=== PATIENT | female | born 1945 | race Caucasian/White ===

== ENCOUNTER 2023-07-17 15:35 | Outpatient (RCR) | payer MEDICARE, BC, SELFPAY | END 2023-07-17 23:59 | disposition home or self-care (01) | LOC: ROT 15:35 | PROVIDERS: ATTENDING PHYSICIAN Psychiatry & Neurology Neurology; FAMILY PHYSICIAN Internal Medicine | DX: G20.A1 Parkinson's disease without dyskinesia, without mention of fluctuations (principal); Z73.6 Limitation of activities due to disability | CPT/HCPCS: 97110; 97112; 97116; 97162; 97167; 97530 ==

== ENCOUNTER 2023-08-01 14:29 | Outpatient (RCR) | payer MEDICARE, BC, SELFPAY | END 2023-08-01 23:59 | disposition home or self-care (01) | LOC: ROT 14:29 | PROVIDERS: ATTENDING PHYSICIAN Psychiatry & Neurology Neurology; FAMILY PHYSICIAN Internal Medicine | DX: G20.C Parkinsonism, unspecified (principal); Z73.6 Limitation of activities due to disability | CPT/HCPCS: 97110; 97112; 97530; 97535 ==

== ENCOUNTER → 2023-08-08 09:07 | Day surgery (SDC) | payer MEDICARE, BC, SELFPAY | LOC: CATH 09:07 | PROVIDERS: ATTENDING PHYSICIAN Internal Medicine Cardiovascular Disease; FAMILY PHYSICIAN Internal Medicine | DX: I48.0 Paroxysmal atrial fibrillation (principal); Z53.09 Procedure and treatment not carried out because of other contraindication; E03.9 Hypothyroidism, unspecified; K21.9 Gastro-esophageal reflux disease without esophagitis; Z79.01 Long term (current) use of anticoagulants | CPT/HCPCS: 93005 ==

== ENCOUNTER 2023-08-19 18:08 | Inpatient (IN) | payer MEDICARE, BC, SELFPAY ==
[2023-08-19] VITALS (16 sets, daily range): BP systolic 83–170; BP diastolic 61–115; BMI 21.0; BMI 19.9
--- NOTE | 2023-08-19 11:40 | ED.GENMED ---
History of Present Illness
<Kip Crowe PA-C - Last Filed: 08/19/23 18:03>
General
Chief Complaint: Chest Pain
Time Seen by Provider: 08/19/23 11:18
Travel History
Have you had any contact with someone who has COVID-19?: No
Do you have any symptoms of coronavirus? Fever > 100 degrees, chills, cough, shortness of breath, sore throat, loss of taste or smell, muscle aches, or headache?: No
History of Present Illness
History of Present Illness:
78-year-old female with history of A-fib/a flutter on Eliquis presents to the emergency department for evaluation of shortness of breath and heart palpitations ongoing intermittently for the past 2 weeks. She saw her director environmental on August 06 and
was noted to be in an atrial tachycardia versus atrial flutter and scheduled for cardioversion however when she arrived to the cardioversion on the she was normal sinus rhythm. She states that her symptoms recurred 3 days ago. She is short of
breath with exertion. Denies any chest pain, fevers but does have occasional sweats particular with exertion. She has been compliant with her meds, currently maintained on dofetilide as well as atenolol and Eliquis.
Past History
<Kip Crowe PA-C - Last Filed: 08/19/23 18:03>
Past History
ED Past Medical History: Arrthythmia (PAT), GERD, HTN, Hypothyroidism and Psychiatric (History of anxiety and depression)
ED Past Surgical History: Other (History of splenectomy, , tonsillectomy)
Patient has exhibited threatening behavior?: No
PSI?: No
Social History
Tobacco: Non-smoker
Alcohol: None
Drug: None
Personal:
Living: alone
Employment: Retired
Review of Systems
<Kip Crowe PA-C - Last Filed: 08/19/23 18:03>
Review of Systems
Allergies reviewed?: Yes
All Other Systems: ROS reviewed and negative except as documented in HPI and ROS
Phy Exam
<Kip Crowe PA-C - Last Filed: 08/19/23 18:03>
Physical Exam
Physical Exam:
GEN: Well appearing, NAD, WDWN
Eyes: PERRLA, EOMs intact, no scleral icterus
HENT: NCAT, oral mucosa moist
Lungs: CTAB, no wheezes, rales, rhonchi, normal chest wall excursion
Cardiac: Tachycardic, regular, no murmur
Neuro: AO x 3
MSK: No gross deformity or ecchymosis
Skin: No rashes, petechiae. Normal color, no pallor or jaundice.
Psych: Calm, cooperative, proper hygiene
Scores
<Kip Crowe PA-C - Last Filed: 08/19/23 18:03>
Heart Score for Chest Pain Patients
STEMI patient?: Not applicable
Course
<Kip Crowe PA-C - Last Filed: 08/19/23 18:03>
Orders/Labs/Results
Orders:
Orders
08/19/23 Breakfast
Cholesterol Lowering
At Your Request: Full Participation
08/19/23 10:42
Electrocardiogram (*1) Urgent
Reason for Study: Atrial Fibrillation
08/19/23 10:43
EKG- Treatment ONCE
08/19/23 11:49
Basic Metabolic Panel Urgent
Complete Blood Count/With Diff Urgent
Free T4 Urgent
TSH Reflex To Free T4 Urgent
08/19/23 12:19
Lorazepam [Ativan] 0.5 mg IV NOW STA
08/19/23 12:24
CARDIOLOGY CONSULT Urgent
Consulting Provider: Cale Melton
Was physician already notified: Yes
Reason for consult: atrial tach/flutter
08/19/23 15:17
Comprehensive Metabolic Panel Urgent
08/19/23 16:40
Admit/Transfer Patient As Directed
Co-Sign Provider:
Level of Care: Inpatient admission
Assign to:: IVU
Physician / Group: Jordin
Diagnosis: Atrial Tachycardia
Reason for Hospitalization: recurrent symptomatic atrial tachycardia
Expected length of stay greater than two midnights?: Yes
ELOS- Estimated Length of Stay in days: 3
I certify the patient meets the requirements for IP care: Yes
08/19/23 16:42
Code Status As Directed
Resuscitation Status: Full Code
08/19/23 17:45
Diltiazem 125 mg/125 ml Nss [Cardizem] 125 mg in 125 ml IV PER PROTOCOL
Initial dose in mg/hr, then titrate:: 5
Titrate to keep:: Heart rate 80-100 bpm
Titrate by mg/hr:: 5 mg/hr
Frequency of titrations (minutes):: 15
Maximum dose in mg/hr:: 15
Abnormal Lab Results
08/19/23 08/19/23
11:49 15:17
RBC 4.18 L 10^6/uL
(4.20-5.40)
MCH 32.1 H pg
(27.0-31.0)
RDW 14.9 H %
(11.5-14.5)
MPV 11.7 H fL
(7.4-10.4)
Absolute Monos (auto) 0.9 H 10^3/uL
(0.1-0.6)
Lymphocytes % 14.2 L %
(20.5-51.1)
Monocytes % 10.7 H %
(1.7-9.3)
Sodium 131 L mmol/L 134 L mmol/L
(135-145) (135-145)
BUN 20 H mg/dl 20 H mg/dl
(7-17) (7-17)
Glucose 108 H mg/dl
(70-99)
TSH (Reflex) 4.73 H uIU/ml
(0.47-4.68)
08/19/23 11:49
08/19/23 15:17
Vital Signs
Initial and Last Documented VS:
Initial Vital Signs
Temp Pulse BP Pulse Ox
97.6 F 117 148/105 100
08/19/23 10:34 08/19/23 10:34 08/19/23 10:34 08/19/23 10:34
Last Documented Vital Signs
Temp Pulse Resp BP Pulse Ox
97.6 F 127 15 152/94 100
08/19/23 10:34 08/19/23 17:45 08/19/23 17:45 08/19/23 14:00 08/19/23 17:45
<Jacky Seivlla, DO - Last Filed: 08/19/23 12:28>
Orders/Labs/Results
Orders:
Orders
08/19/23 Breakfast
Cholesterol Lowering
At Your Request: Full Participation
08/19/23 10:42
Electrocardiogram (*1) Urgent
Reason for Study: Atrial Fibrillation
08/19/23 10:43
EKG- Treatment ONCE
08/19/23 11:49
Basic Metabolic Panel Urgent
Complete Blood Count/With Diff Urgent
Free T4 Urgent
TSH Reflex To Free T4 Urgent
08/19/23 12:19
Lorazepam [Ativan] 0.5 mg IV NOW STA
08/19/23 12:24
CARDIOLOGY CONSULT Urgent
Consulting Provider: Cale Melton
Was physician already notified: Yes
Reason for consult: atrial tach/flutter
08/19/23 15:17
Comprehensive Metabolic Panel Urgent
08/19/23 16:40
Admit/Transfer Patient As Directed
Co-Sign Provider:
Level of Care: Inpatient admission
Assign to:: IVU
Physician / Group: Jordin
Diagnosis: Atrial Tachycardia
Reason for Hospitalization: recurrent symptomatic atrial tachycardia
Expected length of stay greater than two midnights?: Yes
ELOS- Estimated Length of Stay in days: 3
I certify the patient meets the requirements for IP care: Yes
08/19/23 16:42
Code Status As Directed
Resuscitation Status: Full Code
08/19/23 17:45
Diltiazem 125 mg/125 ml Nss [Cardizem] 125 mg in 125 ml IV PER PROTOCOL
Initial dose in mg/hr, then titrate:: 5
Titrate to keep:: Heart rate 80-100 bpm
Titrate by mg/hr:: 5 mg/hr
Frequency of titrations (minutes):: 15
Maximum dose in mg/hr:: 15
Abnormal Lab Results
08/19/23 08/19/23
11:49 15:17
RBC 4.18 L 10^6/uL
(4.20-5.40)
MCH 32.1 H pg
(27.0-31.0)
RDW 14.9 H %
(11.5-14.5)
MPV 11.7 H fL
(7.4-10.4)
Absolute Monos (auto) 0.9 H 10^3/uL
(0.1-0.6)
Lymphocytes % 14.2 L %
(20.5-51.1)
Monocytes % 10.7 H %
(1.7-9.3)
Sodium 131 L mmol/L 134 L mmol/L
(135-145) (135-145)
BUN 20 H mg/dl 20 H mg/dl
(7-17) (7-17)
Glucose 108 H mg/dl
(70-99)
TSH (Reflex) 4.73 H uIU/ml
(0.47-4.68)
08/19/23 11:49
08/19/23 15:17
Vital Signs
Initial and Last Documented VS:
Initial Vital Signs
Temp Pulse BP Pulse Ox
97.6 F 117 148/105 100
08/19/23 10:34 08/19/23 10:34 08/19/23 10:34 08/19/23 10:34
Last Documented Vital Signs
Temp Pulse Resp BP Pulse Ox
97.6 F 127 15 152/94 100
08/19/23 10:34 08/19/23 17:45 08/19/23 17:45 08/19/23 14:00 08/19/23 17:45
<Kip Crowe PA-C - Last Filed: 08/19/23 18:03>
MDM/Problems Addressed
MDM/Problems Addressed:
78-year-old female presents in a rapid atrial arrhythmia likely atrial tachycardia given how regular rate appears to be. She was previously in this rhythm and scheduled for outpatient cardioversion however she was in sinus rhythm at the time of the
cardioversion thus this was aborted. She has had recurrent symptoms for the past 3 days. Patient was apprehensive to elective cardioversion in the emergency department given that this is typically provided only short-term relief in the past, this
is not unreasonable given that she is otherwise clinically stable. Patient was seen in conjunction with cardiology who recommends we admit the patient for transition from dofetilide to amiodarone, admitted to the hospitalist service per request of
cardiology
<Kip Crowe PA-C - Last Filed: 08/19/23 18:03>
Comment
Comment:
EKG independently interpreted by me shows atrial tachycardia versus atrial flutter at a rate of 124, patient motion artifact limits interpretation
*Critical Care Note
Total Time (30-74mins, 75-104mins- exclusive of procedures): Not Applicable
ED Attending Note
<Kip Crowe PA-C - Last Filed: 08/19/23 18:03>
-
Portions of this chart may have been created with voice recognition software.� Occasional wrong word or��sound alike� substitutions may have occurred due to the inherent limitations of voice recognition software.
<Jacky Sevilla DO - Last Filed: 08/19/23 12:28>
ED Attending Note
Patient seen and examined by attending physician: Yes
I performed the substantive portion of visit, reviewed & personally made and approve the management plan that is documented in note by myself or KAYLEIGH.: Yes
ED Attending Note:
I have seen and evaluated the patient with a [id number] encounter. I have spoken to the advance practicer provider and involved in the medical history, the physical exam, medical decision making.
Evaluation and management service: agree unless noted differently below.
Results interpretation: agree unless noted differently below.
Focused HPI: 78-year-old female presenting with recurrent A-fib. She has a history of paroxysmal A-fib and has required ablation and cardioversion in the past.
Physical exam: Tachycardic but comfortable appearing
Medical Decision Making: Patient is not excited about another cardioversion since it did not last long the last time. She is willing to be cardioverted but wants to see cardiology. Will have cardiology consulted to discuss plan
Discharge Plan
Departure
Patient Disposition: Admit
Date of Disposition: 08/19/23
Time of Disposition: 15:39
Admit to: IVU
Presentation/result/management discussed w/ accepting MD/DO: Hospitalist
Discharge Problem:
Atrial tachycardia
Prescriptions:
No Action
Eliquis 5 MG tablet
5 mg PO BID
rasagiline 0.5 MG tablet
0.5 mg PO QPM
docusate sodium 100 MG capsule
100 mg PO DAILYPRN PRN (Reason: constipation)
alprazolam 0.25 MG tablet
0.25 mg PO DAILYPRN PRN (Reason: anxiety)
Patient Comments:
08/19/2023: last filled 05/14/23, 30 tabs for 30 days from [facility]
levothyroxine [Levoxyl] 75 MCG tablet
75 mcg PO MOTUWETHFR
travoprost [Travatan Z] 0.004 % Drops
1 drp BOTH EYES HS
ascorbic acid (vitamin C) [Vitamin C] 500 mg Tablet
500 mg PO DAILY
cholecalciferol (vitamin D3) [Vitamin D3] 25 mcg (1,000 unit) Capsule
25 mcg PO DAILY
atenolol 25 mg tablet
25 mg PO BID
dofetilide 500 mcg capsule
500 mcg PO BID
levothyroxine 50 mcg Tablet
50 mcg PO SA
carbidopa-levodopa 25-100 mg tablet
1 tab PO 5/D@07,11,,,
Patient Comments:
08/19/2023: PT STATES MUST BE TAKEN AT THESE TIMES DUE TO SYMPTOMS BEGIN IF MISSED BY A FEW MINS
furosemide 20 mg tablet
20 mg PO Q48H
Referrals:
Ava Aguilera CRNP [Family Provider] -
Interventions
Interventions:
*Risk Screen - Suicide Last Done: 08/19/23 11:29
*General Assessment Last Done: 08/19/23 11:27
*Neglect/Abuse Screening Last Done: 08/19/23 11:29
ED- Fall Risk Assessment Last Done: 08/19/23 11:20
*ED COVID-19 Vaccine History Last Done: 08/19/23 10:41
ED- Cardiac Assessment Last Done: 08/19/23 11:19
[2023-08-19 12:15] LABS: % Basophils 0.3 % (0-2); % Eosinophils 0.2 % (0-6); % Immature Granulocytes 0.3 % (0-0.5); % Lymphocytes 14.2 % (20.5-51.1); % Monocytes 10.7 % (1.7-9.3); % Neutrophils 74.3 % (42.2-75.2); Absolute Lymphocytes 1.3 10^3/uL (1.2-3.4); Absolute Monocytes 0.9 10^3/uL (0.1-0.6); Absolute Neutrophils 6.5 10^3/uL (1.4-6.5); Hematocrit 38.8 % (37.0-47.0); Hemoglobin 13.4 g/dL (12.0-16.0); Mean Corp Hgb Conc. 34.5 g/dL (33.0-37.0); Mean Corpuscular Hgb 32.1 pg (27.0-31.0); Mean Corpuscular Volume 92.8 fL (81.0-99.0); Mean Platelet Volume 11.7 fL (7.4-10.4); Nucleated Red Blood Cells % 0 %; Platelet Count 305 10^3/uL (130-400); Red Blood Cell Count 4.18 10^6/uL (4.20-5.40); Red Cell Dist. Width 14.9 % (11.5-14.5); White Blood Cell Count 8.8 10^3/uL (4.8-10.8)
[2023-08-19 12:29] LABS: Blood Urea Nitrogen 20 mg/dl (7-17); Calcium 9.4 mg/dl (8.4-10.2); Carbon Dioxide 23 mmol/L (22-30); Chloride 100 mmol/L (98-107); Estimated Creatinine Clearance 50 ml/min; Glucose 108 mg/dl (70-99); Sodium 131 mmol/L (135-145); eGFR > 60.00
[2023-08-19] MEDS: ATIVAN 0.5 MG IV (12:32)
[2023-08-19 12:55] LABS: TSH Reflex To Free T4 4.73 uIU/ml (0.47-4.68)
--- NOTE | 2023-08-19 13:48 | CON.CAR ---
Addendum entered and electronically signed by Cale Melton MD 08/19/23 17:43:
78-year-old woman with history of PVI in 2016 and then December 2022, with recurrences of atrial tachycardia despite addition of dofetilide thereafter. She was recently scheduled for cardioversion in July but was in sinus rhythm upon presentation
on August 08, and has had recurrence of atrial fibrillation since August 11. She has been lightheaded and syncopal, and presents to the emergency department.
PMH/PSH/FH/SH: As below
Allergies and meds: As below
Review of systems: Negative except as described above
No acute distress but heart rate of 115, blood pressure 152/94, head neck exam unremarkable, lungs are clear, cardiac exam tachycardic, regular, abdomen benign, neuro nonfocal, extremities without edema
Hemoglobin 13.4, BUN and creatinine 20 and 0.7, free T4 1.28, EKG atrial tachycardia
Impression:
Symptomatic recurrent atrial arrhythmia
Paroxysmal Afib/tach
s/p PVI 10/2016
s/p PVI 12/19/22Chronic Eliquis OAC
Chronic Tikosyn therapy since 10/2022
HTN
Moderate MR
Pulmonary HTN
Parkinson's disease
Hypothyroidism
GERD/IBS
ITP remote splenectomy
Anxiety/Depression
Plan:
She presents with atrial tachycardia following PVI in 2016 and again in 2022, despite dofetilide. Her atrial tachycardia has been paroxysmal but now persistent for about a week. She is significantly symptomatic at this time.
.
Will admit for rate control with IV diltiazem and continue her beta-glenna. Will stop dofetilide and consider alternatives such as amiodarone or another PVI. Dr. Alvarado to review in AM.
Repeat echocardiogram in AM.
Original Note:
Consultation
Consultation Request
Date/Time Consultation Requested: 08/19/23
Date/Time Consultation Performed: 08/19/23
Requesting Provider: Dr. Sevilla in the ER
Performing Provider: Dr. POLINA Melton
Reason for Consultation: Recurrent atrial arrhythmia, palpitations, lightheaded
Medical History
-
History of Present Illness:
Patient came to [facility] today with palpitations and lightheadedness and cardiology has been consulted fur atrial arrhythmia. Patient previously followed with Dr. Stroud for general cardiology care and then Dr. Alvarado for EP, but is now planning to
follow with Dr. Alvarado upon Dr. Stroud's fdc and has her next appt scheduled for 08/30/23. Patient was started on Tikosyn 10/2022 and then had a repeat PVI 12/19/22. Patient was doing well until recurrence of Afib in early 07/2023. Patient was
seen by Dr. Granger in the office 08/06/23 and recommended an outpatient CV and then to follow up with Dr. Alvarado. Patient was in SR when she presented for CV on 08/08/23. Patient says that she recurred with Afib about 3 days later and has felt
incapacitated since about 08/15/23 which she describes as feeling lightheaded and near syncopal. She says that she washes dishes on her knees because she is afraid she is going to pass out. Patient denies syncope. In the ER patient is in what looks
like atrial tachycardia at 119 bpm. She took her usual doses of atenolol 25 mg BID and Tikosyn 500 mcg q 12 hours this AM. BP is 152/95 and she reports that her BP was previously low, but lately has been very high.
PMH:
Paroxysmal Afib/tach
s/p PVI 10/2016
s/p PVI 12/19/22
Chronic Eliquis OAC
Chronic Tikosyn therapy since 10/2022
HTN
Moderate MR
Pulmonary HTN
Parkinson's disease
Hypothyroidism
GERD/IBS
ITP remote splenectomy
Anxiety/Depression
Past Medical History
Past Medical History: Other (in hPI)
Past Surgical History: Cardiac (PVI 2016, 2022), , Gynecological (hysterectomy) and Other (splenectomy)
Social History
Tobacco: Non-Smoker
Alcohol: None
Drug: None
Family History
Family History: Diabetes and Other (father with Parkinson's disease)
Allergies / Home Medications
Allergy/AdvReac Type Severity Reaction Status Date / Time
codeine Allergy Nausea,HEAD Verified 08/19/23 10:42
ACHE,RASH,D
EDUARDO
Iodinated Contrast Media Allergy Hives Verified 08/19/23 10:42
[Iodinated Contrast Media -
Oral and]
Penicillins Allergy Hives,HEADA Verified 08/19/23 10:42
EUGENIO,RASH,NA
USEA
Sulfa (Sulfonamide Allergy HEADACHE,RA Verified 08/19/23 10:42
Antibiotics) SH,NAUSEA
MOSQUITO Allergy Swelling/RE Uncoded 08/19/23 10:42
DNESS
Medication Instructions Recorded Confirmed Type
apixaban 5 mg tablet (Eliquis) 5 mg PO BID Blood clot 10/08/16 12/19/22 History
prevention/tx
carbidopa 25 mg-levodopa 100 mg 1 tab PO QID Neurological Condition 02/25/20 12/19/22 History
tablet
docusate sodium 100 mg capsule 100 mg PO DAILYPRN PRN constipation 02/25/20 12/19/22 History
rasagiline 0.5 mg tablet 0.5 mg PO QPM Neurological 02/25/20 12/19/22 History
Condition
alprazolam 0.25 mg tablet 0.25 mg PO DAILYPRN PRN anxiety 03/09/20 12/19/22 History
levothyroxine 75 mcg tablet 75 mcg PO MOTUWETHFRSA Thyroid 03/09/20 12/19/22 History
(Levoxyl)
ascorbic acid (vitamin C) 500 mg 500 mg PO DAILY Supplement 11/08/22 12/19/22 History
tablet (Vitamin C)
cholecalciferol (vitamin D3) 25 25 mcg PO DAILY Supplement 11/08/22 12/19/22 History
mcg (1,000 unit) capsule (Vitamin
D3)
travoprost 0.004 % eye drops 1 drp BOTH EYES HS Eye Condition 11/08/22 12/19/22 History
(Travatan Z)
atenolol 25 mg tablet 25 mg PO BID 12/07/22 12/19/22 History
dofetilide 500 mcg capsule 500 mcg PO BID 12/19/22 12/19/22 History
furosemide 20 mg tablet 20 mg PO DAILY #90 tabs 12/20/22 Rx
hydralazine 25 mg tablet 25 mg PO TID 2 weeks #42 tabs 05/06/23 Rx
Review of Systems
-
History Source: Patient and Family (son by phone)
All other systems: Negative unless noted
Physical Exam
Vital Signs
Temp Pulse Resp BP Pulse Ox
97.6 F 120 17 167/94 97
08/19/23 10:34 08/19/23 13:00 08/19/23 13:00 08/19/23 12:00 08/19/23 13:00
GEN: NAD, AAOx3
HEENT: EOMI, MMM
LUNGS: CTA B/L, no wheezes/rales
CV: Irreg, no murmur
ABD: soft, BS+, NT, ND
EXT: No clubbing, cyanosis, lesions or edema B/L
NEURO: Tremulous. Gross non-focal
SKIN: No rash
Lab Results
08/19/23 11:49
Impression / Plan
-
PCP: Liliya Pickett MD
Cardiology: Previously Dr. Stroud and Dr. Alvarado for EP, but now transitioning to Dr. Alvarado for all cardiology care
Impression:
Symptomatic recurrent atrial arrhythmia
Paroxysmal Afib/tach
s/p PVI 10/2016
s/p PVI 12/19/22
Chronic Eliquis OAC
Chronic Tikosyn therapy since 10/2022
HTN
Moderate MR
Pulmonary HTN
Parkinson's disease
Hypothyroidism
GERD/IBS
ITP remote splenectomy
Anxiety/Depression
Echo 11/09/22: EF 65-70%, mild to mod MR, mod TR with mild PHTN
Plan:
-Patient came to [facility] today with palpitations and lightheadedness and cardiology has been consulted fur atrial arrhythmia. Patient previously followed with Dr. Stroud for general cardiology care and then Dr. Alvarado for EP, but is now planning to
follow with Dr. Alvarado upon Dr. Stroud's fdc and has her next appt scheduled for 08/30/23. Patient was started on Tikosyn 10/2022 and then had a repeat PVI 12/19/22. Patient was doing well until recurrence of Afib in early 07/2023. Patient was
seen by Dr. Granger in the office 08/06/23 and recommended an outpatient CV and then to follow up with Dr. Alvarado. Patient was in SR when she presented for CV on 08/08/23. Patient says that she recurred with Afib about 3 days later and has felt
incapacitated since about 08/15/23 which she describes as feeling lightheaded and near syncopal. She says that she washes dishes on her knees because she is afraid she is going to pass out. Patient denies syncope. In the ER patient is in what looks
like atrial tachycardia at 119 bpm. She took her usual doses of atenolol 25 mg BID and Tikosyn 500 mcg q 12 hours this AM. BP is 152/95 and she reports that her BP was previously low, but lately has been very high.
-ECG reviewed by me with atrial tachycardia, no ischemic changes
-Talked with patient and her son, by phone, about options including attempts at rate control by increasing atenolol vs CV in the ER with the understanding that she might recur with Afib/tach prior to her Dr. Alvarado appt on 08/30/23 or admission with
Tikosyn washout and initiation of amiodarone. Patient is talking it over with her son.
-Cont usual dose of Eliquis 5 mg BID (age 78, Cre 0.7 and wt 59 kg)
-Patient still plans on seeing Dr. Alvarado in the office 08/30/23.
[2023-08-19 14:29] LABS: Free T4 1.28 ng/dl (0.78-2.19)
[2023-08-19 15:48] LABS: ALT (SGPT) < 10 U/L (0-35); AST (SGOT) 24 U/L (14-36); Albumin 4.2 g/dl (3.5-5.0); Alkaline Phosphatase 64 U/L (38-126); Blood Urea Nitrogen 20 mg/dl (7-17); Calcium 9.6 mg/dl (8.4-10.2); Carbon Dioxide 28 mmol/L (22-30); Chloride 98 mmol/L (98-107); Estimated Creatinine Clearance 64 ml/min; Glucose 91 mg/dl (70-99); Potassium 4.6 mmol/L (3.5-5.1); Sodium 134 mmol/L (135-145); Total Bilirubin 0.9 mg/dl (0.2-1.3); Total Protein 7.2 g/dl (6.3-8.2); eGFR > 60.00
--- NOTE | 2023-08-19 16:49 | HPS.HSE ---
Addendum entered and electronically signed by Chu Brenner MD 08/19/23 17:14:
I saw and examined the patient.
The NURSE RECEPTIONIST or PA's note was reviewed and I agree with the note.
Comment: As noted in history and discussed patient continues to have symptomatic paroxysmal atrial fibrillation with RVR and immediately feels when she goes in and out of it has had prior cardioversion that was unsuccessful and most recent attempt
on the that was scheduled presented in sinus rhythm and attempt aborted. She returns now with continued paroxysms of A-fib RVR and symptomatology consistent. With dizziness lightheadedness and palpitations she is refusing further attempts at
cardioversion she has been maintained rate more recently on dofetilide and plan now after discussion with cardiology is for washout of dofetilide with rate control to be managed with combination of beta-blockade and diltiazem will be ordered by
cardiology tonight. Continue to manage paroxysms of RVR and hypertension with consideration toward placing on amiodarone loading going forward. Her other medical issues include parkinsonism continue levodopa carbidopa/ rasagiline continue on
baseline atenolol to be adjusted by cardiology as needed. Slight TSH elevation with normal T4 unrelated. Continue anticoagulation with Eliquis would hold any dosing of furosemide that she takes as needed for now.
Original Note:
Family Physician
-
Family Physician: JADA aMher
Chief Complaint
-
Palpitations
History of Present Illness
Patient is a 78 y/o female with PMH of paroxysmal atrial fibrillation, hypertension, Parkinson's disease, and hypothyroidism who presents complaining of intermittent dizziness, lightheadedness, palpitations, and mild SOB since Saturday08/16/23.
Patient says she usually just feels a little 'not right' when she is in atrial fibrillation, but her symptoms have been more severe with this episode. Patient states that she has been nearly bed bound for the past few days due to these symptoms.
She was scheduled for a cardioversion on Aug 08, but upon arrival was found to be in normal sinus rhythm.
Medical History
Past Medical History
Past Medical History: Reports Other
Additional Past Medical History:
Paroxysmal Atrial Fibrillation
Essential Hypertension
Parkinson's Disease
Hypothyroidism
Generalized Anxiety Disorder
Past Surgical History: Reports Other
Additional Past Surgical History:
Splenectomy
Hysterectomy
Social History
Tobacco: Non-smoker
Alcohol: None
Family History
Family History: Not pertinent
Allergies / Home Medications
Allergies reflects when Allergies were last updated in [facility].
Home Medications with original date entered in [facility]
Allergy/Medication List:
Allergies
Allergy/AdvReac Type Severity Reaction Status Date / Time
codeine Allergy Nausea,HEAD Verified 08/19/23 10:42
ACHE,RASH,D
EDUARDO
Iodinated Contrast Media Allergy Hives Verified 08/19/23 10:42
[Iodinated Contrast Media -
Oral and]
Penicillins Allergy Hives,HEADA Verified 08/19/23 10:42
EUGENIO,RASH,NA
USEA
Sulfa (Sulfonamide Allergy HEADACHE,RA Verified 08/19/23 10:42
Antibiotics) SH,NAUSEA
MOSQUITO Allergy Swelling/RE Uncoded 08/19/23 10:42
DNESS
Home Medications
apixaban 5 mg tablet (Eliquis) 5 mg PO BID Blood clot prevention/tx 10/08/16
docusate sodium 100 mg capsule 100 mg PO DAILYPRN PRN constipation 02/25/20
rasagiline 0.5 mg tablet 0.5 mg PO QPM Neurological Condition 02/25/20
alprazolam 0.25 mg tablet 0.25 mg PO DAILYPRN PRN anxiety 03/09/20
levothyroxine 75 mcg tablet (Levoxyl) 75 mcg PO MOTUWETHFR Thyroid 03/09/20
ascorbic acid (vitamin C) 500 mg tablet (Vitamin C) 500 mg PO DAILY Supplement 11/08/22
cholecalciferol (vitamin D3) 25 mcg (1,000 unit) capsule (Vitamin D3) 25 mcg PO DAILY Supplement 11/08/22
travoprost 0.004 % eye drops (Travatan Z) 1 drp BOTH EYES HS Eye Condition 11/08/22
atenolol 25 mg tablet 25 mg PO BID 12/07/22
dofetilide 500 mcg capsule 500 mcg PO BID 12/19/22
carbidopa 25 mg-levodopa 100 mg tablet 1 tab PO 5/D@07,11,15,19,23 08/19/23
furosemide 20 mg tablet 20 mg PO Q48H 08/19/23
levothyroxine 50 mcg tablet 50 mcg PO SA 08/19/23
Review of Systems
-
A 12 point ROS was completed and negative except as noted: Yes
Constitutional: Denies Fever or Chills
Respiratory: Denies Cough or Trouble Breathing
Cardiac: Reports Palpitations; Denies Chest Pain
Neurological: Reports Dizzy
Physical Exam
Vital Signs
Vital Signs
Temp Pulse Resp BP Pulse Ox
97.6 F 118 22 152/95 100
08/19/23 10:34 08/19/23 13:52 08/19/23 13:52 08/19/23 13:52 08/19/23 13:52
Physical Exam
General: Comfortable and Conversant
HEENT: Anicteric and Moist mucous membranes
Respiratory: Clear and Non Labored Respirations
Cardiac: S1/S2 and Regular Rhythm
GI: Soft and Non Tender
Rectal: Deferred by Provider
Musculoskeletal: No Clubbing, No Cyanosis and No Edema
Skin: Warm and Dry
Neuro: Awake, Alert, Oriented and Nonfocal/grossly intact
Laboratory Results
-
08/19/23 11:49
08/19/23 15:17
Laboratory Results
Total Bilirubin 0.9 mg/dl (0.2-1.3) 03/04/24 15:17
AST 24 U/L (14-36) 08/19/23 15:17
ALT < 10 U/L (0-35) 08/19/23 15:17
Alkaline Phosphatase 64 U/L (38-126) 08/19/23 15:17
Data Reviewed
-
Lab Data: Labs Reviewed by me
Old Records: Reviewed
Impression/Plan
-
Symptomatic Recurrent Atrial Arrhythmia
-Consult Cardiology
-Plan for Tikosyn washout followed by initiation of Amiodarone as per Cardiology
-Continue Eliquis
Essential Hypertension
-Continue atenolol and hydralazine
Parkinson's Disease
-Continue carbidopa/levodopa
-Continue rasagiline
Hypothyroidism
-Continue levothyroxine
Generalized Anxiety Disorder
-Continue alprazolam prn as prior to admission
DVT proph: Eliquis
Code Status: Full Code
[2023-08-19] MEDS: CARDIZEM 125 IV (18:06)
[2023-08-19] MEDS: ELIQUIS 5 MG PO (20:41)
[2023-08-19] MEDS: RASAGILINE MESYLATE 0.5 MG PO (20:41)
[2023-08-19] MEDS: SINEMET 25-100 1 TABLET PO ×2 (20:41→23:08)
[2023-08-19] MEDS: TENORMIN PO (20:42)
[2023-08-19] MEDS: XANAX 0.25 MG PO (23:08)
--- NOTE | 2023-08-19 23:41 | PTCARENOTE ---
Received pt from ED. Oriented to room. Belongings w/ pt. AOx3. Tele- afib. Pt ambulatory from stretcher to bed via via standby assist. Pt states feeling dizzy/lightheaded on ambulation. Cardizem gtt infusing at 5mg/hr. BP 89/61. Cardizem gtt put on
standby. Atenolol held per administration parameters. Messi Gabriel MD made aware. After approx two hours, BP stabilized. 125/78. Cardizem gtt restarted at 5mg/hr. No longer complains of dizziness. Currently in bed; call kuldeep w/in reach.
[2023-08-20] VITALS (39 sets, daily range): BP systolic 66–152; BP diastolic 52–103; PULSE 68–140; BMI 19.7
--- NOTE | 2023-08-20 01:47 | PTCARENOTE ---
BP 78/64. No complaints of dizziness/lightheadedness. Cardizem put on standby. After reassessment, BP 89/70.
--- NOTE | 2023-08-20 04:11 | PTCARENOTE ---
Pt converted to SR around 0338. BP 109/74. Cardizem off.
[2023-08-20 04:24] LABS: Hematocrit 37.5 % (37.0-47.0); Hemoglobin 13.2 g/dL (12.0-16.0); Mean Corp Hgb Conc. 35.2 g/dL (33.0-37.0); Mean Corpuscular Hgb 31.9 pg (27.0-31.0); Mean Corpuscular Volume 90.6 fL (81.0-99.0); Mean Platelet Volume 10.9 fL (7.4-10.4); Platelet Count 281 10^3/uL (130-400); Red Blood Cell Count 4.14 10^6/uL (4.20-5.40); Red Cell Dist. Width 14.5 % (11.5-14.5); White Blood Cell Count 8.4 10^3/uL (4.8-10.8)
[2023-08-20 04:48] LABS: Blood Urea Nitrogen 20 mg/dl (7-17); Calcium 9.2 mg/dl (8.4-10.2); Carbon Dioxide 22 mmol/L (22-30); Chloride 104 mmol/L (98-107); Estimated Creatinine Clearance 52 ml/min; Glucose 87 mg/dl (70-99); Potassium 4.9 mmol/L (3.5-5.1); Sodium 132 mmol/L (135-145); eGFR > 60.00
[2023-08-20] MEDS: SYNTHROID 75 MCG PO (05:35)
--- NOTE | 2023-08-20 05:57 | PTCARENOTE ---
Pt back in afib. Appears to be flipping in and out of SR.
[2023-08-20] MEDS: SINEMET 25-100 1 TABLET PO ×5 (06:21→22:29)
--- NOTE | 2023-08-20 07:39 | W.PN.HOSP.TC ---
Today's Communication/Plan
-
Undergoing dofetilide washout
Continue on apixaban
A-fib and RVR management deferred to cardiology
Continue as needed beta-blockade IV/diltiazem monitor for hypotension
Assessment / Plan
Assessment / Plan
Patient is a 78 y/o female with PMH of paroxysmal atrial fibrillation, hypertension, Parkinson's disease, and hypothyroidism who presents complaining of intermittent dizziness, lightheadedness, palpitations, and mild SOB since Saturday08/16/23.
Patient says she usually just feels a little 'not right' when she is in atrial fibrillation, but her symptoms have been more severe with this episode. Patient states that she has been nearly bed bound for the past few days due to these symptoms.�
She was scheduled for a cardioversion on Aug 08, but upon arrival was found to be in normal sinus rhythm.
Symptomatic Recurrent Atrial Arrhythmia/prior PVI/refused cardioversion in the ED
-Consult Cardiology
-Placed on diltiazem drip overnight going in and out of A-fib and sinus rhythm also periods of hypotension as low as the 60s
-Plan for Tikosyn washout followed by initiation of Amiodarone as per Cardiology
-Continue Eliquis
Essential Hypertension
-Continue atenolol and hydralazine
Parkinson's Disease
-Continue carbidopa/levodopa
-Continue rasagiline
-Stable status
Hypothyroidism
-Continue levothyroxine
-TSH mildly elevated however free T4 within normal limits no change in status or treatment
Generalized Anxiety Disorder
-Continue alprazolam prn as prior to admission
DVT proph: Eliquis
Code Status: Full Code
Anticipated Discharge: 24 - 48 hours
Subjective/Interval History
-
Date of Service: August 20, 2023
Continued with off-and-on again atrial fibrillation with RVR and symptomatic with lightheadedness BP dropped to the 60s briefly.
Objective Data
-
Labs:
Laboratory Results
08/20/23
03:53
WBC 8.4
Hgb 13.2
Hct 37.5
Plt Count 281
Sodium 132 L
Potassium 4.9
Chloride 104
Carbon Dioxide 22
BUN 20 H
Creatinine 0.8
Glucose 87
Calcium 9.2
Vital Signs:
Vital Signs
Temp Pulse Resp BP Pulse Ox
98.2 F 137 16 134/97 94
08/20/23 03:31 08/20/23 06:45 08/20/23 03:31 08/20/23 05:34 08/20/23 03:31
Review of Systems
-
History Source: Patient
Constitutional: Reports Fatigue, Sleep Disturbance and Weakness
Physical Exam
-
General: Well Developed
HEENT: Normocephalic
Respiratory: Clear to Auscultation
Cardiac: Irregular Rhythm and Tachycardic (130)
GI: Soft
Neuro: Awake, Alert, Oriented and AO x 3
Psych: Anxious
Data Reviewed
-
Total Time Spent with Patient (in minutes): 45
Labs: Labs Reviewed by me (Sodium 132)
[2023-08-20] MEDS: ELIQUIS 5 MG PO ×2 (08:10→20:11)
[2023-08-20] MEDS: TENORMIN PO (09:18)
[2023-08-20] MEDS: PACERONE 200 MG PO ×2 (10:37→20:10)
[2023-08-20] MEDS: TENORMIN 25 MG PO ×2 (10:38→20:48)
--- NOTE | 2023-08-20 11:24 | W.PN.CARDCBS ---
Today's Communication / Plan
-
Cont Amiodarone 200 mg BID
Cardioversion inpt vs outpt
Outpt EP follow up already scheduled.
Impression / Plan
-
PCP: Liliya Pickett MD
Cardiology: Previously Dr. Stroud and Dr. Alvarado for EP, but now transitioning to Dr. Alvarado for all cardiology care
Impression:
Symptomatic recurrent atrial arrhythmia
Paroxysmal Afib/tach
s/p PVI 10/2016
s/p PVI 12/19/22
Chronic Eliquis OAC
Chronic Tikosyn therapy since 10/2022
HTN
Moderate MR
Pulmonary HTN
Parkinson's disease
Hypothyroidism
GERD/IBS
ITP remote splenectomy
Anxiety/Depression
Echo 11/09/22: EF 65-70%, mild to mod MR, mod TR with mild PHTN
Plan:
HPI:[facility] today with palpitations and lightheadedness and cardiology has been consulted fur atrial arrhythmia. Patient previously followed with Dr. Stroud for general cardiology care and then Dr. Alvarado for EP, but is now planning
to follow with Dr. Alvarado upon Dr. Stroud's fci and has her next appt scheduled for 08/30/23. Patient was started on Tikosyn 10/2022 and then had a repeat PVI 12/19/22. Patient was doing well until recurrence of Afib in early 07/2023. Patient
was seen by Dr. Granger in the office 08/06/23 and recommended an outpatient CV and then to follow up with Dr. Alvarado. Patient was in SR when she presented for CV on 08/08/23. Patient says that she recurred with Afib about 3 days later and has felt
incapacitated since about 08/15/23 which she describes as feeling lightheaded and near syncopal. She says that she washes dishes on her knees because she is afraid she is going to pass out. Patient denies syncope. In the ER patient is in what looks
like atrial tachycardia at 119 bpm. She took her usual doses of atenolol 25 mg BID and Tikosyn 500 mcg q 12 hours this AM. BP is 152/95 and she reports that her BP was previously low, but lately has been very high.
Reviewed with EP, Amiodarone load 200 mg BID and eventual cardioversion prior to d/c vs outpt.
Cont Atenolol.
Remains off Tikosyn.
Cont usual dose of Eliquis 5 mg BID (age 78, Cre 0.7 and wt 59 kg)
Patient still plans on seeing Dr. Alvarado in the office 08/30/23.
Progress Note - Veterinary Manager
Subjective
Date of Service: August 20, 2023
Pt seen and examined. No complaints. No chest pain or shortness of breath.
Objective
Labs:
08/20/23 03:53
08/20/23 03:53
Labs
Hgb 13.2 g/dL (12.0-16.0) 08/20/23 03:53
Hct 37.5 % (37.0-47.0) 08/20/23 03:53
Plt Count 281 10^3/uL (130-400) 08/20/23 03:53
Sodium 132 mmol/L (135-145) L 08/20/23 03:53
Potassium 4.9 mmol/L (3.5-5.1) 08/20/23 03:53
BUN 20 mg/dl (7-17) H 08/20/23 03:53
Creatinine 0.8 mg/dL (0.6-1.0) 08/20/23 03:53
Glucose 87 mg/dl (70-99) 08/20/23 03:53
Vital Signs and I&O:
Vital Signs
Temp Pulse Resp BP Pulse Ox
98.4 F 119 16 108/52 99
08/20/23 11:15 08/20/23 11:15 08/20/23 11:15 08/20/23 10:38 08/20/23 11:15
Vital Signs
Temp Pulse Resp BP Pulse Ox
98.4 F 119 16 108/52 99
08/20/23 11:15 08/20/23 11:15 08/20/23 11:15 08/20/23 10:38 08/20/23 11:15
Intake & Output
08/18/23 08/19/23 08/20/23 08/21/23
06:59 06:59 06:59 06:59
Intake Total 240 / 240
Balance 240 / 240
Physical Exam
Physical Exam
General: No acute distress, AAOX3
Neck: Negative JVD
Heart: Irregularly irregular, Negative S3 positive S1/S2, Negative S4, No murmur
Lungs: CTA b/l, negative wheezes/rales/rhonchi
Abd: Positive BS, NT/ND, neg rebound/rigidity/guarding
Ext: Negative cyanosis/clubbing/edema
Neuro: nonfocal
--- NOTE | 2023-08-20 11:48 | CM ---
Chart reviewed. Patient is independent of ADLS, lives alone in a [address], 2 [address], 0 DME. Plan is for the patient to return home. CM to follow
--- NOTE | 2023-08-20 12:06 | PTCARENOTE ---
Reviewed new medication education with patient and confirmed with her that MD also talked to her about plan of care as well. Patient is pleasant, but anxious about feeling lightheaded again. Thus far into shift, she has not experienced syncope or
lightheadedness. Blood pressures have also been stable. Cardizem gtt discontinued, now on PO amiodarone.
--- NOTE | 2023-08-20 17:18 | PTCARENOTE ---
Made cardiology MD construction or leak gang laborer aware of patients increased frequency in pauses. They remain only as high as 1.2seconds, MD stated that unless pauses are longer than 5 seconds cardiology does not need to be notified.
[2023-08-20] MEDS: RASAGILINE MESYLATE 0.5 MG PO (17:31)
[2023-08-20] MEDS: XANAX 0.25 MG PO (22:23)
[2023-08-20] MEDS: TRAVATAN Z 1 DROP BOTH EYES (22:24)
--- NOTE | 2023-08-20 23:34 | PTCARENOTE ---
Received pt at handoff. Tele- Afib. Assessment noted as documented. Offers no complaints. POC reviewed w/ pt. Currently in bed; call kuldeep w/in reach.
[2023-08-21] VITALS (18 sets, daily range): BP systolic 104–162; BP diastolic 59–138; PULSE 84–118; BMI 19.9
[2023-08-21] MEDS: SYNTHROID 75 MCG PO (05:51)
[2023-08-21] MEDS: SINEMET 25-100 1 TABLET PO ×5 (05:52→23:13)
--- NOTE | 2023-08-21 07:58 | W.PN.HOSP.TC ---
Addendum entered and electronically signed by Chu Brenner MD 08/23/23 15:55:
Abnormal lab value hyponatremia clinically insignificant
Original Note:
Today's Communication/Plan
-
Await further loading of amiodarone
Management of rate and BP as per cardiology
She remains orthostatic on standing
Continue to monitor BMP
Assessment / Plan
Assessment / Plan
Patient is a 78 y/o female with PMH of paroxysmal atrial fibrillation, hypertension, Parkinson's disease, and hypothyroidism who presents complaining of intermittent dizziness, lightheadedness, palpitations, and mild SOB since Saturday08/16/23.
Patient says she usually just feels a little 'not right' when she is in atrial fibrillation, but her symptoms have been more severe with this episode. Patient states that she has been nearly bed bound for the past few days due to these symptoms.�
She was scheduled for a cardioversion on Aug 08, but upon arrival was found to be in normal sinus rhythm.
Symptomatic Recurrent Atrial Arrhythmia/prior PVI/refused cardioversion in the ED
-Consult Cardiology
-Plan for Tikosyn washout followed by initiation of Amiodarone as per Cardiology
-Continue Eliquis
Essential Hypertension
-Continue atenolol and hydralazine
Parkinson's Disease
-Continue carbidopa/levodopa
-Continue rasagiline
-Stable status
Hypothyroidism
-Continue levothyroxine
-TSH mildly elevated however free T4 within normal limits no change in status or treatment
Generalized Anxiety Disorder
-Continue alprazolam prn as prior to admission
DVT proph: Eliquis
Code Status: Full Code
Anticipated Discharge: 24 - 48 hours
Subjective/Interval History
-
Date of Service: August 21, 2023
Continues to have sensation of lightheadedness especially when noted to have pauses on monitor that she notices. She remains orthostatic with standing
Objective Data
-
Vital Signs:
Vital Signs
Temp Pulse Resp BP Pulse Ox
97.6 F 110 18 160/107 100
08/21/23 07:23 08/21/23 07:23 08/21/23 07:23 08/21/23 07:23 08/21/23 07:23
I&O
08/20/23 08/21/23 08/22/23
06:59 06:59 06:59
Intake Total 1200 / 1200
Output Total 240 / 240
Balance 960 / 960
Review of Systems
-
History Source: Patient
Constitutional: Reports Weakness
EENT: Reports No Symptoms Reported
Respiratory: Reports No Symptoms
Cardiac: Reports No Symptoms
Physical Exam
-
General: Well Developed
HEENT: Normocephalic
Respiratory: Clear to Auscultation
Cardiac: Irregular Rhythm and Tachycardic
Neuro: Awake and Tremors
Data Reviewed
-
Total Time Spent with Patient (in minutes): 56
Labs: Labs Reviewed by me
[2023-08-21] MEDS: TENORMIN 25 MG PO ×2 (08:02→19:59)
[2023-08-21] MEDS: ELIQUIS 5 MG PO ×2 (08:02→19:59)
[2023-08-21] MEDS: PACERONE 200 MG PO ×2 (08:02→19:59)
--- NOTE | 2023-08-21 09:05 | W.PN.CARDCBS ---
Addendum entered and electronically signed by Karla Cano MD 08/21/23 09:22:
I saw and examined the patient.
The Slackline Operator's note was reviewed and I agree with the note.
Comment:
Patient is doing better overall with paroxysmal atrial arrhythmias. Feeling better overall.
She continues on amiodarone load. Tikosyn has been washed out. QT interval stable. She continues on oral anticoagulation.
She understands that it will take some time to load amiodarone and during this time she will have some atrial arrhythmias.
She will increase hydration. We will have physical therapy see her and also check orthostatic vital signs. She gets dizzy first thing in the morning when she is standing brushing her teeth and hydration prior was encouraged.
If stable today will be discharged with follow-up as noted with electrophysiology on 08/29.
Telemetry reviewed. All questions answered
Original Note:
Today's Communication / Plan
-
Check PT eval and orthostatics
Home later today pending above
Cont amiodarone 200 mg BID
Impression / Plan
-
PCP: Liliya Pickett MD
Cardiology: Previously Dr. Stroud and Dr. Alvarado for EP, but now transitioning to Dr. Alvarado for all cardiology care
Impression:
Symptomatic recurrent atrial arrhythmia
Paroxysmal Afib/tach
s/p PVI 10/2016
s/p PVI 12/19/22
Chronic Eliquis OAC
Chronic Tikosyn therapy since 10/2022
last dose 08/19/23 AM
HTN
Moderate MR
Pulmonary HTN
Parkinson's disease
Hypothyroidism
GERD/IBS
ITP remote splenectomy
Anxiety/Depression
Echo 11/09/22: EF 65-70%, mild to mod MR, mod TR with mild PHTN
Plan:
-Patient with decreasing atrial tachycardia and increasing sinus rhythm. Will continue with amiodarone 200 mg BID. Reviewed with patient that amiodarone loading will continue as an outpatient and that there is no role for a CV at this point.
-Tikosyn stopped on admission, last dose 08/19/23
-Cont usual dose of Eliquis 5 mg BID (age 78, Cre 0.7 and wt 59 kg)
-Patient reports morning time lightheadedness, especially noticeable with getting up to brush her teeth. Check orthostatic VS and will ask PT to evaluate
-Patient with a known h/o Parkinson's disease
-Patient is already scheduled to see EP in the office 08/30/23.
-If patient does well with PT and is not profoundly orthostatic will plan to d/c to home 08/21/23
HPI:Patient came [facility] today with palpitations and lightheadedness and cardiology has been consulted fur atrial arrhythmia. Patient previously followed with Dr. Stroud for general cardiology care and then Dr. Alvarado for EP, but is now planning
to follow with Dr. Alvarado upon Dr. Stroud's jail and has her next appt scheduled for 08/30/23. Patient was started on Tikosyn 10/2022 and then had a repeat PVI 12/19/22. Patient was doing well until recurrence of Afib in early 07/2023. Patient
was seen by Dr. Granger in the office 08/06/23 and recommended an outpatient CV and then to follow up with Dr. Alvarado. Patient was in SR when she presented for CV on 08/08/23. Patient says that she recurred with Afib about 3 days later and has felt
incapacitated since about 08/15/23 which she describes as feeling lightheaded and near syncopal. She says that she washes dishes on her knees because she is afraid she is going to pass out. Patient denies syncope. In the ER patient is in what looks
like atrial tachycardia at 119 bpm. She took her usual doses of atenolol 25 mg BID and Tikosyn 500 mcg q 12 hours this AM. BP is 152/95 and she reports that her BP was previously low, but lately has been very high.
Progress Note - Senior Clinical Project Manager
Subjective
Date of Service: August 21, 2023
She gets lightheaded when she stands up sometimes
Objective
Labs:
08/20/23 03:53
08/20/23 03:53
Labs
Hgb 13.2 g/dL (12.0-16.0) 08/20/23 03:53
Hct 37.5 % (37.0-47.0) 08/20/23 03:53
Plt Count 281 10^3/uL (130-400) 08/20/23 03:53
Sodium 132 mmol/L (135-145) L 08/20/23 03:53
Potassium 4.9 mmol/L (3.5-5.1) 08/20/23 03:53
BUN 20 mg/dl (7-17) H 08/20/23 03:53
Creatinine 0.8 mg/dL (0.6-1.0) 08/20/23 03:53
Glucose 87 mg/dl (70-99) 08/20/23 03:53
Vital Signs and I&O:
Vital Signs
Temp Pulse Resp BP Pulse Ox
97.6 F 118 18 126/73 100
08/21/23 07:23 08/21/23 08:02 08/21/23 07:23 08/21/23 08:02 08/21/23 07:23
Vital Signs
Temp Pulse Resp BP Pulse Ox
97.6 F 118 18 126/73 100
08/21/23 07:23 08/21/23 08:02 08/21/23 07:23 08/21/23 08:02 08/21/23 07:23
Intake & Output
08/19/23 08/20/23 08/21/23 08/22/23
06:59 06:59 06:59 06:59
Intake Total 1200 / 1200
Output Total 240 / 240
Balance 960 / 960
Physical Exam
Physical Exam
GEN: NAD, AAOx3
HEENT: EOMI, MMM
LUNGS: CTA B/L, no wheezes/rales
CV: Irreg, no murmur
ABD: soft, BS+, NT, ND
EXT: No clubbing, cyanosis, lesions or edema B/L
NEURO: Tremulous. Gross non-focal
SKIN: No rash
--- NOTE | 2023-08-21 10:55 | PTCARENOTE ---
Pt noted to be in NSR and have multiple 1.35 second pauses. These pauses were more frequent while standing. Will monitor.
--- NOTE | 2023-08-21 14:21 | CM ---
Chart reviewed. Patient is independent of ADLS, lives alone in a 1 [address], 2 [address], 0 DME. Patient currently with no needs. Plan is for the patient to return home.
[2023-08-21] MEDS: RASAGILINE MESYLATE 0.5 MG PO (17:58)
[2023-08-21] MEDS: NSS 500 IV (17:58)
[2023-08-21] MEDS: COLACE 100 MG PO (21:26)
[2023-08-21] MEDS: TRAVATAN Z 1 DROP BOTH EYES (21:26)
--- NOTE | 2023-08-22 02:14 | PTCARENOTE ---
Assumed care of patient at change of shift. Patient ambulating self in hallways w/ slow gait. Denied any dizziness or discomfort. Patient intermittently in Atrial tach or Sinus bradycardia. HR fluctuates back and forth. VSS. Patient aware of POC,
call light in reach.
[2023-08-22 04:40] VITALS: BP 148/84
[2023-08-22 04:57] VITALS: BMI 19.9
[2023-08-22 05:56] LABS: Blood Urea Nitrogen 23 mg/dl (7-17); Calcium 9.3 mg/dl (8.4-10.2); Carbon Dioxide 29 mmol/L (22-30); Chloride 100 mmol/L (98-107); Estimated Creatinine Clearance 47 ml/min; Glucose 89 mg/dl (70-99); Potassium 4.5 mmol/L (3.5-5.1); Sodium 136 mmol/L (135-145); eGFR > 60.00
[2023-08-22] MEDS: SYNTHROID 75 MCG PO (06:03)
[2023-08-22] MEDS: SINEMET 25-100 1 TABLET PO (06:41)
[2023-08-22 07:04] VITALS: BP 163/106
[2023-08-22 07:05] VITALS: BP 172/107
[2023-08-22 07:13] VITALS: BP 156/118
--- NOTE | 2023-08-22 07:34 | W.DS.TRANS ---
DC Summary - Government Documents Librarian
-
Discharge Instructions:
Sleep Apnea Risk Low
Discharge Diagnosis/Procedures Symptomatic recurrent atrial arrhythmia
Paroxysmal atrial fibrillation
Parkinson's
Hypothyroid
Anxiety
Diet Regular
Activity As tolerated
Driving Restrictions No driving
Instructions:
Stand-Alone Forms:
Changes to Home Medications: Yes
Discharge Medications:
DC Medications w/original date entered in [facility]
apixaban 5 mg tablet (Eliquis) 5 mg PO BID Blood clot prevention/tx 10/08/16
docusate sodium 100 mg capsule 100 mg PO DAILYPRN PRN constipation 02/25/20
rasagiline 0.5 mg tablet 0.5 mg PO QPM Neurological Condition 02/25/20
alprazolam 0.25 mg tablet 0.25 mg PO DAILYPRN PRN anxiety 03/09/20
levothyroxine 75 mcg tablet (Levoxyl) 75 mcg PO MOTUWETHFR Thyroid 03/09/20
ascorbic acid (vitamin C) 500 mg tablet (Vitamin C) 500 mg PO DAILY Supplement 11/08/22
cholecalciferol (vitamin D3) 25 mcg (1,000 unit) capsule (Vitamin D3) 25 mcg PO DAILY Supplement 11/08/22
travoprost 0.004 % eye drops (Travatan Z) 1 drp BOTH EYES HS Eye Condition 11/08/22
atenolol 25 mg tablet 25 mg PO BID Blood Pressure 12/07/22
carbidopa 25 mg-levodopa 100 mg tablet 1 tab PO 5/D@07,11,15,19,23 08/19/23
furosemide 20 mg tablet 20 mg PO Q48H Fluid Retention/Swelling 08/19/23
levothyroxine 50 mcg tablet 50 mcg PO SA Thyroid 08/19/23
amiodarone 200 mg tablet (Pacerone) 200 mg PO BID #60 tabs 08/22/23
Home Medication Changes
amiodarone 200 mg tablet (Pacerone) 200 mg PO BID #60 tabs 08/22/23
Pending Results: No
Total time spent discharging patient (in min): 38
--- NOTE | 2023-08-22 07:41 | W.DS.TRANS ---
DC Summary - Hospitality Aide
-
Discharge Instructions:
Sleep Apnea Risk Low
Discharge Diagnosis/Procedures Symptomatic recurrent atrial arrhythmia
Paroxysmal atrial fibrillation
Parkinson's
Hypothyroid
Anxiety
Diet Regular
Activity As tolerated
Driving Restrictions No driving
Instructions:
Stand-Alone Forms:
New to amiodarone
Decreased dose of atenolol
Stopped Tikosyn
Changes to Home Medications: Yes
Discharge Medications:
DC Medications w/original date entered in [employer]
apixaban 5 mg tablet (Eliquis) 5 mg PO BID Blood clot prevention/tx 10/08/16
docusate sodium 100 mg capsule 100 mg PO DAILYPRN PRN constipation 02/25/20
rasagiline 0.5 mg tablet 0.5 mg PO QPM Neurological Condition 02/25/20
alprazolam 0.25 mg tablet 0.25 mg PO DAILYPRN PRN anxiety 03/09/20
levothyroxine 75 mcg tablet (Levoxyl) 75 mcg PO MOTUWETHFR Thyroid 03/09/20
ascorbic acid (vitamin C) 500 mg tablet (Vitamin C) 500 mg PO DAILY Supplement 11/08/22
cholecalciferol (vitamin D3) 25 mcg (1,000 unit) capsule (Vitamin D3) 25 mcg PO DAILY Supplement 11/08/22
travoprost 0.004 % eye drops (Travatan Z) 1 drp BOTH EYES HS Eye Condition 11/08/22
carbidopa 25 mg-levodopa 100 mg tablet 1 tab PO 5/D@07,11,15,19,23 08/19/23
furosemide 20 mg tablet 20 mg PO Q48H Fluid Retention/Swelling 08/19/23
levothyroxine 50 mcg tablet 50 mcg PO SA Thyroid 08/19/23
amiodarone 200 mg tablet (Pacerone) 200 mg PO BID #60 tabs 08/22/23
atenolol 25 mg tablet 25 mg PO DAILY Arrhythmia #30 tabs 08/22/23
Home Medication Changes
Pending Results: No
[2023-08-22] MEDS: XANAX 0.25 MG PO (07:47)
[2023-08-22] MEDS: PACERONE 200 MG PO (07:47)
[2023-08-22] MEDS: ELIQUIS 5 MG PO (07:47)
[2023-08-22] MEDS: TENORMIN 25 MG PO (07:47)
[2023-08-22 08:37] VITALS: BP 95/41
[2023-08-22 08:38] VITALS: BP 92/73
--- NOTE | 2023-08-22 10:15 | PN.CDI ---
CDI
- -
CDI:
Physician Documentation Request
Admit Date: 08/19/23 18:08
Dear Doctor Jordin,
Please review the following and provide your response in the progress notes.
Clinical Indicators:
Pt admitted with PAfib/Atrial Tachycardia/Atrial flutter
Sodium levels are as below /Did get IVFs
08/19/23 08/19/23 08/20/23
11:49 15:17 03:53
Sodium 131 L 134 L 132 L
Based on the above, could you clarify in the progress notes, the appropriate diagnosis, if significant, that supports the above abnormalities and additional evaluation, monitoring and/or treatment rendered:
Hyponatremia
Abnormal lab value only
Other
Use of terms such as suspected, likely, concern for, or probable (associated with a specific diagnosis that is being evaluated, monitored, or treated as if it exists) are acceptable and can be coded in the inpatient setting, when documented at the
time of discharge.
Thank you,
Farrah Brown RN
CDI Specialist
[facility]
Please use your independent medical judgment in providing your response.
--- NOTE | 2023-08-22 11:08 | W.DCSUMMARY ---
Discharge Summary
Discharge Data
Date of Admission: 08/19/23
Date of Discharge: 08/22/23
-
Pending Results: No
Hospital Course
Patient came chrystal to [facility] today with palpitations and lightheadedness and cardiology has been consulted fur atrial arrhythmia. Patient previously followed with Dr. Stroud for general cardiology care and then Dr. Alvarado for EP, but is now planning
to follow with Dr. Alvarado upon Dr. Stroud's long-term and has her next appt scheduled for 08/30/23.
Patient was started on Tikosyn 10/2022 and then had a repeat PVI 12/19/22. Patient was doing well until recurrence of Afib in early 07/2023. Patient was seen by Dr. Granger in the office 08/06/23 and recommended an outpatient CV and then to follow up
with Dr. Alvarado. Patient was in SR when she presented for CV on 08/08/23. Patient says that she recurred with Afib about 3 days later and has felt incapacitated since about 08/15/23 which she describes as feeling lightheaded and near syncopal. She
says that she washes dishes on her knees because she is afraid she is going to pass out. Patient denies syncope. In the ER patient is in what looks like atrial tachycardia at 119 bpm. She took her usual doses of atenolol 25 mg BID and Tikosyn 500
mcg q 12 hours this AM. BP is 152/95 and she reports that her BP was previously low, but lately has been very high
She was admitted to the medical service to the IVU and Tikosyn washout was initiated initially requiring a diltiazem drip for rate control that was transition to amiodarone 200 mg twice daily noting decreasing levels of atrial tachycardia and
frequency of sinus rhythm that continues to be intermittent she was continued on her usual dose of Eliquis 5 mg p.o. twice daily. Medical service felt the status of her Parkinson's and chemistries.
She was initiated on physical therapy modalities and did well although she continues to have frequent anxieties over her great and is quite vigilant on the status of her telemetry.
It was explained to her by both the medical service and cardiology that the amiodarone loading will take several days although the Tikosyn has been washed out. There is also explained to her she will continue to have some atrial arrhythmias until
further stabilization of her amiodarone loading and dose changes.
We will call in a course of amiodarone 200 mg twice a day her atenolol per cardiology has been reduced from 25 twice daily to 25 mg daily
She will have further follow-up on [address] Alvarado for further management
Discharge Plan
-
Patient Disposition: Home (Routine Discharge)
Discharge Diagnosis/Procedures: Symptomatic recurrent atrial arrhythmia
Paroxysmal atrial fibrillation
Parkinson's
Hypothyroid
Anxiety
Diet: Regular
Activity: As tolerated
Driving Restrictions: No driving
Referrals:
Ava Aguilera CRNP [Family Provider] - in two weeks
Additional Discharge Medication Instructions: -Decrease atenolol dose to 25 mg ONCE a day.
-New to amiodarone 200 mg twice a day, further dosing instructions pending your visit in the cardiology office next week.
-STOP taking dofetilide (Tikosyn), it has been replaced with amiodarone.
Prescriptions:
New
amiodarone [Pacerone] 200 mg Tablet
200 mg PO BID Qty: 60 0RF
atenolol 25 mg tablet
25 mg PO DAILY Qty: 30 0RF
Continued
Eliquis 5 MG tablet
5 mg PO BID
rasagiline 0.5 MG tablet
0.5 mg PO QPM
docusate sodium 100 MG capsule
100 mg PO DAILYPRN PRN (Reason: constipation)
alprazolam 0.25 MG tablet
0.25 mg PO DAILYPRN PRN (Reason: anxiety)
Patient Comments:
08/19/2023: last filled 05/14/23, 30 tabs for 30 days from [facility]
levothyroxine [Levoxyl] 75 MCG tablet
75 mcg PO MOTUWETHFR
travoprost [Travatan Z] 0.004 % Drops
1 drp BOTH EYES HS
ascorbic acid (vitamin C) [Vitamin C] 500 mg Tablet
500 mg PO DAILY
cholecalciferol (vitamin D3) [Vitamin D3] 25 mcg (1,000 unit) Capsule
25 mcg PO DAILY
levothyroxine 50 mcg Tablet
50 mcg PO SA
carbidopa-levodopa 25-100 mg tablet
1 tab PO 5/D@07,11,15,19,23
Patient Comments:
08/19/2023: PT STATES MUST BE TAKEN AT THESE TIMES DUE TO SYMPTOMS BEGIN IF MISSED BY A FEW MINS
furosemide 20 mg tablet
20 mg PO Q48H
Discontinued
atenolol 25 mg tablet
25 mg PO BID
dofetilide 500 mcg capsule
500 mcg PO BID
Discharge Orders:
Discharge Patient (As Directed); Ordered 08/22/23
Ordered By: Chu Brenner
Care Plan Goals
Care Plan Goals:
Problem: Readiness for enhanced knowledge related to diagnosis and treatment plan
Goal: Understand your diagnosis and treatment plan needs, including medications if applicable.
Instructions: Know your diagnosis, underlying causes and treatment plan options, including medications if applicable. Consult with your health care team to learn about your diagnosis and treatment plan, including medications if applicable.
Discharge Date and Time
Discharge Date/Time: 08/22/23 10:01
== END 2023-08-22 10:01 | disposition home or self-care (01) | DRG 309 ==
LOC: IVU 18:08
PROVIDERS: Physician Assistant; Physician Assistant Medical; ADMITTING PHYSICIAN Internal Medicine; CONSULT PHYSICIAN Internal Medicine Cardiovascular Disease; EMERGENCY PHYSICIAN Student in an Organized Health Care Education/Training Program; FAMILY PHYSICIAN Nurse Practitioner
DX: I47.19 Other supraventricular tachycardia (principal); D69.3 Immune thrombocytopenic purpura; E87.1 Hypo-osmolality and hyponatremia; I48.0 Paroxysmal atrial fibrillation; I48.92 Unspecified atrial flutter; I10 Essential (primary) hypertension; I27.20 Pulmonary hypertension, unspecified; G20.A1 Parkinson's disease without dyskinesia, without mention of fluctuations; E03.9 Hypothyroidism, unspecified; K21.9 Gastro-esophageal reflux disease without esophagitis; K58.9 Irritable bowel syndrome, unspecified; F32.A Depression, unspecified; Z79.01 Long term (current) use of anticoagulants
CPT/HCPCS: 80048; 80053; 84439; 84443; 85025; 85027; 93005; 96374; 97162; 99285

== ENCOUNTER → 2023-10-10 07:51 | Outpatient (REF) | payer MEDICARE, BC, SELFPAY ==
[2023-10-10 09:41] LABS: % Basophils 0.6 % (0-2); % Eosinophils 0.4 % (0-6); % Immature Granulocytes 0.3 % (0-0.5); % Lymphocytes 10.9 % (20.5-51.1); % Monocytes 11.5 % (1.7-9.3); % Neutrophils 76.3 % (42.2-75.2); Absolute Lymphocytes 0.8 10^3/uL (1.2-3.4); Absolute Monocytes 0.8 10^3/uL (0.1-0.6); Absolute Neutrophils 5.4 10^3/uL (1.4-6.5); Hematocrit 36.5 % (37.0-47.0); Hemoglobin 12.6 g/dL (12.0-16.0); Mean Corp Hgb Conc. 34.5 g/dL (33.0-37.0); Mean Corpuscular Hgb 32.1 pg (27.0-31.0); Mean Corpuscular Volume 92.9 fL (81.0-99.0); Mean Platelet Volume 10.3 fL (7.4-10.4); Nucleated Red Blood Cells % 0 %; Platelet Count 258 10^3/uL (130-400); Red Blood Cell Count 3.93 10^6/uL (4.20-5.40); Red Cell Dist. Width 14.2 % (11.5-14.5); White Blood Cell Count 7.1 10^3/uL (4.8-10.8)
[2023-10-10 09:55] LABS: ALT (SGPT) < 10 U/L (0-35); AST (SGOT) 26 U/L (14-36); Albumin 4.2 g/dl (3.5-5.0); Alkaline Phosphatase 69 U/L (38-126); Blood Urea Nitrogen 20 mg/dl (7-17); Calcium 9.3 mg/dl (8.4-10.2); Carbon Dioxide 29 mmol/L (22-30); Chloride 100 mmol/L (98-107); Glucose 90 mg/dl (70-99); Potassium 4.1 mmol/L (3.5-5.1); Sodium 135 mmol/L (135-145); Total Bilirubin 0.6 mg/dl (0.2-1.3); Total Protein 7.5 g/dl (6.3-8.2); eGFR > 60.00
[2023-10-10 10:25] LABS: TSH Reflex To Free T4 5.82 uIU/ml (0.47-4.68)
[2023-10-10 10:54] LABS: Free T4 2.07 ng/dl (0.78-2.19)
== END ==
LOC: HWLAB 07:51
PROVIDERS: ATTENDING PHYSICIAN Internal Medicine Cardiovascular Disease; FAMILY PHYSICIAN Nurse Practitioner
DX: I10 Essential (primary) hypertension (principal); E78.5 Hyperlipidemia, unspecified; I48.0 Paroxysmal atrial fibrillation; E03.9 Hypothyroidism, unspecified
CPT/HCPCS: 36415; 80053; 84439; 84443; 85025

== ENCOUNTER → 2023-10-21 11:24 | Outpatient (REF) | payer MEDICARE, BC, SELFPAY | LOC: DHCBC/DCA 11:24 | PROVIDERS: ATTENDING PHYSICIAN Internal Medicine Cardiovascular Disease; FAMILY PHYSICIAN Internal Medicine | DX: I48.0 Paroxysmal atrial fibrillation (principal); I47.19 Other supraventricular tachycardia; R00.1 Bradycardia, unspecified; R07.89 Other chest pain; R06.02 Shortness of breath | CPT/HCPCS: 78452; 93017; A9500; J2785 ==

== ENCOUNTER → 2024-01-03 09:08 | Outpatient (REF) | payer MEDICARE, BC, SELFPAY ==
[2024-01-03 13:22] LABS: TSH 4.23 uIU/ml (0.47-4.68)
== END ==
LOC: HWLAB 09:08
PROVIDERS: ATTENDING PHYSICIAN Nurse Practitioner
DX: Z00.00 Encounter for general adult medical examination without abnormal findings (principal); E03.9 Hypothyroidism, unspecified
CPT/HCPCS: 36415; 84443

== ENCOUNTER → 2024-02-20 12:10 | Outpatient (REF) | payer MEDICARE, BC, SELFPAY ==
[2024-02-20 16:11] LABS: Blood Urea Nitrogen 23 mg/dl (7-17); Calcium 9.8 mg/dl (8.4-10.2); Carbon Dioxide 25 mmol/L (22-30); Chloride 101 mmol/L (98-107); Glucose 76 mg/dl (70-99); Sodium 141 mmol/L (135-145); eGFR 58.02
== END ==
LOC: HWLAB 12:10
PROVIDERS: ATTENDING PHYSICIAN Physician Assistant; FAMILY PHYSICIAN Internal Medicine
DX: I10 Essential (primary) hypertension (principal); R06.02 Shortness of breath
CPT/HCPCS: 36415; 80048

== ENCOUNTER 2024-04-13 11:05 | Inpatient (IN) | payer MEDICARE, BC, SELFPAY ==
[2024-04-11] VITALS (11 sets, daily range): BP systolic 126–160; BP diastolic 56–124; BMI 19.8; BMI 18.6
[2024-04-11 11:09] LABS: Hematocrit 30.3 % (37.0-47.0); Hemoglobin 10.6 g/dL (12.0-16.0); Mean Corpuscular Hgb 31.8 pg (27.0-31.0); Mean Platelet Volume 11.8 fL (7.4-10.4); Platelet Count 251 10^3/uL (130-400); Red Blood Cell Count 3.33 10^6/uL (4.20-5.40); Red Cell Dist. Width 15.7 % (11.5-14.5); White Blood Cell Count 4.4 10^3/uL (4.8-10.8)
--- NOTE | 2024-04-11 11:20 | ED.GENMED ---
History of Present Illness
General
Chief Complaint: Fainting/Passed Out
Source: patient and ambulance crew
Exam Limitations: none
Time Seen by Provider: 04/11/24 10:57
Nursing documentation reviewed up to this point in time: agreed with
History of Present Illness
History of Present Illness:
79-year-old female presents emergency department from home. Her home care nurse was transferring her, and she had a syncope episode. She did not fall. She fell 03/17/2024, had rhabdo was treated at [facility]. She takes Eliquis. She is also
currently being treated for a UTI. She is not drinking because she feels nauseous when she drinks.
Past History
Past History
ED Past Medical History: Arrthythmia (PAT), GERD, HTN, Hypothyroidism and Psychiatric (History of anxiety and depression)
ED Past Surgical History: Other (History of splenectomy, , tonsillectomy)
Patient has exhibited threatening behavior?: No
PSI?: No
Social History
Tobacco: Non-smoker
Alcohol: None
Drug: None
Personal:
Living: alone
Employment: Retired
Review of Systems
Review of Systems
Allergies reviewed?: Yes
All Other Systems: Not applicable
Constitutional: Reports no symptoms
EENT: Reports no symptoms
Respiratory: Reports no symptoms
Cardiac: Reports syncope
ABD/GI: Reports no symptoms
: Reports no symptoms
Musculoskeletal: Reports no symptoms
Skin: Reports no symptoms
Neurological: Reports no symptoms
Endocrine: Reports no symptoms
Hematologic/Lymphatic: Reports no symptoms
Psychiatric: Reports no symptoms
Phy Exam
Physical Exam
Physical Exam:
Physical Exam
General: Afebrile
Neck: supple. no meningeal signs. normal posterior pharynx
Heart: s1/s2 regular rate and rhythm, no murmur. equal radial
pulses.
HEENT: Pupils equal round reactive to light, EOMI
Lungs: Rhonchi at bases bilaterally, cough
Abdomen: normal bowel sounds. not tender. no CVAT
Neuro: alert and oriented. no focal neurological deficits
Skin: no rash, bruising bilateral face
Psychiatric: well kept. interactive and cooperative
Extremities: no edema. no calf tenderness. negative homans. good distal pulses
Course
Orders/Labs/Results
Orders:
Orders
04/11/24 10:45
Electrocardiogram (*1) Urgent
Reason for Study: Syncope
04/11/24 10:46
EKG- Treatment ONCE
04/11/24 10:55
Complete Blood Count/With Diff Urgent
04/11/24 11:15
CR Chest - 2 Views Urgent
Comment:
Reason For Exam: cough, syncope
04/11/24 11:19
COVID-19 Antigen Urgent
Source: Nasal Swab
04/11/24 11:57
Comprehensive Metabolic Panel Urgent
Lipase Urgent
Troponin I Urgent
Urinalysis Reflex To Culture Urgent
Date Specimen was Collected: 04/11/24
Time Specimen was Collected: 11:28
04/11/24 12:59
Carbidopa/Levodopa [Sinemet 25-100] 1 tablet PO NOW STA
04/11/24 13:55
Aztreonam [Azactam] 2,000 mg IV NOW STA
Vancomycin [Vancocin] 1,500 mg 0.9% Sodium Chloride [Nss] 20 ml 0.9% Sodium Chloride 250 ml [Nss] 250 ml IV NOW
04/11/24 14:00
Blood Culture Q30M
NOAH Source: Blood/Venous
Specimen Description:
04/11/24 14:30
Blood Culture Q30M
NOAH Source: Blood/Venous
Specimen Description:
Abnormal Lab Results
04/11/24 04/11/24
10:55 11:57
WBC 4.4 L 10^3/uL
(4.8-10.8)
RBC 3.33 L 10^6/uL
(4.20-5.40)
Hgb 10.6 L g/dL
(12.0-16.0)
Hct 30.3 L %
(37.0-47.0)
MCH 31.8 H pg
(27.0-31.0)
RDW 15.7 H %
(11.5-14.5)
MPV 11.8 H fL
(7.4-10.4)
Abs Immat Gran (auto) 0.2 H 10^3/uL
(0-0.05)
Absolute Lymphs (auto) 0.3 L 10^3/uL
(1.2-3.4)
Immature Gran % 3.4 H %
(0-0.5)
Neutrophils % 77.0 H %
(42.2-75.2)
Lymphocytes % 6.6 L %
(20.5-51.1)
Monocytes % 12.8 H %
(1.7-9.3)
Sodium 131 L mmol/L
(135-145)
Chloride 97 L mmol/L
(98-107)
AST 73 H U/L
(14-36)
Albumin 3.2 L g/dl
(3.5-5.0)
Lipase 370 H U/L
(23-300)
04/11/24 10:55
04/11/24 11:57
Vital Signs
Initial and Last Documented VS:
Initial Vital Signs
Temp Pulse Resp BP Pulse Ox
97.6 F 77 20 154/71 98
04/11/24 10:41 04/11/24 10:41 04/11/24 10:41 04/11/24 10:41 04/11/24 10:41
Last Documented Vital Signs
Temp Pulse Resp BP Pulse Ox
97.6 F 92 19 140/124 98
04/11/24 10:46 04/11/24 13:15 04/11/24 13:15 04/11/24 13:00 04/11/24 10:54
MDM/Problems Addressed
Differential Diagnosis Includes:
Pneumonia, CHF
MDM/Problems Addressed:
79-year-old female with bilateral pneumonia. Syncope episode. No dysrhythmia. Patient denies chest pain.
Chronic conditions affecting care: HTN and Arrhythmia
*Radiology
Radiology exam reviewed: radiology read reviewed (Chest x-ray shows bilateral pneumonia)
*Pulse Oximetry
Patient hypoxic: no
*EKG
Interpreted by ED Provider?: Yes
EKG Intrepretation Date: 04/11/24
EKG Intrepretation Time: 10:48
Interpretation: abnormal
Comparison EKG: no changes
Heart Rate: 72
Rate: normal
Rhythm: sinus
Ponca: normal axis
Interval: normal interval
QRS Pattern: normal QRS
Ischemia: non-specific ST changes
*Rad Technologist Interpretation
Rate: normal
Interpretation: normal
Heart Rate: 75
Rhythm: sinus
*Critical Care Note
Total Time (30-74mins, 75-104mins- exclusive of procedures): Not Applicable
Data Reviewed
Review of Other/Old Records Reveals: Labs (Prior white blood cell count 7.1 on 10/10/2023)
Source: records
Patient Management
Social determinants of health affecting care: Living situation
Discussion with other providers: Hospitalist
Escalation/DeEscalation of care consider admission/obs:
Admission indicated
ED Attending Note
-
Portions of this chart may have been created with voice recognition software.� Occasional wrong word or��sound alike� substitutions may have occurred due to the inherent limitations of voice recognition software.
Discharge Plan
Departure
Patient Disposition: Admit
Date of Disposition: 04/11/24
Time of Disposition: 13:57
Admit to: Telemetry
Presentation/result/management discussed w/ accepting MD/DO: Hospitalist
Patient with high blood pressure during this ER visit?: Yes
Condition: Good
Discharge Problem:
Bilateral pneumonia, Syncope
Prescriptions:
No Action
Eliquis 5 MG tablet
5 mg PO BID
rasagiline 0.5 MG tablet
0.5 mg PO QPM
docusate sodium 100 MG capsule
100 mg PO DAILYPRN PRN (Reason: constipation)
alprazolam 0.25 MG tablet
0.25 mg PO DAILYPRN PRN (Reason: anxiety)
Patient Comments:
08/19/2023: last filled 05/14/23, 30 tabs for 30 days from [facility]
levothyroxine [Levoxyl] 75 MCG tablet
75 mcg PO MOTUWETHFR
travoprost [Travatan Z] 0.004 % Drops
1 drp BOTH EYES HS
ascorbic acid (vitamin C) [Vitamin C] 500 mg Tablet
500 mg PO DAILY
cholecalciferol (vitamin D3) [Vitamin D3] 25 mcg (1,000 unit) Capsule
25 mcg PO DAILY
levothyroxine 50 mcg Tablet
50 mcg PO SA
carbidopa-levodopa 25-100 mg tablet
1 tab PO 5/D@07,11,15,19,23
Patient Comments:
08/19/2023: PT STATES MUST BE TAKEN AT THESE TIMES DUE TO SYMPTOMS BEGIN IF MISSED BY A FEW MINS
furosemide 20 mg tablet
20 mg PO Q48H
amiodarone [Pacerone] 200 mg Tablet
200 mg PO BID Qty: 60 0RF
atenolol 25 mg tablet
25 mg PO DAILY Qty: 30 0RF
Referrals:
Liliay Pickett MD [Family Provider] -
Interventions
Interventions:
*Risk Screen - Suicide Last Done: 04/11/24 10:46
*General Assessment Last Done: 04/11/24 10:46
*Neglect/Abuse Screening Last Done: 04/11/24 10:46
*ED COVID-19 Vaccine History Last Done: 04/11/24 10:46
ED- Cardiac Assessment Last Done: 04/11/24 10:59
ED- Neurological Assessment Last Done: 04/11/24 10:59
Discharge Date and Time
Print Language: INDONESIAN
[2024-04-11 11:41] LABS: COVID-19 Antigen Negative (Negative)
[2024-04-11 11:57] LABS: % Basophils 0.2 % (0-2); % Immature Granulocytes 3.4 % (0-0.5); % Lymphocytes 6.6 % (20.5-51.1); % Monocytes 12.8 % (1.7-9.3); Absolute Immature Granulocytes 0.2 10^3/uL (0-0.05); Absolute Lymphocytes 0.3 10^3/uL (1.2-3.4); Absolute Monocytes 0.6 10^3/uL (0.1-0.6); Absolute Neutrophils 3.4 10^3/uL (1.4-6.5)
[2024-04-11 12:18] LABS: Urine Albumin Negative (Neg - Trace); Urine Bilirubin Negative (Negative); Urine Character Clear (Clear); Urine Color Yellow; Urine Glucose Negative (Negative); Urine Ketone Negative (Negative); Urine Leukocyte Negative (Negative); Urine Nitrite Negative (Negative); Urine Occult Blood Negative (Negative); Urine Urobilinogen Negative (Neg - 1+)
[2024-04-11 12:28] LABS: ALT (SGPT) 11 U/L (0-35); AST (SGOT) 73 U/L (14-36); Albumin 3.2 g/dl (3.5-5.0); Alkaline Phosphatase 75 U/L (38-126); Blood Urea Nitrogen 15 mg/dl (7-17); Calcium 8.4 mg/dl (8.4-10.2); Carbon Dioxide 25 mmol/L (22-30); Chloride 97 mmol/L (98-107); Estimated Creatinine Clearance 52 ml/min; Glucose 99 mg/dl (70-99); Lipase 370 U/L (23-300); Potassium 3.6 mmol/L (3.5-5.1); Sodium 131 mmol/L (135-145); Total Bilirubin 1.1 mg/dl (0.2-1.3); Total Protein 6.4 g/dl (6.3-8.2); eGFR > 60.00
[2024-04-11 12:33] LABS: Troponin I < 0.012 ng/ml
[2024-04-11] MEDS: SINEMET 25-100 1 TABLET PO ×3 (13:02→23:02)
[2024-04-11] MEDS: AZACTAM 2000 MG IV (14:13)
[2024-04-11] MEDS: VANCOCIN 300 ML IV (14:40)
[2024-04-11] MEDS: VANCOCIN 300 MG IV (14:40)
--- NOTE | 2024-04-11 14:41 | HPS.HSE ---
Family Physician
-
Family Physician: Liliya Pickett
Chief Complaint
-
vasovagal syncope , decreased oral intake
History of Present Illness
79-year-old female who states she has history of Parkinson's she was advised she should get up daily and move on 03/17 she got up from a chair attempt attempted to do a squat lost her balance and fell face first on the marble floor. She states she
proceeded to lie there for 19 hours even though her cell phone was on the sofa next to her. She did not attempt to crawl towards the cell phone. She was found by her neighbor who came to check on her. She report she was sent to [facility]
in [place] as a trauma due to being on Eliquis. She was then sent to [facility] for 3 weeks in [place] where she was DC'd yesterday 04/10/2024 home with her son Francesca present. She reports to me at the rehab she was only able to stand and
pivot with assist of 3 for the past 4 days when she developed a uti Which has cleared on todays U/A. . She states her son set up a home care agency from 8 AM to 4 PM to help she believes she was not offered SNF rehab due to not being able to stand
on her own. Her son Francesca states 3 people took her to the car and then 3 people from the agency took her in the home. they were not offered more time or SNF placement . She also complained of dysuria on 04/07/2024 and was placed on Macrobid, of
which she has 2 days left. She denies current dysuria, urgency, flank pain, fever or chills.
She reports she has been lying in bed since 8 PM last night and voids in a diaper. There was no attempt to get her out of bed until 8 AM this morning. She states the home care nurse swung her feet over the side of the bed she reports she lifted
her up and put her on the chair and that is the last thing she remembered. She states the home care nurse told her that she passed out. She does complain of a constant postnasal drip causing a tickle in her throat which elicits a cough. The past
month. She denies current headache, dizziness, blurred vision, chest pain, palpitations, shortness of breath, abdominal pain, nausea, vomiting, diarrhea.
Past medical history recurrent A-fib/history of cardioversion 10/2016, 12/2022, MOD MR/TR, Mild Pulm HTN ,GERD/IBs, essential HTN, Parkinson's disease, hypothyroidism, generalized anxiety disorder, ITP remote splenectomy Hx
Medical History
Past Medical History
Past Medical History: Reports Other
Additional Past Medical History:
recurrent A-fib/history of cardioversion 10/2016, 12/2022,
MOD MR/TR
Mild Pulm HTN
GERD/IBs
essential HTN,
Parkinson's disease
hypothyroidism
generalized anxiety disorder
ITP remote splenectomy Hx
Past Surgical History: Reports Other (pt unsure )
Social History
Tobacco: Non-smoker
Alcohol: None
Drug: None
Personal: Single
Living: Alone
Employment: Retired
Family History
Family History: Not pertinent
Allergies / Home Medications
Allergies reflects when Allergies were last updated in [employer].
Home Medications with original date entered in [employer]
Allergy/Medication List:
Allergies
Allergy/AdvReac Type Severity Reaction Status Date / Time
codeine Allergy Nausea,HEAD Verified 04/11/24 10:54
ACHE,RASH,D
EDUARDO
Iodinated Contrast Media Allergy Hives Verified 04/11/24 10:54
[Iodinated Contrast Media -
Oral and]
Penicillins Allergy Hives,HEADA Verified 04/11/24 10:54
EUGENIO,RASH,NA
USEA
Sulfa (Sulfonamide Allergy HEADACHE,RA Verified 04/11/24 10:54
Antibiotics) SH,NAUSEA
gnats Allergy Rash Uncoded 04/11/24 10:55
MOSQUITO Allergy Swelling/RE Uncoded 04/11/24 10:54
DNESS
Home Medications
apixaban 5 mg tablet (Eliquis) 5 mg PO BID Blood clot prevention/tx 10/08/16
docusate sodium 100 mg capsule 100 mg PO DAILYPRN PRN constipation 02/25/20
alprazolam 0.25 mg tablet 0.25 mg PO DAILYPRN PRN anxiety 03/09/20
levothyroxine 75 mcg tablet (Levoxyl) 75 mcg PO DAILY Thyroid 03/09/20
ascorbic acid (vitamin C) 500 mg tablet (Vitamin C) 500 mg PO DAILY Supplement 11/08/22
cholecalciferol (vitamin D3) 25 mcg (1,000 unit) capsule (Vitamin D3) 25 mcg PO DAILY Supplement 11/08/22
carbidopa 25 mg-levodopa 100 mg tablet 1 tab PO 5/D@07,11,15,19,23 08/19/23
atenolol 25 mg tablet 25 mg PO DAILY Arrhythmia #30 tabs 08/22/23
amiodarone 200 mg tablet (Pacerone) 200 mg PO DAILY 04/11/24
ferrous sulfate 325 mg (65 mg iron) tablet 325 mg PO HS 04/11/24
gabapentin 100 mg capsule 100 mg PO BID 04/11/24
gabapentin 100 mg capsule 100 mg PO DAILYPRN PRN mild pain 04/11/24
latanoprost 0.005 % eye drops 1 drp BOTH EYES HS 04/11/24
losartan 25 mg tablet 25 mg PO HS 04/11/24
nitrofurantoin monohydrate/macrocrystals 100 mg capsule 100 mg PO BID 04/11/24
pantoprazole 40 mg tablet,delayed release 40 mg PO DAILY 04/11/24
Review of Systems
-
History Source: Patient and Family (son francesca )
A 12 point ROS was completed and negative except as noted: Yes
Constitutional: Reports Fatigue; Denies Fever or Chills
EENT: Reports Sore Throat, Runny Nose and Other (chronic post nasal gtt , scabswith ecchymosis bilat maxilla and chin from fall)
Respiratory: Reports Cough (2/2 topost nasal gtt ); Denies Trouble Breathing
Cardiac: Reports Syncope (vasovagal); Denies Chest Pain, Diaphoresis or Palpitations
Abdomen/GI: Denies Abdominal Pain, Nausea, Vomiting, Diarrhea, Constipated, Bloody Stools or Black Stools
: Denies Dysuria, Frequency, Flank Pain, Incontinence, Difficulty Voiding, Urgency or Bleeding
Musculoskeletal: Denies Joint Pain or Edema
Skin: Reports Other (scabbed abrasions bilat knees ); Denies Itching or Rash
Neurological: Reports Weakness (generalized ); Denies Dizzy or Headache
Endocrine: Reports No Symptoms
Hematologic/Lymphatic: Reports No Symptoms
Psych: Reports Calm
Physical Exam
Vital Signs
Vital Signs
Temp Pulse Resp BP Pulse Ox
97.6 F 98 16 130/77 98
04/11/24 10:46 04/11/24 14:00 04/11/24 14:05 04/11/24 14:00 04/11/24 10:54
Physical Exam
General: Poor Appetite; No Pain, Fever, Chills or Slurred Speech
HEENT: NormoCephalic, Anicteric, Moist mucous membranes, PERRLA, [place] Conjunctivae, No Ptosis and Other (chronic post nasal gtt , scabswith ecchymosis bilat maxilla and chin from fall)
Respiratory: Clear; No Wheezes, Rales or Rhonchi
Cardiac: S1/S2 and Regular Rhythm; No Murmur, Rub, Gallop or Peripheral Edema
Breast: Deferred by me
GI: Soft, Non Tender, Non Distended, Normal Bowel Sounds and No Hepatosplenomegaly
Rectal: Deferred by Provider
Genito-urinary: Deferred by me
Musculoskeletal: No Clubbing, No Cyanosis and No Edema
Skin: Warm, Dry, Rash and Other (abrasions bilat knees from fall 03/17)
Neuro: AO x 3, Cranial Nerves Intact, No Sensory Deficits and Other (limited rom in bed due to profound weakness ); No Slurred Speech, Facial Droop, Tremors or Sedated
Psych: Calm
Laboratory Results
-
04/11/24 10:55
04/11/24 11:57
Laboratory Results
Total Bilirubin 1.1 mg/dl (0.2-1.3) 04/11/24 11:57
AST 73 U/L (14-36) H 04/11/24 11:57
ALT 11 U/L (0-35) 04/11/24 11:57
Alkaline Phosphatase 75 U/L (38-126) 04/11/24 11:57
Troponin I < 0.012 ng/ml 04/11/24 11:57
Lipase 370 U/L (23-300) H 04/11/24 11:57
Impression/Plan
-
Impression/Plan:
OBS TELE
#Deconditioning with current UTI decreased eating , drinking
-completed 4 days of macrobid on 04/10/24 has 2 days left will hold due to nml u/s
-repeat U/A neg, afebrile normotensive , covid NEGe
-Given Iv vanco and Iv azactam in ER will hold further abx pending procal as pt is afebrile, normotensive and not hypxic
- check procal
-consutl pt/ot / case mgmt
#Witnessed Syncope at home by visiting nurse likely Vasovagal from prolonged lying in bed
99% RA
-Iv NSS 80 cc/hr
- Check Orthostatics
CXR: Small bilateral pleural effusions with associated atelectasis and or pneumonia
#Mild leukopenia
WBC 4.4 prior baseline 7�8.4
#Acute on chronic post nasal gtt causing nausea and decreased oral intake
- consult dietary- she saw at rehab
- add ensure chocolate
#HTN
Continue losartan 25 mg at bedtime, atenolol 25 mg daily with hold parameters
#Parkinson's
-was independent driving until fall
-Continue carbidopa levodopa
#Recent Fall wtih Rhabdomyolysis 03/17/24 - treated at [facility]
Went to [facility] x 3 weeks then d/c yesterday 04/10/24 to home with doreen bojorquez and home aids 8am to 4 pm
she was a 3 person assist to car and to bed in home
#Anemia macrocytic recent new
Hgb 10.6 baseline 12.6�13.2
MCV 91
-Check B12, folate, iron studies
- cont oral iron was started on at hospital per pt, cont colace
#Neuropathy
Continue gabapentin 100 mg twice daily and 100 mg daily as needed
#A-fib
# PVI 10/2016, 12/2022
# hx reoccurrence July 2023 hospital admission where Tikosyn was changed to amiodarone
-Continue amiodarone 200 mg daily
-Continue Eliquis 5 mg twice daily
-Follows with Dr. Alvarado after Dr. Stroud's ch[facility]
EKG: NSR 72 bpm, QTc [address] depression anterior leads from August 2023
#Moderate MR/TR
#Pulmonary HTN-mild
Echo 11/09/22: EF 65-70%, mild to mod MR, mod TR with mild PHTN pulm pressure 48 mmHg
#Hypothyrodism
tsh with free t4
-Continue levothyroxine 75 mcg p.o. daily
#GERD/IBS
-Continue Protonix 40 mg daily
#ITP remote splenectomy
PLT 251
#Anxiety
Continue alprazolam 0.25 mg daily as needed anxiety
#Vit d def
-Continue vitamin D3 25 mcg p.o. daily
#Mac degeneration
Continue latanoprost 1 drop both eyes at bedtime
Dvt proph
sq Eliquis
DNR per pt and son Francesca [phone]
--- NOTE | 2024-04-11 15:41 | W.PN.UPDATE ---
Update Note
Progress Note Update
This note serves as an addendum to the H&P by laborer fryer farm KAYLEIGH Ava AQUINOURGIS
HPI
79F HX PKD . independent walking and driving, HX AF on Eliquis, Hypothyroid, HTN ,ITP, splenectomy, Nl platelet , moderate MR/TR , mild PHT DC'd to home with Son ( ) from [facility] last night, noted 3 prson assistance upon arrival to home. VN
arrival ,while sitting on commode , syncopated. Recent UTI on Macrobid.
PHX as above
Vital Signs
Temp Pulse Resp BP Pulse Ox
97.6 F 98 16 130/77 98
04/11/24 10:46 04/11/24 14:00 04/11/24 14:05 04/11/24 14:00 04/11/24 10:54
PE
Gen: Conversant. Not toxic
HEENT: Healing bruises over face due to fall 4weeks ago
Neck: supple
Lungs:symmetric AE, CTA
Cor: RRR S1 S2
Abdomen: soft benign
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
MS: No edema
Psych:normal mood and affect
Data
WCC 4.4
Hgb 10.6
Na 131 Cl 97
Nl eGFR
NEG UA
NEG Covid
Pending PCT
CXR: Small bilateral pleural effusions with associated atelectasis and/or pneumonia.
EKG: report
NORMAL SINUS RHYTHM
NONSPECIFIC ST AND T WAVE ABNORMALITY
ABNORMAL ECG
WHEN COMPARED WITH ECG OF 20-AUG-2023 08:38,
VENT. RATE HAS DECREASED BY 51 BPM
NON-SPECIFIC CHANGE IN ST SEGMENT IN INFERIOR LEADS
ST NOW DEPRESSED IN ANTERIOR LEADS
Confirmed by MIL KAISER MD, YOLANDA ([id number]) on 04/11/2024 1:15:34 PM
Last hospitalist admission:
Date of Admission: 08/19/23
Date of Discharge: 08/22/23
DC DXs: Symptomatic recurrent atrial arrhythmia ,
ASSESSMENT & PLAN
Vasovagal syncope:In NSR
Suspect mild dehydration
Severely deconditioning elderly s/p [facility] as of yesterday
Over all FTT at home
- Ortho VSS x1
- IVF
- PT/OT/ CRM consult for DC planning
Possible atelectasis and/or PNA
- First dose vanco and Azactam at ER
- Hold off further ABx for now till
NEG UA upon this admission
Recent UTI at [facility] s/p Macrobid for 4 days
In NSR for HX Paroxysmal AF
Symptomatic Recurrent Atrial Arrhythmia
- on Amiodarone and Eliquis
- on Atenolol
Essential Hypertension
-Continue atenolol and Losartan
Parkinson's Disease
- c/w JAVA WEB USER INTERFACE DEVELOPER carbidopa/levodopa
-Continue rasagiline
Hypothyroidism
- check TSH
- c/w levothyroxine
Generalized Anxiety Disorder
- c/w alprazolam PRN as prior to admission
DVT Px : Eliquis
Full Code
Obs TLM
[2024-04-11] MEDS: NSS 1000 IV (16:22)
[2024-04-11 16:57] LABS: Procalcitonin 0.07 ng/ml (0.0-0.25)
[2024-04-11 17:13] LABS: TSH Reflex To Free T4 6.72 uIU/ml (0.47-4.68)
--- NOTE | 2024-04-11 17:25 | CM ---
Addendum entered by Eliane Hoyos 04/11/24 17:43:
Patient signed the [employer] form for Medicare and commercial insurance.
Original Note:
CM reviewed chart. Introduced self and role. Patient with hx of Parkinson's and had a serious fall. She shared that her son recently moved into her home. She has a SL home with a loft. The loft is not used. Prior to the fall, patient was independent
and driving. She appeared sad and kept saying, 'I hope I can walk again. People are telling me I may not walk again'. Patient was encouraged to express her feelings and CM provided some encouragement. Patient has 4 steps to enter into her home. 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 She denies any +SDOHs and has an active PCP and pharmacy.
ANTICIPATED DISCHARGE PLAN: Home with HHC vs. STR, depending on PT/OT's recommendations.
[2024-04-11 17:42] LABS: Free T4 1.43 ng/dl (0.78-2.19)
[2024-04-11] MEDS: XANAX 0.25 MG PO (20:27)
[2024-04-11] MEDS: NEURONTIN 100 MG PO (22:23)
[2024-04-11] MEDS: ELIQUIS 5 MG PO (22:23)
[2024-04-11] MEDS: COZAAR 25 MG PO (22:23)
[2024-04-11] MEDS: XALATAN OPHTHALMIC SOLUTION 1 DROP BOTH EYES (23:02)
[2024-04-12] VITALS (10 sets, daily range): BP systolic 89–139; BP diastolic 55–78; PULSE 66–76; O2SAT 98
[2024-04-12] MEDS: SINEMET 25-100 1 TABLET PO ×5 (06:34→22:52)
[2024-04-12] MEDS: SYNTHROID 75 MCG PO (06:34)
[2024-04-12] MEDS: NSS 1000 IV (08:03)
[2024-04-12 08:06] LABS: ALT (SGPT) 12 U/L (0-35); AST (SGOT) 63 U/L (14-36); Albumin 2.8 g/dl (3.5-5.0); Alkaline Phosphatase 59 U/L (38-126); Blood Urea Nitrogen 13 mg/dl (7-17); Calcium 7.9 mg/dl (8.4-10.2); Carbon Dioxide 22 mmol/L (22-30); Chloride 102 mmol/L (98-107); Estimated Creatinine Clearance 55 ml/min; Glucose 106 mg/dl (70-99); Potassium 3.5 mmol/L (3.5-5.1); Sodium 134 mmol/L (135-145); Total Bilirubin 0.9 mg/dl (0.2-1.3); Total Protein 5.9 g/dl (6.3-8.2); eGFR > 60.00
[2024-04-12] MEDS: NEURONTIN 100 MG PO ×2 (08:12→19:17)
[2024-04-12] MEDS: PROTONIX 40 MG PO (08:13)
[2024-04-12] MEDS: PACERONE 200 MG PO (08:13)
[2024-04-12] MEDS: ELIQUIS 5 MG PO ×2 (08:14→19:19)
[2024-04-12] MEDS: VITAMIN C 500 MG PO (08:14)
[2024-04-12] MEDS: TENORMIN 25 MG PO (08:16)
[2024-04-12] MEDS: VITAMIN D3 (cholecalciferol) 25 MCG PO (08:17)
[2024-04-12] MEDS: TYLENOL 650 MG PO ×2 (08:22→22:07)
[2024-04-12 09:23] LABS: % Basophils 0.9 % (0-2); % Immature Granulocytes 2.5 % (0-0.5); % Lymphocytes 8.8 % (20.5-51.1); % Monocytes 12.5 % (1.7-9.3); % Neutrophils 75.3 % (42.2-75.2); Absolute Immature Granulocytes 0.1 10^3/uL (0-0.05); Absolute Lymphocytes 0.3 10^3/uL (1.2-3.4); Absolute Monocytes 0.4 10^3/uL (0.1-0.6); Absolute Neutrophils 2.4 10^3/uL (1.4-6.5); Hematocrit 27.4 % (37.0-47.0); Hemoglobin 10.1 g/dL (12.0-16.0); Mean Corp Hgb Conc. 36.9 g/dL (33.0-37.0); Mean Corpuscular Volume 89.5 fL (81.0-99.0); Mean Platelet Volume 12.2 fL (7.4-10.4); Nucleated Red Blood Cells % 10.9 %; Platelet Count 204 10^3/uL (130-400); Red Blood Cell Count 3.06 10^6/uL (4.20-5.40); Red Cell Dist. Width 14.8 % (11.5-14.5); White Blood Cell Count 3.2 10^3/uL (4.8-10.8)
--- NOTE | 2024-04-12 10:24 | W.PN.HOSP.TC ---
Today's Communication/Plan
-
see PN
Assessment / Plan
Assessment / Plan
79yo F with PMHX of Afib on ELiquis orthostatic hypotension, Parkinsons, hypothyroidism, GERD, postnasal drip came with c/o weakness and inability to care for herself since her d/c from [facility] on the day prior. Also was having a lot of cough for
past couple of months. Recently discharged from [facility] where she was managed after the fall and aslo found UTI. ALso absent appetite for past week
A/P:
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
#Orthostatic hypotension
PT/OT
Stop Losartan
#Possble CAP vs atelectasis on XR chest
Doxy/Rocephin
CT chest
COVID-19 neg
check influenza
#Postnasal drip
Flonase as outpatient (Not available in )
#Hypothyroidism
TSH elevated - increase Synthroid, repeat TSH in 2-3 weeks
#Anemia
#Leukopenia
suspect reactive
follow CBC
Might need hematology eval as outpatient if persistent
#Poor appetite
#Protein calorie malnutrition
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
Ensure
#Neuropathy
#SUHAIL
#Afib, unspecified
Cont home meds
DVT ppx on ELiquis
DNR/DNI
I have spent at least 58min reviewing chart, test results and direct patient care
Anticipated Discharge: 24 - 48 hours
Subjective/Interval History
-
Date of Service: April 12, 2024
Objective Data
-
Labs:
Laboratory Results
04/12/24
07:20
WBC 3.2 L
Hgb 10.1 L
Hct 27.4 L
Plt Count 204
Sodium 134 L
Potassium 3.5
Chloride 102
Carbon Dioxide 22
BUN 13
Creatinine 0.7
Glucose 106 H
Calcium 7.9 L
Total Bilirubin 0.9
AST 63 H
ALT 12
Alkaline Phosphatase 59
Vital Signs:
Vital Signs
Temp Pulse Resp BP Pulse Ox
99.0 F 88 18 130/77 98
04/12/24 07:56 04/12/24 07:56 04/12/24 07:56 04/12/24 07:56 04/12/24 07:56
I&O
04/11/24 04/12/24 04/13/24
06:59 06:59 06:59
Intake Total 0 / 0 200 / 200
Balance 0 / 0 200 / 200
Review of Systems
-
History Source: Patient
All other systems: Reviewed and negative
Physical Exam
-
General: No Apparent Distress, Cachectic and Other (flat affect)
HEENT: Normocephalic
Respiratory: Clear to Auscultation
GI: Soft, Nontender and Nondistended
Musculoskeletal: No Clubbing, No Cyanosis and No Edema
Neuro: Awake, Alert, Oriented and AO x 3
Psych: Calm
[2024-04-12] MEDS: VIBRAMYCIN 100 MG PO ×2 (11:29→19:19)
[2024-04-12] MEDS: ROCEPHIN 1000 MG IV (11:31)
[2024-04-12] MEDS: STERILE WATER FOR INJECTION 10 ML IV (11:32)
--- NOTE | 2024-04-12 12:36 | CON.PUL ---
Consultation
Consultation Request
Date/Time Consultation Requested: 04/12/2024 - 1151
Date/Time Consultation Performed: 04/12/2024 - 1233
Requesting Provider: Dr. Davis
Performing Provider: Dr. Araujo
Reason for Consultation: Abnormall Chest CT with RUL nodule(s)
Medical History
-
Chief Complaint: Fall at home
History of Present Illness:
79-year-old female with a past medical history of Parkinson's disease, paroxysmal A-fib on Eliquis s/p ablation, hypothyroidism, mitral valve prolapse, MR, history of ITP s/p splenectomy, GERD, anxiety and glaucoma who presents with syncopal episode
without head trauma. She had previously fallen earlier this month with current bruising to the face and had been treated [facility] for rhabdomyolysis. She does take Eliquis. Also being treated for UTI, reportedly. She says that she has not been
eating or drinking as normally because she has been feeling nauseous and when she 'drinks she throws up.' She was just discharged from [facility] on 04/10/2024 following a hospitalization at [facility] for rhabdomyolysis due to a fall. She recently
developed a UTI on 04/07 as well and is currently on Macrobid. She requires multiple people to transport her to do exquisite generalized weakness. She currently denies painful urination, urinary urgency, fevers or chills. On the morning prior to
arrival her home care nurse tried to get her out of bed and put her onto the chair and that is the 'last thing she remembers.' She was told by the home care nurse that she passed out. She currently denies blurred vision, chest pain, SOB at rest.
She does endorse postnasal drip. In the ER she was afebrile to 97.6 �F, pulse rate 77, breathing at 20 breaths/minute, BP 154/71 and saturating 98% on room air. Labs showed leukopenia to 4.4, Hb 10.6, sodium 131, creatinine 0.8, AST 73, troponin
<0.012, albumin level 3.2, lipase 370, procalcitonin 0.07, TSH 6.72, free T41.43, urinalysis negative for signs of UTI and COVID-19 antigen negative. CXR showed small bilateral pleural effusions, and subsequent CT chest showed small bilateral
pleural effusions with a small irregular opacity in the right apex with accompanying small subpleural nodular opacities in the lateral apices bilaterally with mild pericardial thickening versus tiny pericardial effusion. In the ER she was given
aztreonam + vancomycin, and admitted to telemetry for further care. Pulmonary service is now consulted for additional management/recommendations.
When I saw the patient, she was resting in bed in no acute distress on room air saturating 97%. She says that she has had a cough for about 3 months. She had started taking Mucinex but stopped about 2-3 days ago as she had great difficulty getting
her phlegm out. She does not normally cough. She does not have any shortness of breath currently but when she exerts herself she feels winded. She is extremely weak. She denies any recent sick contacts, fevers, chills. Also denies chest pain,
HEWITT, abdominal pain, or diarrhea.
PMHx: Paroxysmal A-fib on Eliquis/amiodarone with history of ablation (12/2022), hypothyroidism, Parkinson's disease on Sinemet, MVP, nonrheumatic mitral regurgitation, history of ITP s/p splenectomy, GERD, anxiety, osteopenia, glaucoma,
diverticulosis, HSV-2 (2012)
PSHx: Cardiac ablation (10/2016 + 12/2022), section, total hysterectomy, splenectomy
Past Medical History
Past Medical History: Other (Above as per HPI)
Past Surgical History: Other (Above as per HPI)
Social History
Tobacco: Non-smoker
Alcohol: None
Drug: None
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
Family History
Family History: Diabetes (Father, mother and sibling) and Other (Father: Parkinson disease; mother: Dementia + A-fib)
Allergies / Home Medications
Allergies
Allergy/AdvReac Type Severity Reaction Status Date / Time
codeine Allergy Nausea,HEAD Verified 04/11/24 10:54
ACHE,RASH,D
EDUARDO
Iodinated Contrast Media Allergy Hives Verified 04/11/24 10:54
[Iodinated Contrast Media -
Oral and]
Penicillins Allergy Hives,HEADA Verified 04/11/24 10:54
EUGENIO,RASH,NA
USEA
Sulfa (Sulfonamide Allergy HEADACHE,RA Verified 04/11/24 10:54
Antibiotics) SH,NAUSEA
gnats Allergy Rash Uncoded 04/11/24 10:55
MOSQUITO Allergy Swelling/RE Uncoded 04/11/24 10:54
DNESS
Home Medications
�Medication �Instructions �Recorded �Confirmed �Last Taken �Type
apixaban 5 mg tablet (Eliquis) 5 mg PO BID Blood clot 10/08/16 04/11/24 08/19/23 History
prevention/tx
docusate sodium 100 mg capsule 100 mg PO DAILYPRN PRN constipation 02/25/20 04/11/24 11/07/22 History
alprazolam 0.25 mg tablet 0.25 mg PO DAILYPRN PRN anxiety 03/09/20 04/11/24 12/19/22 09:00 History
levothyroxine 75 mcg tablet 75 mcg PO DAILY Thyroid 03/09/20 04/11/24 08/19/23 History
(Levoxyl)
ascorbic acid (vitamin C) 500 mg 500 mg PO DAILY Supplement 11/08/22 04/11/24 08/19/23 History
tablet (Vitamin C)
cholecalciferol (vitamin D3) 25 25 mcg PO DAILY Supplement 11/08/22 04/11/24 08/19/23 History
mcg (1,000 unit) capsule (Vitamin
D3)
carbidopa 25 mg-levodopa 100 mg 1 tab PO 5/D@07,11,15,19,23 08/19/23 04/11/24 08/19/23 15:00 History
tablet PARKINSON'S
atenolol 25 mg tablet 25 mg PO DAILY Arrhythmia #30 tabs 08/22/23 04/11/24 Unknown Rx
amiodarone 200 mg tablet (Pacerone) 200 mg PO DAILY A-FIB 04/11/24 04/11/24 Unknown History
ferrous sulfate 325 mg (65 mg 325 mg PO HS Supplement 04/11/24 04/11/24 Unknown History
iron) tablet
gabapentin 100 mg capsule 100 mg PO BID NEUROPATHY 04/11/24 04/11/24 Unknown History
gabapentin 100 mg capsule 100 mg PO DAILYPRN PRN mild pain 04/11/24 04/11/24 Unknown History
latanoprost 0.005 % eye drops 1 drp BOTH EYES HS Eye Condition 04/11/24 04/11/24 Unknown History
losartan 25 mg tablet 25 mg PO HS Blood Pressure 04/11/24 04/11/24 Unknown History
nitrofurantoin 100 mg PO BID Infection 04/11/24 04/11/24 Unknown History
monohydrate/macrocrystals 100 mg
capsule
pantoprazole 40 mg tablet,delayed 40 mg PO DAILY Gastrointestinal 04/11/24 04/11/24 Unknown History
release Issue
Review of Systems
-
History Source: Patient
All other systems: Negative unless noted
Vitals / Labs / Diagnostic Testing
Vital Signs
Temp Pulse Resp BP Pulse Ox
97.6 F 57 16 108/56 98
04/12/24 12:06 04/12/24 12:06 04/12/24 12:06 04/12/24 12:06 04/12/24 07:56
Lab Data
04/12/24 07:20
04/12/24 07:20
Diagnostic Testing:
Physical Exam
-
HEENT: Normocephalic and Anicteric
Cardiovascular: S1/S2 and Peripheral Edema (negative)
Respiratory: Wheeze (negative), Rales (Posterior right upper lobe + bibasilar), Rhonchi (negative) and Non-Labored Respirations
GI: Soft, Non Distended, Non Tender and Normal Bowel Sounds
Neurology: AO x 3 and No Motor Deficits (negative)
Skin: Warm and Dry
General: Respiratory Distress (negative), Comfortable, Fever (negative) and Chills (negative)
Assessment
-
Assessment: 79-year-old female with a past medical history of Parkinson's disease, paroxysmal A-fib on Eliquis s/p ablation, hypothyroidism, mitral valve prolapse, MR, history of ITP s/p splenectomy, GERD, anxiety and glaucoma who presents with
syncopal episode without head trauma. She had previously fallen earlier this month with current bruising to the face and had been treated [facility] for rhabdomyolysis. She does take Eliquis. Also being treated for UTI, reportedly. She says that
she has not been eating or drinking as normally because she has been feeling nauseous and when she 'drinks she throws up.' She was just discharged from [facility] on 04/10/2024 following a hospitalization at [facility] for rhabdomyolysis due to a
fall. She recently developed a UTI on 04/07 as well and is currently on Macrobid. She requires multiple people to transport her to do exquisite generalized weakness. She currently denies painful urination, urinary urgency, fevers or chills. On
the morning prior to arrival her home care nurse tried to get her out of bed and put her onto the chair and that is the 'last thing she remembers.' She was told by the home care nurse that she passed out. She currently denies blurred vision, chest
pain, SOB at rest. She does endorse postnasal drip. In the ER she was afebrile to 97.6 �F, pulse rate 77, breathing at 20 breaths/minute, BP 154/71 and saturating 98% on room air. Labs showed leukopenia to 4.4, Hb 10.6, sodium 131, creatinine
0.8, AST 73, troponin <0.012, albumin level 3.2, lipase 370, procalcitonin 0.07, TSH 6.72, free T41.43, urinalysis negative for signs of UTI and COVID-19 antigen negative. CXR showed small bilateral pleural effusions, and subsequent CT chest showed
small bilateral pleural effusions with a small irregular opacity in the right apex with accompanying small subpleural nodular opacities in the lateral apices bilaterally with mild pericardial thickening versus tiny pericardial effusion. In the ER
she was given aztreonam + vancomycin, and admitted to telemetry for further care. Pulmonary service is now consulted for additional management/recommendations.
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
glaucoma, diverticulosis, HSV-2 (2012)
Impression:
#Multiple nodular opacities in right upper lobe, suspected to be aspiration, with 1 cm irregular opacity at the right lung apex
#RUL CAP/aspiration pneumonia
#Syncopal episode without head trauma
#Leukopenia
#Acute anemia (baseline Hb 12.5�14g/dL)
#Hyponatremia (mild)
#Transaminitis with slightly elevated AST
#Subclinical hypothyroidism
#Chronic cough - could be multiple etiologies however she does endorse postnasal drip
#Physical deconditioning
#Parkinson disease on Sinemet
#Postnasal drip
#Bilateral pleural effusions due to suspected acute decompensated heart failure
#A-fib on Eliquis and amiodarone with Hx of ablation
Plan:
- I feel that patient may have aspirated during her syncopal event, and that she currently has RUL aspiration pneumonia/CAP due to her symptoms of generalized weakness, chronic cough with the recent difficulty handling her secretions for the past
2-3 days
- Treat with Abx - currently on rocephin + doxy; would treat for total of 7 days assuming that she is continuing to clinically improve and remains afebrile for 48 hours prior to stopping ABx
- Follow-up blood cultures (collected 04/11/2024)
- Check sputum culture if patient able to provide a decent sample
- Check INTAKE NURSE eval to assess for aspiration risk
- Maintain SpO2 >90-94% with supplemental O2 as needed
- Incentive spirometer encouraged
- prn nebulized bronchodilators - not currently bronchospastic
- Pulmonary toilet with acapella; would normally get Mucinex but she says that she was unable to tolerate this and stopped it prior to arrival; hold off on guaifenesin for now
- Nasal saline spray as she endorses post-nasal drip and this could be contributing to her cough
- Repeat CT chest in 4-6 weeks to assess for persistence vs improvement of her RUL nodule(s)
- If right upper lobe 1 cm nodular opacity persists or continues to grow then we will need to discuss biopsy for tissue acquisition
- The presence of her small bilateral pleural effusions suspicious for acute decompensated heart failure; check echo (last LVEF 80% on Lexiscan stress test from October 2023)
- Maintain net negative fluid balance - would start IV lasix 40mg daily
- prn zofran as she has an allergy to sulfa ABx with nausea/rash/HEWITT --> monitor closely s/p lasix and if has any reaction, Tx with benadryl and then she may need ethacrynic acid going forward in that case
- Trend sNa with goal 135-145
- Currently in NSR; monitor HR with goal 60-100, unless goes into A-fib in which case keep HR<110
- Replete electrolytes with K>4, Mg>2
- trend LFTs
- Fall precautions
- PT/OT
- Maintain euglycemia with goal BG >100 and <180
- DVT ppx: Eliquis
Pulmonary service will continue to follow along.
Data:
CT chest without contrast 04/12/2024:
Small bilateral pleural effusions with accompanying bilateral lower lobe subsegmental atelectasis, right greater than left. Cannot exclude bilateral lower lobe pneumonia.
Small irregular opacity in the right apex as well as small subpleural nodular opacities in the lateral apices bilaterally which may be on an inflammatory/infectious basis. Malignancy cannot be excluded. Short-term follow-up Chest CT recommended.
Mild pericardial thickening versus tiny pericardial effusion.
CXR 04/11/2024: Small bilateral pleural effusions with associated atelectasis and/or pneumonia.
Total time spent today was 78 minutes for this encounter. Time includes reviewing laboratory test/imaging results, reviewing pertinent medical records, obtaining and reviewing medical history, performing an appropriate exam, ordering medications,
tests and procedures. Time also includes documentation of this encounter, coordinating patient care and communicating with other healthcare professionals. Total time does not include separately billed tests performed on this date of service.
--- NOTE | 2024-04-12 12:49 | CM ---
CM received consult for SNF placement. CM placed call to patients son, Garry, discussed as patient is OBS status, will need to verify if patient qualifies for [facility] waiver program. Son aware that otherwise patient would be private pay to SNF, son
reports not likely they would be able to private pay for SNF. Son reports patient recently discharged from [facility]. CM will continue to follow for all discharge planning needs.
Plan; will need to check if patient qualifies for [facility] waiver program for SNF
--- NOTE | 2024-04-12 16:15 | PTOTSP ---
Speech Pathology Evaluation
79F with admission for syncope and decreased oral intake p/w s/sx of a functional oropharyngeal swallow. No overt s/s of aspiration or penetration demonstrated with PO trials this date. Aspiration risk is increased 2/2 Parkinson�s disease, UTI,
GERD, and chronic vocal hoarseness. Unable to r/o silent aspiration at bedside this date.
Recommend:
1. Regular textures and thin liquids
2. Meds as tolerated
3. SHIP ENGINES OPERATING ENGINEER service to follow up x1 to ensure tolerance
[2024-04-12] MEDS: LASIX 40 MG IV (20:09)
[2024-04-12] MEDS: XANAX 0.25 MG PO (20:31)
[2024-04-12] MEDS: XALATAN OPHTHALMIC SOLUTION 1 DROP BOTH EYES (22:07)
[2024-04-13] VITALS (7 sets, daily range): BP systolic 109–152; BP diastolic 50–83; BMI 18.4
[2024-04-13] MEDS: SYNTHROID 88 MCG PO (05:30)
[2024-04-13] MEDS: SINEMET 25-100 1 TABLET PO ×5 (07:11→22:04)
[2024-04-13 07:32] LABS: Hematocrit 27.4 % (37.0-47.0); Hemoglobin 9.5 g/dL (12.0-16.0); Mean Corp Hgb Conc. 34.7 g/dL (33.0-37.0); Mean Corpuscular Hgb 31.6 pg (27.0-31.0); Mean Platelet Volume 12.2 fL (7.4-10.4); Platelet Count 253 10^3/uL (130-400); Red Blood Cell Count 3.01 10^6/uL (4.20-5.40); Red Cell Dist. Width 16.1 % (11.5-14.5); White Blood Cell Count 3.6 10^3/uL (4.8-10.8)
[2024-04-13 07:48] LABS: NT-proBNP 1310 pg/ml
[2024-04-13 07:57] LABS: % Basophils 0.6 % (0-2); % Eosinophils 0.3 % (0-6); % Immature Granulocytes 3.4 % (0-0.5); % Lymphocytes 16.2 % (20.5-51.1); % Monocytes 13.4 % (1.7-9.3); % Neutrophils 66.1 % (42.2-75.2); Absolute Immature Granulocytes 0.1 10^3/uL (0-0.05); Absolute Lymphocytes 0.6 10^3/uL (1.2-3.4); Absolute Monocytes 0.5 10^3/uL (0.1-0.6); Absolute Neutrophils 2.4 10^3/uL (1.4-6.5); Nucleated Red Blood Cells % 9.8 %
[2024-04-13 08:43] LABS: ALT (SGPT) 11 U/L (0-35); AST (SGOT) 54 U/L (14-36); Albumin 2.8 g/dl (3.5-5.0); Alkaline Phosphatase 73 U/L (38-126); Blood Urea Nitrogen 17 mg/dl (7-17); Calcium 8.1 mg/dl (8.4-10.2); Carbon Dioxide 26 mmol/L (22-30); Chloride 101 mmol/L (98-107); Estimated Creatinine Clearance 43 ml/min; Glucose 96 mg/dl (70-99); Magnesium 1.8 mg/dl (1.6-2.3); Phosphorus 3.8 mg/dl (2.5-4.5); Potassium 3.3 mmol/L (3.5-5.1); Sodium 136 mmol/L (135-145); Total Bilirubin 0.5 mg/dl (0.2-1.3); Total Protein 5.6 g/dl (6.3-8.2); eGFR > 60.00
--- NOTE | 2024-04-13 09:33 | W.PN.PUL3 ---
Today's Communication / Plan
-
On abx for presumed PNA, total of 7 days
Speech therapy eval reviewed, silent aspiration cannot be ruled out, obtain VSE
Otherwise, PT/OT-OOB, she wants to get back to rehab
Can otherwise arrange for discharge planning post VSE
Assessment
-
79-year-old female with a past medical history of Parkinson's disease, paroxysmal A-fib on Eliquis s/p ablation, hypothyroidism, mitral valve prolapse, MR, history of ITP s/p splenectomy, GERD, anxiety and glaucoma who presents with syncopal episode
without head trauma. She had previously fallen earlier this month with current bruising to the face and had been treated [facility] for rhabdomyolysis. She does take Eliquis. Also being treated for UTI, reportedly. She says that she has not been
eating or drinking as normally because she has been feeling nauseous and when she 'drinks she throws up.' She was just discharged from [facility] on 04/10/2024 following a hospitalization at [facility] for rhabdomyolysis due to a fall. She recently
developed a UTI on 04/07 as well and is currently on Macrobid. She requires multiple people to transport her to do exquisite generalized weakness. She currently denies painful urination, urinary urgency, fevers or chills. On the morning prior to
arrival her home care nurse tried to get her out of bed and put her onto the chair and that is the 'last thing she remembers.' She was told by the home care nurse that she passed out. She currently denies blurred vision, chest pain, SOB at rest.
She does endorse postnasal drip. In the ER she was afebrile to 97.6 �F, pulse rate 77, breathing at 20 breaths/minute, BP 154/71 and saturating 98% on room air. Labs showed leukopenia to 4.4, Hb 10.6, sodium 131, creatinine 0.8, AST 73, troponin
<0.012, albumin level 3.2, lipase 370, procalcitonin 0.07, TSH 6.72, free T41.43, urinalysis negative for signs of UTI and COVID-19 antigen negative. CXR showed small bilateral pleural effusions, and subsequent CT chest showed small bilateral
pleural effusions with a small irregular opacity in the right apex with accompanying small subpleural nodular opacities in the lateral apices bilaterally with mild pericardial thickening versus tiny pericardial effusion. In the ER she was given
aztreonam + vancomycin, and admitted to telemetry for further care. Pulmonary service is now consulted for additional management/recommendations.
Impression:
#Multiple nodular opacities in right upper lobe, suspected to be aspiration, with 1 cm irregular opacity at the right lung apex
#RUL CAP/aspiration pneumonia
#Syncopal episode without head trauma
#Leukopenia
#Acute anemia (baseline Hb 12.5�14g/dL)
#Hyponatremia (mild)
#Transaminitis with slightly elevated AST
#Subclinical hypothyroidism
#Chronic cough - could be multiple etiologies however she does endorse postnasal drip
#Physical deconditioning
#Parkinson disease on Sinemet
#Postnasal drip
#Bilateral pleural effusions due to suspected acute decompensated heart failure
#A-fib on Eliquis and amiodarone with Hx of ablation
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
glaucoma, diverticulosis, HSV-2 (2012)
Plan:
Currently on RA, not on O2
Maintain SpO2 >90-94% with supplemental O2 as needed
Incentive spirometer encouraged
prn nebulized bronchodilators - not currently bronchospastic
Pulmonary toilet with acapella; would normally get Mucinex but she says that she was unable to tolerate this and stopped it prior to arrival; hold off on guaifenesin for now
Nasal saline spray as she endorses post-nasal drip and this could be contributing to her cough
I feel that patient may have aspirated during her syncopal event, and that she currently has RUL aspiration pneumonia/CAP due to her symptoms of generalized weakness, chronic cough with the recent difficulty handling her secretions for the past 2-3
days
Treat with Abx - currently on rocephin + doxy; would treat for total of 7 days assuming that she is continuing to clinically improve and remains afebrile for 48 hours prior to stopping ABx
Follow-up blood cultures (collected 04/11/2024)
Check sputum culture if patient able to provide a decent sample
Check MULTIGRAPHER eval to assess for aspiration risk
Speech consult obtained- 79F with admission for syncope and decreased oral intake p/w s/sx of a functional oropharyngeal swallow. No overt s/s of aspiration or penetration demonstrated with PO trials this date. Aspiration risk is increased 2/2
Parkinson�s disease, UTI, GERD, and chronic vocal hoarseness. Unable to r/o silent aspiration at bedside this date.
Would obtain VSE
Abnormal CT chest
Repeat CT chest in 6-8 weeks to assess for persistence vs improvement of her RUL nodule(s)
If right upper lobe 1 cm nodular opacity persists or continues to grow then we will need to discuss biopsy for tissue acquisition
The presence of her small bilateral pleural effusions suspicious for acute decompensated heart failure; check echo (last LVEF 80% on Lexiscan stress test from October 2023)
Maintain net negative fluid balance - would start IV lasix 40mg daily
prn zofran as she has an allergy to sulfa ABx with nausea/rash/HEWITT --> monitor closely
- Trend sNa with goal 135-145
- Currently in NSR; monitor HR with goal 60-100, unless goes into A-fib in which case keep HR<110
- Replete electrolytes with K>4, Mg>2
- trend LFTs
- Fall precautions
- PT/OT
- Maintain euglycemia with goal BG >100 and <180
- DVT ppx: Eliquis
Pulmonary service will continue to follow along.
Data:
CT chest without contrast 04/12/2024: Small bilateral pleural effusions with accompanying bilateral lower lobe subsegmental atelectasis, right greater than left. Cannot exclude bilateral lower lobe pneumonia. Small irregular opacity in the right
apex as well as small subpleural nodular opacities in the lateral apices bilaterally which may be on an inflammatory/infectious basis. Malignancy cannot be excluded. Short-term follow-up Chest CT recommended. Mild pericardial thickening versus tiny
pericardial effusion.
CXR 04/11/2024: Small bilateral pleural effusions with associated atelectasis and/or pneumonia.
-----
Total time spent today was 51 minutes for this encounter. Time includes reviewing laboratory test/imaging results, reviewing pertinent medical records, obtaining and reviewing medical history, performing an appropriate exam, ordering medications,
tests and procedures. Time also includes documentation of this encounter, coordinating patient care and communicating with other healthcare professionals. Total time does not include separately billed tests performed on this date of service.
Subjective Data
-
Date of Service:
Date of Service: April 13, 2024
Chief Complaint: Pulmonary Follow Up
Subjective:
No acute events ON, remains stable on RA
No new complaints, occasional drip in her throat
Objective Data
Data Reviewed
Vital Signs / I&O / Oxygen:
Vital Signs
Temp Pulse Resp BP Pulse Ox
97.5 F 52 18 109/50 98
04/13/24 03:20 04/13/24 03:20 04/13/24 03:20 04/13/24 03:20 04/13/24 03:20
Intake and Output
04/12/24 04/13/24 04/14/24
06:59 06:59 06:59
Intake Total 0 / 0 415 / 415
Balance 0 / 0 415 / 415
SaO2 98
Physical Exam
General: Comfortable and Other (NAD)
HEENT: Normocephalic, Anicteric and Moist Mucous Membranes
Cardiovascular: S1-S2 and Regular Rhythm
Respiratory: Clear and Non-Labored Respirations
GI: Soft, Non Distended and Non Tender
Neurology: Awake, Alert, Oriented and Other (weakness noted)
Skin: Warm, Dry and Good Color
Labs/Micro/Reports
Lab Data
04/13/24 06:24
04/13/24 06:23
Microbiology
04/12/24 14:31 Nasal Swab Influenza Types A & B (SATISH) - Final
Negative for Influenza A & B, NAAT
Negative results must be combined with clinical observations
and patient history.
Nucleic Acid Amplification test (NAAT)performed on the
[facility] platform.
04/11/24 14:12 Blood/Venous Blood Culture - Preliminary
No Growth in 24 hours- Final report to follow
04/11/24 13:59 Blood/Venous Blood Culture - Preliminary
No Growth in 24 hours- Final report to follow
[2024-04-13] MEDS: ELIQUIS 5 MG PO ×2 (09:58→20:18)
[2024-04-13] MEDS: VITAMIN D3 (cholecalciferol) 25 MCG PO (09:58)
[2024-04-13] MEDS: PACERONE 200 MG PO (09:59)
[2024-04-13] MEDS: VITAMIN C 500 MG PO (09:59)
[2024-04-13] MEDS: NEURONTIN 100 MG PO ×2 (09:59→20:19)
[2024-04-13] MEDS: TENORMIN 25 MG PO (10:00)
[2024-04-13] MEDS: PROTONIX 40 MG PO (10:00)
[2024-04-13] MEDS: VIBRAMYCIN 100 MG PO ×2 (10:00→20:19)
--- NOTE | 2024-04-13 10:44 | W.PN.HOSP.TC ---
Today's Communication/Plan
-
cont Abx
Echo
if continue to improve - can be d/c in AM
Assessment / Plan
Assessment / Plan
79yo F with PMHX of Afib on ELiquis orthostatic hypotension, Parkinsons, hypothyroidism, GERD, postnasal drip came with c/o weakness and inability to care for herself since her d/c from [facility] on the day prior. Also was having a lot of cough for
past couple of months. Recently discharged from [facility] where she was managed after the fall and aslo found UTI. ALso absent appetite for past week
A/P:
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
#Orthostatic hypotension
PT/OT
Stop Losartan
#Possble CAP vs atelectasis on XR chest
Doxy/Rocephin
CT chest: Small irregular opacity in the right apex
COVID-19 neg
influenza neg
#Postnasal drip
Flonase as outpatient (Not available in )
#Hypothyroidism
TSH elevated - increase Synthroid, repeat TSH in 2-3 weeks
#Anemia
#Leukopenia
suspect reactive
follow CBC
Might need hematology eval as outpatient if persistent
#Small irregular opacity in the right apex
CT chest in 4-6 weeks as per pulm consult
#B/L pulmonary effusions with atelectasis
can be 2/2 poor ambulation
Incentive spirometry
Echo reading pending
#Hypokalemia
hold lasix and replete
#Anemia, chronic
follow with PCP
#Leukopenia
recurrent, reactive
#Poor appetite
#Protein calorie malnutrition
CARGO AGENT
Ensure
#Neuropathy
#SUHAIL
#Afib, unspecified
Cont home meds
DVT ppx on Eliquis
DNR/DNI
I have spent at least 58min reviewing chart, test results and direct patient care
Anticipated Discharge: Within 24 hours
Subjective/Interval History
-
Date of Service: April 13, 2024
Objective Data
-
Labs:
Laboratory Results
04/13/24 04/13/24
06:23 06:24
WBC 3.6 L
Hgb 9.5 L
Hct 27.4 L
Plt Count 253 D
Sodium 136
Potassium 3.3 L
Chloride 101
Carbon Dioxide 26
BUN 17
Creatinine 0.9
Glucose 96
Calcium 8.1 L
Total Bilirubin 0.5
AST 54 H
ALT 11
Alkaline Phosphatase 73
Vital Signs:
Vital Signs
Temp Pulse Resp BP Pulse Ox
97.5 F 82 16 130/58 99
04/13/24 10:04 04/13/24 10:04 04/13/24 10:04 04/13/24 10:04 04/13/24 10:04
I&O
04/12/24 04/13/24 04/14/24
06:59 06:59 06:59
Intake Total 0 / 0 415 / 415
Balance 0 / 0 415 / 415
Review of Systems
-
History Source: Patient
All other systems: Reviewed and negative
Physical Exam
-
General: No Apparent Distress
HEENT: Normocephalic
Respiratory: Clear to Auscultation
Cardiac: Regular Rhythm
GI: Soft, Nontender and Nondistended
Genito-urinary: No Costovertebral Tender
Musculoskeletal: No Clubbing, No Cyanosis and No Edema
Neuro: Awake, Alert, Oriented and AO x 3
Psych: Calm
[2024-04-13] MEDS: KCL 40 MEQ PO (11:28)
--- NOTE | 2024-04-13 11:30 | WOUNDNOTE ---
WON RN note: Patient admitted with pneumonia and syncope.
See H&P for complete history. [facility].
PMH: Recent falls, parkinsons, A Fib, HTN, MR, UTI and urgency.
Wound Location and type/assessment: Patient admitted with: multiple healing abrasions mostly on R Cheek, R wrist, R hip L mu-ism and L knee. Patient turned to side with assist, has non blanchable red area on R buttock, stage 1 PI. Heels are
blanchable and intact. No drainage from any of the abrasions, dry scabs or red intact skin visible.
Appetite: Poor, dietary following.
Pressure redistribution devices in place: On Handleax, asked nurse Julien to add air overlay to bed when able. Brought in overlay with pump and air chair cushion for when sitting. Pillow in use under calves.
Plan: A&D ointment applied to R cheek and L mu-ism, L knee. Applied foam adhesives to heels and silicone foam to R buttock. Updated nurse Julien on the above and will sign off.
Note to case management of equipment requested for discharge: None.
[2024-04-13] MEDS: ROCEPHIN 1000 MG IV (12:50)
[2024-04-13] MEDS: STERILE WATER FOR INJECTION 10 ML IV (12:50)
--- NOTE | 2024-04-13 13:03 | CM ---
Pt seen bedside w/ son, Garry.
CM discussed SNF rec. Pt and son prefer [facility] as the assisted living facility pt will be going to after rehab works well w/ [facility]
They did not identify or show interest in any other SNF choices
Pt had previous [facility] admission from 03/17-03/22 and has qualifying stay for SNF
[facility] referral completed in [facility], awaiting determination
Plan: SNF at d/c
[2024-04-13] MEDS: ZOFRAN 4 MG IV (20:24)
[2024-04-13] MEDS: TYLENOL 650 MG PO (20:24)
[2024-04-13] MEDS: XANAX 0.25 MG PO (20:35)
[2024-04-13] MEDS: XALATAN OPHTHALMIC SOLUTION 1 DROP BOTH EYES (22:03)
[2024-04-14] VITALS (8 sets, daily range): BP systolic 108–146; BP diastolic 53–93; PULSE 76; BMI 19.0
[2024-04-14] MEDS: SYNTHROID 88 MCG PO (06:30)
[2024-04-14] MEDS: SINEMET 25-100 1 TABLET PO ×5 (06:32→22:56)
[2024-04-14 08:13] LABS: Hematocrit 29.5 % (37.0-47.0); Hemoglobin 10.3 g/dL (12.0-16.0); Mean Corp Hgb Conc. 34.9 g/dL (33.0-37.0); Mean Corpuscular Volume 91.6 fL (81.0-99.0); Platelet Count 262 10^3/uL (130-400); Red Blood Cell Count 3.22 10^6/uL (4.20-5.40); Red Cell Dist. Width 15.8 % (11.5-14.5); White Blood Cell Count 4.2 10^3/uL (4.8-10.8)
[2024-04-14] MEDS: VITAMIN D3 (cholecalciferol) 25 MCG PO (08:21)
[2024-04-14] MEDS: NEURONTIN 100 MG PO ×2 (08:21→20:13)
[2024-04-14] MEDS: VIBRAMYCIN 100 MG PO ×2 (08:21→20:13)
[2024-04-14] MEDS: PACERONE 200 MG PO (08:21)
[2024-04-14] MEDS: TENORMIN 25 MG PO (08:22)
[2024-04-14] MEDS: ELIQUIS 5 MG PO ×2 (08:22→21:00)
[2024-04-14] MEDS: VITAMIN C 500 MG PO (08:22)
[2024-04-14] MEDS: PROTONIX 40 MG PO (08:23)
[2024-04-14 08:35] LABS: % Basophils 0.2 % (0-2); % Eosinophils 0.2 % (0-6); % Immature Granulocytes 1.9 % (0-0.5); % Lymphocytes 15.2 % (20.5-51.1); % Monocytes 14.2 % (1.7-9.3); % Neutrophils 68.3 % (42.2-75.2); Absolute Immature Granulocytes 0.1 10^3/uL (0-0.05); Absolute Lymphocytes 0.6 10^3/uL (1.2-3.4); Absolute Monocytes 0.6 10^3/uL (0.1-0.6); Absolute Neutrophils 2.9 10^3/uL (1.4-6.5); Nucleated Red Blood Cells % 9.5 %
[2024-04-14 09:15] LABS: ALT (SGPT) 15 U/L (0-35); AST (SGOT) 51 U/L (14-36); Albumin 2.9 g/dl (3.5-5.0); Alkaline Phosphatase 69 U/L (38-126); Blood Urea Nitrogen 17 mg/dl (7-17); Calcium 8.5 mg/dl (8.4-10.2); Carbon Dioxide 26 mmol/L (22-30); Chloride 103 mmol/L (98-107); Estimated Creatinine Clearance 57 ml/min; Glucose 86 mg/dl (70-99); Potassium 4.2 mmol/L (3.5-5.1); Sodium 139 mmol/L (135-145); Total Bilirubin 0.6 mg/dl (0.2-1.3); Total Protein 5.9 g/dl (6.3-8.2); eGFR > 60.00
[2024-04-14] MEDS: ZOFRAN 4 MG IV ×2 (09:21→22:56)
[2024-04-14] MEDS: FLUSH (NSS) 1 FLUSH IV ×2 (09:24→16:33)
--- NOTE | 2024-04-14 09:32 | W.PN.PUL3 ---
Today's Communication / Plan
-
Doing well, remains on RA, no new events
VSE normal, continued on PO intake
Continue abx for 7 days
Discharge planning per team
Outpatient FU recommended
Assessment
-
79-year-old female with a past medical history of Parkinson's disease, paroxysmal A-fib on Eliquis s/p ablation, hypothyroidism, mitral valve prolapse, MR, history of ITP s/p splenectomy, GERD, anxiety and glaucoma who presents with syncopal episode
without head trauma. She had previously fallen earlier this month with current bruising to the face and had been treated [facility] for rhabdomyolysis. She does take Eliquis. Also being treated for UTI, reportedly. She says that she has not been
eating or drinking as normally because she has been feeling nauseous and when she 'drinks she throws up.' She was just discharged from [facility] on 04/10/2024 following a hospitalization at [facility] for rhabdomyolysis due to a fall. She recently
developed a UTI on 04/07 as well and is currently on Macrobid. She requires multiple people to transport her to do exquisite generalized weakness. She currently denies painful urination, urinary urgency, fevers or chills. On the morning prior to
arrival her home care nurse tried to get her out of bed and put her onto the chair and that is the 'last thing she remembers.' She was told by the home care nurse that she passed out. She currently denies blurred vision, chest pain, SOB at rest.
She does endorse postnasal drip. In the ER she was afebrile to 97.6 �F, pulse rate 77, breathing at 20 breaths/minute, BP 154/71 and saturating 98% on room air. Labs showed leukopenia to 4.4, Hb 10.6, sodium 131, creatinine 0.8, AST 73, troponin
<0.012, albumin level 3.2, lipase 370, procalcitonin 0.07, TSH 6.72, free T41.43, urinalysis negative for signs of UTI and COVID-19 antigen negative. CXR showed small bilateral pleural effusions, and subsequent CT chest showed small bilateral
pleural effusions with a small irregular opacity in the right apex with accompanying small subpleural nodular opacities in the lateral apices bilaterally with mild pericardial thickening versus tiny pericardial effusion. In the ER she was given
aztreonam + vancomycin, and admitted to telemetry for further care. Pulmonary service is now consulted for additional management/recommendations.
Impression:
#Multiple nodular opacities in right upper lobe, suspected to be aspiration, with 1 cm irregular opacity at the right lung apex
#RUL CAP/aspiration pneumonia
#Syncopal episode without head trauma
#Leukopenia
#Acute anemia (baseline Hb 12.5�14g/dL)
#Hyponatremia (mild)
#Transaminitis with slightly elevated AST
#Subclinical hypothyroidism
#Chronic cough - could be multiple etiologies however she does endorse postnasal drip
#Physical deconditioning
#Parkinson disease on Sinemet
#Postnasal drip
#Bilateral pleural effusions due to suspected acute decompensated heart failure
#A-fib on Eliquis and amiodarone with Hx of ablation
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
glaucoma, diverticulosis, HSV-2 (2012)
Plan:
Currently on RA, not on O2
Maintain SpO2 >90-94% with supplemental O2 as needed
Incentive spirometer encouraged
prn nebulized bronchodilators - not currently bronchospastic
Pulmonary toilet with acapella; would normally get Mucinex but she says that she was unable to tolerate this and stopped it prior to arrival; hold off on guaifenesin for now
Nasal saline spray as she endorses post-nasal drip and this could be contributing to her cough
I feel that patient may have aspirated during her syncopal event, and that she currently has RUL aspiration pneumonia/CAP due to her symptoms of generalized weakness, chronic cough with the recent difficulty handling her secretions for the past 2-3
days
Treat with Abx - currently on rocephin + doxy; would treat for total of 7 days assuming that she is continuing to clinically improve and remains afebrile for 48 hours prior to stopping ABx
Follow-up blood cultures (collected 04/11/2024)
Check sputum culture if patient able to provide a decent sample
Check OPHTHALMIC DISPENSER eval to assess for aspiration risk
Speech consult obtained- 79F with admission for syncope and decreased oral intake p/w s/sx of a functional oropharyngeal swallow. No overt s/s of aspiration or penetration demonstrated with PO trials this date. Aspiration risk is increased 2/2
Parkinson�s disease, UTI, GERD, and chronic vocal hoarseness.
VSE-normal
Esophagram showing slowed motility
Continue PO intake
Abnormal CT chest
Repeat CT chest in 6-8 weeks to assess for persistence vs improvement of her RUL nodule(s)
If right upper lobe 1 cm nodular opacity persists or continues to grow then we will need to discuss biopsy for tissue acquisition
The presence of her small bilateral pleural effusions suspicious for acute decompensated heart failure; check echo (last LVEF 80% on Lexiscan stress test from October 2023)
Maintain net negative fluid balance - would start IV lasix 40mg daily
prn zofran as she has an allergy to sulfa ABx with nausea/rash/HEWITT --> monitor closely
- Trend sNa with goal 135-145
- Currently in NSR; monitor HR with goal 60-100, unless goes into A-fib in which case keep HR<110
- Replete electrolytes with K>4, Mg>2
- trend LFTs
- Fall precautions
- PT/OT
- Maintain euglycemia with goal BG >100 and <180
- DVT ppx: Eliquis
Pulmonary service will continue to follow along.
Data:
CT chest without contrast 04/12/2024: Small bilateral pleural effusions with accompanying bilateral lower lobe subsegmental atelectasis, right greater than left. Cannot exclude bilateral lower lobe pneumonia. Small irregular opacity in the right
apex as well as small subpleural nodular opacities in the lateral apices bilaterally which may be on an inflammatory/infectious basis. Malignancy cannot be excluded. Short-term follow-up Chest CT recommended. Mild pericardial thickening versus tiny
pericardial effusion.
CXR 04/11/2024: Small bilateral pleural effusions with associated atelectasis and/or pneumonia.
-----
Total time spent today was 51 minutes for this encounter. Time includes reviewing laboratory test/imaging results, reviewing pertinent medical records, obtaining and reviewing medical history, performing an appropriate exam, ordering medications,
tests and procedures. Time also includes documentation of this encounter, coordinating patient care and communicating with other healthcare professionals. Total time does not include separately billed tests performed on this date of service.
Subjective Data
-
Date of Service:
Date of Service: April 14, 2024
Chief Complaint: Pulmonary Follow Up
Subjective:
no new complaints overnight, remains stable on RA
VSE planning today
Objective Data
Data Reviewed
Vital Signs / I&O / Oxygen:
Vital Signs
Temp Pulse Resp BP Pulse Ox
97.0 F 98 16 131/72 99
04/14/24 03:38 04/14/24 03:38 04/14/24 03:38 04/14/24 03:38 04/14/24 03:38
Intake and Output
04/13/24 04/14/24 04/15/24
06:59 06:59 06:59
Intake Total 415 / 415 1650 / 1650
Balance 415 / 415 1650 / 1650
SaO2 99
Physical Exam
General: Comfortable and Other (NAD)
HEENT: Normocephalic, Anicteric and Moist Mucous Membranes
Cardiovascular: S1-S2 and Regular Rhythm
Respiratory: Clear and Non-Labored Respirations
GI: Soft, Non Distended and Non Tender
Neurology: Awake, Alert, Oriented and Other (weakness noted)
Skin: Warm, Dry and Good Color
Labs/Micro/Reports
Lab Data
04/14/24 07:36
04/14/24 07:36
Microbiology
04/11/24 14:12 Blood/Venous Blood Culture - Preliminary
No Growth in 48 hours- Final report to follow
04/11/24 13:59 Blood/Venous Blood Culture - Preliminary
No Growth in 48 hours- Final report to follow
04/12/24 14:31 Nasal Swab Influenza Types A & B (SATISH) - Final
Negative for Influenza A & B, NAAT
Negative results must be combined with clinical observations
and patient history.
Nucleic Acid Amplification test (NAAT)performed on the
[employer] platform.
--- NOTE | 2024-04-14 10:00 | PTOTSP ---
Speech Language Pathology
VIDEOFLUOROSCOPIC SWALLOWING EXAMINATION (VSE) completed. Oropharyngeal swallow WNL. No significant residue or any penetration/aspiration noted.
Recommend:
(1) Continue regular solids/thin liquids
(2) General aspiration precautions
(3) Meds as tolerated
(4) ENVIRONMENTAL SERVICE AIDE to sign off. Please reconsult as indicated
--- NOTE | 2024-04-14 10:16 | W.PN.HOSP.TC ---
Today's Communication/Plan
-
GI consult
Assessment / Plan
Assessment / Plan
79yo F with PMHX of Afib on ELiquis orthostatic hypotension, Parkinsons, hypothyroidism, GERD, postnasal drip came with c/o weakness and inability to care for herself since her d/c from [facility] on the day prior. Also was having a lot of cough for
past couple of months. Recently discharged from [facility] where she was managed after the fall and aslo found UTI. ALso absent appetite for past week with acute on chronic epigastric pain
A/P:
#Epigastric pain
Esophagram showing possible lower esophageal contractions
Check lipase
PPI and Zofran
GI consult
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
#Orthostatic hypotension
PT/OT
Stop Losartan
#Possible CAP vs atelectasis on XR chest
Doxy/Rocephin
CT chest: Small irregular opacity in the right apex
COVID-19 neg
influenza neg
#Postnasal drip
Flonase as outpatient (Not available in )
#Hypothyroidism
TSH elevated - increase Synthroid, repeat TSH in 2-3 weeks
#Anemia
#Leukopenia
suspect reactive - improving
follow CBC
Might need hematology eval as outpatient if persistent
#Small irregular opacity in the right apex
CT chest in 4-6 weeks as per pulm consult
#B/L pulmonary effusions with atelectasis
can be 2/2 poor ambulation
Incentive spirometry
Echo reading pending
#Hypokalemia
hold lasix and replete
#Anemia, chronic
follow with PCP
#Leukopenia
recurrent, reactive
#Poor appetite
#Protein calorie malnutrition
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
Ensure
#Neuropathy
#SUHAIL
#Afib, unspecified
Cont home meds
DVT ppx on Eliquis
DNR/DNI
I have spent at least 58min reviewing chart, test results and direct patient care
Anticipated Discharge: 24 - 48 hours
Subjective/Interval History
-
Date of Service: April 14, 2024
Objective Data
-
Labs:
Laboratory Results
04/14/24
07:36
WBC 4.2 L
Hgb 10.3 L
Hct 29.5 L
Plt Count 262
Sodium 139
Potassium 4.2 D
Chloride 103
Carbon Dioxide 26
BUN 17
Creatinine 0.7
Glucose 86
Calcium 8.5
Total Bilirubin 0.6
AST 51 H
ALT 15
Alkaline Phosphatase 69
Vital Signs:
Vital Signs
Temp Pulse Resp BP Pulse Ox
97.9 F 110 18 136/87 97
04/14/24 07:00 04/14/24 07:00 04/14/24 07:00 04/14/24 07:00 04/14/24 07:00
I&O
04/13/24 04/14/24 04/15/24
06:59 06:59 06:59
Intake Total 415 / 415 1650 / 1650
Balance 415 / 415 1650 / 1650
Review of Systems
-
History Source: Patient
All other systems: Reviewed and negative
Abdomen/GI: Reports Abdominal Pain (epigastric)
Physical Exam
-
General: No Apparent Distress
HEENT: Normocephalic
Respiratory: Clear to Auscultation
Cardiac: Regular Rhythm
GI: Soft and Tender (epigastrium)
Musculoskeletal: No Clubbing, No Cyanosis and No Edema
Neuro: Awake, Alert, Oriented and AO x 3
Psych: Calm
[2024-04-14 10:26] LABS: Lipase 315 U/L (23-300)
--- NOTE | 2024-04-14 10:58 | CON.GI ---
Addendum entered and electronically signed by Pauline Richter MD 04/14/24 18:50:
I saw and examined the patient.
The PROGRAM DIR's note was reviewed and I agree with the note.
c/o multiple nonspecific GI complaints - including dysphagia/epigastric pain/nausea
04/14- esophagram -
Limited study demonstrating decreased esophageal motility with mild tertiary contractions in the distal esophagus
VSE-normal oropharyngeal swallow.
last EGD 2016 -irregular Z-line/gastric diverticulum/mild gastritis. Biopsies negative for celiac disease/H. pylori
plan
trial of PPI bid
Follow-up CT abdomen
Discussed benefits and risk of EGD. Patient verbalized understanding and is agreeable for the procedure. Patient is currently on Eliquis. Will hold off on it and tentatively plan EGD on Saturday
Original Note:
Consultation
-
Date/Time Consultation Requested: 04/14/24 0930
Date/Time Consultation Performed: 04/14/24 1100
Requesting Provider: Blu Haywood MD
Performing Provider: JADA Hoyt, Pauline Richter MD
Reason for Consultation: nausea/epigastric pain
Medical History
Chief Complaint / HPI
Chief Complaint: nausea, dysphagia epigastric pain, dysphagia, post nasal drip
History of Present Illness:
Pt is a 79yo with hx afib with prior CV on Eliquis, hypertension, parkinson's, hypothyroidism, GERD, with admission with weakness and fall with concern for PNA. . In review with patient she was at [facility] for UTI and fall then [facility].. She
now has multiple complaints of dysphagia, post nasal drip, nausea, epigastric pain and asked to eval. Labs with stable LFT minimal increase AST 51 and minimal elevated lipase 315. In review with patient many symptoms have been chronic. She has
had issue with swallowing likely related to parkinsons with feeling of food sticking at time . She just completed esophagram with decreased motility and tertiary contracts. VSE with Oropharyngeal swallow WNL. No significant residue or any
penetration/aspiration noted. She has been compensating for issues with eating slowly, drinking plenty of water and stay upright after eating. She also complaints of epigastric pain. Pain has been present for 3 months but got acutely worse last
PM. She admits to recent wt loss with nausea and decreased appetite that she related to ongoing issue with post nasal drip. She did have small amounts of vomiting with dry heaves today. She also admits to some chronic constipation with stools
every other day sometime hard to pass stools. Home med list with oral iron but no laxative regiment. She denies rectal bleeding. last EGD 2016 with irreg Z line, gastric diverticulum, erythema in gastric body, scalloped mucosa in duodenum
suspicious for celiac but neg biopsy. Last colonoscopy 2014 diverticulosis.
Past Medical History
Past Medical History: Arrhythmias (afib with prior cardioversion, on Eliquis), GERD, HTN, Hypothyroidism, Valvular Disease (mod MR/TR), Psychiatric (anxiety) and Other (mild Pulm HTN, IBS, parkinson's disease, ITP with prior splenectomy)
Social History
Tobacco: Non-Smoker
Alcohol: None
Drug: None
Living: With Family
Employment: Retired
Family History
Family History: Other (father with parkinson's no family hx colon CA or polyps)
Allergies / Home Medications
Allergy/AdvReac Type Severity Reaction Status Date / Time
codeine Allergy Nausea,HEAD Verified 04/11/24 10:54
ACHE,RASH,D
EDUARDO
Iodinated Contrast Media Allergy Hives Verified 04/11/24 10:54
[Iodinated Contrast Media -
Oral and]
Penicillins Allergy Hives,HEADA Verified 04/11/24 10:54
EUGENIO,RASH,NA
USEA
Sulfa (Sulfonamide Allergy HEADACHE,RA Verified 04/11/24 10:54
Antibiotics) SH,NAUSEA
gnats Allergy Rash Uncoded 04/11/24 10:55
MOSQUITO Allergy Swelling/RE Uncoded 04/11/24 10:54
DNESS
�Medication �Instructions �Recorded
apixaban 5 mg tablet (Eliquis) 5 mg PO BID Blood clot 10/08/16
prevention/tx
docusate sodium 100 mg capsule 100 mg PO DAILYPRN PRN constipation 02/25/20
alprazolam 0.25 mg tablet 0.25 mg PO DAILYPRN PRN anxiety 03/09/20
levothyroxine 75 mcg tablet 75 mcg PO DAILY Thyroid 03/09/20
(Levoxyl)
ascorbic acid (vitamin C) 500 mg 500 mg PO DAILY Supplement 11/08/22
tablet (Vitamin C)
cholecalciferol (vitamin D3) 25 25 mcg PO DAILY Supplement 11/08/22
mcg (1,000 unit) capsule (Vitamin
D3)
carbidopa 25 mg-levodopa 100 mg 1 tab PO 5/D@07,11,15,19,23 08/19/23
tablet PARKINSON'S
atenolol 25 mg tablet 25 mg PO DAILY Arrhythmia #30 tabs 08/22/23
amiodarone 200 mg tablet (Pacerone) 200 mg PO DAILY A-FIB 04/11/24
ferrous sulfate 325 mg (65 mg 325 mg PO HS Supplement 04/11/24
iron) tablet
gabapentin 100 mg capsule 100 mg PO BID NEUROPATHY 04/11/24
gabapentin 100 mg capsule 100 mg PO DAILYPRN PRN mild pain 04/11/24
latanoprost 0.005 % eye drops 1 drp BOTH EYES HS Eye Condition 04/11/24
losartan 25 mg tablet 25 mg PO HS Blood Pressure 04/11/24
nitrofurantoin 100 mg PO BID Infection 04/11/24
monohydrate/macrocrystals 100 mg
capsule
pantoprazole 40 mg tablet,delayed 40 mg PO DAILY Gastrointestinal 04/11/24
release Issue
Review of Systems
-
History Source: Patient
Constitutional: Reports Weight Loss ( 10 lbs )
EENT: Reports Other (+ PND)
Respiratory: Reports No Symptoms
Cardiac: Reports No Symptoms
Abdomen/GI: Reports Abdominal Pain (epigastric ), Nausea, Vomiting and Constipated
: Reports No Symptoms
Musculoskeletal: Reports No Symptoms
Skin: Reports No Symptoms
Neurological: Reports Weakness
Hematologic/Lymphatic: Reports Other (some bruising on face)
Vital Signs
Temp Pulse Resp BP Pulse Ox
97.9 F 110 18 136/87 97
04/14/24 07:00 04/14/24 07:00 04/14/24 07:00 04/14/24 07:00 04/14/24 07:00
Physical Exam
Exam
General: Well Developed, Well Nourished and No Apparent Distress
HEENT: Normocephalic and Anicteric
Respiratory: Clear
Cardiac: Regular Rhythm
GI: Soft, Non Distended and Tender (epigastric with minimal palpation)
Musculoskeletal: No Clubbing and No Cyanosis
Skin: Warm and Dry
Neuro: Awake, Alert and AO x 3
Psych: Calm
Results
WBC 4.2 10^3/uL (4.8-10.8) L 04/14/24 07:36
Hgb 10.3 g/dL (12.0-16.0) L 04/14/24 07:36
Hct 29.5 % (37.0-47.0) L 04/14/24 07:36
MCV 91.6 fL (81.0-99.0) 04/14/24 07:36
Plt Count 262 10^3/uL (130-400) 04/14/24 07:36
Absolute Neuts (auto) 2.9 10^3/uL (1.4-6.5) 04/14/24 07:36
Sodium 139 mmol/L (135-145) 04/14/24 07:36
Potassium 4.2 mmol/L (3.5-5.1) D 04/14/24 07:36
Chloride 103 mmol/L (98-107) 04/14/24 07:36
Carbon Dioxide 26 mmol/L (22-30) 04/14/24 07:36
BUN 17 mg/dl (7-17) 04/14/24 07:36
Creatinine 0.7 mg/dL (0.6-1.0) 04/14/24 07:36
Calcium 8.5 mg/dl (8.4-10.2) 04/14/24 07:36
Total Bilirubin 0.6 mg/dl (0.2-1.3) 04/14/24 07:36
AST 51 U/L (14-36) H 04/14/24 07:36
ALT 15 U/L (0-35) 04/14/24 07:36
Alkaline Phosphatase 69 U/L (38-126) 04/14/24 07:36
Lipase 315 U/L (23-300) H 04/14/24 07:36
Diagnostic Image Results:
04/14- esophagram -
Limited study demonstrating decreased esophageal motility with mild tertiary contractions in the distal esophagus
07/[address] Julien- - Z-line irregular, at the gastroesophageal junction.
Biopsied.
- Gastric diverticulum.
- Erythematous mucosa in the gastric body and antrum.
Biopsied.
- Scalloped mucosa was found in the duodenum, suspicious
for celiac disease. Biopsied.
- Biopsy was performed in the middle third of the
esophagus.
- Biopsies were taken with a cold forceps for evaluation
of celiac disease.
bx neg
01/2015- Colonoscopy Dr. julien- - Diverticulosis in the sigmoid colon.
Assessment / Plan
-
Pt is a 79yo with hx afib with prior CV on Eliquis, hypertension, Parkinson's, hypothyroidism, GERD, with admission with weakness and fall with concern for PNA. In review with patient she was at [facility] for UTI and fall [facility].. She now
has multiple complaints of dysphagia, post nasal drip, nausea, epigastric pain and asked to eval. Labs with stable LFT minimal increase AST 51 and minimal elevated lipase 315. In review with patient many symptoms have been chronic. She has had
issue with swallowing likely related to parkinsons with feeling of food sticking at time . She just completed esophagram with decreased motility and tertiary contracts. VSE with Oropharyngeal swallow WNL. No significant residue or any
penetration/aspiration noted. She has been compensating for issues with eating slowly, drinking plenty of water and stay upright after eating. She also complaints of epigastric pain. Pain has been present for 3 months but got acutely worse last
PM. She admits to recent wt loss with nausea and decreased appetite that she related to ongoing issue with post nasal drip. She did have small amounts of vomiting with dry heaves today. She also admits to some chronic constipation with stools
every other day sometime hard to pass stools. Home med list with oral iron but no laxative regiment. She denies rectal bleeding. last EGD 2016 with irreg Z line, gastric diverticulum, erythema in gastric body, scalloped mucosa in duodenum
suspicious for celiac but neg biopsy. Last colonoscopy 2014 diverticulosis.
-epigastric abdominal pain acute on chronic x 3 months
-nausea/vomiting
-dysphagia with stable VSE esophagram with decreased motility
-constipation
-mild lipase elevation
-parkinson's disease
-PNA prior to admission
-anemia
-leukopenia
-wt loss
other med problems:
-afib on Eliquis
-HTN
-GERD
-hypothyroidism
-ambulatory dysfunction
PLAN:
etiology of multiple complaints unclear
from Epigastric pain standpoint and worsening pain overnight with minimal increased lipase will check US abdomen to rule out biliary issues-- she admits to recent wt loss
will check abd X ray to exclude constipation as underlying cause of nausea, pain etc as very common in parkinson population
agree with trial of increased PPI
cont NSAID avoidance
appreciate speech input -- cont diet as tolerated small sips, bits with water with some esophageal dysmotility on imaging
no current bowel regiment will add miralax and senna daily.
pt is also on Amiodarone started several months ago which can cause some nausea
cont rx for post nasal drip per primary team-- recommended flonase but not available to
-
-
Thank you for consultation and allowing me to participate in the patient's care. Please call the bond [facility] GI physician during the after hours with any questions or concerns.
[2024-04-14] MEDS: SOLU-CORTEF 200 MG IV ×3 (11:06→22:47)
--- NOTE | 2024-04-14 11:10 | W.PN.UPDATE ---
Update Note
Progress Note Update
Elevated lipase - CT abd to r/o pancreatitis and start IVF. GI conult pending. Premed with Hydrocortisone since allergic to contrast. cont CLD
follow lipase
[2024-04-14] MEDS: NSS 1000 IV (11:11)
[2024-04-14] MEDS: PROTONIX IV 40 MG IV ×2 (11:12→20:13)
[2024-04-14] MEDS: NSS (PRESERVATIVE FREE) 10 ML IV ×2 (11:13→20:14)
[2024-04-14] MEDS: ROCEPHIN 1000 MG IV (11:17)
[2024-04-14] MEDS: STERILE WATER FOR INJECTION 10 ML IV (11:17)
[2024-04-14 11:59] LABS: Hepatitis B Surface Antigen Negative (Negative)
[2024-04-14 12:17] LABS: Hepatitis B Core Ab, Total Negative (Negative); Hepatitis C Antibody Negative (Negative)
--- NOTE | 2024-04-14 12:39 | CM ---
[facility] accepted for SNF.
Per hospitalist GI pending, poss d/c tomorrow
CM updated Moira/REJI. Per Moira, at d/c call for bed availability
[facility] Clinicals and referral sent via [facility]
Per Melanie/Maranda, she will contact pt's son for [facility]
Plan: [facility]
[2024-04-14] MEDS: MIRALAX PO (13:38)
[2024-04-14] MEDS: MIRALAX 17 GRAMS PO (13:44)
[2024-04-14 14:26] LABS: Hepatitis B Surface Antibody Indeterminate
[2024-04-14] MEDS: XALATAN OPHTHALMIC SOLUTION 1 DROP BOTH EYES (21:35)
[2024-04-14] MEDS: SENOKOT 17.2 MG PO (21:35)
[2024-04-14] MEDS: XANAX 0.25 MG PO (23:35)
--- NOTE | 2024-04-14 23:44 | PTCARENOTE ---
Patient off floor for ordered CT
[2024-04-15] VITALS (7 sets, daily range): BP systolic 107–150; BP diastolic 56–108; PULSE 76; BMI 19.0
--- NOTE | 2024-04-15 00:05 | PTCARENOTE ---
Patient back on 4W from imaging
[2024-04-15] MEDS: NSS 1000 IV (02:09)
--- NOTE | 2024-04-15 05:53 | PTCARENOTE ---
Per Dr. Lowe, HOLD 0800 Eliquis 5mg for diagnostic EGD today.
[2024-04-15] MEDS: SYNTHROID 88 MCG PO (05:55)
[2024-04-15] MEDS: SINEMET 25-100 1 TABLET PO ×5 (05:55→22:00)
[2024-04-15 07:10] LABS: Hematocrit 30.9 % (37.0-47.0); Hemoglobin 10.8 g/dL (12.0-16.0); Mean Corpuscular Hgb 31.4 pg (27.0-31.0); Mean Corpuscular Volume 89.8 fL (81.0-99.0); Mean Platelet Volume 11.6 fL (7.4-10.4); Platelet Count 292 10^3/uL (130-400); Red Blood Cell Count 3.44 10^6/uL (4.20-5.40); Red Cell Dist. Width 16.3 % (11.5-14.5); White Blood Cell Count 3.4 10^3/uL (4.8-10.8)
[2024-04-15 07:23] LABS: ALT (SGPT) 12 U/L (0-35); AST (SGOT) 51 U/L (14-36); Alkaline Phosphatase 73 U/L (38-126); Blood Urea Nitrogen 14 mg/dl (7-17); Calcium 8.4 mg/dl (8.4-10.2); Carbon Dioxide 26 mmol/L (22-30); Chloride 104 mmol/L (98-107); Estimated Creatinine Clearance 57 ml/min; Glucose 127 mg/dl (70-99); Lipase 198 U/L (23-300); Sodium 139 mmol/L (135-145); Total Bilirubin 0.6 mg/dl (0.2-1.3); eGFR > 60.00
[2024-04-15 07:40] LABS: Potassium 3.7 mmol/L (3.5-5.1)
[2024-04-15 08:32] LABS: Absolute Neutrophils -Man Diff 2.7 10^3/uL (1.4-6.5); Band Neutrophils 5 % (0-3); Lymphocytes 11 % (20-51); Monocytes 8 % (2-9); Platelets Checked Yes; Segmented Neutrophils 76 % (42-75)
[2024-04-15 08:33] LABS: Anisocytosis 1+; Hypochromasia 1+; Normal RBC Morphology No; Nucleated Red Blood Cells 9 (-); Polychromasia 1+; Target Cells 2+
[2024-04-15 08:34] LABS: Acanthocytes 1+; Ovalocytes 1+; Total Cells Counted 100
[2024-04-15] MEDS: VIBRAMYCIN 100 MG PO ×2 (08:39→20:12)
[2024-04-15] MEDS: MIRALAX 17 GRAMS PO (08:39)
[2024-04-15] MEDS: VITAMIN D3 (cholecalciferol) 25 MCG PO (08:39)
[2024-04-15] MEDS: PACERONE 200 MG PO (08:39)
[2024-04-15] MEDS: VITAMIN C 500 MG PO (08:39)
[2024-04-15] MEDS: NEURONTIN 100 MG PO ×2 (08:40→20:12)
[2024-04-15] MEDS: TENORMIN 25 MG PO (08:40)
[2024-04-15] MEDS: NSS (PRESERVATIVE FREE) 10 ML IV ×2 (08:40→20:12)
[2024-04-15] MEDS: PROTONIX IV 40 MG IV ×2 (08:41→20:12)
--- NOTE | 2024-04-15 11:52 | W.PN.PUL3 ---
Today's Communication / Plan
-
Doing well, stable on RA
VSE negative
ECHO stable
Remains on IV diuresis
For EGD saturday
Continue abx for 7 days
PT/OT, rehab planning
Outpatient pulmonary FU recommended
Assessment
-
79-year-old female with a past medical history of Parkinson's disease, paroxysmal A-fib on Eliquis s/p ablation, hypothyroidism, mitral valve prolapse, MR, history of ITP s/p splenectomy, GERD, anxiety and glaucoma who presents with syncopal episode
without head trauma. She had previously fallen earlier this month with current bruising to the face and had been treated [place] for rhabdomyolysis. She does take Eliquis. Also being treated for UTI, reportedly. She says that she has not been
eating or drinking as normally because she has been feeling nauseous and when she 'drinks she throws up.' She was just discharged from [facility] on 04/10/2024 following a hospitalization at [facility] for rhabdomyolysis due to a fall. She recently
developed a UTI on 04/07 as well and is currently on Macrobid. She requires multiple people to transport her to do exquisite generalized weakness. She currently denies painful urination, urinary urgency, fevers or chills. On the morning prior to
arrival her home care nurse tried to get her out of bed and put her onto the chair and that is the 'last thing she remembers.' She was told by the home care nurse that she passed out. She currently denies blurred vision, chest pain, SOB at rest.
She does endorse postnasal drip. In the ER she was afebrile to 97.6 �F, pulse rate 77, breathing at 20 breaths/minute, BP 154/71 and saturating 98% on room air. Labs showed leukopenia to 4.4, Hb 10.6, sodium 131, creatinine 0.8, AST 73, troponin
<0.012, albumin level 3.2, lipase 370, procalcitonin 0.07, TSH 6.72, free T41.43, urinalysis negative for signs of UTI and COVID-19 antigen negative. CXR showed small bilateral pleural effusions, and subsequent CT chest showed small bilateral
pleural effusions with a small irregular opacity in the right apex with accompanying small subpleural nodular opacities in the lateral apices bilaterally with mild pericardial thickening versus tiny pericardial effusion. In the ER she was given
aztreonam + vancomycin, and admitted to telemetry for further care. Pulmonary service is now consulted for additional management/recommendations.
Impression:
#Multiple nodular opacities in right upper lobe, suspected to be aspiration, with 1 cm irregular opacity at the right lung apex
#RUL CAP/aspiration pneumonia
#Syncopal episode without head trauma
#Leukopenia
#Acute anemia (baseline Hb 12.5�14g/dL)
#Hyponatremia (mild)
#Transaminitis with slightly elevated AST
#Subclinical hypothyroidism
#Chronic cough - could be multiple etiologies however she does endorse postnasal drip
#Physical deconditioning
#Parkinson disease on Sinemet
#Postnasal drip
#Bilateral pleural effusions due to suspected acute decompensated heart failure
#A-fib on Eliquis and amiodarone with Hx of ablation
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
glaucoma, diverticulosis, HSV-2 (2012)
Plan:
Currently on RA, not on O2
Maintain SpO2 >90-94% with supplemental O2 as needed
Incentive spirometer encouraged
prn nebulized bronchodilators - not currently bronchospastic
Pulmonary toilet with acapella; would normally get Mucinex but she says that she was unable to tolerate this and stopped it prior to arrival; hold off on guaifenesin for now
Nasal saline spray as she endorses post-nasal drip and this could be contributing to her cough
I feel that patient may have aspirated during her syncopal event, and that she currently has RUL aspiration pneumonia/CAP due to her symptoms of generalized weakness, chronic cough with the recent difficulty handling her secretions for the past 2-3
days
Treat with Abx - currently on rocephin + doxy; would treat for total of 7 days assuming that she is continuing to clinically improve and remains afebrile for 48 hours prior to stopping ABx
Follow-up blood cultures (collected 04/11/2024)
Check sputum culture if patient able to provide a decent sample
Check RAISIN WASHER eval to assess for aspiration risk
Speech consult obtained- 79F with admission for syncope and decreased oral intake p/w s/sx of a functional oropharyngeal swallow. No overt s/s of aspiration or penetration demonstrated with PO trials this date. Aspiration risk is increased 2/2
Parkinson�s disease, UTI, GERD, and chronic vocal hoarseness.
VSE-normal
Esophagram showing slowed motility
Continue PO intake
Abnormal CT chest
Repeat CT chest in 6-8 weeks to assess for persistence vs improvement of her RUL nodule(s)
If right upper lobe 1 cm nodular opacity persists or continues to grow then we will need to discuss biopsy for tissue acquisition
The presence of her small bilateral pleural effusions suspicious for acute decompensated heart failure;
ECHO obtained, stable normal biV function; moderate PAP/PH noted, (last LVEF 80% on Lexiscan stress test from October 2023)
Maintain net negative fluid balance - on IV lasix 40mg daily
prn zofran as she has an allergy to sulfa ABx with nausea/rash/HEWITT --> monitor closely
- Trend sNa with goal 135-145
- Currently in NSR; monitor HR with goal 60-100, unless goes into A-fib in which case keep HR<110
- Replete electrolytes with K>4, Mg>2
- trend LFTs
- Fall precautions
- PT/OT
- Maintain euglycemia with goal BG >100 and <180
- DVT ppx: Eliquis
Pulmonary service will continue to follow along.
Data:
CT chest without contrast 04/12/2024: Small bilateral pleural effusions with accompanying bilateral lower lobe subsegmental atelectasis, right greater than left. Cannot exclude bilateral lower lobe pneumonia. Small irregular opacity in the right
apex as well as small subpleural nodular opacities in the lateral apices bilaterally which may be on an inflammatory/infectious basis. Malignancy cannot be excluded. Short-term follow-up Chest CT recommended. Mild pericardial thickening versus tiny
pericardial effusion.
CXR 04/11/2024: Small bilateral pleural effusions with associated atelectasis and/or pneumonia.
ECHO 04/13/24- Normal biventricular size and systolic function without regional wall motion abnormality. Estimated LVEF 65-70%. Mild concentric left ventricular hypertrophy. Mild/moderate mitral regurgitation. Moderate tricuspid regurgitation.
Moderately eleavted PASP. Estimated pulmonary artery pressure of 49 mmHg. Assuming a right atrial pressure of 3 mmHg. Trace pericardial effusion.
Compared to 11/09/22: no significant change.
-----
Total time spent today was 51 minutes for this encounter. Time includes reviewing laboratory test/imaging results, reviewing pertinent medical records, obtaining and reviewing medical history, performing an appropriate exam, ordering medications,
tests and procedures. Time also includes documentation of this encounter, coordinating patient care and communicating with other healthcare professionals. Total time does not include separately billed tests performed on this date of service.
Subjective Data
-
Date of Service:
Date of Service: April 15, 2024
Chief Complaint: Pulmonary Follow Up
Subjective:
No new events, stable on RA
For EGD Saturday
Objective Data
Data Reviewed
Vital Signs / I&O / Oxygen:
Vital Signs
Temp Pulse Resp BP Pulse Ox
97.4 F 52 15 131/79 98
04/15/24 11:33 04/15/24 11:33 04/15/24 11:33 04/15/24 11:33 04/15/24 11:33
Intake and Output
10/04/15/24 04/16/24
06:59 06:59 06:59
Intake Total 1650 / 1650 1400 / 1400
Balance 1650 / 1650 1400 / 1400
SaO2 98
Physical Exam
General: Comfortable and Other (NAD)
HEENT: Normocephalic, Anicteric and Moist Mucous Membranes
Cardiovascular: S1-S2 and Regular Rhythm
Respiratory: Clear and Non-Labored Respirations
GI: Soft, Non Distended and Non Tender
Neurology: Awake, Alert, Oriented and Other (weakness noted)
Skin: Warm, Dry and Good Color
Labs/Micro/Reports
Lab Data
04/15/24 06:29
04/15/24 06:29
Microbiology
04/11/24 14:12 Blood/Venous Blood Culture - Preliminary
No Growth in 72 hours- Final report to follow
04/11/24 13:59 Blood/Venous Blood Culture - Preliminary
No Growth in 72 hours- Final report to follow
04/12/24 14:31 Nasal Swab Influenza Types A & B (SATISH) - Final
Negative for Influenza A & B, NAAT
Negative results must be combined with clinical observations
and patient history.
Nucleic Acid Amplification test (NAAT)performed on the
[employer] ([employer]) platform.
[2024-04-15] MEDS: ROCEPHIN 1000 MG IV (12:01)
[2024-04-15] MEDS: STERILE WATER FOR INJECTION 10 ML IV (12:01)
--- NOTE | 2024-04-15 12:23 | W.PN.HOSP.TC ---
Today's Communication/Plan
-
stop IVF
Heparin
lasix
Assessment / Plan
Assessment / Plan
79yo F with PMHX of Afib on ELiquis orthostatic hypotension, ITP, Parkinson, hypothyroidism, GERD, postnasal drip came with c/o weakness and inability to care for herself since her d/c from [facility] on the day prior. Also was having a lot of cough
for past couple of months. Recently discharged from [facility] where she was managed after the fall and also found UTI. ALso absent appetite for past week with acute on chronic epigastric pain
A/P:
#Epigastric pain
#Gastric wall thickening
#Minimal persistent AST elevation - most likely 2/2 iliac muscle hematoma
Esophagram showing possible lower esophageal contractions
PPI and Zofran
GI consult: for EGD on 04/17/24
Hold Eliquis, start bridging heparin since patient is worried about stroke possibility and with PMHx of ITP
No gall bladder abnormality, no CBD dilation seen
Hepatitis profile neg
#Elevated lipase
with pancreatic duct dilation
GI to follow
improved on IVF
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
#Orthostatic hypotension
PT/OT
Stop Losartan
#Possible CAP vs atelectasis on XR chest
Doxy/Rocephin
CT chest: Small irregular opacity in the right apex
COVID-19 neg
influenza neg
#Postnasal drip
Flonase as outpatient (Not available in )
#Hypothyroidism
TSH elevated - increase Synthroid, repeat TSH in 2-3 weeks
#Anemia
#Leukopenia
suspect reactive - improving
follow CBC
Might need hematology eval as outpatient if persistent
#Small irregular opacity in the right apex
CT chest in 4-6 weeks as per pulm consult
#Complex enlargement of the left iliacus muscle
with recent fall -most likely hematoma
repeat pelvic CT in 3-4 weeks as outpatient
#B/L pulmonary effusions with atelectasis
can be 2/2 poor ambulation
Incentive spirometry
Echo: mild/moderate MR, EF 65%, moderately elevated PASP
#Hypokalemia
replete
#Anemia, chronic
follow with PCP
#Leukopenia
recurrent, reactive
#Poor appetite
#Protein calorie malnutrition
CONVENTIONS ASSISTANT
Ensure
#Neuropathy
#SUHAIL
#Afib, unspecified
Cont home meds
#HX of ITP
follow plt
DVT ppx on Eliquis
DNR/DNI
I have spent at least 58min reviewing chart, test results and direct patient care
Anticipated Discharge: > 48 hours
Subjective/Interval History
-
Date of Service: April 15, 2024
Objective Data
-
Labs:
Laboratory Results
04/15/24
06:29
WBC 3.4 L
Hgb 10.8 L
Hct 30.9 L
Plt Count 292
Sodium 139
Potassium 3.7
Chloride 104
Carbon Dioxide 26
BUN 14
Creatinine 0.7
Glucose 127 H
Calcium 8.4
Total Bilirubin 0.6
AST 51 H
ALT 12
Alkaline Phosphatase 73
Vital Signs:
Vital Signs
Temp Pulse Resp BP Pulse Ox
97.4 F 52 15 131/79 98
04/15/24 11:33 04/15/24 11:33 04/15/24 11:33 04/15/24 11:33 04/15/24 11:33
I&O
04/14/24 04/15/24 04/16/24
06:59 06:59 06:59
Intake Total 1650 / 1650 1400 / 1400
Balance 1649
Review of Systems
-
History Source: Patient
All other systems: Reviewed and negative
Physical Exam
-
General: No Apparent Distress
Respiratory: Clear to Auscultation
Cardiac: Irregular Rhythm
GI: Soft and Nontender
Skin: Warm
Neuro: Awake, Alert, Oriented and AO x 3
Psych: Calm
[2024-04-15 12:44] LABS: Hematocrit 29.9 % (37.0-47.0); Hemoglobin 10.4 g/dL (12.0-16.0); Mean Corp Hgb Conc. 34.8 g/dL (33.0-37.0); Mean Corpuscular Hgb 31.4 pg (27.0-31.0); Mean Corpuscular Volume 90.3 fL (81.0-99.0); Mean Platelet Volume 11.4 fL (7.4-10.4); Platelet Count 297 10^3/uL (130-400); Red Blood Cell Count 3.31 10^6/uL (4.20-5.40); Red Cell Dist. Width 16.5 % (11.5-14.5); White Blood Cell Count 3.9 10^3/uL (4.8-10.8)
[2024-04-15 12:57] LABS: APTT 28.2 Sec (23.4-35.0)
[2024-04-15 13:02] LABS: Creatine Phosphokinase 28 U/L (30-135)
--- NOTE | 2024-04-15 13:25 | PN.CDI ---
CDI
- -
CDI:
Physician Documentation Request
Admit Date: 04/13/24 11:05
Dear Doctor Susan,
Please review the following and provide your response in the progress notes.
Clinical Indicators:
04/13/24 11:30 (created 04/13/24 12:24) - Wound Note
Wound Location and type/assessment:
#Patient admitted with: multiple healing abrasions mostly on R Cheek, R wrist,
#...R hip L worship and L knee.
#Patient turned to side with assist, has non blanchable red area on R buttock, stage 1 PI.
Physician documentation of the type and location of wounds is required for compliant documentation. Based on the above clinical findings and your assessment, please provide the following in your progress note:
Right buttock, stage 1 pressure injury, POA
Other (please specify)
1. Location of the ulcer/wound, including laterality.
2. Type (etiology) of ulcer/wound:
- Diabetic ulcer
- Arterial (ischemic) ulcer
- Traumatic wound
- Venous stasis ulcer
- Pressure (decubitus) ulcer
3. For a non-pressure ulcer, please indicate the depth/severity:
- Limited to the breakdown of skin
- With fat layer exposed
- With necrosis of muscle
- With necrosis of bone
4. If a pressure ulcer, please also include the stage* of the ulcer:
- Stage 1 - Skin intact, non-blanchable redness
- Stage 2 - Partial thickness loss of dermis, includes intact or open blister
- Stage 3 - Full thickness tissue not including bone, tendon or muscle
- Stage 4 - Full thickness tissue loss, including exposed bone, tendon or muscle
- Unstageable - Full thickness loss in which the base of the ulcer is covered by slough (yellow, masterson, bowling, green or brown) and/or eschar (masterson, brown or black) in the wound bed.
- Unable to determine
Use of terms such as suspected, likely, concern for, or probable (associated with a specific diagnosis that is being evaluated, monitored, or treated as if it exists) are acceptable and can be coded in the inpatient setting, when documented at the
time of discharge.
Thank you,
Pat Corrales RN BSN CCDS
CDI Specialist
please contact via tiger text
Please use your independent medical judgment in providing your response.
*Source: National Pressure Ulcer Advisory Panel (NPUAP)
--- NOTE | 2024-04-15 13:28 | PN.CDI ---
CDI
- -
CDI:
Physician Documentation Request
Admit Date: 04/13/24 11:05
Dear Doctor Susan,
Please review the following and provide your response in the progress notes.
Clinical Indicators:
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
#...meets ASPEN severe protein calorie malnutrition of chronic illness
#...due to loss of more than 7.5% BW in 3 months and less than 75% estimated
#...needs equal to 1 month.
PN, 04/15
#Protein calorie malnutrition
Please clarify the severity of the documented malnutrition:
Severe protein calorie malnutrition of chronic illness
Other(please specify)
Use of terms such as suspected, likely, concern for, or probable (associated with a specific diagnosis that is being evaluated, monitored, or treated as if it exists) are acceptable and can be coded in the inpatient setting, when documented at the
time of discharge.
Thank you,
Pat Corrales RN BSN CCDS
CDI Specialist
Please contact via tiger text
Please use your independent medical judgment in providing your response.
--- NOTE | 2024-04-15 13:40 | W.PN.GI.CBS2 ---
Addendum entered and electronically signed by Pauline Richter MD 04/15/24 20:28:
I saw and examined the patient.
The CANOE BUILDER's note was reviewed and I agree with the note.
patient is feeling better. eating better. less pain. CT abd findings reviewed.
plan
EGD on tuesday 04/17
Hold eliquis
cont PPI bid
Original Note:
Today's Communication / Plan
-
slight improved epigastric pain but still with pain on exam
CT and US noted Suggestion of some mild thickening of the wall of the proximal lesser curvature of the stomach which may be due to underdistention, gastritis or less likely peptic ulcer disease.
plan for EGD 04/17 after Eliquis wash out-- last dose 04/14 PM
abd X ray held as CT completed
cont PPI BID
Eliquis last dose 04/14 PM
cont NSAID avoidance
appreciate speech input -- cont diet as tolerated small sips, bits with water with some esophageal dysmotility on imaging
cont miralax and senna daily with chronic constipation with
pt is also on Amiodarone started several months ago which can cause some nausea but less likely with some improvement
noted B/l effusion but lung exam stable and denies shortness of breath
Assessment / Plan
-
Pt is a 79yo with hx afib with prior CV on Eliquis, hypertension, Parkinson's, hypothyroidism, GERD, with admission with weakness and fall with concern for PNA. In review with patient she was at [facility] for UTI and fall then [facility].. She now
has multiple complaints of dysphagia, post nasal drip, nausea, epigastric pain and asked to eval. Labs with stable LFT minimal increase AST 51 and minimal elevated lipase 315. In review with patient many symptoms have been chronic. She has had
issue with swallowing likely related to parkinsons with feeling of food sticking at time . She just completed esophagram with decreased motility and tertiary contracts. VSE with Oropharyngeal swallow WNL. No significant residue or any
penetration/aspiration noted. She has been compensating for issues with eating slowly, drinking plenty of water and stay upright after eating. She also complaints of epigastric pain. Pain has been present for 3 months but got acutely worse last
PM. She admits to recent wt loss with nausea and decreased appetite that she related to ongoing issue with post nasal drip. She did have small amounts of vomiting with dry heaves today. She also admits to some chronic constipation with stools
every other day sometime hard to pass stools. Home med list with oral iron but no laxative regiment. She denies rectal bleeding. last EGD 2016 with irreg Z line, gastric diverticulum, erythema in gastric body, scalloped mucosa in duodenum
suspicious for celiac but neg biopsy. Last colonoscopy 2014 diverticulosis.
04.14 US abdomen
1. No sonographic evidence for an acute process in the abdomen.
2. Splenectomy.
3. Right pleural effusion.
04/14 CT Abd/Pel (IV only)-[facility] only
No findings to confirm focal pancreatic/peripancreatic inflammatory changes. Pancreatic duct borderline enlarged.
Unremarkable gallbladder. No findings to suggest biliary tract dilatation.
Suggestion of some mild thickening of the wall of the proximal lesser curvature of the stomach which may be due to underdistention, gastritis or less likely peptic ulcer disease.
Complex enlargement of the left iliacus muscle. Some differential diagnostic possibilities include hematoma, infection/abscess or less likely cystic neoplasm.
Small bilateral pleural effusions with accompanying bilateral lower lobe subsegmental atelectasis.
-epigastric abdominal pain acute on chronic x 3 months
-nausea/vomiting
-dysphagia with stable VSE esophagram with decreased motility
-post nasal gtt
-constipation
-mild lipase elevation
-parkinson's disease
-PNA prior to admission
-pleural effusions on imaging
-anemia
-leukopenia
-wt loss
other med problems:
-afib on Eliquis
-HTN
-GERD
-hypothyroidism
-ambulatory dysfunction
PLAN:
slight improved epigastric pain but still with pain on exam
CT and US noted Suggestion of some mild thickening of the wall of the proximal lesser curvature of the stomach which may be due to underdistention, gastritis or less likely peptic ulcer disease.
plan for EGD 04/17 after Eliquis wash out-- last dose 04/14 PM
abd X ray held as CT completed
cont PPI BID
Eliquis last dose 04/14 PM
cont NSAID avoidance
appreciate speech input -- cont diet as tolerated small sips, bits with water with some esophageal dysmotility on imaging
cont miralax and senna daily with chronic constipation with
pt is also on Amiodarone started several months ago which can cause some nausea but less likely with some improvement
noted B/l effusion but lung exam stable and denies shortness of breath
Subjective
Subjective
Date of Service: April 15, 2024
on regular diet no stools still with some epigastric pain
Objective
Data Reviewed
Laboratory Data:
Laboratory Results
04/15/24 12:35
04/15/24 06:29
Laboratory Results
APTT 28.2 Sec (23.4-35.0) 04/15/24 12:35
Phosphorus 3.8 mg/dl (2.5-4.5) 04/13/24 06:23
Magnesium 1.8 mg/dl (1.6-2.3) 04/13/24 06:23
Total Bilirubin 0.6 mg/dl (0.2-1.3) 04/15/24 06:29
AST 51 U/L (14-36) H 04/15/24 06:29
ALT 12 U/L (0-35) 04/15/24 06:29
Alkaline Phosphatase 73 U/L (38-126) 04/15/24 06:29
Lipase 198 U/L (23-300) 04/15/24 06:29
Vital Signs and I&O:
Vital Signs
Temp Pulse Resp BP Pulse Ox
97.4 F 52 15 131/79 98
04/15/24 11:33 04/15/24 11:33 04/15/24 11:33 04/15/24 11:33 04/15/24 11:33
I&O
04/14/24 04/15/24 04/16/24
06:59 06:59 06:59
Intake Total 1650 / 1650 1400 / 1400
Balance 1650 / 1650 1400 / 1400
Physical Exam
Physical Exam
HEENT: Anicteric and Moist mucous membranes
Cardiology: Normal Sinus Rhythm
Pulmonary: Clear and Other (minimal decreased bases posteriorly)
GI: Soft, Non Distended and Tender (epigastric )
Extremities: No Edema
Neuro: Non Focal
--- NOTE | 2024-04-15 15:15 | CM ---
Chart reviewed. EGD on Saturday.
Cont. abx
PT cont. to recommend skilled rehab at d/c
Will need to follow up w/ [facility] prior to d/c for bed availability
Plan: [facility]
[2024-04-15] MEDS: LASIX 40 MG IV (15:32)
[2024-04-15] MEDS: HEPARIN 25000 UNITS/250 ML IV (15:34)
[2024-04-15] MEDS: TYLENOL 650 MG PO (18:19)
[2024-04-15] MEDS: XALATAN OPHTHALMIC SOLUTION 1 DROP BOTH EYES (21:54)
[2024-04-15] MEDS: SENOKOT 17.2 MG PO (21:54)
[2024-04-15] MEDS: XANAX 0.25 MG PO (22:01)
[2024-04-15 22:12] LABS: APTT 69.6 Sec (23.4-35.0)
[2024-04-16] VITALS (9 sets, daily range): BP systolic 98–146; BP diastolic 51–79; PULSE 66–88; O2SAT 100; BMI 19.6
[2024-04-16 05:05] LABS: APTT 132.8 Sec (23.4-35.0)
[2024-04-16 05:45] LABS: ALT (SGPT) 15 U/L (0-35); AST (SGOT) 56 U/L (14-36); Alkaline Phosphatase 64 U/L (38-126); Blood Urea Nitrogen 22 mg/dl (7-17); Calcium 8.8 mg/dl (8.4-10.2); Carbon Dioxide 29 mmol/L (22-30); Chloride 103 mmol/L (98-107); Estimated Creatinine Clearance 50 ml/min; Glucose 95 mg/dl (70-99); Magnesium 1.8 mg/dl (1.6-2.3); Sodium 139 mmol/L (135-145); Total Bilirubin 0.7 mg/dl (0.2-1.3); Total Protein 5.9 g/dl (6.3-8.2); eGFR > 60.00
[2024-04-16] MEDS: SYNTHROID 88 MCG PO (06:22)
[2024-04-16] MEDS: SINEMET 25-100 1 TABLET PO ×5 (06:22→22:00)
[2024-04-16 08:22] LABS: Hematocrit 28.2 % (37.0-47.0); Hemoglobin 10.1 g/dL (12.0-16.0); Mean Corp Hgb Conc. 35.8 g/dL (33.0-37.0); Mean Corpuscular Hgb 32.9 pg (27.0-31.0); Mean Corpuscular Volume 91.9 fL (81.0-99.0); Mean Platelet Volume 12.4 fL (7.4-10.4); Platelet Count 294 10^3/uL (130-400); Red Blood Cell Count 3.07 10^6/uL (4.20-5.40); Red Cell Dist. Width 16.5 % (11.5-14.5); White Blood Cell Count 5.6 10^3/uL (4.8-10.8)
[2024-04-16] MEDS: NSS (PRESERVATIVE FREE) 10 ML IV ×2 (08:57→21:58)
[2024-04-16] MEDS: PROTONIX IV 40 MG IV ×2 (08:57→21:59)
--- NOTE | 2024-04-16 09:38 | W.PN.HOSP.TC ---
Today's Communication/Plan
-
cont hep drip, stop 4 h before EGD
cont Abx
cont PPI as patient has less symptoms with it
Assessment / Plan
Assessment / Plan
79yo F with PMHX of Afib on ELiquis orthostatic hypotension, ITP, Parkinson, hypothyroidism, GERD, postnasal drip came with c/o weakness and inability to care for herself since her d/c from [facility] on the day prior. Also was having a lot of cough
for past couple of months. Recently discharged from [facility] where she was managed after the fall and also found UTI. ALso absent appetite for past week with acute on chronic epigastric pain, GI planned for EGD
Accidental finding L iliac muscle hematoma- advised to repeat CT pelvis in 3-4 weeks to eval for resolution.
A/P:
#Epigastric pain
#Gastric wall thickening
#Minimal persistent AST elevation - most likely 2/2 iliac muscle hematoma
Esophagram showing possible lower esophageal contractions
PPI and Zofran
GI consult: for EGD on 04/17/24
Hold Eliquis, start bridging heparin since patient is worried about stroke possibility and with PMHx of ITP
No gall bladder abnormality, no CBD dilation seen
Hepatitis profile neg
#Elevated lipase
with pancreatic duct dilation
GI to follow
improved on IVF
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
#Orthostatic hypotension
PT/OT
Stop Losartan
#Possible CAP vs atelectasis on XR chest
Doxy/Rocephin (Can switch to oral cefdinir) until 04/19/24
CT chest: Small irregular opacity in the right apex
COVID-19 neg
influenza neg
#Postnasal drip
Flonase as outpatient (Not available in )
#Hypothyroidism
TSH elevated - increase Synthroid, repeat TSH in 2 weeks
#Anemia
#Leukopenia
suspect reactive - improving
follow CBC
Might need hematology eval as outpatient if persistent
#Small irregular opacity in the right apex
CT chest in 4-6 weeks as per pulm consult
#Complex enlargement of the left iliacus muscle
with recent fall -most likely hematoma
repeat pelvic CT in 3-4 weeks as outpatient
#B/L pulmonary effusions with atelectasis
can be 2/2 poor ambulation
Incentive spirometry
Echo: mild/moderate MR, EF 65%, moderately elevated PASP
#Hypokalemia
replete
#Anemia, chronic
follow with PCP
#Leukopenia
recurrent, reactive
#Poor appetite
#Severe protein calorie malnutrition
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
Ensure
#Right buttock, stage 1 pressure injury, POA
#L knee abrasions
wound care
frequent repositioning
pressure unload by RN
#Neuropathy
#SUHAIL
#Afib, unspecified
Cont home meds
#HX of ITP
follow plt
DVT ppx on Eliquis
DNR/DNI
I have spent at least 38min reviewing chart, test results and direct patient care
Anticipated Discharge: 24 - 48 hours
Subjective/Interval History
-
Date of Service: April 16, 2024
Objective Data
-
Labs:
Laboratory Results
04/15/24 04/16/24 04/16/24
21:53 04:44 06:36
WBC 5.6
Hgb 10.1 L
Hct 28.2 L
Plt Count 294
APTT 69.6 H 132.8 H
Sodium 139
Potassium 3.0 L
Chloride 103
Carbon Dioxide 29
BUN 22 H
Creatinine 0.8
Glucose 95
Calcium 8.8
Total Bilirubin 0.7
AST 56 H
ALT 15
Alkaline Phosphatase 64
04/16/24
12:30
WBC
Hgb
Hct
Plt Count
APTT Pending
Sodium
Potassium
Chloride
Carbon Dioxide
BUN
Creatinine
Glucose
Calcium
Total Bilirubin
AST
ALT
Alkaline Phosphatase
Vital Signs:
Vital Signs
Temp Pulse Resp BP Pulse Ox
97.6 F 88 18 146/76 98
04/16/24 07:25 04/16/24 07:25 04/16/24 07:25 04/16/24 07:25 04/16/24 03:00
I&O
04/15/24 04/16/24 04/17/24
06:59 06:59 06:59
Intake Total 1400 / 1400 720 / 720
Balance 1400 / 1400 720 / 720
Review of Systems
-
History Source: Patient
All other systems: Reviewed and negative
Physical Exam
-
General: No Apparent Distress
HEENT: Normocephalic
Cardiac: Regular Rhythm
GI: Soft, Nondistended and Tender (epigastrium)
Musculoskeletal: No Clubbing, No Cyanosis and No Edema
Neuro: Awake, Alert, Oriented and AO x 3
Psych: Calm
[2024-04-16] MEDS: MIRALAX 17 GRAMS PO (09:45)
[2024-04-16] MEDS: VITAMIN D3 (cholecalciferol) 25 MCG PO (09:49)
[2024-04-16] MEDS: TENORMIN 25 MG PO (09:50)
[2024-04-16] MEDS: VIBRAMYCIN 100 MG PO ×2 (09:50→21:59)
[2024-04-16] MEDS: PACERONE 200 MG PO (09:51)
[2024-04-16] MEDS: VITAMIN C 500 MG PO (09:51)
[2024-04-16] MEDS: KCL 40 MEQ PO ×2 (09:51→21:56)
[2024-04-16] MEDS: NEURONTIN 100 MG PO ×2 (09:52→21:57)
--- NOTE | 2024-04-16 09:53 | W.PN.PUL3 ---
Today's Communication / Plan
-
Remains stable on RA, no new complaints
Continue abx for total course
Planning for EGD in AM per GI
PT/OT, OOB
Discharge planning to SNF per team
No further recs from our standpoint
We will sign off at this time, please call with questions
Assessment
-
79-year-old female with a past medical history of Parkinson's disease, paroxysmal A-fib on Eliquis s/p ablation, hypothyroidism, mitral valve prolapse, MR, history of ITP s/p splenectomy, GERD, anxiety and glaucoma who presents with syncopal episode
without head trauma. She had previously fallen earlier this month with current bruising to the face and had been treated [facility] for rhabdomyolysis. She does take Eliquis. Also being treated for UTI, reportedly. She says that she has not been
eating or drinking as normally because she has been feeling nauseous and when she 'drinks she throws up.' She was just discharged from [facility] on 04/10/2024 following a hospitalization at [facility] for rhabdomyolysis due to a fall. She recently
developed a UTI on 04/07 as well and is currently on Macrobid. She requires multiple people to transport her to do exquisite generalized weakness. She currently denies painful urination, urinary urgency, fevers or chills. On the morning prior to
arrival her home care nurse tried to get her out of bed and put her onto the chair and that is the 'last thing she remembers.' She was told by the home care nurse that she passed out. She currently denies blurred vision, chest pain, SOB at rest.
She does endorse postnasal drip. In the ER she was afebrile to 97.6 �F, pulse rate 77, breathing at 20 breaths/minute, BP 154/71 and saturating 98% on room air. Labs showed leukopenia to 4.4, Hb 10.6, sodium 131, creatinine 0.8, AST 73, troponin
<0.012, albumin level 3.2, lipase 370, procalcitonin 0.07, TSH 6.72, free T41.43, urinalysis negative for signs of UTI and COVID-19 antigen negative. CXR showed small bilateral pleural effusions, and subsequent CT chest showed small bilateral
pleural effusions with a small irregular opacity in the right apex with accompanying small subpleural nodular opacities in the lateral apices bilaterally with mild pericardial thickening versus tiny pericardial effusion. In the ER she was given
aztreonam + vancomycin, and admitted to telemetry for further care. Pulmonary service is now consulted for additional management/recommendations.
Impression:
#Multiple nodular opacities in right upper lobe, suspected to be aspiration, with 1 cm irregular opacity at the right lung apex
#RUL CAP/aspiration pneumonia
#Syncopal episode without head trauma
#Leukopenia
#Acute anemia (baseline Hb 12.5�14g/dL)
#Hyponatremia (mild)
#Transaminitis with slightly elevated AST
#Subclinical hypothyroidism
#Chronic cough - could be multiple etiologies however she does endorse postnasal drip
#Physical deconditioning
#Parkinson disease on Sinemet
#Postnasal drip
#Bilateral pleural effusions due to suspected acute decompensated heart failure
#A-fib on Eliquis and amiodarone with Hx of ablation
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
glaucoma, diverticulosis, HSV-2 (2012)
Plan:
Currently on RA, not on O2
Maintain SpO2 >90-94% with supplemental O2 as needed
Incentive spirometer encouraged
prn nebulized bronchodilators - not currently bronchospastic
Pulmonary toilet with acapella; would normally get Mucinex but she says that she was unable to tolerate this and stopped it prior to arrival; hold off on guaifenesin for now
Nasal saline spray as she endorses post-nasal drip and this could be contributing to her cough
I feel that patient may have aspirated during her syncopal event, and that she currently has RUL aspiration pneumonia/CAP due to her symptoms of generalized weakness, chronic cough with the recent difficulty handling her secretions for the past 2-3
days
Treat with Abx - currently on rocephin + doxy; would treat for total of 7 days assuming that she is continuing to clinically improve and remains afebrile for 48 hours prior to stopping ABx
Follow-up blood cultures (collected 04/11/2024)
Check sputum culture if patient able to provide a decent sample
Check MINE SAFETY MANAGER eval to assess for aspiration risk
Speech consult obtained- 79F with admission for syncope and decreased oral intake p/w s/sx of a functional oropharyngeal swallow. No overt s/s of aspiration or penetration demonstrated with PO trials this date. Aspiration risk is increased 2/2
Parkinson�s disease, UTI, GERD, and chronic vocal hoarseness.
VSE-normal
Esophagram showing slowed motility
Continue PO intake
Abnormal CT chest
Repeat CT chest in 6-8 weeks to assess for persistence vs improvement of her RUL nodule(s)
If right upper lobe 1 cm nodular opacity persists or continues to grow then we will need to discuss biopsy for tissue acquisition
The presence of her small bilateral pleural effusions suspicious for acute decompensated heart failure;
ECHO obtained, stable normal biV function; moderate PAP/PH noted, (last LVEF 80% on Lexiscan stress test from October 2023)
Maintain net negative fluid balance - on IV lasix 40mg daily
prn zofran as she has an allergy to sulfa ABx with nausea/rash/HEWITT --> monitor closely
- Trend sNa with goal 135-145
- Currently in NSR; monitor HR with goal 60-100, unless goes into A-fib in which case keep HR<110
- Replete electrolytes with K>4, Mg>2
- trend LFTs
- Fall precautions
- PT/OT
- Maintain euglycemia with goal BG >100 and <180
- DVT ppx: Eliquis
Pulmonary service will continue to follow along.
Data:
CT chest without contrast 04/12/2024: Small bilateral pleural effusions with accompanying bilateral lower lobe subsegmental atelectasis, right greater than left. Cannot exclude bilateral lower lobe pneumonia. Small irregular opacity in the right
apex as well as small subpleural nodular opacities in the lateral apices bilaterally which may be on an inflammatory/infectious basis. Malignancy cannot be excluded. Short-term follow-up Chest CT recommended. Mild pericardial thickening versus tiny
pericardial effusion.
CXR 04/11/2024: Small bilateral pleural effusions with associated atelectasis and/or pneumonia.
ECHO 04/13/24- Normal biventricular size and systolic function without regional wall motion abnormality. Estimated LVEF 65-70%. Mild concentric left ventricular hypertrophy. Mild/moderate mitral regurgitation. Moderate tricuspid regurgitation.
Moderately eleavted PASP. Estimated pulmonary artery pressure of 49 mmHg. Assuming a right atrial pressure of 3 mmHg. Trace pericardial effusion.
Compared to 11/09/22: no significant change.
-----
Total time spent today was 35 minutes for this encounter. Time includes reviewing laboratory test/imaging results, reviewing pertinent medical records, obtaining and reviewing medical history, performing an appropriate exam, ordering medications,
tests and procedures. Time also includes documentation of this encounter, coordinating patient care and communicating with other healthcare professionals. Total time does not include separately billed tests performed on this date of service.
Subjective Data
-
Date of Service:
Date of Service: April 16, 2024
Chief Complaint: Pulmonary Follow Up
Subjective:
No new events ON, stable on RA
No new complaints
Objective Data
Data Reviewed
Vital Signs / I&O / Oxygen:
Vital Signs
Temp Pulse Resp BP Pulse Ox
97.6 F 88 18 146/76 98
04/16/24 07:25 04/16/24 07:25 04/16/24 07:25 04/16/24 07:25 04/16/24 03:00
Intake and Output
04/15/24 04/16/24 04/17/24
06:59 06:59 06:59
Intake Total 1400 / 1400 720 / 720
Balance 1400 / 1400 720 / 720
SaO2 98
Physical Exam
General: Comfortable and Other (NAD)
HEENT: Normocephalic, Anicteric and Moist Mucous Membranes
Cardiovascular: S1-S2 and Regular Rhythm
Respiratory: Clear and Non-Labored Respirations
GI: Soft, Non Distended and Non Tender
Neurology: Awake, Alert, Oriented and Other (weakness noted)
Skin: Warm, Dry and Good Color
Labs/Micro/Reports
Lab Data
04/16/24 06:36
04/16/24 04:44
Laboratory Results
04/15/24 04/15/24 04/16/24
12:35 21:53 04:44
APTT 28.2 69.6 H 132.8 H
Microbiology
04/11/24 14:12 Blood/Venous Blood Culture - Preliminary
No Growth in 4 days- Final report to follow
04/11/24 13:59 Blood/Venous Blood Culture - Preliminary
No Growth in 4 days- Final report to follow
[2024-04-16] MEDS: STERILE WATER FOR INJECTION 10 ML IV (11:41)
[2024-04-16] MEDS: ROCEPHIN 1000 MG IV (11:41)
--- NOTE | 2024-04-16 15:19 | W.PN.GI.CBS2 ---
Today's Communication / Plan
-
plan for EGD 04/17 after Eliquis wash out-- last dose 04/14 PM
Patient is currently on heparin drip. Advised to stop heparin drip 04/17/2024 at 0400
Assessment / Plan
-
Pt is a 79yo with hx afib with prior CV on Eliquis, hypertension, Parkinson's, hypothyroidism, GERD, with admission with weakness and fall with concern for PNA. In review with patient she was at [facility] for UTI and fall then [facility].. She now
has multiple complaints of dysphagia, post nasal drip, nausea, epigastric pain and asked to eval. Labs with stable LFT minimal increase AST 51 and minimal elevated lipase 315. In review with patient many symptoms have been chronic. She has had
issue with swallowing likely related to parkinsons with feeling of food sticking at time . She just completed esophagram with decreased motility and tertiary contracts. VSE with Oropharyngeal swallow WNL. No significant residue or any
penetration/aspiration noted. She has been compensating for issues with eating slowly, drinking plenty of water and stay upright after eating. She also complaints of epigastric pain. Pain has been present for 3 months but got acutely worse last
PM. She admits to recent wt loss with nausea and decreased appetite that she related to ongoing issue with post nasal drip. She did have small amounts of vomiting with dry heaves today. She also admits to some chronic constipation with stools
every other day sometime hard to pass stools. Home med list with oral iron but no laxative regiment. She denies rectal bleeding. last EGD 2016 with irreg Z line, gastric diverticulum, erythema in gastric body, scalloped mucosa in duodenum
suspicious for celiac but neg biopsy. Last colonoscopy 2014 diverticulosis.
04.14 US abdomen
1. No sonographic evidence for an acute process in the abdomen.
2. Splenectomy.
3. Right pleural effusion.
04/14 CT Abd/Pel (IV only)-[facility] only
No findings to confirm focal pancreatic/peripancreatic inflammatory changes. Pancreatic duct borderline enlarged.
Unremarkable gallbladder. No findings to suggest biliary tract dilatation.
Suggestion of some mild thickening of the wall of the proximal lesser curvature of the stomach which may be due to underdistention, gastritis or less likely peptic ulcer disease.
Complex enlargement of the left iliacus muscle. Some differential diagnostic possibilities include hematoma, infection/abscess or less likely cystic neoplasm.
Small bilateral pleural effusions with accompanying bilateral lower lobe subsegmental atelectasis.
-epigastric abdominal pain acute on chronic x 3 months
-nausea/vomiting
-dysphagia with stable VSE esophagram with decreased motility
-post nasal gtt
-constipation
-mild lipase elevation
-parkinson's disease
-PNA prior to admission
-pleural effusions on imaging
-anemia
-leukopenia
-wt loss
other med problems:
-afib on Eliquis
-HTN
-GERD
-hypothyroidism
-ambulatory dysfunction
PLAN:
improved epigastric pain but still with pain on exam . tolerating diet
CT and US noted Suggestion of some mild thickening of the wall of the proximal lesser curvature of the stomach which may be due to underdistention, gastritis or less likely peptic ulcer disease.
plan for EGD 04/17 after Eliquis wash out-- last dose 04/14 PM
Patient is currently on heparin drip. Advised to stop heparin drip 04/17/2024 at 0400
cont PPI BID
cont NSAID avoidance
Total Time Spent with Patient (in minutes): 35
Subjective
Subjective
Date of Service: April 16, 2024
Tolerating food. Abdominal pain is better
Objective
Data Reviewed
Laboratory Data:
Laboratory Results
04/16/24 06:36
04/16/24 04:44
Laboratory Results
APTT 73.0 Sec (23.4-35.0) H 04/16/24 13:01
Phosphorus 3.8 mg/dl (2.5-4.5) 04/13/24 06:23
Magnesium 1.8 mg/dl (1.6-2.3) 04/16/24 04:44
Total Bilirubin 0.7 mg/dl (0.2-1.3) 04/16/24 04:44
AST 56 U/L (14-36) H 04/16/24 04:44
ALT 15 U/L (0-35) 04/16/24 04:44
Alkaline Phosphatase 64 U/L (38-126) 04/16/24 04:44
Lipase 198 U/L (23-300) 04/15/24 06:29
Vital Signs and I&O:
Vital Signs
Temp Pulse Resp BP Pulse Ox
97.4 F 76 16 120/69 97
04/16/24 11:34 04/16/24 11:34 04/16/24 11:34 04/16/24 11:34 04/16/24 11:34
I&O
04/15/24 04/16/24 04/17/24
06:59 06:59 06:59
Intake Total 1400 / 1400 720 / 720
Balance 1400 / 1400 720 / 720
Physical Exam
Physical Exam
GI: Soft, Non Distended and Tender (Epigastric tenderness on deep palpation)
--- NOTE | 2024-04-16 16:00 | CM ---
EGD tomorrow.
Will need to call [facility] for bed availability at d/c
Will need ambulance transport- [facility] assist x2
Plan: [facility]
CM will cont. to follow for d/c planning
[2024-04-16 19:30] LABS: APTT 73.1 Sec (23.4-35.0)
[2024-04-16] MEDS: SENOKOT 17.2 MG PO (22:00)
[2024-04-16] MEDS: XALATAN OPHTHALMIC SOLUTION 1 DROP BOTH EYES (22:01)
[2024-04-17] VITALS (9 sets, daily range): BP systolic 128–166; BP diastolic 55–76; PULSE 62; BMI 19.4
[2024-04-17] MEDS: XANAX 0.25 MG PO (04:06)
[2024-04-17] MEDS: SINEMET 25-100 1 TABLET PO ×5 (06:03→22:32)
[2024-04-17] MEDS: SYNTHROID 88 MCG PO (06:03)
[2024-04-17 08:58] LABS: % Basophils 0.2 % (0-2); % Eosinophils 0.2 % (0-6); % Immature Granulocytes 1.6 % (0-0.5); % Monocytes 16.1 % (1.7-9.3); % Neutrophils 64.9 % (42.2-75.2); ALT (SGPT) 23 U/L (0-35); AST (SGOT) 48 U/L (14-36); Absolute Immature Granulocytes 0.1 10^3/uL (0-0.05); Absolute Lymphocytes 0.9 10^3/uL (1.2-3.4); Absolute Monocytes 0.9 10^3/uL (0.1-0.6); Absolute Neutrophils 3.6 10^3/uL (1.4-6.5); Albumin 2.9 g/dl (3.5-5.0); Alkaline Phosphatase 67 U/L (38-126); Blood Urea Nitrogen 30 mg/dl (7-17); Calcium 9.1 mg/dl (8.4-10.2); Carbon Dioxide 29 mmol/L (22-30); Chloride 106 mmol/L (98-107); Estimated Creatinine Clearance 41 ml/min; Glucose 80 mg/dl (70-99); Hematocrit 27.2 % (37.0-47.0); Hemoglobin 9.2 g/dL (12.0-16.0); Mean Corp Hgb Conc. 33.8 g/dL (33.0-37.0); Mean Corpuscular Hgb 31.4 pg (27.0-31.0); Mean Corpuscular Volume 92.8 fL (81.0-99.0); Nucleated Red Blood Cells % 6.5 %; Platelet Count 313 10^3/uL (130-400); Potassium 4.6 mmol/L (3.5-5.1); Red Blood Cell Count 2.93 10^6/uL (4.20-5.40); Red Cell Dist. Width 16.9 % (11.5-14.5); Sodium 141 mmol/L (135-145); Total Bilirubin 0.5 mg/dl (0.2-1.3); Total Protein 5.7 g/dl (6.3-8.2); White Blood Cell Count 5.5 10^3/uL (4.8-10.8); eGFR 58.02
[2024-04-17] MEDS: NEURONTIN 100 MG PO ×2 (10:01→19:58)
[2024-04-17] MEDS: VIBRAMYCIN 100 MG PO ×2 (10:02→19:59)
[2024-04-17] MEDS: PACERONE 200 MG PO (10:02)
[2024-04-17] MEDS: TENORMIN 25 MG PO (10:03)
[2024-04-17] MEDS: VITAMIN C 500 MG PO (10:04)
[2024-04-17] MEDS: NSS (PRESERVATIVE FREE) 10 ML IV ×2 (10:05→20:01)
[2024-04-17] MEDS: PROTONIX IV 40 MG IV ×2 (10:05→20:00)
[2024-04-17] MEDS: MIRALAX PO (10:06)
[2024-04-17] MEDS: VITAMIN D3 (cholecalciferol) 25 MCG PO (10:06)
[2024-04-17] MEDS: ELIQUIS 5 MG PO ×2 (10:59→19:59)
--- NOTE | 2024-04-17 11:07 | W.PN.HOSP.TC ---
Today's Communication/Plan
-
advance diet
rpeeat labs
Assessment / Plan
Assessment / Plan
79yo F with PMHX of Afib on ELiquis orthostatic hypotension, ITP, Parkinson, hypothyroidism, GERD, postnasal drip came with c/o weakness and inability to care for herself since [facility]. Also was having a lot of cough
for past couple of months. Recently discharged from [facility] where she was managed after the fall and also found UTI. ALso absent appetite for past week with acute on chronic epigastric pain, GI did EGD that showed still retained food in
the stomach, most likely gastroparesis 2/2 Parkinson, advise small frequent meals. No concern for gastric outlet obstruction. PPI 2/2 gastritis seen on EGD (BID for 4 weeks, then daily
Accidental finding L iliac muscle hematoma- advised to repeat CT pelvis in 3-4 weeks to eval for resolution. RUL small irregular opacity to be followed with chest CT at the same time- patient verbalized understanding of the instructions
Advancing diet as tolerated, will be medically stable for d/c in AM if labs stable and bed available
A/P:
#Epigastric pain 2/2 slow transit 2/2 Parkinson
#Gastric wall thickening
#Minimal persistent AST elevation - most likely 2/2 iliac muscle hematoma
Esophagram showing possible lower esophageal contractions
PPI and Zofran
GI consult: for EGD on 04/17/24
Small frequent meals
No gall bladder abnormality, no CBD dilation seen
Hepatitis profile neg
#Elevated lipase
with pancreatic duct dilation
GI to follow
improved on IVF
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
#Orthostatic hypotension
PT/OT
Stop Losartan
#Possible CAP vs atelectasis on XR chest
Doxy/Rocephin (Can switch to oral cefdinir) until 04/19/[address] chest: Small irregular opacity in the right apex
COVID-19 neg
influenza neg
#Postnasal drip
Flonase as outpatient (Not available in )
#Hypothyroidism
TSH elevated - increase Synthroid, repeat TSH in 2 weeks
#Anemia
#Leukopenia
suspect reactive - improving
follow CBC
Might need hematology eval as outpatient if persistent
#Small irregular opacity in the right apex
CT chest in 4-6 weeks as per pulm consult
#Complex enlargement of the left iliacus muscle
with recent fall -most likely hematoma
repeat pelvic CT in 3-4 weeks as outpatient
#B/L pulmonary effusions with atelectasis
can be 2/2 poor ambulation
Incentive spirometry
Echo: mild/moderate MR, EF 65%, moderately elevated PASP
#Hypokalemia
replete
#Anemia, chronic
follow with PCP
#Leukopenia
recurrent, reactive
#Poor appetite
#Severe protein calorie malnutrition
TOP FORMER: cont diet
Ensure
#Right buttock, stage 1 pressure injury, POA
#L knee abrasions
wound care
frequent repositioning
pressure unload by RN
#Neuropathy
#SUHAIL
#Afib, unspecified
Cont home meds
#HX of ITP
follow plt
DVT ppx on Eliquis
DNR/DNI
I have spent at least 38min reviewing chart, test results and direct patient care
Anticipated Discharge: Within 24 hours
Subjective/Interval History
-
Date of Service: April 17, 2024
Objective Data
-
Labs:
Laboratory Results
04/17/24
06:27
WBC 5.5
Hgb 9.2 L
Hct 27.2 L
Plt Count 313
APTT 34.0
Sodium 141
Potassium 4.6 D
Chloride 106
Carbon Dioxide 29
BUN 30 H
Creatinine 1.0
Glucose 80
Calcium 9.1
Total Bilirubin 0.5
AST 48 H
ALT 23
Alkaline Phosphatase 67
Vital Signs:
Vital Signs
Temp Pulse Resp BP Pulse Ox
98.3 F 61 15 148/66 97
04/17/24 09:15 04/17/24 09:30 04/17/24 09:30 04/17/24 09:17 04/17/24 09:30
I&O
04/16/24 04/17/24 04/18/24
06:59 06:59 06:59
Intake Total 720 / 720 480 / 480
Balance 720 / 720 480 / 480
Review of Systems
-
History Source: Patient
All other systems: Reviewed and negative
Physical Exam
-
General: No Apparent Distress
HEENT: Normocephalic
Cardiac: Regular Rhythm
GI: Soft, Nontender and Nondistended
Skin: Warm
Neuro: Awake, Alert, Oriented and AO x 3
Psych: Calm
--- NOTE | 2024-04-17 11:33 | CM ---
Addendum entered by Henry Everett 04/17/24 14:02:
Per [facility], pt can be accepted tomorrow
CM to call [phone] and ask for nurse supervisor composing room to confirm bed
Pt will be going to 4th floor at [facility]
Son updated, hospitalist updated w/ request for d/c early in order to arrange ambulance transport
Original Note:
Per hospitalist, pt can poss d/c in AM for SNF- [facility]
Son and pt updated at bedside. Son expressed concern re bed availability tomorrow. CM explained [facility] bed availability is determined day to day when but will follow up anyway.
CM updated [facility] on d/c tomorrow if labs good and diet tolerance. CM inquired if bed would be available tomorrow, awaiting response
Will need ambulance transport- [facility] x2, ambulatory dysfunction, impaired safety awareness
Transport forms on chart
IMM reviewed, pt given copy. Copy placed into chart.
[facility]
Report:[phone]

Plan: [facility]; pending bed availability when pt medically stable
[2024-04-17] MEDS: ROCEPHIN 1000 MG IV (12:26)
[2024-04-17] MEDS: STERILE WATER FOR INJECTION 10 ML IV (12:27)
[2024-04-17] MEDS: XALATAN OPHTHALMIC SOLUTION 1 DROP BOTH EYES (22:10)
[2024-04-17] MEDS: SENOKOT PO ×2 (22:10→22:13)
[2024-04-18] MEDS: TYLENOL 650 MG PO (00:16)
[2024-04-18 05:31] VITALS: BMI 19.4
[2024-04-18] MEDS: SYNTHROID 88 MCG PO (05:40)
[2024-04-18 06:28] LABS: ALT (SGPT) 13 U/L (0-35); AST (SGOT) 38 U/L (14-36); Albumin 2.9 g/dl (3.5-5.0); Alkaline Phosphatase 63 U/L (38-126); Blood Urea Nitrogen 28 mg/dl (7-17); Carbon Dioxide 28 mmol/L (22-30); Chloride 106 mmol/L (98-107); Estimated Creatinine Clearance 58 ml/min; Glucose 83 mg/dl (70-99); Potassium 4.3 mmol/L (3.5-5.1); Sodium 140 mmol/L (135-145); Total Bilirubin 0.6 mg/dl (0.2-1.3); Total Protein 5.8 g/dl (6.3-8.2); eGFR > 60.00
[2024-04-18 07:20] LABS: % Basophils 0.3 % (0-2); % Eosinophils 0.5 % (0-6); % Immature Granulocytes 3.1 % (0-0.5); % Lymphocytes 15.5 % (20.5-51.1); % Monocytes 14.7 % (1.7-9.3); % Neutrophils 65.9 % (42.2-75.2); Absolute Immature Granulocytes 0.2 10^3/uL (0-0.05); Absolute Monocytes 0.9 10^3/uL (0.1-0.6); Hemoglobin 9.1 g/dL (12.0-16.0); Mean Corpuscular Hgb 32.7 pg (27.0-31.0); Mean Corpuscular Volume 93.5 fL (81.0-99.0); Mean Platelet Volume 11.3 fL (7.4-10.4); Nucleated Red Blood Cells % 5.9 %; Platelet Count 290 10^3/uL (130-400); Red Blood Cell Count 2.78 10^6/uL (4.20-5.40); Red Cell Dist. Width 16.5 % (11.5-14.5); White Blood Cell Count 6.1 10^3/uL (4.8-10.8)
[2024-04-18] MEDS: SINEMET 25-100 1 TABLET PO ×2 (07:20→11:11)
[2024-04-18 07:46] VITALS: BP 165/76
[2024-04-18] MEDS: TENORMIN 25 MG PO (08:35)
[2024-04-18] MEDS: VIBRAMYCIN 100 MG PO (08:35)
[2024-04-18] MEDS: VITAMIN D3 (cholecalciferol) 25 MCG PO (08:35)
[2024-04-18] MEDS: VITAMIN C 500 MG PO (08:36)
[2024-04-18] MEDS: ELIQUIS 5 MG PO (08:36)
[2024-04-18] MEDS: NEURONTIN 100 MG PO (08:37)
[2024-04-18] MEDS: PACERONE 200 MG PO (08:37)
[2024-04-18] MEDS: PROTONIX IV 40 MG IV (08:38)
[2024-04-18] MEDS: NSS (PRESERVATIVE FREE) 10 ML IV (08:39)
[2024-04-18] MEDS: MIRALAX PO (08:39)
--- NOTE | 2024-04-18 08:46 | W.PN.HOSP.TC ---
Today's Communication/Plan
-
dc
Assessment / Plan
Assessment / Plan
79yo F with PMHX of Afib on ELiquis orthostatic hypotension, ITP, Parkinson, hypothyroidism, GERD, postnasal drip came with c/o weakness and inability to care for herself since her d/c from [facility] on the day prior. Also was having a lot of cough
for past couple of months. Recently discharged from [facility] where she was managed after the fall and also found UTI. ALso absent appetite for past week with acute on chronic epigastric pain, GI did EGD that showed still retained food in
the stomach, most likely gastroparesis 2/2 Parkinson, advise small frequent meals. No concern for gastric outlet obstruction. PPI 2/2 gastritis seen on EGD (BID for 4 weeks, then daily
Accidental finding L iliac muscle hematoma- advised to repeat CT pelvis in 3-4 weeks to eval for resolution. RUL small irregular opacity to be followed with chest CT at the same time- patient verbalized understanding of the instructions
Medically stable for d/c. Mild anemia most likely with frequent blood draws, to be followed as outpatient with PCP and no over bleeding
A/P:
#Epigastric pain 2/2 slow transit 2/2 Parkinson
#Gastric wall thickening
#Minimal persistent AST elevation - most likely 2/2 iliac muscle hematoma
Esophagram showing possible lower esophageal contractions
PPI and Zofran
GI consult: for EGD on 04/17/24
Small frequent meals
No gall bladder abnormality, no CBD dilation seen
Hepatitis profile neg
#Elevated lipase
with pancreatic duct dilation
GI to follow
improved on IVF
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
#Orthostatic hypotension
PT/OT
Stop Losartan
#Possible CAP vs atelectasis on XR chest
Doxy/Rocephin (Can switch to oral cefdinir) until 04/19/[address] chest: Small irregular opacity in the right apex
COVID-19 neg
influenza neg
#Postnasal drip
Flonase as outpatient (Not available in )
#Hypothyroidism
TSH elevated - increase Synthroid, repeat TSH in 2 weeks
#Anemia
#Leukopenia
suspect reactive - improving
follow CBC
Might need hematology eval as outpatient if persistent
#Small irregular opacity in the right apex
CT chest in 4-6 weeks as per pulm consult
#Complex enlargement of the left iliacus muscle
with recent fall -most likely hematoma
repeat pelvic CT in 3-4 weeks as outpatient
#B/L pulmonary effusions with atelectasis
can be 2/2 poor ambulation
Incentive spirometry
Echo: mild/moderate MR, EF 65%, moderately elevated PASP
#Hypokalemia
replete
#Anemia, chronic
follow with PCP
#Leukopenia
recurrent, reactive
#Poor appetite
#Severe protein calorie malnutrition
[employer]: cont diet
Ensure
#Right buttock, stage 1 pressure injury, POA
#L knee abrasions
wound care
frequent repositioning
pressure unload by RN
#Neuropathy
#SUHAIL
#Afib, unspecified
Cont home meds
#HX of ITP
follow plt
DVT ppx on Eliquis
DNR/DNI
I have spent at least 38min reviewing chart, test results and direct patient care
Anticipated Discharge: Today
Subjective/Interval History
-
Date of Service: April 18, 2024
Objective Data
-
Labs:
Laboratory Results
04/18/24
05:34
WBC 6.1
Hgb 9.1 L
Hct 26.0 L
Plt Count 290
Sodium 140
Potassium 4.3
Chloride 106
Carbon Dioxide 28
BUN 28 H
Creatinine 0.7
Glucose 83
Calcium 9.0
Total Bilirubin 0.6
AST 38 H
ALT 13
Alkaline Phosphatase 63
Vital Signs:
Vital Signs
Temp Pulse Resp BP Pulse Ox
97.5 F 62 18 165/76 100
04/18/24 07:46 04/18/24 07:46 04/18/24 07:46 04/18/24 07:46 04/18/24 07:46
I&O
04/17/24 04/18/24 04/19/24
06:59 06:59 05:59
Intake Total 480 / 480 600 / 600
Balance 480 / 480 600 / 600
Review of Systems
-
History Source: Patient
All other systems: Reviewed and negative
Abdomen/GI: Reports Nausea and Indigestion
Physical Exam
-
General: No Apparent Distress and Cachectic
HEENT: Moist Mucous Membranes
Respiratory: Clear to Auscultation
Cardiac: Regular Rhythm
GI: Soft, Nontender and Nondistended
Musculoskeletal: No Clubbing, No Cyanosis and No Edema
Neuro: Awake, Alert, Oriented and AO x 3
Psych: Calm
--- NOTE | 2024-04-18 08:59 | W.DCSUMMARY ---
Discharge Summary
Discharge Data
Date of Admission: 04/13/24
Date of Discharge: 04/18/24
-
Pending Results: No
Additional Pending Results:
79yo F with PMHX of splenectomy, Afib on ELiquis orthostatic hypotension, ITP, Parkinson, hypothyroidism, GERD, postnasal drip came with c/o weakness and inability to care for herself [facility]. Also was having a
lot of cough for past couple of months. Recently discharged from [facility] where she was managed after the fall and also found UTI. ALso absent appetite for past week with acute on chronic epigastric pain, GI did EGD that showed still
retained food in the stomach, most likely gastroparesis 2/2 Parkinson, advise small frequent meals. No concern for gastric outlet obstruction. PPI 2/2 gastritis seen on EGD (BID for 4 weeks, then daily
Accidental finding L iliac muscle hematoma- advised to repeat CT pelvis in 3-4 weeks to eval for resolution. RUL small irregular opacity to be followed with chest CT at the same time- patient verbalized understanding of the instructions. Will need
follow up with GI for gastric and esophageal dysmotility. Also recommended to establish with neurologist
Medically stable for d/c. Mild anemia most likely with frequent blood draws, to be followed as outpatient with PCP and no over bleeding. Discussed with son
I have spent at least 39 min preparing d/c. High risk for readmission as patient has poor understanding of importance for outpatient follow up with the specialists
Patient was managed for:
#Epigastric pain 2/2 slow transit 2/2 Parkinson
#Esophageal dysmotility
#Gastric wall thickening
#Minimal persistent AST elevation - most likely 2/2 iliac muscle hematoma
#Elevated lipase
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
#Orthostatic hypotension
#Possible CAP vs atelectasis on XR chest
#Postnasal drip
#Hypothyroidism
#Anemia
#Leukopenia - resolved
#Small irregular opacity in the right apex
#Complex enlargement of the left iliacus muscle
#B/L pulmonary effusions with atelectasis
#Hypokalemia
#Poor appetite
#Severe protein calorie malnutrition
#Right buttock, stage 1 pressure injury, POA
#L knee abrasions
#Neuropathy
#SUHAIL
#Afib, unspecified
Discharge Plan
-
Patient Disposition: [facility]pc/SNF
Discharge Diagnosis/Procedures: pneumonia
Diet: Other diet
Additional Diets: small frequent meals
Activity: As tolerated
Blood Work: repeat TSH in 2 weeks
Activity Restrictions/Additional Instructions:
Wound Care Instructions
Face: A&D ointment to R cheek, L knee and L episcopalian daily and prn dryness.
R buttock: silicone foam change q 3 days and prn soilage.
Can take air cushion home upon discharge
increase protein in diet.
Referrals:
Gabriel Araujo MD [Active] - in three to four weeks (full PFTs on day of office visit, for CT chest repeated for pulmonary nodules)
Pauline Richter MD [Active] - in three to four weeks (for gatroparesis)
Liliya Pickett MD [Family Provider] - in four to six weeks (Repeat CT pelvis for L iliacus hematoma)
Additional Discharge Medication Instructions: Take Pantoprazole 40mg BID for 30 days, then switch to daily
Prescriptions:
New
doxycycline hyclate 100 mg Capsule
100 mg PO Q12 Qty: 3 0RF
polyethylene glycol 3350 [HealthyLax] 17 gram Powder In Packet
17 g PO DAILY Qty: 30 0RF
levothyroxine 88 mcg Tablet
88 mcg PO DAILY @ 0600 Qty: 30 0RF
alprazolam 0.25 mg Tablet
0.25 mg PO DAILYPRN PRN (Reason: anxiety) Qty: 3 0RF
pantoprazole 40 mg tablet,delayed release (DR/EC)
40 mg PO BID Qty: 60 0RF
cefdinir 300 mg capsule
300 mg PO Q12H Qty: 3 0RF
fluticasone propionate [Flonase Allergy Relief] 50 mcg/actuation spray,suspension
1 spray intranasal BID Qty: 16 0RF
Continued
Eliquis 5 MG tablet
5 mg PO BID
docusate sodium 100 MG capsule
100 mg PO DAILYPRN PRN (Reason: constipation)
ascorbic acid (vitamin C) [Vitamin C] 500 mg Tablet
500 mg PO DAILY
cholecalciferol (vitamin D3) [Vitamin D3] 25 mcg (1,000 unit) Capsule
25 mcg PO DAILY
carbidopa-levodopa 25-100 mg tablet
1 tab PO 5/D@07,11,15,19,23
atenolol 25 mg tablet
25 mg PO DAILY Qty: 30 0RF
latanoprost 0.005 % Drops
1 drp BOTH EYES HS
pantoprazole 40 mg Tablet,Delayed Release (Dr/Ec)
40 mg PO DAILY
losartan 25 mg Tablet
25 mg PO HS
gabapentin 100 mg Capsule
100 mg PO BID
amiodarone [Pacerone] 200 mg tablet
200 mg PO DAILY
ferrous sulfate 325 mg (65 mg iron) Tablet
325 mg PO HS
Discontinued
alprazolam 0.25 MG tablet
0.25 mg PO DAILYPRN PRN (Reason: anxiety)
Patient Comments:
04/11/24: last filled 12/31/23, 60 tabs for 30 days
levothyroxine [Levoxyl] 75 MCG tablet
75 mcg PO DAILY
gabapentin 100 mg Capsule
100 mg PO DAILYPRN PRN (Reason: mild pain)
nitrofurantoin monohyd/m-cryst 100 mg capsule
100 mg PO BID
Patient Comments:
04/11/24: filled 10/24/24, to take 5 tablets over 3 days.
Discharge Orders:
Discharge Patient (As Directed); Ordered 04/18/24
Ordered By: Blu Davis
Discharge Date and Time
Print Language: FRENCH
--- NOTE | 2024-04-18 09:14 | CM ---
Addendum entered by Nazia Ag 04/18/24 09:20:
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
Original Note:
Plan: discharge to [facility] today via ambulance; sonGarry, notified via phone
Report:[phone]
[2024-04-18] MEDS: ROCEPHIN 1000 MG IV (11:10)
[2024-04-18] MEDS: STERILE WATER FOR INJECTION 10 ML IV (11:10)
[2024-04-18] MEDS: ZOFRAN 4 MG IV (11:11)
[2024-04-18 12:52] VITALS: BP 158/75
== END 2024-04-18 14:00 | DRG 177 ==
LOC: 4 WEST ACU 11:05
PROVIDERS: Clinical Nurse Specialist Family Health; Student in an Organized Health Care Education/Training Program; ADMITTING PHYSICIAN Internal Medicine; ATTENDING PHYSICIAN Internal Medicine; CONSULT PHYSICIAN Internal Medicine Critical Care Medicine; CONSULT PHYSICIAN Internal Medicine Gastroenterology; EMERGENCY PHYSICIAN Emergency Medicine; FAMILY PHYSICIAN Internal Medicine
PROC: 0DJ08ZZ Inspection of Upper Intestinal Tract, Via Natural or Artificial Opening Endoscopic (ICD-10-PCS; 2024-04-17)
DX: J69.0 Pneumonitis due to inhalation of food and vomit (principal); E43 Unspecified severe protein-calorie malnutrition; J98.11 Atelectasis; Z68.1 Body mass index [BMI] 19.9 or less, adult; E87.1 Hypo-osmolality and hyponatremia; K30 Functional dyspepsia; K22.4 Dyskinesia of esophagus; I95.1 Orthostatic hypotension; G20.A1 Parkinson's disease without dyskinesia, without mention of fluctuations; R26.2 Difficulty in walking, not elsewhere classified; E87.6 Hypokalemia; L89.311 Pressure ulcer of right buttock, stage 1; G62.9 Polyneuropathy, unspecified; I27.20 Pulmonary hypertension, unspecified; I48.0 Paroxysmal atrial fibrillation; I50.9 Heart failure, unspecified; I11.0 Hypertensive heart disease with heart failure; W44.F1XA Bezoar entering into or through a natural orifice, initial encounter; T18.2XXA Foreign body in stomach, initial encounter; K31.89 Other diseases of stomach and duodenum
CPT/HCPCS: 71046; 71250; 74177; 74220; 74230; 76700; 80053; 81003; 82550; 83690; 83735; 83880; 84100; 84145; 84439; 84443; 84484; 85025; 85027; 85730; 86704; 86706; 86803; 87040; 87340; 87502; 87811; 92610; 92611; 93005; 93306; 96374; 96375; 97110; 97116; 97162; 97166; 97530; 99285; Q9967

== ENCOUNTER → 2024-04-23 10:55 | Outpatient (REF) | payer OTHER, MEDICARE, BC, SELFPAY ==
[2024-04-23 11:23] LABS: Hematocrit 25.2 % (37.0-47.0); Hemoglobin 8.8 g/dL (12.0-16.0); Mean Corp Hgb Conc. 34.9 g/dL (33.0-37.0); Mean Corpuscular Volume 94.4 fL (81.0-99.0); Mean Platelet Volume 12.4 fL (7.4-10.4); Platelet Count 256 10^3/uL (130-400); Red Blood Cell Count 2.67 10^6/uL (4.20-5.40); Red Cell Dist. Width 17.1 % (11.5-14.5); White Blood Cell Count 5.8 10^3/uL (4.8-10.8)
[2024-04-23 11:25] LABS: ALT (SGPT) 18 U/L (0-35); AST (SGOT) 30 U/L (14-36); Albumin 3.1 g/dl (3.5-5.0); Alkaline Phosphatase 63 U/L (38-126); Blood Urea Nitrogen 25 mg/dl (7-17); Calcium 8.8 mg/dl (8.4-10.2); Carbon Dioxide 25 mmol/L (22-30); Chloride 104 mmol/L (98-107); Glucose 80 mg/dl (70-99); Potassium 3.8 mmol/L (3.5-5.1); Sodium 138 mmol/L (135-145); Total Bilirubin 0.7 mg/dl (0.2-1.3); Total Protein 5.9 g/dl (6.3-8.2); eGFR > 60.00
[2024-04-23 11:56] LABS: TSH 7.35 uIU/ml (0.47-4.68)
== END ==
LOC: OLABP 10:55
PROVIDERS: ATTENDING PHYSICIAN Family Medicine
DX: J90 Pleural effusion, not elsewhere classified (principal); G90.3 Multi-system degeneration of the autonomic nervous system; I95.1 Orthostatic hypotension; I48.0 Paroxysmal atrial fibrillation; D72.819 Decreased white blood cell count, unspecified; E87.6 Hypokalemia; G62.9 Polyneuropathy, unspecified; E44.1 Mild protein-calorie malnutrition; M62.81 Muscle weakness (generalized)
CPT/HCPCS: 36415; 80053; 84443; 85027

== ENCOUNTER → 2024-05-04 10:15 | Outpatient (REF) | payer OTHER, MEDICARE, BC, SELFPAY ==
[2024-05-04 12:55] LABS: TSH 3.06 uIU/ml (0.47-4.68)
== END ==
LOC: OLABP 10:15
PROVIDERS: ATTENDING PHYSICIAN Family Medicine
DX: J90 Pleural effusion, not elsewhere classified (principal); G90.3 Multi-system degeneration of the autonomic nervous system; I95.1 Orthostatic hypotension; I48.0 Paroxysmal atrial fibrillation; D64.9 Anemia, unspecified; D72.819 Decreased white blood cell count, unspecified; E87.6 Hypokalemia; G62.9 Polyneuropathy, unspecified; E44.1 Mild protein-calorie malnutrition
CPT/HCPCS: 36415; 84443

== ENCOUNTER → 2024-06-03 09:25 | Outpatient (REF) | payer MEDICARE, BC, SELFPAY ==
[2024-06-03 12:47] LABS: Total Iron Binding Capacity 266 ug/dl (265-497)
[2024-06-03 13:09] LABS: Ferritin 90.6 ng/ml (11.1-264.0)
== END ==
LOC: HWLAB 09:25
PROVIDERS: ATTENDING PHYSICIAN Nurse Practitioner
DX: I48.0 Paroxysmal atrial fibrillation (principal); S70.12XD Contusion of left thigh, subsequent encounter; J18.9 Pneumonia, unspecified organism; E03.9 Hypothyroidism, unspecified; I10 Essential (primary) hypertension
CPT/HCPCS: 36415; 82728; 83550

== ENCOUNTER → 2024-06-12 14:42 | Outpatient (REF) | payer MEDICARE, BC, SELFPAY | LOC: HWRAD 14:42 | PROVIDERS: ATTENDING PHYSICIAN Nurse Practitioner | DX: S70.12XD Contusion of left thigh, subsequent encounter (principal) | CPT/HCPCS: 74176 ==

== ENCOUNTER → 2024-06-26 08:58 | Outpatient (REF) | payer MEDICARE, BC, SELFPAY ==
[2024-06-26 12:31] LABS: Hematocrit 37.2 % (37.0-47.0); Mean Corp Hgb Conc. 32.3 g/dL (33.0-37.0); Mean Corpuscular Volume 99.2 fL (81.0-99.0); Platelet Count 282 10^3/uL (130-400); Red Blood Cell Count 3.75 10^6/uL (4.20-5.40); Red Cell Dist. Width 16.4 % (11.5-14.5); White Blood Cell Count 4.3 10^3/uL (4.8-10.8)
[2024-06-26 12:38] LABS: ALT (SGPT) < 10 U/L (0-35); AST (SGOT) 40 U/L (14-36); Alkaline Phosphatase 69 U/L (38-126); Blood Urea Nitrogen 20 mg/dl (7-17); Carbon Dioxide 29 mmol/L (22-30); Chloride 97 mmol/L (98-107); Glucose 91 mg/dl (70-99); Iron 70 ug/dl (37-170); Sodium 136 mmol/L (135-145); Total Bilirubin 0.6 mg/dl (0.2-1.3); Total Protein 7.3 g/dl (6.3-8.2); eGFR > 60.00
[2024-06-26 13:03] LABS: TSH 4.64 uIU/ml (0.47-4.68)
[2024-06-26 15:29] LABS: % Basophils 0.7 % (0-2); % Eosinophils 0.2 % (0-6); % Immature Granulocytes 0.7 % (0-0.5); % Lymphocytes 13.4 % (20.5-51.1); % Monocytes 12.9 % (1.7-9.3); % Neutrophils 72.1 % (42.2-75.2); Absolute Lymphocytes 0.6 10^3/uL (1.2-3.4); Absolute Monocytes 0.6 10^3/uL (0.1-0.6); Absolute Neutrophils 3.1 10^3/uL (1.4-6.5); Nucleated Red Blood Cells % 0 %
== END ==
LOC: HWRAD 08:58
PROVIDERS: ATTENDING PHYSICIAN Nurse Practitioner Adult Health; FAMILY PHYSICIAN Nurse Practitioner
DX: R91.8 Other nonspecific abnormal finding of lung field (principal); J69.0 Pneumonitis due to inhalation of food and vomit; I48.0 Paroxysmal atrial fibrillation; S70.12XD Contusion of left thigh, subsequent encounter; J18.9 Pneumonia, unspecified organism; E03.9 Hypothyroidism, unspecified; I10 Essential (primary) hypertension
CPT/HCPCS: 71250; 80053; 83540; 84443; 85025

== ENCOUNTER → 2024-07-03 12:08 | Outpatient (REF) | payer MEDICARE, BC, SELFPAY ==
[2024-07-03 16:27] LABS: Erythrocyte Sed Rate 46 mm/hour (0-20)
== END ==
LOC: HWLAB 12:08
PROVIDERS: ATTENDING PHYSICIAN Ophthalmology; FAMILY PHYSICIAN Nurse Practitioner
DX: R51.9 Headache, unspecified (principal)
CPT/HCPCS: 36415; 85652; 86140

== ENCOUNTER 2024-07-06 18:34 | Inpatient (IN) | payer MEDICARE, BC, SELFPAY ==
[2024-07-06] VITALS (9 sets, daily range): BP systolic 111–184; BP diastolic 59–98; BMI 18.9; BMI 18.1
--- NOTE | 2024-07-06 15:21 | ED.GENMED ---
History of Present Illness
General
Chief Complaint: Weakness
Time Seen by Provider: 07/06/24 15:21
History of Present Illness
History of Present Illness:
TIME OF INITIAL ENCOUNTER: 3:30 PM
HPI: Patient presents with weakness. She comes in from [facility]. She has a history of Parkinson's. She has had poor p.o. intake along with weight loss over the last couple of weeks. She states that she feels dehydrated but has been
drinking Ensure. She has no specific pain.
EXAM:
GENERAL: Appears somewhat weak and
HEENT: Eyes are somewhat sunken, slightly dry oral mucosa
CARDIOVASCULAR: No murmurs, borderline bradycardic heart rate, regular rhythm, No chest wall tenderness
PULMONARY: No respiratory distress, breath sounds are clear and equal
ABDOMEN: Soft with no peritoneal signs, no tenderness
NEUROLOGIC: Fair strength all extremities, no coordination deficits
PSYCHIATRIC: Appropriate mental status, normal insight and judgement
EXTREMITIES: Nontender, no edema, moves all extremities equally
SKIN: No rash, no lesions
NUMBER AND COMPLEXITY OF PROBLEMS ADDRESSED AT THE ENCOUNTER
� Chronic conditions affecting care: Parkinson's, A-fib, high blood pressure, hypothyroidism
� Acute Exacerbation and/or Progression of Chronic Illness: This is an acute problem
� Differential Diagnosis includes: Dehydration, ELPIDIO, electrolyte abnormality, rhabdomyolysis, thyroid disease
AMOUNT AND/OR COMPLEXITY OF DATA TO BE REVIEWED AND ANALYZED
� I performed an independent evaluation of and my interpretation is:
EKG:
CT:
X-rays:
Laboratory Studies: CBC relatively unremarkable, sodium 129, sed rate 52, CK11 59 given the elevated CK, she will be admitted for IV fluids.
Other:
� Review of other/old records: I reviewed records, the patient was admitted here with bilateral pneumonia 2 months ago and has an extensive problem list that I reviewed
� Clinical information was obtained by an independent historian: None needed
� Prescriptions/Medications Considered but not given:
� Further testing considered but not performed:
RISK OF COMPLICATIONS AND/OR MORBIDITY OR MORTALITY OF PATIENT MANAGEMENT
� Social determinants of health affecting care: Lives at a jail facility/independent living
� Discussion with other providers: Hospitalist, Dr. Kelley for admission
� Escalation of care including admission/observation vs risk of discharge considered: The patient's primary care doctor called me indicating that the patient was being worked up for giant cell arteritis. The sed rate from a few
days ago was 47. She apparently did have a biopsy recently results are still pending. Given the elevated CK and low sodium, she will be admitted for IV fluids.
ANY OTHER UPDATES:
Past History
Past History
ED Past Medical History: Arrthythmia (PAT), GERD, HTN, Hypothyroidism and Psychiatric (History of anxiety and depression)
ED Past Surgical History: Other (History of splenectomy, , tonsillectomy)
Patient has exhibited threatening behavior?: No
PSI?: No
Social History
Tobacco: Non-smoker
Alcohol: None
Drug: None
Personal:
Living: alone
Employment: Retired
Phy Exam
Physical Exam
Physical Exam:
See HPI
Course
Orders/Labs/Results
Orders:
Orders
07/06/24 15:22
Add On- LAB Urgent
Tests Added?: ck AND tsh reflex fT4
07/06/24 15:40
CMP [Comprehensive Metabolic Panel] Urgent
Complete Blood Count/With Diff Urgent
Creatine Phosphokinase Urgent
Comment: ADD ON
Erythrocyte Sed Rate Urgent
Comment: ADD ON
TSH Reflex To Free T4 Urgent
Comment: ADD ON
07/06/24 15:44
0.9% Sodium Chloride 1000 ml [Nss] 1,000 ml IV BOLUS
07/06/24 16:41
Norovirus by PCR Urgent
NOAH Source: Feces/Stool
Specimen Description:
Date Specimen was Collected: 07/06/24
Time Specimen was Collected: 16:24
STOOL [C difficile Antigen & Toxins] Urgent
NOAH Source: Feces/Stool
Specimen Description:
Date Specimen was Collected: 07/06/24
Time Specimen was Collected: 16:24
Stool Culture Urgent
NOAH Source: Feces/Stool
Specimen Description:
Date Specimen was Collected: 07/06/24
Time Specimen was Collected: 16:24
07/06/24 16:58
Add On- LAB Urgent
Tests Added?: esr
07/06/24 17:46
Admit/Transfer Patient As Directed
Co-Sign Provider:
Level of Care: Inpatient admission
Assign to:: Telemetry
Physician / Group: Hospitalist
Diagnosis: weakness, electrolyte abnormalities
Reason for Telemetry: Arrhythmia
Date to Stop Telemetry: 07/09/24
Time to Stop Telemetry: 11:00
Reason for Hospitalization: weakness, electrolyte abnormalities
Expected length of stay greater than two midnights?: Yes
ELOS- Estimated Length of Stay in days: 3
I certify the patient meets the requirements for IP care: Yes
07/06/24 17:47
PRN Pain Medication Management As Directed
May give lesser potent ordered pain med per pt: Yes
preference::
Protocol:: Medication orders for pain may be administered in a
manner that supports deferring to patient preference
when the pt is:
- Requesting an ordered lesser potent pain medication.
Least to most potent pain medications are defined
as: acetaminophen < NSAID < tramadol < opioids
(morphine, oxycodone, hydromorphone).
- Requesting a lesser dose of the same medication IF
ORDERED.
- Requesting a less intrusive route of administration
if both routes are prescribed by the provider (PO <
IV).
07/06/24 17:49
Code Status As Directed
Resuscitation Status: Do not resuscitate
Reached after discussion with pt or family/Healthcare POA: Yes
Decision communicated with: patient
Physician note:: She has capacity to make this choice.
07/06/24 17:50
DNR Bracelet Application ONCE
07/09/24 11:00
DC Protocol for Telemetry ONCE
Abnormal Lab Results
07/06/24
15:40
RBC 3.69 L 10^6/uL
(4.20-5.40)
Hgb 11.8 L g/dL
(12.0-16.0)
Hct 34.2 L %
(37.0-47.0)
MCH 32.0 H pg
(27.0-31.0)
RDW 15.2 H %
(11.5-14.5)
MPV 13.6 H fL
(7.4-10.4)
Absolute Lymphs (auto) 0.6 L 10^3/uL
(1.2-3.4)
Neutrophils % 81.1 H %
(42.2-75.2)
Lymphocytes % 10.6 L %
(20.5-51.1)
ESR 52 H mm/hour
(0-20)
Sodium 129 L mmol/L
(135-145)
Potassium 3.4 L mmol/L
(3.5-5.1)
Chloride 94 L mmol/L
(98-107)
BUN 25 H mg/dl
(7-17)
Calcium 8.1 L mg/dl
(8.4-10.2)
AST 185 H U/L
(14-36)
Creatine Kinase 1159 H U/L
(30-135)
07/06/24 15:40
07/06/24 15:40
Vital Signs
Initial and Last Documented VS:
Initial Vital Signs
Temp Pulse Resp BP Pulse Ox
36.3 C 57 16 111/59 96
07/06/24 13:02 07/06/24 13:02 07/06/24 13:02 07/06/24 13:02 07/06/24 13:02
Last Documented Vital Signs
Temp Pulse Resp BP Pulse Ox
36.3 C 87 30 141/89 95
07/06/24 13:02 07/06/24 18:00 07/06/24 18:00 07/06/24 18:00 07/06/24 18:00
*Critical Care Note
Total Time (30-74mins, 75-104mins- exclusive of procedures): Not Applicable
ED Attending Note
-
Portions of this chart may have been created with voice recognition software.� Occasional wrong word or��sound alike� substitutions may have occurred due to the inherent limitations of voice recognition software.
Discharge Plan
Departure
Patient Disposition: Admit
Date of Disposition: 07/06/24
Time of Disposition: 16:50
Presentation/result/management discussed w/ accepting MD/DO: Hospitalist
Discharge Problem:
Weakness
Interventions
Interventions:
*Risk Screen - Suicide Last Done: 07/06/24 13:02
*General Assessment Last Done: 07/06/24 13:02
*Neglect/Abuse Screening Last Done: 07/06/24 13:02
ED- Fall Risk Assessment Last Done: 07/06/24 15:33
*ED COVID-19 Vaccine History Last Done: 07/06/24 13:02
ED- Cardiac Assessment Last Done: 07/06/24 15:33
ED- Neurological Assessment Last Done: 07/06/24 15:33
ED- Pulmonary Assessment Last Done: 07/06/24 15:33
[2024-07-06] MEDS: NSS 1000 IV ×2 (15:49→21:35)
[2024-07-06 16:23] LABS: % Basophils 0.2 % (0-2); % Immature Granulocytes 0.5 % (0-0.5); % Lymphocytes 10.6 % (20.5-51.1); % Monocytes 7.6 % (1.7-9.3); % Neutrophils 81.1 % (42.2-75.2); Absolute Lymphocytes 0.6 10^3/uL (1.2-3.4); Absolute Monocytes 0.4 10^3/uL (0.1-0.6); Absolute Neutrophils 4.6 10^3/uL (1.4-6.5); Hematocrit 34.2 % (37.0-47.0); Hemoglobin 11.8 g/dL (12.0-16.0); Mean Corp Hgb Conc. 34.5 g/dL (33.0-37.0); Mean Corpuscular Volume 92.7 fL (81.0-99.0); Mean Platelet Volume 13.6 fL (7.4-10.4); Nucleated Red Blood Cells % 0 %; Platelet Count 151 10^3/uL (130-400); Red Blood Cell Count 3.69 10^6/uL (4.20-5.40); Red Cell Dist. Width 15.2 % (11.5-14.5); White Blood Cell Count 5.6 10^3/uL (4.8-10.8)
[2024-07-06 16:24] LABS: Normal RBC Morphology No
[2024-07-06 16:25] LABS: ALT (SGPT) 27 U/L (0-35); AST (SGOT) 185 U/L (14-36); Albumin 3.6 g/dl (3.5-5.0); Alkaline Phosphatase 55 U/L (38-126); Blood Urea Nitrogen 25 mg/dl (7-17); Burr Cells Slight; Calcium 8.1 mg/dl (8.4-10.2); Carbon Dioxide 25 mmol/L (22-30); Chloride 94 mmol/L (98-107); Creatine Phosphokinase 1159 U/L (30-135); Estimated Creatinine Clearance 44 ml/min; Glucose 84 mg/dl (70-99); Potassium 3.4 mmol/L (3.5-5.1); Sodium 129 mmol/L (135-145); Target Cells 2+; Total Bilirubin 0.7 mg/dl (0.2-1.3); Total Protein 7.1 g/dl (6.3-8.2); eGFR > 60.00
--- NOTE | 2024-07-06 17:24 | HPS.HSE ---
Family Physician
-
Family Physician: JADA Maher
Chief Complaint
-
weakness
History of Present Illness
79 woman with h/o parkinson's DZ presents with weakness. She lives at [facility]. She has had poor p.o. intake along with weight loss over the last couple of weeks. She states that she feels dehydrated but has been drinking Ensure.
She has no specific pain. In the ED she had watery stool. She stated that the weakness was sudden, non-focal, and started this am.
Medical History
Past Medical History
Past Medical History: Reports Other
Additional Past Medical History:
Palpitations
Generalized anxiety disorder
Essential (primary) hypertension
Hypothyroidism, unspecified
Parkinson disease
Dysphagia, unspecified
Paroxysmal atrial fibrillation
Nausea with vomiting, unspecified
Anxiety disorder, unspecified
Constipation
History of radiofrequency ablation for complex right atrial arrhythmia
Other constipation
Paroxysmal AFIB-ablation (2016)
Chronic anticoagulation
MVP
Non-rheumatic MR
ITP-splenectomy
GERD
Osteopenia
Glaucoma
Diverticulosis
HSV 2 (2012)
Pneumonia
anemia
section(1976)
Hysterectomy, total (1994)
splenectomy
[facility] pneu 03/2024
[facility] ER - fall 03/2024
Past Surgical History: Reports Other
Additional Past Surgical History:
see above
Social History
Tobacco: Non-smoker
Alcohol: None
Drug: None
Living: Assisted Living
Family History
Family History: Not pertinent
Allergies / Home Medications
Allergies reflects when Allergies were last updated in [facility].
Home Medications with original date entered in [facility]
Allergy/Medication List:
Allergies
Allergy/AdvReac Type Severity Reaction Status Date / Time
codeine Allergy Nausea,HEAD Verified 07/06/24 13:04
ACHE,RASH,D
EDUARDO
Iodinated Contrast Media Allergy Hives Verified 07/06/24 13:04
[Iodinated Contrast Media -
Oral and]
Penicillins Allergy Hives,HEADA Verified 07/06/24 13:04
EUGENIO,RASH,NA
USEA
Sulfa (Sulfonamide Allergy HEADACHE,RA Verified 07/06/24 13:04
Antibiotics) SH,NAUSEA
gnats Allergy Rash Uncoded 07/06/24 13:04
MOSQUITO Allergy Swelling/RE Uncoded 07/06/24 13:04
DNESS
Home Medications
apixaban 5 mg tablet (Eliquis) 5 mg PO BID Blood clot prevention/tx 10/08/16
docusate sodium 100 mg capsule 100 mg PO DAILYPRN PRN constipation 02/25/20
ascorbic acid (vitamin C) 500 mg tablet (Vitamin C) 500 mg PO DAILY Supplement 11/08/22
cholecalciferol (vitamin D3) 25 mcg (1,000 unit) capsule (Vitamin D3) 25 mcg PO NOON Supplement 11/08/22
carbidopa 25 mg-levodopa 100 mg tablet 1 tab PO 5/D PARKINSON'S 08/19/23
atenolol 25 mg tablet 25 mg PO DAILY Arrhythmia #30 tabs 08/22/23
amiodarone 200 mg tablet (Pacerone) 200 mg PO DAILY A-FIB 04/11/24
gabapentin 100 mg capsule 100 mg PO BID NEUROPATHY 04/11/24
latanoprost 0.005 % eye drops 1 drp BOTH EYES HS Eye Condition 04/11/24
losartan 25 mg tablet 25 mg PO HS Blood Pressure 04/11/24
pantoprazole 40 mg tablet,delayed release 40 mg PO HS Gastrointestinal Issue 04/11/24
acetaminophen 325 mg tablet 650 mg PO Q4HPRN PRN mild pain/fever>100 07/06/24
levothyroxine 100 mcg tablet 100 mcg PO DAILY 07/06/24
magnesium hydroxide 400 mg/5 mL oral suspension (Milk of Magnesia) 30 ml PO DAILYPRN PRN constipation 07/06/24
ondansetron HCl 4 mg tablet 4 mg PO Q8HPRN PRN nausea 07/06/24
polyethylene glycol 3350 17 gram oral powder packet (HealthyLax) 17 g PO DAILYPRN PRN constipation 07/06/24
Review of Systems
-
History Source: Patient
A 12 point ROS was completed and negative except as noted: Yes
Physical Exam
Vital Signs
Vital Signs
Temp Pulse Resp BP Pulse Ox
97.4 F 96 19 144/71 96
07/06/24 13:02 07/06/24 16:15 07/06/24 16:15 07/06/24 16:00 07/06/24 16:15
Physical Exam
General: Well Developed, Well Nourished, No Apparent Distress, Comfortable, Conversant and Poor Appetite
HEENT: NormoCephalic, Moist mucous membranes, Atraumatic, Nose Appears Normal and Ears Appear Normal
Respiratory: Clear
Cardiac: S1/S2 and Regular Rhythm
GI: Soft, Non Tender and Non Distended
Musculoskeletal: No Clubbing, No Cyanosis and No Edema
Skin: Warm and Dry; No Rash or Jaundice
Neuro: Awake, Alert, Oriented and AO x 3
Psych: Calm
Laboratory Results
-
07/06/24 15:40
07/06/24 15:40
Laboratory Results
Total Bilirubin 0.7 mg/dl (0.2-1.3) 07/06/24 15:40
AST 185 U/L (14-36) H 07/06/24 15:40
ALT 27 U/L (0-35) 07/06/24 15:40
Alkaline Phosphatase 55 U/L (38-126) 07/06/24 15:40
Data Reviewed
-
Lab Data: Labs Reviewed by me
Impression/Plan
-
IMPRESSION:
79 woman with weakness, watery diarrhea, electrolyte abnormalities, decreased PO intake
Na 129
K 3.4
BUN/Creat 25/0.9
CK 1,159
PLAN:
1. Weakness - likely from electrolyte abnormalities, poor po intake and perhaps start of a viral illness
Replete electrolytes
IV fluids
Supportive care
PT eval in am after fluid/electrolyte repletion
2. Watery diarrhea - stool sent to analyses by ER. No recent antibiotics.
Loperamide
Supportive care
Check abd XR
3. BUN/Creat > 20, 25/0.9, likely from poor po intake.
Iv fluids
Recheck in am
4. Hyponatremia - likely hypovolemic hyponatremia
Iv fluids
Recheck in am
5. Hypokalemia - likely poor po intake and diarrhea
Replete PO
Check mag
Recheck in am
6. Rhabdomyolysis - cause not obvious, had traumatic rhabdo 3 months ago, no recent trauma
IV fluids
Recheck daily until low enough
TSH pending
Code DNR: She has capacity for this choice
Eliquis for DVTp
[2024-07-06 17:25] LABS: Erythrocyte Sed Rate 52 mm/hour (0-20)
[2024-07-06] MEDS: ELIQUIS 5 MG PO (21:35)
[2024-07-06] MEDS: PROTONIX 40 MG PO (21:35)
[2024-07-06] MEDS: NEURONTIN 100 MG PO (21:35)
[2024-07-06] MEDS: COZAAR 25 MG PO (21:36)
[2024-07-06] MEDS: KLOR-CON 20 MEQ PO (21:36)
[2024-07-06] MEDS: XALATAN OPHTHALMIC SOLUTION 1 DROP BOTH EYES (21:37)
[2024-07-06 21:45] LABS: Magnesium 1.7 mg/dl (1.6-2.3)
--- NOTE | 2024-07-06 23:55 | PTCARENOTE ---
Received patient from ER aprox 20:45 she is AAOx3, offering no major concerns, she was INC of stool upon arrival, labs drawn as ordered, she does have some irritation and redness around rectum from increased stool output and moisture, as well as a
fungal rash under right breast, she is able to make all needs known, she states she takes Xanax 0.25mg bid prn but not on facility paperwork, med list updated and [employer] placed order for medication, patient also wishes to take her own
carbidopa/levodopa, order was placed, patients own medication sent to pharmacy and placed back into her drawer on med cart. Lungs are clear, HRR no edema.
[2024-07-07] VITALS (7 sets, daily range): BP systolic 93–162; BP diastolic 45–88; PULSE 57; O2SAT 97; BMI 18.1
[2024-07-07] MEDS: NON-FORMULARY ITEM 1 UNIT PO ×6 (00:03→23:50)
[2024-07-07] MEDS: NSS 1000 IV (04:04)
[2024-07-07] MEDS: TYLENOL 650 MG PO ×3 (04:04→16:02)
[2024-07-07 04:15] LABS: Troponin I 0.034 ng/ml
--- NOTE | 2024-07-07 04:58 | W.PN.UPDATE ---
Update Note
Progress Note Update
pt would like ua checked for complaints of dysuria.
[2024-07-07] MEDS: SYNTHROID 100 MCG PO (06:13)
[2024-07-07 07:10] LABS: Hematocrit 28.7 % (37.0-47.0); Hemoglobin 9.9 g/dL (12.0-16.0); Mean Corp Hgb Conc. 34.5 g/dL (33.0-37.0); Mean Corpuscular Hgb 31.7 pg (27.0-31.0); Mean Platelet Volume 11.9 fL (7.4-10.4); Platelet Count 129 10^3/uL (130-400); Red Blood Cell Count 3.12 10^6/uL (4.20-5.40); White Blood Cell Count 3.9 10^3/uL (4.8-10.8)
[2024-07-07 07:26] LABS: Blood Urea Nitrogen 17 mg/dl (7-17); Calcium 7.3 mg/dl (8.4-10.2); Carbon Dioxide 22 mmol/L (22-30); Chloride 101 mmol/L (98-107); Creatine Phosphokinase 748 U/L (30-135); Estimated Creatinine Clearance 47 ml/min; Glucose 71 mg/dl (70-99); Magnesium 1.5 mg/dl (1.6-2.3); Potassium 3.3 mmol/L (3.5-5.1); Sodium 131 mmol/L (135-145); eGFR > 60.00
[2024-07-07] MEDS: VITAMIN C 500 MG PO (07:58)
[2024-07-07] MEDS: NEURONTIN 100 MG PO ×2 (07:58→19:53)
[2024-07-07] MEDS: TENORMIN 25 MG PO (07:58)
[2024-07-07] MEDS: PACERONE 200 MG PO (07:58)
[2024-07-07] MEDS: ELIQUIS 5 MG PO ×2 (07:58→19:52)
--- NOTE | 2024-07-07 08:52 | W.PN.HOSP.TC ---
Today's Communication/Plan
-
Replete electrolytes
Changed to lactated Ringer's IV fluids
Marinol
Check labs
PT/OT
Assessment / Plan
Assessment / Plan
Gen-AAOx3, NAD
HEENT-NC, AT, anicteric, clear oral mm
Neck-supple
CV-reg, no M, +S1/S2
Lungs-clear B/L
Abd-soft, NT, ND
Ext-no edema
Musculoskeletal-no cyanosis, clubbing
Skin-warm and dry
Neuro-grossly non-focal
Psych-calm, cooperative
Acute norovirus gastroenteritis -symptoms started 3 days ago. Continue supportive care. Diet as tolerated.
Hypovolemic hyponatremia -should improve with volume repletion. Recheck labs in the morning.
Hypokalemia -replete orally.
Hypomagnesemia -IV magnesium ordered. Recheck labs in the morning.
Severe protein/calorie malnutrition -trial of Marinol.
Parkinson's disease -resume Sinemet.
Paroxysmal atrial fibrillation -continue Eliquis, amiodarone.
Hypothyroidism -levothyroxine.
Essential hypertension -resume atenolol, losartan.
Generalized anxiety disorder -Xanax as needed.
Pancytopenia -unclear etiology. Will check B12, folate.
History of ITP
DNR
PT/OT
Anticipated Discharge: > 48 hours
Subjective/Interval History
-
Date of Service: July 07, 2024
Patient seen and examined. Still having diarrhea, anorexia. Denies nausea, vomiting. Denies abdominal pain.
Objective Data
-
Labs:
Laboratory Results
07/07/24
06:13
WBC 3.9 L
Hgb 9.9 L
Hct 28.7 L
Plt Count 129 L
Sodium 131 L
Potassium 3.3 L
Chloride 101
Carbon Dioxide 22
BUN 17
Creatinine 0.8
Glucose 71
Calcium 7.3 L
Vital Signs:
Vital Signs
Temp Pulse Resp BP Pulse Ox
98.1 F 96 17 162/85 97
07/07/24 07:29 07/07/24 07:58 07/07/24 07:29 07/07/24 07:58 07/07/24 07:29
I&O
07/06/24 07/07/24 07/08/24
06:59 06:59 06:59
Intake Total 480 / 480
Balance 480 / 480
Review of Systems
-
History Source: Patient
All other systems: Reviewed and negative
[2024-07-07 09:05] LABS: Urine Albumin 1+ (Neg - Trace); Urine Bilirubin Negative (Negative); Urine Character Very Cloudy (Clear); Urine Color Yellow; Urine Glucose Negative (Negative); Urine Ketone Trace (Negative); Urine Leukocyte 1+ (Negative); Urine Nitrite Positive (Negative); Urine Occult Blood Trace (Negative); Urine Specific Gravity 1.015 (<1.030); Urine Urobilinogen 1+ (Neg - 1+)
[2024-07-07 09:21] LABS: Urine Bacteria Many (Negative); Urine Squamous Cell 0-2 /LPF (Few)
[2024-07-07 09:22] LABS: Urine Red Blood Cell 0-2 /HPF (0-2); Urine White Cell 40-50 /HPF (0-5)
[2024-07-07] MEDS: KCL 40 MEQ PO (09:30)
[2024-07-07] MEDS: LR 1000 IV ×2 (09:35→22:30)
[2024-07-07] MEDS: MAGNESIUM SULFATE 100 IV (09:36)
[2024-07-07 10:14] LABS: Troponin I 0.032 ng/ml
--- NOTE | 2024-07-07 11:04 | CM ---
Patient seen at bedside.
IA completed.
+ norovirus
PMH: parkinsons, HTN, hypothyroid
Patient resides at [facility]
PLOF: ambulates with walker, wheelchair
DME: walker, wheelchair, shower chair
Denies insecurities
Spoke with doreen Castañeda
Denies /[facility] rehab, [facility] in past
PT/OT to eval
PCP: Ava Aguilera
Pharmacy: [facility]facility[facility]
PLAN: Await PT/OT evals
[2024-07-07 11:08] LABS: Folate 18.8 ng/ml (2.76-20); Vitamin B12 748 pg/ml (239-931)
[2024-07-07] MEDS: VITAMIN D3 (cholecalciferol) 25 MCG PO (11:41)
[2024-07-07] MEDS: MARINOL 2.5 MG PO ×2 (11:41→19:53)
[2024-07-07] MEDS: ROCEPHIN 1000 MG IV (14:00)
[2024-07-07] MEDS: STERILE WATER FOR INJECTION 10 ML IV (14:00)
--- NOTE | 2024-07-07 14:50 | PTCARENOTE ---
Patient with 100.2F oral temp with 1100 vitals, patient shivering/tremulous, states she is cold and requesting warm blankets. UA sent overnight by shift manager RN d/t patient complaint of burning with urination. Patient medicated with PRN tylenol
made aware of temp, blood cx x2 and IV rocephin ordered. PT/OT working with patient at bedside.
[2024-07-07] MEDS: KCL 20 MEQ PO (19:53)
[2024-07-07] MEDS: XALATAN OPHTHALMIC SOLUTION 1 DROP BOTH EYES (20:00)
[2024-07-07] MEDS: COZAAR PO (21:15)
[2024-07-07] MEDS: PROTONIX 40 MG PO (21:16)
--- NOTE | 2024-07-08 02:06 | DOWNTIME ---
There was a [email or web address] Downtime on 07/08/2024 from 0100 to 07/08/2023 at 0205 . Downtime documentation of patient's care, including medication administrations, has been reconciled in the electronic record per guidelines. Refer to the
patient's paper chart under the miscellaneous tab to see printed paper medication records and downtime forms.
[2024-07-08] MEDS: TYLENOL 650 MG PO ×2 (03:09→22:39)
[2024-07-08 03:21] VITALS: BP 122/94
--- NOTE | 2024-07-08 03:21 | PTCARENOTE ---
Temp 103- Tylenol administered. Plan of care discussed.
[2024-07-08] MEDS: SYNTHROID 100 MCG PO (05:31)
[2024-07-08 07:00] VITALS: BP 131/68
[2024-07-08] MEDS: ELIQUIS 5 MG PO ×2 (08:22→19:44)
[2024-07-08] MEDS: NEURONTIN 100 MG PO ×2 (08:22→19:44)
[2024-07-08] MEDS: PACERONE 200 MG PO (08:22)
[2024-07-08] MEDS: VITAMIN C 500 MG PO (08:22)
[2024-07-08] MEDS: KCL 20 MEQ PO (08:22)
[2024-07-08] MEDS: TENORMIN PO (08:22)
[2024-07-08] MEDS: MARINOL 2.5 MG PO ×2 (08:22→19:44)
[2024-07-08] MEDS: NON-FORMULARY ITEM 1 UNIT PO ×4 (08:23→19:44)
[2024-07-08 08:46] LABS: Hematocrit 30.1 % (37.0-47.0); Hemoglobin 10.7 g/dL (12.0-16.0); Mean Corp Hgb Conc. 35.5 g/dL (33.0-37.0); Mean Corpuscular Hgb 32.3 pg (27.0-31.0); Mean Corpuscular Volume 90.9 fL (81.0-99.0); Platelet Count 147 10^3/uL (130-400); Red Blood Cell Count 3.31 10^6/uL (4.20-5.40); Red Cell Dist. Width 15.6 % (11.5-14.5); White Blood Cell Count 4.4 10^3/uL (4.8-10.8)
[2024-07-08 08:58] LABS: Blood Urea Nitrogen 18 mg/dl (7-17); Calcium 7.8 mg/dl (8.4-10.2); Carbon Dioxide 24 mmol/L (22-30); Chloride 103 mmol/L (98-107); Estimated Creatinine Clearance 38 ml/min; Glucose 83 mg/dl (70-99); Magnesium 2.5 mg/dl (1.6-2.3); Sodium 131 mmol/L (135-145); eGFR 58.02
[2024-07-08 09:05] LABS: Potassium 4.6 mmol/L (3.5-5.1)
--- NOTE | 2024-07-08 09:47 | W.PN.HOSP.TC ---
Addendum entered and electronically signed by Raji Carey DO 07/08/24 17:39:
I received a call back from rheumatology on-call, Dr. Lopez. He has a very low suspicion for temporal arteritis. I agree with that assessment. Will hold off on temporal artery biopsy at this point in time.
In addition, patient has other explanations for elevated inflammatory markers including acute norovirus gastroenteritis, sepsis and urinary tract infection.
I explained to patient that if she develops any headache or vision changes or any concerning symptoms in the hospital to please let us know immediately.
Addendum entered and electronically signed by Raji Carey DO 07/08/24 17:30:
I got a phone call from patient's car wrecker Dr. Inman regarding elevated inflammatory markers that were checked prior to admission. These were done for evaluation of headache.
Apparently the patient claims that the last time she had a headache was 7 days ago on July 01. It was mild in nature and located behind the left eye. She decided to see her car wrecker and he ordered the blood tests to be done.
Patient never had a temporal artery biopsy. She has never been diagnosed with giant cell arteritis. She currently denies headache and states that the last time she had a headache was 7 days ago. She denies any vision changes. Denies any jaw
claudication. Denies proximal muscle pain or weakness.
She has no temporal tenderness on exam on either side.
Will recheck CRP and ESR now and if elevated consider consulting vascular surgery for temporal artery biopsy, although my suspicion is low.
Discussed the above with the patient's son Garry on the phone.
I did send a [place] text to to the nurse assessor on-call (Dr. Theo Lopez) but got no reply.
Addendum entered and electronically signed by Raji Carey DO 07/08/24 14:26:
I updated patient's son Garry on the phone. All questions answered.
Anticipate discharge to SNF. Likely will be medically stable for discharge tomorrow.
Updated case management.
Original Note:
Today's Communication/Plan
-
Continue antibiotics
Await cultures
Add Claritin
PT/OT
Assessment / Plan
Assessment / Plan
Gen-AAOx3, NAD
HEENT-NC, AT, anicteric, clear oral mm
Neck-supple
CV-reg, no M, +S1/S2
Lungs-clear B/L
Abd-soft, NT, ND
Ext-no edema
Musculoskeletal-no cyanosis, clubbing
Skin-warm and dry
Neuro-grossly non-focal
Psych-calm, cooperative
Sepsis due to UTI -symptoms started 07/07 AM. Continue IV ceftriaxone, await cultures.
Acute norovirus gastroenteritis -symptoms started 3 days prior to admission. Continue supportive care. Diet as tolerated.
Hypovolemic hyponatremia -should improve with volume repletion. Sodium 131.
Hypokalemia -resolved.
Hypomagnesemia -resolved.
Severe protein/calorie malnutrition -trial of Marinol.
Parkinson's disease -resume Sinemet.
Paroxysmal atrial fibrillation -continue Eliquis, amiodarone.
Hypothyroidism -levothyroxine.
Essential hypertension -resume atenolol, losartan.
Generalized anxiety disorder -Xanax as needed.
Pancytopenia -unclear etiology. Normal B12, folate.
History of ITP
DNR
PT/OT -SNF recommended.
Anticipated Discharge: Within 24 hours
Subjective/Interval History
-
Date of Service: July 08, 2024
Patient seen and examined. Complaining of postnasal drip.
Objective Data
-
Labs:
Laboratory Results
07/08/24
07:37
WBC 4.4 L
Hgb 10.7 L
Hct 30.1 L
Plt Count 147
Sodium 131 L
Potassium 4.6 D
Chloride 103
Carbon Dioxide 24
BUN 18 H
Creatinine 1.0
Glucose 83
Calcium 7.8 L
Vital Signs:
Vital Signs
Temp Pulse Resp BP Pulse Ox
98.1 F 57 16 131/68 100
07/08/24 07:00 07/08/24 08:22 07/08/24 07:00 07/08/24 07:00 07/08/24 07:00
I&O
07/07/24 07/08/24 07/09/24
06:59 06:59 06:59
Intake Total 480 / 480 2400 / 2400
Balance 480 / 480 2400 / 2400
Review of Systems
-
History Source: Patient
All other systems: Reviewed and negative
[2024-07-08] MEDS: CLARITIN 10 MG PO (10:24)
[2024-07-08 10:40] LABS: Absolute Neutrophils -Man Diff 4.1 10^3/uL (1.4-6.5); Band Neutrophils 11 % (0-3); Lymphocytes 4 % (20-51); Monocytes 2 % (2-9); Segmented Neutrophils 83 % (42-75)
[2024-07-08 10:41] LABS: Macrocytosis 1+; Normal RBC Morphology Yes; Platelets Checked Yes; Schistocytes 1+; Spherocytes 1+; Target Cells 1+
[2024-07-08 10:42] LABS: Acanthocytes 1+; Total Cells Counted 100
[2024-07-08 11:12] VITALS: BP 153/73
[2024-07-08] MEDS: VITAMIN D3 (cholecalciferol) 25 MCG PO (11:54)
[2024-07-08] MEDS: ROCEPHIN 1000 MG IV (11:54)
[2024-07-08] MEDS: STERILE WATER FOR INJECTION 10 ML IV (11:54)
[2024-07-08 15:28] VITALS: BP 136/68
--- NOTE | 2024-07-08 15:48 | CM ---
PT/OT rec SNF
options reviewed with patient/son
Jaziel Foley, [facility] & [facility] referrals entered in [facility]
Farrah liaison from [facility] called accepted & has bed available tomorrow
Patient will need covid test prior to going to [facility] (their protocol)
Patient/son agreeable with [facility]
PLAN: [facility]
Report #: [phone]
Fax #: [phone]
transportation forms on chart-facility request after 3pm transport
[2024-07-08] MEDS: XANAX 0.25 MG PO (18:01)
[2024-07-08 19:01] LABS: Erythrocyte Sed Rate 52 mm/hour (0-20)
[2024-07-08 19:24] VITALS: BP 143/80
[2024-07-08] MEDS: XALATAN OPHTHALMIC SOLUTION 1 DROP BOTH EYES (21:10)
[2024-07-08] MEDS: PROTONIX 40 MG PO (21:10)
[2024-07-08] MEDS: COZAAR 25 MG PO (21:11)
[2024-07-08 23:10] VITALS: BP 136/67
[2024-07-09] VITALS (10 sets, daily range): BP systolic 104–162; BP diastolic 65–104; PULSE 102; O2SAT 97
[2024-07-09] MEDS: NON-FORMULARY ITEM 1 UNIT PO ×5 (00:04→19:47)
[2024-07-09] MEDS: TYLENOL 650 MG PO (03:24)
[2024-07-09] MEDS: SYNTHROID 100 MCG PO (06:07)
[2024-07-09 06:39] LABS: Blood Urea Nitrogen 20 mg/dl (7-17); Calcium 7.6 mg/dl (8.4-10.2); Carbon Dioxide 25 mmol/L (22-30); Chloride 105 mmol/L (98-107); Estimated Creatinine Clearance 42 ml/min; Glucose 90 mg/dl (70-99); Potassium 4.3 mmol/L (3.5-5.1); Sodium 133 mmol/L (135-145); eGFR > 60.00
[2024-07-09 06:55] LABS: COVID-19 Antigen Negative (Negative)
[2024-07-09] MEDS: VITAMIN C 500 MG PO (07:52)
[2024-07-09] MEDS: MARINOL 2.5 MG PO ×2 (07:52→19:47)
[2024-07-09] MEDS: PACERONE 200 MG PO (07:52)
[2024-07-09] MEDS: CLARITIN 10 MG PO (07:52)
[2024-07-09] MEDS: NEURONTIN 100 MG PO ×2 (07:52→19:47)
[2024-07-09] MEDS: ELIQUIS 5 MG PO (07:53)
[2024-07-09] MEDS: TENORMIN PO (07:53)
--- NOTE | 2024-07-09 07:55 | W.PN.HOSP.TC ---
Addendum entered and electronically signed by Raji Carey, 07/09/24 08:24:
Stop Arleen in preparation for temporal artery biopsy. Unfortunately she did get a dose this morning.
Addendum entered and electronically signed by Raji Carey, 07/09/24 08:22:
I updated patient's son Garry on the phone regarding plan of care. All questions answered.
Original Note:
Today's Communication/Plan
-
Start prednisone
ID consult
Vascular surgery consult
Assessment / Plan
Assessment / Plan
Gen-AAOx3, NAD
HEENT-NC, AT, anicteric, clear oral mm
Neck-supple
CV-reg, no M, +S1/S2
Lungs-clear B/L
Abd-soft, NT, ND
Ext-no edema
Musculoskeletal-no cyanosis, clubbing
Skin-warm and dry
Neuro-grossly non-focal
Psych-calm, cooperative
Ongoing fever -in light of rising CRP and vague complaints of headache will start empiric prednisone 60 mg daily for presumed giant cell arteritis. Consult vascular surgery for bilateral temporal artery biopsy. She currently denies headache or
visual changes. Case discussed again with rheumatology on-call, Dr. Theo Lopez. He will see her in the office as an outpatient.
I updated patient's primary care provider on the phone, nurse practitioner Ava Aguilera.
Sepsis due to UTI -symptoms started 07/07 AM. Continue IV ceftriaxone. Blood cultures negative so far. Urine culture shows E. coli, sensitivity pending.
Acute norovirus gastroenteritis -symptoms started 3 days prior to admission. Continue supportive care. Diet as tolerated.
Hypovolemic hyponatremia -should improve with volume repletion. Sodium 133.
Hypokalemia -resolved.
Hypomagnesemia -resolved.
Severe protein/calorie malnutrition -trial of Marinol.
Parkinson's disease -resume Sinemet.
Paroxysmal atrial fibrillation -continue Eliquis, amiodarone.
Hypothyroidism -levothyroxine.
Essential hypertension -resume atenolol, losartan.
Generalized anxiety disorder -Xanax as needed.
Pancytopenia -unclear etiology. Normal B12, folate.
History of ITP
DNR
PT/OT -SNF recommended.
Anticipated Discharge: > 48 hours
Subjective/Interval History
-
Date of Service: July 09, 2024
Patient seen and examined. Denies headache but having vague and fleeting intermittent jabs of pain on both sides of her head. Only lasts for a few seconds. Still has weakness.
Denies nausea, vomiting, diarrhea.
Objective Data
-
Labs:
Laboratory Results
07/09/24
05:36
Sodium 133 L
Potassium 4.3
Chloride 105
Carbon Dioxide 25
BUN 20 H
Creatinine 0.9
Glucose 90
Calcium 7.6 L
Vital Signs:
Vital Signs
Temp Pulse Resp BP Pulse Ox
97.5 F 55 16 127/66 97
07/09/24 07:05 07/09/24 07:05 07/09/24 07:05 07/09/24 07:05 07/09/24 07:05
I&O
07/08/24 07/09/24 07/10/24
06:59 06:59 06:59
Intake Total 2400 / 2400 320 / 320
Balance 2400 / 2400 320 / 320
Review of Systems
-
History Source: Patient
All other systems: Reviewed and negative
[2024-07-09] MEDS: DELTASONE 60 MG PO (08:43)
--- NOTE | 2024-07-09 09:15 | CON.VAS ---
Addendum entered and electronically signed by Jay Jay Wallace III, MD 07/10/24 17:03:
This patient was seen and examined with JADA Mchugh and JADA Garcia. I agree with the history and physical exam as well as the assessment and plan. I have the following additions:
History reviewed
Elevated ESR and CRP noted
Asked by primary team to perform bilateral temporal artery biopsies for symptom constellation concerning for temporal arteritis
Technical aspects of the procedure were explained to the patient in detail. Benefits and rationale for this approach were discussed with her in detail. Operative risks were discussed with her in detail including but not limited to bleeding,
infection, wound healing complications and negative biopsy result. I also discussed all of this with her son Garry via telephone. They both agree to proceed with the procedure.
Signed:
Jay Jay Wallace III, MD
[facility] Vascular Surgery
[phone] (phzu)
Original Note:
Consultation
Consultation Request
Date/Time Consultation Performed: 07/09/24
Requesting Provider: Hospitalist
Performing Provider: ZHAO Moore
Reason for Consultation: Temporal artery biopsy to rule out temporal arteritis
Medical History
-
Chief Complaint: Temporal artery biopsy to rule out temporal arteritis
History of Present Illness:
This is a 79-year-old female admitted to [facility] on 07/06/2024 from the [facility] for generalized malaise/weakness and poor p.o. intake with weight loss over the past couple of weeks. Vascular surgery's been consulted
for temporal artery biopsy as primary team wishes to rule out temporal arteritis. ESR elevated to 52 and CRP elevated at 59. Patient endorses that she fell at home over her fireplace in February 2024, although she denies a direct traumatic fall
to her head she does endorse since that fall she has had intermittent shocks of pain around her head that she describes as headaches. Denies vision loss or visual changes, pain over temporal area, unilateral weakness, or persistent headache.
Currently eating and offers no complaints. Currently headache free.
Past Medical History
Past Medical History: Arrhythmias (Paroxysmal atrial fibrillation), Hypothyroidism, Psychiatric (Generalized anxiety disorder) and Other (Parkinson's disease, dysphagia, constipation, palpitations, ITP-splenectomy, anemia, pneumonia, non-rheumatic
MR, MVP)
Past Surgical History: , Gynecological (Total hysterectomy) and Other (Splenectomy)
Social History
Tobacco: Non-Smoker
Alcohol: None
Drug: None
Living: Assisted Living
Allergies / Home Medications
Allergy/AdvReac Type Severity Reaction Status Date / Time
codeine Allergy Nausea,HEAD Verified 07/06/24 13:04
ACHE,RASH,D
EDUARDO
Iodinated Contrast Media Allergy Hives Verified 07/06/24 13:04
[Iodinated Contrast Media -
Oral and]
Penicillins Allergy Hives,HEADA Verified 07/06/24 13:04
EUGENIO,RASH,NA
USEA
Sulfa (Sulfonamide Allergy HEADACHE,RA Verified 07/06/24 13:04
Antibiotics) SH,NAUSEA
gnats Allergy Rash Uncoded 07/06/24 13:04
MOSQUITO Allergy Swelling/RE Uncoded 07/06/24 13:04
DNESS
�Medication �Instructions �Recorded �Confirmed �Type
apixaban 5 mg tablet (Eliquis) 5 mg PO BID Blood clot 10/08/16 07/06/24 History
prevention/tx
docusate sodium 100 mg capsule 100 mg PO DAILYPRN PRN constipation 02/25/20 07/06/24 History
ascorbic acid (vitamin C) 500 mg 500 mg PO DAILY Supplement 11/08/22 07/06/24 History
tablet (Vitamin C)
cholecalciferol (vitamin D3) 25 25 mcg PO NOON Supplement 11/08/22 07/06/24 History
mcg (1,000 unit) capsule (Vitamin
D3)
carbidopa 25 mg-levodopa 100 mg 1 tab PO 5/D PARKINSON'S 08/19/23 07/06/24 History
tablet
atenolol 25 mg tablet 25 mg PO DAILY Arrhythmia #30 tabs 08/22/23 07/06/24 Rx
amiodarone 200 mg tablet (Pacerone) 200 mg PO DAILY A-FIB 04/11/24 07/06/24 History
gabapentin 100 mg capsule 100 mg PO BID NEUROPATHY 04/11/24 07/06/24 History
latanoprost 0.005 % eye drops 1 drp BOTH EYES HS Eye Condition 04/11/24 07/06/24 History
losartan 25 mg tablet 25 mg PO HS Blood Pressure 04/11/24 07/06/24 History
pantoprazole 40 mg tablet,delayed 40 mg PO HS Gastrointestinal Issue 04/11/24 07/06/24 History
release
acetaminophen 325 mg tablet 650 mg PO Q4HPRN PRN mild 07/06/24 07/06/24 History
pain/fever>100
alprazolam 0.25 mg tablet (Xanax) 0.25 mg PO BID PRN anxiety 07/06/24 07/06/24 History
levothyroxine 100 mcg tablet 100 mcg PO DAILY 07/06/24 07/06/24 History
magnesium hydroxide 400 mg/5 mL 30 ml PO DAILYPRN PRN constipation 07/06/24 07/06/24 History
oral suspension (Milk of Magnesia)
ondansetron HCl 4 mg tablet 4 mg PO Q8HPRN PRN nausea 07/06/24 07/06/24 History
polyethylene glycol 3350 17 gram 17 g PO DAILYPRN PRN constipation 07/06/24 07/06/24 History
oral powder packet (HealthyLax)
Review of Systems
-
History Source: Patient
Constitutional: Reports Weight Loss
EENT: Reports No Symptoms
Respiratory: Reports No Symptoms
Cardiac: Reports No Symptoms
Abdomen/GI: Reports No Symptoms
: Reports No Symptoms
Musculoskeletal: Reports No Symptoms
Skin: Reports No Symptoms
Neurological: Reports Weakness
Physical Exam
Vital Signs
Temp Pulse Resp BP Pulse Ox
97.5 F 55 16 127/66 97
07/09/24 07:05 07/09/24 07:53 07/09/24 07:05 07/09/24 07:53 07/09/24 07:05
Lab Results
07/08/24 07:37
07/09/24 05:36
Troponin I 0.032 ng/ml 07/07/24 09:38
Physical Exam
General: No Apparent Distress
HEENT: Normocephalic, Anicteric and Atraumatic
Respiratory: Non Labored Respirations
Cardiac: Negative JVD
GI: Soft, Non Tender and Non Distended
Musculoskeletal: No Edema
Skin: Warm
Neuro: Awake and Other (Bilateral temporal artery +1 palpable pulse)
Psych: Calm
Assessment / Plan
-
Assessment: 79-year-old female admitted for generalized weakness with primary team not concern for bilateral temporal arteritis and requesting bilateral temporal artery biopsy
Plan:
Continue to hold Eliquis, will tentatively plan for bilateral temporal artery biopsy tomorrow 07/10/2024
N.p.o. at midnight
[2024-07-09] MEDS: VITAMIN D3 (cholecalciferol) 25 MCG PO (12:10)
[2024-07-09] MEDS: STERILE WATER FOR INJECTION 10 ML IV (12:12)
[2024-07-09] MEDS: ROCEPHIN 1000 MG IV (12:12)
--- NOTE | 2024-07-09 14:24 | CON.ID ---
Consultation
-
Date/Time Consultation Requested: 07/09/2024 0804
Date/Time Consultation Performed: 07/09/2024 1400
Requesting Provider: Dr. Carey
Performing Provider: Dr. Plummer
Reason for Consultation: Fever
Chief Complaint / Past History
History of Present Illness
Sandra Barrow is a 79-year-old female with a significant past medical history of A-fib and Parkinson's disease being evaluated the request of Dr. Carey in regards to fever. History is obtained from chart review, along with patient interview.
The patient currently resides at [facility], and presented to the emergency room on 07/06 secondary to significant fatigue, along with bodyaches. According to reviewed records she had had poor p.o. intake for at least several days and
possibly longer. Additionally, weight loss was reported. In the ER, she developed diarrhea and a stool test was found to be positive for norovirus.
Since admission she has had intermittent fevers. She also has complained of some temporal area discomfort, and is being worked up for possible temporal arteritis.
She is not clear whether she had any fevers prior to admission, as she did not feel the fevers here. No history of chills. She denies any known sick contacts at [place] that may have had any GI illness. Today, though, she admits to some dysuria.
Past History
Additional Past Medical History:
HTN
Hypothyroidism
Parkinson's disease
Dysphagia
P A-fib
Anxiety
GERD
Diverticulosis
Additional Past Surgical History:
Splenectomy
Hysterectomy
Allergy History:
codeine Allergy (Verified 07/06/24 13:04)
Nausea,HEADACHE,RASH,DIZZY
Iodinated Contrast Media [Iodinated Contrast Media - Oral and] Allergy (Verified 07/06/24 13:04)
Hives
Penicillins Allergy (Verified 07/06/24 13:04)
Hives,HEADACHE,RASH,NAUSEA
Sulfa (Sulfonamide Antibiotics) Allergy (Verified 07/06/24 13:04)
HEADACHE,RASH,NAUSEA
gnats Allergy (Uncoded 07/06/24 13:04)
Rash
MOSQUITO Allergy (Uncoded 07/06/24 13:04)
Swelling/REDNESS
Medications Reviewed: Yes
Current Antibiotics:
Rocephin 1 g IV every 24 hours
Social History
Tobacco: Non-Smoker
Alcohol: None
Drug: None
Living: Assisted Living
Employment: Retired
Family History
Family History: Not Pertinent
Review of Systems
Vital Signs
Temp Pulse Resp BP Pulse Ox
97.6 F 82 16 114/70 94
07/09/24 11:00 07/09/24 11:00 07/09/24 11:00 07/09/24 11:00 07/09/24 11:00
Physical Exam
Physical Exam
Constitutional: No Acute Distress, Comfortable, Chronically Ill and Non-toxic
Head: Other (Mild temporal wasting. No temporal tenderness.)
Eyes: Pupils Equal, Pupils Round, No Conjunctival Hemorrhage and Sclera Anicteric
Oral: No Thrush and No Ulcers
Cardiovascular: Irregular Rate and S1/S2; Negative S3/S4
Pulmonary: Clear; Negative Wheezes, Rales or Rhonchi
Gastrointestinal: Soft, Non Tender, Non Distended, Normal Bowel Sounds, No Rebound and No Guarding
Extremities: Negative Edema, Cyanosis or Erythema
Skin: Warm and Dry
Wound: None
Neurological: Awake, Alert and Oriented
Psychological: Calm
Lab / Diagnostic Study Results
07/08/24 07:37
07/09/24 05:36
Abs Immat Gran (auto) 0.0 10^3/uL (0-0.05) 07/06/24 15:40
Absolute Neuts (auto) 4.6 10^3/uL (1.4-6.5) 07/06/24 15:40
Absolute Lymphs (auto) 0.6 10^3/uL (1.2-3.4) L 07/06/24 15:40
Absolute Monos (auto) 0.4 10^3/uL (0.1-0.6) 07/06/24 15:40
Absolute Basos (auto) 0.0 10^3/uL (0-0.2) 07/06/24 15:40
Total Counted 100 07/08/24 07:37
Immature Gran % 0.5 % (0-0.5) 07/06/24 15:40
Neutrophils % 81.1 % (42.2-75.2) H 07/06/24 15:40
Lymphocytes % 10.6 % (20.5-51.1) L 07/06/24 15:40
Monocytes % 7.6 % (1.7-9.3) 07/06/24 15:40
Eosinophils % 0.0 % (0-6) 07/06/24 15:40
Basophils % 0.2 % (0-2) 07/06/24 15:40
Abs Neuts (Manual) 4.1 10^3/uL (1.4-6.5) 07/08/24 07:37
Segmented Neutrophils 83 % (42-75) H 07/08/24 07:37
Band Neutrophils 11 % (0-3) H 07/08/24 07:37
Lymphocytes (Manual) 4 % (20-51) L 07/08/24 07:37
ESR 52 mm/hour (0-20) H 07/08/24 18:49
C-Reactive Protein 59.20 mg/L (0.0-10.00) H 07/08/24 18:49
Ur Squamous Epith Cells 0-2 /LPF (Few) 07/07/24 05:38
Microbiology Results
Micro:
07/07/24 13:40 Blood Culture - Preliminary
Blood/Venous No Growth in 48 hours- Final report to follow
07/07/24 12:24 Blood Culture - Preliminary
Blood/Venous No Growth in 48 hours- Final report to follow
07/06/24 16:41 Salmonella/Shigella Culture - Final
Feces/Stool No Salmonella, Shigella, Aeromonas or Plesiomonas species
isolated.
Campylobacter Culture - Final
No Campylobacter species isolated.
Shiga Toxin Test - Final
No E. coli Shiga Toxin 1 or 2 detected.
07/07/24 05:38 Urine Culture - Preliminary
Urine Escherichia coli
07/06/24 16:41 C. difficile GDH Antigen & Toxins - Final
Feces/Stool Negative for toxigenic C.difficile
- Final
Positive for Norovirus GII
Imaging:
06/26/2024 CT chest without contrast: Minimal faint groundglass opacity in the right upper lobe likely reflective of mild postpneumonic scarring. Prior noted bilateral pleural effusions have resolved.
Assessment / Plan
Fever
Dysuria
Complicated urinary tract infection
Headaches
- w/u in progress for possible temporal arteritis
Norovirus positive
- No symptoms at present
HTN
Hypothyroidism
Parkinson's disease
Dysphagia
P A-fib
Anxiety
GERD
Diverticulosis
Recommendations:
Case discussed with the microbiology lab. It is possible the recovered E. coli is an ESBL.
Will transition to ertapenem pending further sensitivities
Continue to follow white count and temperature curve.
Await further workup from vascular regarding headache and possibility of temporal arteritis.
Continue with enteric precautions given recent positive testing for norovirus.
--- NOTE | 2024-07-09 14:31 | CM ---
Melissa seen today - Notified Farrah at [facility] & updated patient not discharging.
Spoke to son Garry
Start prednisone
ID consult
Vascular surgery consult
PLAN: SNF, pending bed availability
[2024-07-09] MEDS: INVANZ 60 MG IV (15:52)
[2024-07-09] MEDS: XANAX 0.25 MG PO (18:14)
[2024-07-09] MEDS: XALATAN OPHTHALMIC SOLUTION 1 DROP BOTH EYES (21:40)
[2024-07-09] MEDS: COZAAR 25 MG PO (21:40)
[2024-07-09] MEDS: PROTONIX 40 MG PO (21:40)
[2024-07-10] VITALS (15 sets, daily range): BP systolic 104–158; BP diastolic 65–105
[2024-07-10] MEDS: SYNTHROID 100 MCG PO (05:48)
[2024-07-10] MEDS: MARINOL 2.5 MG PO ×2 (08:11→20:11)
[2024-07-10] MEDS: DELTASONE 60 MG PO (08:11)
[2024-07-10] MEDS: PERIDEX 0.12% ORAL RINSE 15 ML PO (08:11)
[2024-07-10] MEDS: PACERONE 200 MG PO (08:11)
[2024-07-10] MEDS: BACTROBAN 2% OINTMENT 1 APPLIC NASAL (08:13)
[2024-07-10] MEDS: TENORMIN 25 MG PO (08:13)
[2024-07-10] MEDS: NEURONTIN 100 MG PO ×2 (08:13→20:11)
[2024-07-10] MEDS: CLARITIN 10 MG PO (08:13)
[2024-07-10] MEDS: VITAMIN C 500 MG PO (08:13)
[2024-07-10] MEDS: NON-FORMULARY ITEM 1 UNIT PO ×5 (08:13→20:11)
--- NOTE | 2024-07-10 09:04 | W.PN.HOSP.TC ---
Today's Communication/Plan
-
Temporal artery biopsy today
Assessment / Plan
Assessment / Plan
Gen-AAOx3, NAD
HEENT-NC, AT, anicteric, clear oral mm
Neck-supple
CV-reg, no M, +S1/S2
Lungs-clear B/L
Abd-soft, NT, ND
Ext-no edema
Musculoskeletal-no cyanosis, clubbing
Skin-warm and dry
Neuro-grossly non-focal
Psych-calm, cooperative
Possible temporal arteritis -in light of rising CRP and vague complaints of headache will start empiric prednisone 60 mg daily for presumed giant cell arteritis. Consult vascular surgery for bilateral temporal artery biopsy, to be done today.
Eliquis on hold. She has occasional fleeting headaches and today started complaining of left eye blurriness for the first time. Case discussed 07/09 with rheumatology on-call, Dr. Theo Lopez. He will see her in the office as an outpatient.
I updated patient's primary care provider on the phone, nurse practitioner Ava Aguilera.
ESBL E. coli sepsis due to UTI -symptoms started 07/07 AM. Now on IV ertapenem per infectious disease. Fever noted 36 hours ago likely due to ESBL E. coli.
Acute norovirus gastroenteritis -symptoms started 3 days prior to admission. Continue supportive care. Diet as tolerated.
Hypovolemic hyponatremia -should improve with volume repletion. Sodium 133.
Hypokalemia -resolved.
Hypomagnesemia -resolved.
Severe protein/calorie malnutrition -trial of Marinol.
Parkinson's disease -continue Sinemet.
Paroxysmal atrial fibrillation -resume Eliquis after biopsy when okay with vascular surgery.
Hypothyroidism -levothyroxine.
Essential hypertension -resume atenolol, losartan.
Generalized anxiety disorder -Xanax as needed.
Pancytopenia -unclear etiology. Normal B12, folate.
History of ITP
DNR
PT/OT -SNF recommended.
Anticipated Discharge: Within 24 hours
Subjective/Interval History
-
Date of Service: July 10, 2024
Patient seen and examined. Complaining of fleeting and transient headache behind the left eye. Mild left eye blurriness that comes and goes.
Objective Data
-
Vital Signs:
Vital Signs
Temp Pulse Resp BP Pulse Ox
97.5 F 88 16 138/97 98
07/10/24 07:20 07/10/24 08:25 07/10/24 07:20 07/10/24 08:25 07/10/24 07:20
I&O
07/09/24 07/10/24 07/11/24
06:59 06:59 06:59
Intake Total 320 / 320 1080 / 1080
Balance 320 / 320 1080 / 1080
Review of Systems
-
History Source: Patient
All other systems: Reviewed and negative
[2024-07-10] MEDS: XANAX 0.25 MG PO (11:01)
[2024-07-10] MEDS: VITAMIN D3 (cholecalciferol) 25 MCG PO (11:02)
--- NOTE | 2024-07-10 11:23 | W.PN.ID1 ---
Date of Service
Date of Service: July 10, 2024
Today's Communication
Continue ertapenem.
Assessment / Plan
Fever- resolving
Dysuria
Complicated urinary tract infection
Headaches
- w/u in progress for possible temporal arteritis
Norovirus positive
- No symptoms at present
HTN
Hypothyroidism
Parkinson's disease
Dysphagia
P A-fib
Anxiety
GERD
Diverticulosis
Recommendations:
Ucx ESBL-E. coli i
Continue ertapenem d2
Continue to follow white count and temperature curve. For temporal artery biopsy today.
Continue with enteric precautions given recent positive testing for norovirus.
Chief Complaint
-: UTI and Other (Norovirus)
Subjective / Review of Systems
No diarrhea.
No dysuria
+ mild HEWITT
Vital Signs / Physical Exam
Vital Signs
Vital Signs
Temp Pulse Resp BP Pulse Ox
97.5 F 88 16 138/97 98
07/10/24 07:20 07/10/24 08:25 07/10/24 07:20 07/10/24 08:25 07/10/24 07:20
Physical Exam
Constitutional: No Acute Distress, Comfortable, Chronically Ill and Cachetic
Cardiovascular: Regular Rate and S1/S2
Pulmonary: Clear
Gastrointestinal: Soft, Non Tender and Non Distended
Genito-Urinary: Negative CVA Tenderness
Neurological: AO x 3
Objective Data
Lab Data
Lab Results
07/08/24 07:37
07/09/24 05:36
ESR 52 mm/hour (0-20) H 07/08/24 18:49
Estimated Creat Clear 42 ml/min 07/09/24 05:36
Total Bilirubin 0.7 mg/dl (0.2-1.3) 07/06/24 15:40
AST 185 U/L (14-36) H 07/06/24 15:40
ALT 27 U/L (0-35) 07/06/24 15:40
Alkaline Phosphatase 55 U/L (38-126) 07/06/24 15:40
C-Reactive Protein 59.20 mg/L (0.0-10.00) H 07/08/24 18:49
Most recent labs reviewed.
Micro Results:
07/07/24 05:38 Urine Culture - Final
Urine Escherichia coli - ESBL
07/07/24 13:40 Blood Culture - Preliminary
Blood/Venous No Growth in 48 hours- Final report to follow
07/07/24 12:24 Blood Culture - Preliminary
Blood/Venous No Growth in 48 hours- Final report to follow
07/06/24 16:41 Salmonella/Shigella Culture - Final
Feces/Stool No Salmonella, Shigella, Aeromonas or Plesiomonas species
isolated.
Campylobacter Culture - Final
No Campylobacter species isolated.
Shiga Toxin Test - Final
No E. coli Shiga Toxin 1 or 2 detected.
07/06/24 16:41 C. difficile GDH Antigen & Toxins - Final
Feces/Stool Negative for toxigenic C.difficile
- Final
Positive for Norovirus GII
Imaging:
06/26/2024 CT chest without contrast: Minimal faint groundglass opacity in the right upper lobe likely reflective of mild postpneumonic scarring. Prior noted bilateral pleural effusions have resolved.
[2024-07-10] MEDS: INVANZ 60 MG IV (15:16)
--- NOTE | 2024-07-10 17:03 | W.SUR.PREOP ---
Pre-Operative Surgical Note
-
I have examined this patient prior to the performance of the scheduled procedure.
The patient's condition is unchanged from the time of the current History and
Physical and the patient is able to undergo the scheduled procedure.
--- NOTE | 2024-07-10 18:30 | OR.RPT ---
Operative Report
Operative Report
Date of Operation: 07/10/2024
Pre Op Diagnosis:
1.) Headaches
2.) Elevated inflammatory markers
3.) Suspected temporal arteritis
Post Op Diagnosis:
1.) Headaches
2.) Elevated inflammatory markers
3.) Suspected temporal arteritis
Procedure: BILATERAL temporal artery biopsies
Surgeon: Jay Jay Wallace III, MD
Laundry Machine Operator: Mele Julien MD PGY1
Anesthesia: Sedation/local
Complications: None
Estimated Blood Loss: Minimal
History and Indications for Procedure: 79-year-old female with symptom constellation concerning for temporal arteritis. We were asked to provide bilateral temporal artery biopsies.
Procedure in Detail: Sandra Barrow was correctly identified and placed supine on the operating table. After adequate induction of anesthesia the hair overlying the bilateral temporal regions was shaved. The temporal pulses were palpated bilaterally
and appropriate skin incisions were marked over the temporal pulses bilaterally. The bilateral temporal regions were then prepped and draped in the usual sterile fashion. The patient received preoperative antibiotics. A timeout procedure was
performed with the nursing and anesthesia staff confirming the patient's identity as well as the nature and laterality of the procedure.
Bilateral temporal artery biopsies were performed one at a time in the same manner as follows: Local anesthesia was infiltrated into the skin and subcutaneous tissue at the skin manuel. A skin incision was made over the temporal skin manuel.
Electrocautery and sharp dissection were used to expose the temporal artery. After adequate length of temporal artery had been exposed within the wound bed the proximal and distal ends were ligated with silk ties and small metal clips. The
intervening artery segment was transected proximally and distally and removed. The artery segment was identified according to laterality and passed off to the back table to be labeled and sent to pathology. The wound was then closely inspected for
hemostasis which was achieved. The wound was irrigated with saline solution.
Each wound was closed in layers. Skin glue was applied to each incision bilaterally.
The patient tolerated the procedure well and was taken to the recovery room in good condition.
Attestation: I was present and responsible for the entire procedure
Signed:
Jay Jay Wallace III, MD
[facility] Vascular Surgery
[phone] (cell)
--- NOTE | 2024-07-10 19:00 | PTCARENOTE ---
Received patient from PACU s/p temporal artery biopsy. Patient AAOx3, vitals stable, unable to obtain oral/ax temp on patient, patient skin warm and patient states no concerns at this time, denies pain/HEWITT/blurry vision. Rectal temp 97.6F. Patient
given warm blanket. Regular diet order entered and dinner at bedside for patient. B/L temporal incisions approximated, no drainage, glue intact. Call light and SCDs in place.
[2024-07-10] MEDS: COZAAR 25 MG PO (21:57)
[2024-07-10] MEDS: PROTONIX 40 MG PO (21:57)
[2024-07-10] MEDS: XALATAN OPHTHALMIC SOLUTION 1 DROP BOTH EYES (21:58)
[2024-07-11] VITALS: BP 157/95
[2024-07-11] MEDS: NON-FORMULARY ITEM 1 UNIT PO ×6 (00:03→23:57)
--- NOTE | 2024-07-11 00:21 | PTCARENOTE ---
Patient refusing rectal temps. Oral temp tried first each time but not resulting. She will consider again at 3a or 4a. Warm blankets provided. Patient says she is not cold.
[2024-07-11 03:18] VITALS: BP 161/89
[2024-07-11] MEDS: SYNTHROID 100 MCG PO (06:05)
--- NOTE | 2024-07-11 06:40 | W.PN.UPDATE ---
Update Note
Progress Note Update
Patient seen at bedside this a.m. No events overnight. Temporal sites well-approximated, clean, dry, intact, no swelling noted.
Okay for discharge from vascular standpoint. The office will call her on Saturday with follow-up appointment.
[2024-07-11 07:15] VITALS: BP 170/97
[2024-07-11] MEDS: CLARITIN 10 MG PO (08:38)
[2024-07-11] MEDS: TENORMIN 25 MG PO (08:38)
[2024-07-11] MEDS: DELTASONE 60 MG PO (08:38)
[2024-07-11] MEDS: VITAMIN C 500 MG PO (08:39)
[2024-07-11] MEDS: PACERONE 200 MG PO (08:40)
[2024-07-11] MEDS: NEURONTIN 100 MG PO ×2 (08:40→20:10)
[2024-07-11] MEDS: MARINOL 2.5 MG PO ×2 (08:43→20:10)
--- NOTE | 2024-07-11 10:32 | W.PN.ID1 ---
Date of Service
Date of Service: July 11, 2024
Today's Communication
Last day of ertapenem d3 today, then 1 dose of fosfomycin 3g po x 1 tomorrow at 14:00 (can take at home).
Assessment / Plan
Fever- resolved
Dysuria -resolved
Complicated urinary tract infection
Headaches
- s/p temporal artery biopsy 07/10
Norovirus positive
- No symptoms at present
HTN
Hypothyroidism
Parkinson's disease
Dysphagia
P A-fib
Anxiety
GERD
Diverticulosis
Recommendations:
Ucx ESBL-E. coli
Last day of ertapenem d3 today, then 1 dose of fosfomycin 3g po x 1 tomorrow at 14:00.
Continue with enteric precautions given recent positive testing for norovirus.
Chief Complaint
-: UTI and Other (Norovirus)
Vital Signs / Physical Exam
Vital Signs
Vital Signs
Temp Pulse Resp BP Pulse Ox
96.3 F L 61 17 170/97 98
07/11/24 07:15 07/11/24 07:15 07/11/24 07:15 07/11/24 07:15 07/11/24 07:15
Physical Exam
Constitutional: No Acute Distress, Comfortable, Chronically Ill and Cachetic
Cardiovascular: Regular Rate and S1/S2
Pulmonary: Clear
Gastrointestinal: Soft, Non Tender and Non Distended
Genito-Urinary: Negative CVA Tenderness
Neurological: AO x 3
Objective Data
Lab Data
Lab Results
07/08/24 07:37
07/09/24 05:36
ESR 52 mm/hour (0-20) H 07/08/24 18:49
Estimated Creat Clear 42 ml/min 07/09/24 05:36
Total Bilirubin 0.7 mg/dl (0.2-1.3) 07/06/24 15:40
AST 185 U/L (14-36) H 07/06/24 15:40
ALT 27 U/L (0-35) 07/06/24 15:40
Alkaline Phosphatase 55 U/L (38-126) 07/06/24 15:40
C-Reactive Protein 59.20 mg/L (0.0-10.00) H 07/08/24 18:49
Most recent labs reviewed.
Micro Results:
07/07/24 13:40 Blood Culture - Preliminary
Blood/Venous No Growth in 72 hours- Final report to follow
07/07/24 12:24 Blood Culture - Preliminary
Blood/Venous No Growth in 72 hours- Final report to follow
07/07/24 05:38 Urine Culture - Final
Urine Escherichia coli - ESBL
07/06/24 16:41 Salmonella/Shigella Culture - Final
Feces/Stool No Salmonella, Shigella, Aeromonas or Plesiomonas species
isolated.
Campylobacter Culture - Final
No Campylobacter species isolated.
Shiga Toxin Test - Final
No E. coli Shiga Toxin 1 or 2 detected.
07/06/24 16:41 C. difficile GDH Antigen & Toxins - Final
Feces/Stool Negative for toxigenic C.difficile
- Final
Positive for Norovirus GII
Imaging:
06/26/2024 CT chest without contrast: Minimal faint groundglass opacity in the right upper lobe likely reflective of mild postpneumonic scarring. Prior noted bilateral pleural effusions have resolved.
[2024-07-11] MEDS: VITAMIN D3 (cholecalciferol) 25 MCG PO (12:08)
--- NOTE | 2024-07-11 13:04 | W.PN.HOSP.TC ---
Today's Communication/Plan
-
Discharge planning
Assessment / Plan
Assessment / Plan
Gen-AAOx3, NAD
HEENT-NC, AT, anicteric, clear oral mm
Neck-supple
CV-reg, no M, +S1/S2
Lungs-clear B/L
Abd-soft, NT, ND
Ext-no edema
Musculoskeletal-no cyanosis, clubbing
Skin-warm and dry
Neuro-grossly non-focal
Psych-calm, cooperative
Possible temporal arteritis -underwent bilateral temporal artery biopsy 07/10. Path report pending. Continue prednisone 60 mg daily.
Case discussed again with rheumatology on-call (Dr. Theo Lopez) today and recommendation is to continue current steroid dosing. No indication for IV steroids. Follow-up with rheumatology as an outpatient.
ESBL E. coli sepsis due to UTI -symptoms started 07/07 AM. Now on IV ertapenem per infectious disease. Fever resolved.
Acute norovirus gastroenteritis -symptoms started 3 days prior to admission. Continue supportive care. Diet as tolerated. Diarrhea resolved.
Hypovolemic hyponatremia -should improve with volume repletion. Sodium 133.
Hypokalemia -resolved.
Hypomagnesemia -resolved.
Severe protein/calorie malnutrition -trial of Marinol.
Parkinson's disease -continue Sinemet.
Paroxysmal atrial fibrillation -resume Eliquis today, discussed with vascular surgery team.
Hypothyroidism -levothyroxine.
Essential hypertension -resume atenolol, losartan.
Generalized anxiety disorder -Xanax as needed.
Pancytopenia -unclear etiology. Normal B12, folate.
History of ITP
DNR
Dispo -medically stable for discharge to SNF. I updated patient's son Garry on the phone. All questions answered.
Anticipated Discharge: Within 24 hours
Subjective/Interval History
-
Date of Service: July 11, 2024
Patient seen and examined. States her left eye blurry vision is improving. Denies headache.
Objective Data
-
Vital Signs:
Vital Signs
Temp Pulse Resp BP Pulse Ox
96.3 F L 61 17 170/97 98
07/11/24 07:15 07/11/24 07:15 07/11/24 07:15 07/11/24 07:15 07/11/24 10:55
I&O
07/10/24 07/11/24 07/12/24
06:59 06:59 06:59
Intake Total 1080 / 1080 450 / 450
Balance 1080 / 1080 450 / 450
Review of Systems
-
History Source: Patient
All other systems: Reviewed and negative
[2024-07-11 15:15] VITALS: BP 128/72
[2024-07-11] MEDS: INVANZ 60 MG IV (16:49)
[2024-07-11] MEDS: FLUSH (NSS) 2 FLUSH IV (16:50)
[2024-07-11] MEDS: ELIQUIS 5 MG PO (20:10)
[2024-07-11] MEDS: PROTONIX 40 MG PO (22:06)
[2024-07-11] MEDS: XALATAN OPHTHALMIC SOLUTION 1 DROP BOTH EYES (22:07)
[2024-07-11] MEDS: COZAAR 25 MG PO (22:07)
[2024-07-11 23:21] VITALS: BP 167/93
--- NOTE | 2024-07-11 23:30 | PTCARENOTE ---
A warm blanket from oven was provided.
[2024-07-12] MEDS: SYNTHROID 100 MCG PO (05:56)
[2024-07-12 07:15] VITALS: BP 149/100
[2024-07-12] MEDS: NON-FORMULARY ITEM 1 UNIT PO ×5 (07:40→23:42)
[2024-07-12] MEDS: MARINOL 2.5 MG PO ×2 (07:41→20:00)
[2024-07-12] MEDS: VITAMIN C 500 MG PO (07:41)
[2024-07-12] MEDS: DELTASONE 60 MG PO (07:41)
[2024-07-12] MEDS: ELIQUIS 5 MG PO ×2 (07:41→20:00)
[2024-07-12] MEDS: CLARITIN 10 MG PO (07:41)
[2024-07-12] MEDS: NEURONTIN 100 MG PO ×2 (07:42→20:00)
[2024-07-12] MEDS: TENORMIN 25 MG PO (07:42)
[2024-07-12] MEDS: PACERONE 200 MG PO (07:42)
--- NOTE | 2024-07-12 09:29 | W.PN.HOSP.TC ---
Today's Communication/Plan
-
Check orthostatics
Continue steroids
Antibiotics per ID
Assessment / Plan
Assessment / Plan
Gen-AAOx3, NAD
HEENT-NC, AT, anicteric, clear oral mm
Neck-supple
CV-reg, no M, +S1/S2
Lungs-clear B/L
Abd-soft, NT, ND
Ext-no edema
Musculoskeletal-no cyanosis, clubbing
Skin-warm and dry
Neuro-grossly non-focal
Psych-calm, cooperative
Possible temporal arteritis -underwent bilateral temporal artery biopsy 07/10. Path report pending. Continue prednisone 60 mg daily. Left eye blurry vision is improving according to patient. Has a very mild fleeting and transient headaches.
Case discussed again with rheumatology on-call (Dr. Theo Lopez) today and recommendation is to continue current steroid dosing. No indication for IV steroids. Follow-up with rheumatology as an outpatient.
ESBL E. coli sepsis due to UTI -symptoms started 07/07 AM. Now on IV ertapenem per infectious disease. Fever resolved.
Acute norovirus gastroenteritis -symptoms started 3 days prior to admission. Continue supportive care. Diet as tolerated. Diarrhea resolved.
Hypovolemic hyponatremia -should improve with volume repletion. Sodium 133.
Hypokalemia -resolved.
Hypomagnesemia -resolved.
Severe protein/calorie malnutrition -trial of Marinol.
Parkinson's disease -continue Sinemet.
Paroxysmal atrial fibrillation -resume Eliquis today, discussed with vascular surgery team.
Hypothyroidism -levothyroxine.
Essential hypertension -resume atenolol, losartan.
Generalized anxiety disorder -Xanax as needed.
Pancytopenia -unclear etiology. Normal B12, folate.
History of ITP
DNR
Dispo -medically stable for discharge to SNF. I updated patient's son Garry on the phone. All questions answered.
Anticipated Discharge: Within 24 hours
Subjective/Interval History
-
Date of Service: July 12, 2024
Patient seen and examined. Complaining of mild lightheadedness. Vision is improving.
Objective Data
-
Vital Signs:
Vital Signs
Temp Pulse Resp BP Pulse Ox
96.5 F L 118 16 149/100 99
07/12/24 07:15 07/12/24 07:15 07/12/24 07:15 07/12/24 07:15 07/12/24 07:15
I&O
07/11/24 07/12/24 07/13/24
06:59 06:59 06:59
Intake Total 450 / 450 580 / 580
Balance 450 / 450 580 / 580
Review of Systems
-
History Source: Patient
All other systems: Reviewed and negative
--- NOTE | 2024-07-12 10:02 | PTCARENOTE ---
2123 Orthostatics for pt: Pt was not able to stand long enough to get a reading. She had a syncopal event We placed her back in bed and lied her flat and she came around answering our questions. Prior to event: 132/88 HR 67 Sitting 110/63 HR
71. Pt very weak.
[2024-07-12 10:37] VITALS: BP 110/63; BP 132/88; PULSE 67; PULSE 71
[2024-07-12] MEDS: VITAMIN D3 (cholecalciferol) 25 MCG PO (11:49)
--- NOTE | 2024-07-12 13:10 | W.PN.ID1 ---
Date of Service
Date of Service: July 12, 2024
Today's Communication
Continue ertapenem for now.
Assessment / Plan
Fever- resolved
Dysuria -resolved
Complicated urinary tract infection
Headaches/vision change
- s/p temporal artery biopsy 07/10
Norovirus positive
- No symptoms at present
HTN
Hypothyroidism
Parkinson's disease
Dysphagia
P A-fib
Anxiety
GERD
Diverticulosis
Recommendations:
Ucx ESBL-E. coli
Continue ertapenem (d4),
If dc back to SNF tomorrow, can transition to 1 dose of fosfomycin 3g po x 1 prior to discharge.
Continue with enteric precautions given recent positive testing for norovirus.
Chief Complaint
-: UTI and Other (Norovirus)
Subjective / Review of Systems
no urine sxs.
no diarrhea.
Vital Signs / Physical Exam
Vital Signs
Vital Signs
Temp Pulse Resp BP Pulse Ox
96.5 F L 118 16 149/100 99
07/12/24 07:15 07/12/24 07:15 07/12/24 07:15 07/12/24 07:15 07/12/24 07:15
Physical Exam
Constitutional: No Acute Distress, Comfortable, Chronically Ill and Cachetic
Cardiovascular: Regular Rate and S1/S2
Pulmonary: Clear
Gastrointestinal: Soft, Non Tender and Non Distended
Genito-Urinary: Negative CVA Tenderness
Neurological: AO x 3
Objective Data
Lab Data
Lab Results
07/08/24 07:37
07/09/24 05:36
ESR 52 mm/hour (0-20) H 07/08/24 18:49
Estimated Creat Clear 42 ml/min 07/09/24 05:36
Total Bilirubin 0.7 mg/dl (0.2-1.3) 07/06/24 15:40
AST 185 U/L (14-36) H 07/06/24 15:40
ALT 27 U/L (0-35) 07/06/24 15:40
Alkaline Phosphatase 55 U/L (38-126) 07/06/24 15:40
C-Reactive Protein 59.20 mg/L (0.0-10.00) H 07/08/24 18:49
Most recent labs reviewed.
Micro Results:
07/07/24 12:24 Blood Culture - Final
Blood/Venous No Growth - Final Report
07/07/24 13:40 Blood Culture - Preliminary
Blood/Venous No Growth in 4 days- Final report to follow
07/07/24 05:38 Urine Culture - Final
Urine Escherichia coli - ESBL
07/06/24 16:41 Salmonella/Shigella Culture - Final
Feces/Stool No Salmonella, Shigella, Aeromonas or Plesiomonas species
isolated.
Campylobacter Culture - Final
No Campylobacter species isolated.
Shiga Toxin Test - Final
No E. coli Shiga Toxin 1 or 2 detected.
07/06/24 16:41 C. difficile GDH Antigen & Toxins - Final
Feces/Stool Negative for toxigenic C.difficile
- Final
Positive for Norovirus GII
Imaging:
06/26/2024 CT chest without contrast: Minimal faint groundglass opacity in the right upper lobe likely reflective of mild postpneumonic scarring. Prior noted bilateral pleural effusions have resolved.
Care Review
Plan reviewed with: Physician (Dr. Carey)
[2024-07-12] MEDS: FLUSH (NSS) 2 FLUSH IV (16:05)
[2024-07-12] MEDS: INVANZ 60 MG IV (16:07)
[2024-07-12] MEDS: XANAX 0.25 MG PO (16:20)
[2024-07-12 16:42] VITALS: BP 120/60
[2024-07-12] MEDS: COZAAR 25 MG PO (21:26)
[2024-07-12] MEDS: XALATAN OPHTHALMIC SOLUTION 1 DROP BOTH EYES (21:26)
[2024-07-12] MEDS: PROTONIX 40 MG PO (21:26)
[2024-07-12 23:50] VITALS: BP 157/92
[2024-07-13] MEDS: SYNTHROID 100 MCG PO (05:55)
[2024-07-13 07:49] VITALS: BP 174/99
[2024-07-13] MEDS: DELTASONE 60 MG PO (08:37)
[2024-07-13] MEDS: CLARITIN 10 MG PO (08:37)
[2024-07-13] MEDS: ELIQUIS 5 MG PO (08:37)
[2024-07-13] MEDS: PACERONE 200 MG PO (08:37)
[2024-07-13] MEDS: NEURONTIN 100 MG PO (08:37)
[2024-07-13] MEDS: TENORMIN 25 MG PO (08:39)
[2024-07-13] MEDS: MARINOL 2.5 MG PO (08:40)
[2024-07-13] MEDS: VITAMIN C 500 MG PO (08:40)
[2024-07-13] MEDS: NON-FORMULARY ITEM 1 UNIT PO ×3 (08:40→15:04)
--- NOTE | 2024-07-13 11:50 | W.PN.ID1 ---
Date of Service
Date of Service: July 13, 2024
Today's Communication
Continue antibiotics; see below�
Assessment / Plan
Fever- resolved
Dysuria -resolved
Complicated urinary tract infection with ESBL E. coli
Headaches/vision change
- s/p temporal artery biopsy 07/10
Norovirus positive
- No symptoms at present
HTN
Hypothyroidism
Parkinson's disease
Dysphagia
P A-fib
Anxiety
GERD
Diverticulosis
Recommendations:
Ucx ESBL-E. coli
Continue ertapenem (d#5),
If D/C back to SNF, transition to 1 dose of fosfomycin 3g po x 1 prior to discharge.
While inpatient, continue with enteric precautions given recent positive testing for norovirus.
Chief Complaint
-: UTI and Other (Norovirus)
Subjective / Review of Systems
Patient seen and examined. Reports feeling fatigued and generally weak. No fevers or chills.
Vital Signs / Physical Exam
Vital Signs
Vital Signs
Temp Pulse Resp BP Pulse Ox
97.4 F 71 16 174/99 99
07/12/24 23:50 07/13/24 08:37 07/13/24 07:49 07/13/24 08:37 07/13/24 07:49
Physical Exam
Constitutional: No Acute Distress, Comfortable, Chronically Ill, Non-toxic and Cachetic
Cardiovascular: Regular Rate and S1/S2
Pulmonary: Clear
Gastrointestinal: Soft, Non Tender and Non Distended
Genito-Urinary: Negative CVA Tenderness
Neurological: AO x 3
Objective Data
Lab Data
Lab Results
07/08/24 07:37
07/09/24 05:36
ESR 52 mm/hour (0-20) H 07/08/24 18:49
Estimated Creat Clear 42 ml/min 07/09/24 05:36
Total Bilirubin 0.7 mg/dl (0.2-1.3) 07/06/24 15:40
AST 185 U/L (14-36) H 07/06/24 15:40
ALT 27 U/L (0-35) 07/06/24 15:40
Alkaline Phosphatase 55 U/L (38-126) 07/06/24 15:40
C-Reactive Protein 59.20 mg/L (0.0-10.00) H 07/08/24 18:49
Most recent labs reviewed.
Micro Results:
07/07/24 13:40 Blood Culture - Final
Blood/Venous No Growth - Final Report
07/07/24 12:24 Blood Culture - Final
Blood/Venous No Growth - Final Report
07/07/24 05:38 Urine Culture - Final
Urine Escherichia coli - ESBL
07/06/24 16:41 Salmonella/Shigella Culture - Final
Feces/Stool No Salmonella, Shigella, Aeromonas or Plesiomonas species
isolated.
Campylobacter Culture - Final
No Campylobacter species isolated.
Shiga Toxin Test - Final
No E. coli Shiga Toxin 1 or 2 detected.
07/06/24 16:41 C. difficile GDH Antigen & Toxins - Final
Feces/Stool Negative for toxigenic C.difficile
- Final
Positive for Norovirus GII
Imaging:
06/26/2024 CT chest without contrast: Minimal faint groundglass opacity in the right upper lobe likely reflective of mild postpneumonic scarring. Prior noted bilateral pleural effusions have resolved.
[2024-07-13] MEDS: VITAMIN D3 (cholecalciferol) 25 MCG PO (11:53)
[2024-07-13 12:41] LABS: COVID-19 Antigen Negative (Negative)
--- NOTE | 2024-07-13 12:46 | W.PN.HOSP.TC ---
Addendum entered and electronically signed by Yves Emanuel MD 07/15/24 16:34:
[id number]
Original Note:
Today's Communication/Plan
-
Fosfomycin
Prednisone
F/u PCP, Vascular, rheumatology outpatient
Assessment / Plan
Assessment / Plan
Gen-AAOx3, NAD
HEENT-NC, AT, anicteric, clear oral mm
Neck-supple
CV-reg, no M, +S1/S2
Lungs-clear B/L
Abd-soft, NT, ND
Ext-no edema
Musculoskeletal-no cyanosis, clubbing
Skin-warm and dry
Neuro-grossly non-focal
Psych-calm, cooperative
Possible temporal arteritis -underwent bilateral temporal artery biopsy 07/10. Path report pending. Continue prednisone 60 mg daily. Left eye blurry vision is improving according to patient. Has a very mild fleeting and transient headaches.
Case discussed again with rheumatology on-call (Dr. Theo Lopez) today and recommendation is to continue current steroid dosing. No indication for IV steroids. Follow-up with rheumatology as an outpatient.
ESBL E. coli sepsis due to UTI -symptoms started 07/07 AM. Now on IV ertapenem per infectious disease. Fever resolved. Fosfomycin prior to DC today.
Acute norovirus gastroenteritis -symptoms started 3 days prior to admission. Continue supportive care. Diet as tolerated. Diarrhea resolved.
Hypovolemic hyponatremia -should improve with volume repletion. Sodium 133.
Hypokalemia -resolved.
Hypomagnesemia -resolved.
Severe protein/calorie malnutrition -trial of Marinol.
Parkinson's disease -continue Sinemet.
Paroxysmal atrial fibrillation -resume Eliquis
Hypothyroidism -levothyroxine.
Essential hypertension -resume atenolol, losartan.
Generalized anxiety disorder -Xanax as needed.
Pancytopenia -unclear etiology. Normal B12, folate.
History of ITP
DNR
Dispo -DC
More than 30 minutes spent in discharge including
Final examination of the patient
Summarizing hospital stay
Instructions for continuing care to all relevant caregivers
Preparation of discharge records, prescriptions, and referral forms
Total time spent (36 in minutes):
Anticipated Discharge: Today
Subjective/Interval History
-
Date of Service: July 13, 2024
no acute events
Objective Data
-
Labs:
Laboratory Results
07/13/24
12:41
WBC Pending
Hgb Pending
Hct Pending
Plt Count Pending
Sodium Pending
Potassium Pending
Chloride Pending
Carbon Dioxide Pending
BUN Pending
Creatinine Pending
Glucose Pending
Calcium Pending
Vital Signs:
Vital Signs
Temp Pulse Resp BP Pulse Ox
97.4 F 71 16 174/99 99
07/12/24 23:50 07/13/24 08:37 07/13/24 07:49 07/13/24 08:37 07/13/24 07:49
I&O
07/12/24 07/13/24 07/14/24
06:59 06:59 06:59
Intake Total 580 / 580 1130 / 1130
Balance 580 / 580 1130 / 1130
Review of Systems
-
History Source: Patient
All other systems: Not reviewed unless documented
Physical Exam
-
General: No Apparent Distress and Cachectic
HEENT: Moist Mucous Membranes
Respiratory: Clear to Auscultation
Cardiac: Regular Rhythm
GI: Soft, Nontender and Nondistended
Musculoskeletal: No Clubbing, No Cyanosis and No Edema
Neuro: Awake, Alert, Oriented and AO x 3
Psych: Calm
Data Reviewed
-
Total Time Spent with Patient (in minutes): 56
Labs: Labs Reviewed by me
--- NOTE | 2024-07-13 12:49 | W.DS.TRANS ---
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
-
Discharge Instructions:
Sleep Apnea Risk Low
Discharge Diagnosis/Procedures Acute norovirus gastroenteritis, UTI,
electrolyte abnormalities, malnutrition
Diet Regular
Activity With assistance
Driving Restrictions No driving
Bathing Restrictions None
Blood Work cbc and bmp in 3-5 days
Instructions:
Stand-Alone Forms:
Changes to Home Medications: Yes
Discharge Medications:
DC Medications w/original date entered in [facility]
apixaban 5 mg tablet (Eliquis) 5 mg PO BID Blood clot prevention/tx 10/08/16
docusate sodium 100 mg capsule 100 mg PO DAILYPRN PRN constipation 02/25/20
ascorbic acid (vitamin C) 500 mg tablet (Vitamin C) 500 mg PO DAILY Supplement 11/08/22
cholecalciferol (vitamin D3) 25 mcg (1,000 unit) capsule (Vitamin D3) 25 mcg PO NOON Supplement 11/08/22
carbidopa 25 mg-levodopa 100 mg tablet 1 tab PO 5/D [facility] 08/19/23
atenolol 25 mg tablet 25 mg PO DAILY Arrhythmia #30 tabs 08/22/23
amiodarone 200 mg tablet (Pacerone) 200 mg PO DAILY A-FIB 04/11/24
gabapentin 100 mg capsule 100 mg PO BID NEUROPATHY 04/11/24
latanoprost 0.005 % eye drops 1 drp BOTH EYES HS Eye Condition 04/11/24
losartan 25 mg tablet 25 mg PO HS Blood Pressure 04/11/24
pantoprazole 40 mg tablet,delayed release 40 mg PO HS Gastrointestinal Issue 04/11/24
acetaminophen 325 mg tablet 650 mg PO Q4HPRN PRN mild pain/fever>100 07/06/24
alprazolam 0.25 mg tablet (Xanax) 0.25 mg PO BID PRN anxiety 07/06/24
levothyroxine 100 mcg tablet 100 mcg PO DAILY 07/06/24
magnesium hydroxide 400 mg/5 mL oral suspension (Milk of Magnesia) 30 ml PO DAILYPRN PRN constipation 07/06/24
ondansetron HCl 4 mg tablet 4 mg PO Q8HPRN PRN nausea 07/06/24
polyethylene glycol 3350 17 gram oral powder packet (HealthyLax) 17 g PO DAILYPRN PRN constipation 07/06/24
dronabinol 2.5 mg capsule 2.5 mg PO BID #0 caps 07/08/24
loratadine 10 mg tablet 10 mg PO DAILY #0 tabs 07/08/24
prednisone 20 mg tablet 60 mg (3 x 20 mg) PO DAILY #0 tabs 07/13/24
Home Medication Changes
dronabinol 2.5 mg capsule 2.5 mg PO BID #0 caps 07/08/24
loratadine 10 mg tablet 10 mg PO DAILY #0 tabs 07/08/24
prednisone 20 mg tablet 60 mg (3 x 20 mg) PO DAILY #0 tabs 07/13/24
Pending Results: No
[2024-07-13] MEDS: MONUROL 3 GM PO (12:53)
[2024-07-13] MEDS: LR 1000 IV (12:54)
[2024-07-13 13:33] LABS: Hematocrit 35.4 % (37.0-47.0); Hemoglobin 12.4 g/dL (12.0-16.0); Mean Corpuscular Volume 91.2 fL (81.0-99.0); Mean Platelet Volume 12.7 fL (7.4-10.4); Platelet Count 248 10^3/uL (130-400); Red Blood Cell Count 3.88 10^6/uL (4.20-5.40); Red Cell Dist. Width 15.5 % (11.5-14.5); White Blood Cell Count 7.9 10^3/uL (4.8-10.8)
[2024-07-13 13:47] LABS: Blood Urea Nitrogen 25 mg/dl (7-17); Calcium 8.9 mg/dl (8.4-10.2); Carbon Dioxide 32 mmol/L (22-30); Chloride 99 mmol/L (98-107); Estimated Creatinine Clearance 54 ml/min; Glucose 151 mg/dl (70-99); Potassium 3.7 mmol/L (3.5-5.1); Sodium 138 mmol/L (135-145); eGFR > 60.00
--- NOTE | 2024-07-13 13:57 | CM ---
Patient for discharge today to [facility].
Spoke with Farrah olea-prefer 3pm transport
Covid test ordered - negative
IMM explained & signed. In chart
PLAN: [facility]
Report #: [phone]
Fax #: [phone]
transportation forms on chart-3pm transport - liaison aware
[2024-07-13 15:16] VITALS: BP 177/91
== END 2024-07-13 15:28 | DRG 987 ==
LOC: 2 NORTH 18:34
PROVIDERS: Emergency Medicine; Hospitalist; Nurse Practitioner Family; ADMITTING PHYSICIAN Internal Medicine; ATTENDING PHYSICIAN Internal Medicine; CONSULT PHYSICIAN Internal Medicine Infectious Disease; EMERGENCY PHYSICIAN Emergency Medicine; FAMILY PHYSICIAN Nurse Practitioner; OTHER PHYSICIAN Surgery Vascular Surgery
PROC: 03BS0ZX Excision of Right Temporal Artery, Open Approach, Diagnostic (ICD-10-PCS; 2024-07-10)
PROC: 03BT0ZX Excision of Left Temporal Artery, Open Approach, Diagnostic (ICD-10-PCS; 2024-07-10)
DX: A08.11 Acute gastroenteropathy due to Norwalk agent (principal); E43 Unspecified severe protein-calorie malnutrition; E87.1 Hypo-osmolality and hyponatremia; M62.82 Rhabdomyolysis; Z68.1 Body mass index [BMI] 19.9 or less, adult; D61.818 Other pancytopenia; Z16.12 Extended spectrum beta lactamase (ESBL) resistance; G20.A1 Parkinson's disease without dyskinesia, without mention of fluctuations; Z66 Do not resuscitate; E86.1 Hypovolemia; E87.6 Hypokalemia; M31.6 Other giant cell arteritis; E83.42 Hypomagnesemia
CPT/HCPCS: 88305; 36415; 37609; 80048; 80053; 81003; 81015; 82550; 82607; 82746; 83735; 84443; 84484; 85025; 85027; 85045; 85652; 86140; 87040; 87045; 87046; 87077; 87086; 87186; 87324; 87427; 87449; 87798; 87811; 88313; 96360; 97116; 97163; 97167; 97530; 99285; J1335

== ENCOUNTER 2024-08-09 10:35 | Inpatient (IN) | payer MEDICARE, BC, SELFPAY ==
[2024-08-07] VITALS (7 sets, daily range): BP systolic 113–168; BP diastolic 57–77; BMI 19.4
--- NOTE | 2024-08-07 13:15 | ED.GENMED ---
History of Present Illness
General
Chief Complaint: Breathing Problem
Source: patient
Exam Limitations: none
Time Seen by Provider: 08/07/24 13:15
Nursing documentation reviewed up to this point in time: agreed with
History of Present Illness
History of Present Illness:
79-year-old female with history of ESBL E. coli sepsis due to UTI, hypokalemia, hypomagnesemia, Parkinson's, paroxysmal A-fib on Eliquis, hypothyroidism, HTN, anxiety disorder, pancytopenia, possible temporal arteritis with biopsy, underwent
bilateral temporal artery biopsy 07/10
Admitted 07/06 to 07/13/2024 for acute norovirus gastroenteritis, UTI, electrolyte abnormalities and malnutrition.
Pt states 'my oxygen was really low and they couldn't get it up.' 'I think I'm dehydrated, I don't drink very much.'
Denies CP, fever, abdominal pain, n/v/d/c.
She also leaned and fell forward out of her portable wheelchair yesterday, caught herself with right hand, now with swelling, pain right hand and wrist. Denies hitting her head
Past History
Past History
ED Past Medical History: Arrthythmia (PAT), GERD, HTN, Hypothyroidism and Psychiatric (History of anxiety and depression)
ED Past Surgical History: Other (History of splenectomy, , tonsillectomy)
Patient has exhibited threatening behavior?: No
PSI?: No
Social History
Tobacco: Non-smoker
Alcohol: None
Drug: None
Personal:
Living: alone
Employment: Retired
Review of Systems
Review of Systems
Allergies reviewed?: Yes
All Other Systems: ROS reviewed and negative except as documented in HPI and ROS
Constitutional: Reports fatigue and chills; Denies fever
EENT: Denies sore throat
Respiratory: Reports cough and trouble breathing
Cardiac: Denies chest pain or syncope
ABD/GI: Denies abdominal pain
Musculoskeletal: Reports other (Pain and swelling right wrist and hand after a fall out of her wheelchair yesterday)
Neurological: Reports weakness (Generally weak); Denies dizzy or headache
Phy Exam
Physical Exam
Physical Exam:
GENERAL: No acute distress. A&Ox3.
CONSTITUTIONAL: Afebrile.
EYES: clear, conjunctivae normal
ENMT: moist mucus membranes, Pharynx nl
RESPIRATORY: Regular respirations, nonlabored, lungs clear. Intermittent dry cough
CARDIOVASCULAR: Regular rate and rhythm, no murmurs, no rubs.
GI: Soft, nontender, normal BS
MUSCULOSKELETAL: Moves with ease. Well perfused. Pain, swelling, mild ecchymosis right wrist and hand. Distal n/v intact
SKIN: Warm, dry, pink
PSYCH: Normal mood and affect. Well kept, interactive and appropriate
NEUROLOGIC: Awake, alert and oriented. No focal neurological deficits
Scores
Heart Failure Risk
Heart Failure Risk Score: Not Applicable
Course
Orders/Labs/Results
Orders:
Orders
08/07/24 13:34
CR Chest - 2 Views Urgent
Comment:
Reason For Exam: cough, hypoxemia
08/07/24 13:37
COVID-19 Antigen Urgent
Source: Nasal Swab
Complete Blood Count/With Diff Urgent
Comprehensive Metabolic Panel Urgent
Influenza A+B Rapid Molecular Urgent
NOAH Source: Nasal Swab
Specimen Description:
08/07/24 13:38
0.9% Sodium Chloride 1000 ml [Nss] 1,000 ml IV BOLUS
08/07/24 13:44
Hand, Right 3 View [CR Hand - Right Min 3 Views] Urgent
Comment:
Reason For Exam: pain, swelling after fall
Wrist, Right 3 Views [CR Wrist - Right Min 3 Views] Urgent
Comment:
Reason For Exam: pain, swelling after fall
08/07/24 Dinner
Cholesterol Lowering
Cholesterol Lowering: Sodium, 2 Gram
08/07/24 15:41
Furosemide [Lasix] 40 mg IV NOW STA
08/07/24 15:42
NT-proBNP Urgent
Troponin I Urgent
08/07/24 16:18
Volar Right-Treatment ONCE
08/07/24 16:31
Admit/Transfer Patient As Directed
Co-Sign Provider:
Level of Care: Observation services
Assign to:: Telemetry
Physician / Group: belle
Diagnosis: chf exacerbation
Reason for Telemetry: Arrhythmia
Date to Stop Telemetry: 08/10/24
Time to Stop Telemetry: 11:00
PRN Pain Medication Management As Directed
May give lesser potent ordered pain med per pt: Yes
preference::
Protocol:: Medication orders for pain may be administered in a
manner that supports deferring to patient preference
when the pt is:
- Requesting an ordered lesser potent pain medication.
Least to most potent pain medications are defined
as: acetaminophen < NSAID < tramadol < opioids
(morphine, oxycodone, hydromorphone).
- Requesting a lesser dose of the same medication IF
ORDERED.
- Requesting a less intrusive route of administration
if both routes are prescribed by the provider (PO <
IV).
08/07/24 16:32
Code Status As Directed
Resuscitation Status: Do not resuscitate
Reached after discussion with pt or family/Healthcare POA: Yes
DNR Bracelet Application ONCE
08/07/24 16:37
Urinalysis Reflex To Culture Urgent
Date Specimen was Collected: 08/07/24
Time Specimen was Collected: 16:33
08/07/24 16:46
Blood Culture Q30M
NOAH Source: Blood/Venous
Specimen Description:
Blood Culture Q30M
NOAH Source: Blood/Venous
Specimen Description:
08/07/24 19:58
Acetaminophen [Tylenol] 650 mg PO Q4HPRN PRN
Carbidopa/Levodopa [Sinemet 25-100] 1 tablet PO 5/D
Docusate Sodium [Colace] 100 mg PO DAILYPRN PRN
Magnesium Hydroxide [Milk of Magnesia] 30 ml PO DAILYPRN PRN
Ondansetron HCl [Zofran] 4 mg PO Q8HPRN PRN
08/07/24 19:58
VTE Contraindication Routine
VTE Mechanical Device Contraindication: Medical Contraindication
Pharmocologic Contraindication: Medical Contraindication
Folate Routine
Iron Routine
TIBC [Total Iron Binding] Routine
Vitamin B12 Routine
Activity As Directed
Activity Level: As Tolerated
Hemetest Stools As Directed
I/O [Intake/ Output] As Directed
Frequency: q12h
Intake/ Output As Directed
Frequency: q12h
Patient Education As Directed
Type: CHF folder
Comment: give on admission. Document in Interdisciplinary Education record
Sleep Apnea Assessment by RN As Directed
Comment:
Physician Instructions:
Vital Signs As Directed
Frequency: Other
Additional Instructions:: Q12 or per unit guidelines if more frequent.
Weight As Directed
Frequency: Daily
Type of Scale: Standing Scale
Comment: Daily morning weight. If unable to stand, use balanced bed scale.
Weight As Directed
Frequency: Once
Type of Scale: Standing Scale
Comment: Upon Admission. If unable to stand, use balanced bed scale.
Pulse Ox/cont/shift [RESP] Routine
Quantity: 1
Special Instructions: Daily pulse oximetry at rest. If greater than 92% at rest also obtain pulse oximetry
while ambulating as tolerated.
08/07/24 20:00
Apixaban [Eliquis] 5 mg PO BID
Ertapenem [Invanz] 1,000 mg 0.9% Sodium Chloride [Nss] 50 ml IV Q24H
Gabapentin [Neurontin] 100 mg PO BID
Midodrine [ProAmatine] 2.5 mg PO TID @ 0800,1200,1700
fluticasone propionate 1 spray NASAL BID
08/07/24 22:00
Latanoprost [Xalatan Ophthalmic Solution] See Dose Instructions BOTH EYES HS
Losartan [Cozaar] 25 mg PO HS
08/08/24 06:00
Complete Blood Count/With Diff IN AM
Comprehensive Metabolic Panel IN AM
Levothyroxine [Synthroid] 100 mcg PO DAILY @ 0600
08/08/24 08:00
Amiodarone [Pacerone] 200 mg PO DAILY
Ascorbic Acid [Vitamin C] 500 mg PO DAILY
Atenolol [Tenormin] 25 mg PO DAILY
Furosemide [Lasix] 40 mg IV DAILY
Polyethylene Glycol Powder [Miralax] 17 grams PO DAILY
08/08/24 12:00
Cholecalciferol (Vitamin D3) [VITAMIN D3 (cholecalciferol)] 25 mcg PO NOON
08/10/24 11:00
DC Protocol for Telemetry ONCE
Abnormal Lab Results
08/07/24
13:37
RBC 3.00 L 10^6/uL
(4.20-5.40)
Hgb 9.7 L g/dL
(12.0-16.0)
Hct 28.7 L %
(37.0-47.0)
MCH 32.3 H pg
(27.0-31.0)
RDW 18.9 H %
(11.5-14.5)
MPV 11.2 H fL
(7.4-10.4)
Abs Immat Gran (auto) 0.1 H 10^3/uL
(0-0.05)
Absolute Neuts (auto) 8.3 H 10^3/uL
(1.4-6.5)
Absolute Lymphs (auto) 0.3 L 10^3/uL
(1.2-3.4)
Immature Gran % 1.2 H %
(0-0.5)
Neutrophils % 89.6 H %
(42.2-75.2)
Lymphocytes % 3.6 L %
(20.5-51.1)
Chloride 108 H mmol/L
(98-107)
BUN 29 H mg/dl
(7-17)
Glucose 144 H mg/dl
(70-99)
AST 46 H U/L
(14-36)
Total Protein 5.7 L g/dl
(6.3-8.2)
Albumin 3.0 L g/dl
(3.5-5.0)
08/07/24 13:37
08/07/24 13:37
Vital Signs
Initial and Last Documented VS:
Initial Vital Signs
Temp Pulse Resp BP Pulse Ox
100.3 F 89 16 142/61 82
08/07/24 13:22 08/07/24 13:22 08/07/24 13:22 08/07/24 13:22 08/07/24 13:22
Last Documented Vital Signs
Temp Pulse Resp BP Pulse Ox
99.6 F 94 17 140/70 90
08/07/24 19:59 08/07/24 19:59 08/07/24 19:59 08/07/24 19:59 08/07/24 19:59
MDM/Problems Addressed
Differential Diagnosis Includes:
Covid, Flu, PNA, dehydration
fracture wrist, hand, vs sprains/contusions
MDM/Problems Addressed:
79-year-old female with history of ESBL E. coli sepsis due to UTI, hypokalemia, hypomagnesemia, Parkinson's, paroxysmal A-fib on Eliquis, hypothyroidism, HTN, anxiety disorder, pancytopenia, possible temporal arteritis with biopsy, underwent
bilateral temporal artery biopsy 07/10
Admitted 07/06 to 07/13/2024 for acute norovirus gastroenteritis, UTI, electrolyte abnormalities and malnutrition.
Pt states 'my oxygen was really low and they couldn't get it up.' 'I think I'm dehydrated, I don't drink very much.'
Denies CP, fever, abdominal pain, n/v/d/c.
She also leaned and fell forward out of her portable wheelchair yesterday, caught herself with right hand, now with swelling, pain right hand and wrist. Denies hitting her head
3:30 PM:
CBC: Anemia consistent with her previous
CMP: BUN 29, IV fluids infusing for dehydration, otherwise unremarkable.
COVID-negative
Influenza negative
Chest x-ray: Radiology report read:IMPRESSION:
Moderate-severe pulmonary edema with small bilateral pleural
IV fluids DC'd after getting 600 ml in.
Pt remains stable, pulse ox 90-95% on 3L n.c.
BNP and Troponin pending
Hospitalist notified of admission
*Critical Care Note
Total Time (30-74mins, 75-104mins- exclusive of procedures): Not Applicable
ED Attending Note
-
Portions of this chart may have been created with voice recognition software.� Occasional wrong word or��sound alike� substitutions may have occurred due to the inherent limitations of voice recognition software.
Discharge Plan
Departure
Patient Disposition: Admit
Date of Disposition: 08/07/24
Time of Disposition: 15:44
Admit to: Telemetry
Presentation/result/management discussed w/ accepting MD/DO: Hospitalist
Condition: Fair
Covid-19: Negative COVID-19
Discharge Problem:
CHF (congestive heart failure), Fall from wheelchair, Closed fracture of distal end of right radius, Closed dislocation of distal end of ulna
Interventions
Interventions:
*Risk Screen - Suicide Last Done: 08/07/24 13:22
*General Assessment Last Done: 08/07/24 13:22
*Neglect/Abuse Screening Last Done: 08/07/24 13:22
*Nursing Disposition Last Done: 08/07/24 19:33
ED- Cardiac Assessment Last Done: 08/07/24 13:50
ED- Pulmonary Assessment Last Done: 08/07/24 13:50
Discharge Date and Time
Discharge Date/Time: 08/07/24 19:33
[2024-08-07 13:50] LABS: % Basophils 0.2 % (0-2); % Eosinophils 0.2 % (0-6); % Immature Granulocytes 1.2 % (0-0.5); % Lymphocytes 3.6 % (20.5-51.1); % Monocytes 5.2 % (1.7-9.3); % Neutrophils 89.6 % (42.2-75.2); Absolute Immature Granulocytes 0.1 10^3/uL (0-0.05); Absolute Lymphocytes 0.3 10^3/uL (1.2-3.4); Absolute Monocytes 0.5 10^3/uL (0.1-0.6); Absolute Neutrophils 8.3 10^3/uL (1.4-6.5); Hematocrit 28.7 % (37.0-47.0); Hemoglobin 9.7 g/dL (12.0-16.0); Mean Corp Hgb Conc. 33.8 g/dL (33.0-37.0); Mean Corpuscular Hgb 32.3 pg (27.0-31.0); Mean Corpuscular Volume 95.7 fL (81.0-99.0); Mean Platelet Volume 11.2 fL (7.4-10.4); Platelet Count 255 10^3/uL (130-400); Red Cell Dist. Width 18.9 % (11.5-14.5); White Blood Cell Count 9.2 10^3/uL (4.8-10.8)
[2024-08-07 14:02] LABS: COVID-19 Antigen Negative (Negative)
[2024-08-07 14:06] LABS: ALT (SGPT) 14 U/L (0-35); AST (SGOT) 46 U/L (14-36); Alkaline Phosphatase 79 U/L (38-126); Blood Urea Nitrogen 29 mg/dl (7-17); Calcium 8.8 mg/dl (8.4-10.2); Carbon Dioxide 22 mmol/L (22-30); Chloride 108 mmol/L (98-107); Glucose 144 mg/dl (70-99); Potassium 4.1 mmol/L (3.5-5.1); Sodium 138 mmol/L (135-145); Total Protein 5.7 g/dl (6.3-8.2); eGFR > 60.00
[2024-08-07] MEDS: NSS 1000 IV (14:31)
[2024-08-07] MEDS: LASIX 40 MG IV (15:56)
[2024-08-07 16:14] LABS: NT-proBNP 4840 pg/ml; Troponin I 0.016 ng/ml
--- NOTE | 2024-08-07 16:38 | HPS.HSE ---
Family Physician
-
Family Physician: NO INTERVIEW UNKNOWN
Chief Complaint
-
shortness of breath
History of Present Illness
79-year-old female past medical history of paroxysmal atrial fibrillation, hypertension, anxiety, hypothyroidism, Parkinson's disease, ESBL E. coli, possible temporal arteritis status post temporal artery biopsy on 07/10 presenting with low oxygen
levels as well as shortness of breath and cough since yesterday. Cough is dry. She has some lower extremity swelling. She has lost a lot of weight recently. Denies chest pain.
Patient leaned fell out of her portable wheelchair yesterday and caught herself with her right hand now with swelling, pain of the right hand and wrist. Denies hitting her head.
She denies any urinary symptoms. Denies abdominal pain. Denies nausea or vomiting. She has chills but always has chills.
Denies blood in the stool or bleeding although she would not know.
Denies smoking or alcohol use.
Medical History
Past Medical History
Past Medical History: Reports Other (aroxysmal atrial fibrillation, hypertension, anxiety, hypothyroidism, Parkinson's disease, ESBL E. coli, possible temporal arteritis status post temporal artery biopsy on 07/10)
Past Surgical History: Reports None
Social History
Tobacco: Non-smoker
Alcohol: None
Drug: None
Family History
Family History: Not pertinent
Allergies / Home Medications
Allergies reflects when Allergies were last updated in [employer].
Home Medications with original date entered in [employer]
Allergy/Medication List:
Allergies
Allergy/AdvReac Type Severity Reaction Status Date / Time
codeine Allergy Nausea,HEAD Verified 08/07/24 13:13
ACHE,RASH,D
EDUARDO
Iodinated Contrast Media Allergy Hives Verified 08/07/24 13:13
[Iodinated Contrast Media -
Oral and]
Penicillins Allergy Hives,HEADA Verified 08/07/24 13:13
EUGENIO,RASH,NA
USEA
Sulfa (Sulfonamide Allergy HEADACHE,RA Verified 08/07/24 13:13
Antibiotics) SH,NAUSEA
gnats Allergy Rash Uncoded 07/06/24 13:04
MOSQUITO Allergy Swelling/RE Uncoded 07/06/24 13:04
DNESS
Home Medications
apixaban 5 mg tablet (Eliquis) 5 mg PO BID Blood clot prevention/tx 10/08/16
ascorbic acid (vitamin C) 500 mg tablet (Vitamin C) 500 mg PO DAILY Supplement 11/08/22
cholecalciferol (vitamin D3) 25 mcg (1,000 unit) capsule (Vitamin D3) 25 mcg PO NOON Supplement 11/08/22
carbidopa 25 mg-levodopa 100 mg tablet 1 tab PO 5/D PARKINSON'S 08/19/23
atenolol 25 mg tablet 25 mg PO DAILY Arrhythmia #30 tabs 08/22/23
amiodarone 200 mg tablet (Pacerone) 200 mg PO DAILY A-FIB 04/11/24
gabapentin 100 mg capsule 100 mg PO BID NEUROPATHY 04/11/24
latanoprost 0.005 % eye drops 1 drp BOTH EYES HS Eye Condition 04/11/24
losartan 25 mg tablet 25 mg PO HS Blood Pressure 04/11/24
acetaminophen 325 mg tablet 650 mg PO Q4HPRN PRN mild pain/fever>100 07/06/24
levothyroxine 100 mcg tablet 100 mcg PO DAILY 07/06/24
magnesium hydroxide 400 mg/5 mL oral suspension (Milk of Magnesia) 30 ml PO DAILYPRN PRN constipation 07/06/24
ondansetron HCl 4 mg tablet 4 mg PO Q8HPRN PRN nausea 07/06/24
polyethylene glycol 3350 17 gram oral powder packet (HealthyLax) 17 g PO DAILY 07/06/24
docusate sodium 100 mg tablet 100 mg PO DAILYPRN PRN CONSTIPATION 08/07/24
fluticasone propionate 50 mcg/actuation nasal spray,suspension 1 spray intranasal BID 08/07/24
midodrine 2.5 mg tablet 2.5 mg PO TID 08/07/24
Review of Systems
-
History Source: Patient
A 12 point ROS was completed and negative except as noted: Yes
Constitutional: Reports No Symptoms
EENT: Reports No Symptoms
Respiratory: Reports No Symptoms
Cardiac: Reports No Symptoms
Abdomen/GI: Reports No Symptoms
: Reports No Symptoms
Musculoskeletal: Reports No Symptoms
Skin: Reports No Symptoms
Neurological: Reports No Symptoms
Endocrine: Reports No Symptoms
Hematologic/Lymphatic: Reports No Symptoms
Psych: Reports No Symptoms
Physical Exam
Vital Signs
Vital Signs
Temp Pulse Resp BP Pulse Ox
100.3 F 82 22 113/77 92
08/07/24 13:22 08/07/24 16:00 08/07/24 16:00 08/07/24 16:00 08/07/24 16:00
Physical Exam
General: Well Developed, Well Nourished and No Apparent Distress
HEENT: NormoCephalic, Moist mucous membranes and Atraumatic
Respiratory: Clear
Cardiac: S1/S2 and Regular Rhythm; No Murmur or Rub
GI: Soft, Non Tender, Non Distended and Normal Bowel Sounds; No Organomegaly
Rectal: Deferred by Provider
Musculoskeletal: No Clubbing, No Cyanosis and No Edema
Skin: No Rash
Neuro: Nonfocal/grossly intact
Laboratory Results
-
08/07/24 13:37
08/07/24 13:37
Laboratory Results
Total Bilirubin 1.0 mg/dl (0.2-1.3) 08/07/24 13:37
AST 46 U/L (14-36) H 08/07/24 13:37
ALT 14 U/L (0-35) 08/07/24 13:37
Alkaline Phosphatase 79 U/L (38-126) 08/07/24 13:37
Troponin I 0.016 ng/ml 08/07/24 15:42
Data Reviewed
-
Lab Data: Labs Reviewed by me
Old Records: Reviewed
Impression/Plan
-
IMPRESSION:
PLAN:
# Hypoxemia secondary to acute CHF exacerbation
-Chest x-ray shows moderate to severe pulmonary edema with small bilateral pleural effusions
-COVID and influenza negative
-Cardiac BNP of 4800
-IV fluids given initially
-Check I's and O's, daily weights
-40 IV Lasix daily
-Cardiology consulted
# Right subtle nondisplaced transverse fracture of the distal radius metaphysis
-splinting
# Fever secondary to urinary tract infection
# History of ESBL E. coli UTI
-Low-grade fever
-Urinalysis shows 4050 WBC, very cloudy urine, positive nitrates, +1 leukocyte esterase
-Check urine culture
-Ertapenem given persistence of ESBL previously
# Acute anemia
-Hemoglobin of 9.7 from 12.4 approximately a month ago
-Check iron studies, B12 and folate, Hemoccult
Paroxysmal atrial fibrillation
-Continue amiodarone
-Continue atenolol
-Continue Eliquis
Essential hypertension
-Continue losartan
Orthostatic hypotension
-Continue midodrine
Anxiety
Hypothyroidism
-Continue levothyroxine
Parkinson's disease
-Continue carbidopa-levodopa
History of possible temporal arteritis status post temporal artery biopsy
Constipation
-Continue bowel regimen
History of ITP/pancytopenia
Protein calorie malnutrition
Neuropathy
-Continue gabapentin
DNR
DVT prophylaxis�heparin
Cardiac diet
[2024-08-07 16:43] LABS: Urine Albumin Negative (Neg - Trace); Urine Bilirubin Negative (Negative); Urine Character Clear (Clear); Urine Color Yellow; Urine Glucose Negative (Negative); Urine Ketone Negative (Negative); Urine Leukocyte Negative (Negative); Urine Nitrite Negative (Negative); Urine Occult Blood Negative (Negative); Urine Urobilinogen Negative (Neg - 1+); Urine pH 6.5 (5.0-9.0)
--- NOTE | 2024-08-07 20:30 | PTCARENOTE ---
Received patient from ED. She was transferred directly to the bed from the stretcher. AAOx3, assessed, VSS, oriented to the unit. Call light in reach. Patient verbalized an understanding to ring for all transfers. Bed alarm placed for safety.
[2024-08-07] MEDS: SINEMET 25-100 PO (20:56)
[2024-08-07] MEDS: NEURONTIN 100 MG PO (20:57)
[2024-08-07] MEDS: ELIQUIS 5 MG PO (20:57)
[2024-08-07] MEDS: ProAmatine 2.5 MG PO (20:57)
[2024-08-07] MEDS: INVANZ 60 MG IV (20:58)
[2024-08-07] MEDS: FLUSH (NSS) 2 FLUSH IV (20:58)
[2024-08-07] MEDS: XALATAN OPHTHALMIC SOLUTION 1 DROP BOTH EYES (21:48)
[2024-08-07 22:12] LABS: Iron 21 ug/dl (37-170)
[2024-08-07 22:21] LABS: Percent Saturation 11 % (20-50); Total Iron Binding Capacity 180 ug/dl (265-497)
[2024-08-07] MEDS: COZAAR 25 MG PO (23:01)
[2024-08-07] MEDS: SINEMET 25-100 1 TABLET PO (23:01)
[2024-08-08 00:59] LABS: Folate 19.4 ng/ml (2.76-20); Vitamin B12 533 pg/ml (239-931)
[2024-08-08 03:28] VITALS: BP 130/67
[2024-08-08 05:31] VITALS: BMI 19.0
[2024-08-08] MEDS: SYNTHROID 100 MCG PO (06:01)
[2024-08-08 07:41] LABS: % Basophils 0.2 % (0-2); % Eosinophils 0.4 % (0-6); % Immature Granulocytes 1.9 % (0-0.5); % Lymphocytes 5.5 % (20.5-51.1); % Monocytes 5.5 % (1.7-9.3); % Neutrophils 86.5 % (42.2-75.2); Absolute Immature Granulocytes 0.2 10^3/uL (0-0.05); Absolute Lymphocytes 0.5 10^3/uL (1.2-3.4); Absolute Monocytes 0.5 10^3/uL (0.1-0.6); Absolute Neutrophils 7.3 10^3/uL (1.4-6.5); Hematocrit 25.8 % (37.0-47.0); Hemoglobin 8.7 g/dL (12.0-16.0); Mean Corp Hgb Conc. 33.7 g/dL (33.0-37.0); Mean Corpuscular Hgb 32.1 pg (27.0-31.0); Mean Corpuscular Volume 95.2 fL (81.0-99.0); Mean Platelet Volume 11.7 fL (7.4-10.4); Nucleated Red Blood Cells % 2.5 %; Platelet Count 247 10^3/uL (130-400); Red Blood Cell Count 2.71 10^6/uL (4.20-5.40); Red Cell Dist. Width 18.1 % (11.5-14.5); White Blood Cell Count 8.4 10^3/uL (4.8-10.8)
[2024-08-08 07:55] VITALS: BP 141/75
[2024-08-08 08:17] LABS: ALT (SGPT) < 10 U/L (0-35); AST (SGOT) 45 U/L (14-36); Albumin 2.5 g/dl (3.5-5.0); Alkaline Phosphatase 65 U/L (38-126); Blood Urea Nitrogen 23 mg/dl (7-17); Carbon Dioxide 27 mmol/L (22-30); Chloride 104 mmol/L (98-107); Estimated Creatinine Clearance 50 ml/min; Glucose 83 mg/dl (70-99); Potassium 3.7 mmol/L (3.5-5.1); Sodium 137 mmol/L (135-145); Total Bilirubin 1.1 mg/dl (0.2-1.3); Total Protein 5.1 g/dl (6.3-8.2); eGFR > 60.00
[2024-08-08] MEDS: ProAmatine 2.5 MG PO ×3 (08:23→16:09)
[2024-08-08] MEDS: SINEMET 25-100 1 TABLET PO ×5 (08:23→23:07)
[2024-08-08] MEDS: NEURONTIN 100 MG PO ×2 (08:23→19:18)
[2024-08-08] MEDS: ELIQUIS 5 MG PO ×2 (08:23→19:18)
[2024-08-08] MEDS: LASIX 40 MG IV (08:24)
[2024-08-08] MEDS: PACERONE 200 MG PO (08:24)
[2024-08-08] MEDS: MIRALAX 17 GRAMS PO (08:24)
[2024-08-08] MEDS: VITAMIN C 500 MG PO (08:24)
[2024-08-08] MEDS: TENORMIN 25 MG PO (08:24)
[2024-08-08] MEDS: TYLENOL 650 MG PO ×2 (08:27→20:06)
[2024-08-08 11:41] VITALS: BP 97/35
[2024-08-08] MEDS: VITAMIN D3 (cholecalciferol) 25 MCG PO (11:46)
--- NOTE | 2024-08-08 11:52 | PTCARENOTE ---
Initial BP for 1100 vital signs was 88/35, rechecked at 97/35. Midodrine given. made aware, no new orders at this time.
[2024-08-08] MEDS: COLACE 100 MG PO (13:13)
--- NOTE | 2024-08-08 13:38 | CM ---
Addendum entered by S[place]ida Hills RN 08/08/24 14:39:
Patient admitted under observational status. The RASHEED letter was provided and explained. The patient had no questions with regards to the letter.
Original Note:
Reviewed the chart notes and spoke with the patient and her son at the bedside. Patient resides alone at [facility]. The patient has a rolling walker and wheelchair. The patient has been to [facility], [facility] and [facility]. The patient is currently on
supplemental O2. CM continues to be available to patient/family and is monitoring medical plan for needs at discharge.
Plan: Discharge plans will depend on the patient's progress.
--- NOTE | 2024-08-08 14:08 | W.PN.HOSP.TC ---
Today's Communication/Plan
-
Continue current plan with lasix.
Assessment / Plan
Assessment / Plan
79-year-old woman with past medical history of:
paroxysmal atrial fibrillation,
hypertension,
anxiety,
hypothyroidism,
Parkinson's disease,
ESBL E. coli,
possible temporal arteritis status post temporal artery biopsy on 07/10
Comes in with low oxygen levels as well as shortness of breath and cough since yesterday. Cough is dry. She has some lower extremity swelling. BNP > 4,000
CXR shows: Moderate-severe pulmonary edema with small bilateral pleural effusions
Impression/Plan
1. Hypoxemia secondary to acute CHF exacerbation -Chest x-ray shows moderate to severe pulmonary edema with small bilateral pleural effusions
-COVID and influenza negative
-Cardiac BNP of 4800
-IV fluids given initially
-Continue 40 IV Lasix daily
-Cardiology consulted
2. Right subtle nondisplaced transverse fracture of the distal radius metaphysis
-splinting
3. Fever secondary to urinary tract infection
-History of ESBL E. coli UTI
-Low-grade fever
-Urinalysis shows 4050 WBC, very cloudy urine, positive nitrates, +1 leukocyte esterase
-Follow urine culture
-continue Ertapenem given persistence of ESBL previously
4. Acute anemia
-Hemoglobin of 9.7 from 12.4 approximately a month ago
-Check iron studies, B12 and folate, Hemoccult
5. Paroxysmal atrial fibrillation
-Continue amiodarone
-Continue atenolol
-Continue Eliquis
6. Essential hypertension
-Continue losartan
7. Orthostatic hypotension
-Continue midodrine
8. Other issues to note:
Anxiety
Hypothyroidism
-Continue levothyroxine
Parkinson's disease
-Continue carbidopa-levodopa
History of possible temporal arteritis status post temporal artery biopsy
Constipation
-Continue bowel regimen
History of ITP/pancytopenia
Protein calorie malnutrition
Neuropathy
-Continue gabapentin
Code: DNR
DVT prophylaxis�heparin
Cardiac diet
Anticipated Discharge: 24 - 48 hours
Subjective/Interval History
-
Date of Service: August 08, 2024
Objective Data
-
Labs:
Laboratory Results
08/08/24
07:16
WBC 8.4
Hgb 8.7 L
Hct 25.8 L
Plt Count 247
Sodium 137
Potassium 3.7
Chloride 104
Carbon Dioxide 27
BUN 23 H
Creatinine 0.8
Glucose 83
Calcium 8.0 L
Total Bilirubin 1.1
AST 45 H
ALT < 10
Alkaline Phosphatase 65
Vital Signs:
Vital Signs
Temp Pulse Resp BP Pulse Ox
99.0 F 58 17 88/34 96
08/08/24 11:41 08/08/24 11:46 08/08/24 11:41 08/08/24 11:46 08/08/24 11:41
I&O
08/07/24 08/08/24 08/09/24
06:59 06:59 06:59
Intake Total 240 / 240
Output Total 1000 / 1000
Balance -760 / -760
[2024-08-08 15:52] VITALS: BP 138/63
--- NOTE | 2024-08-08 17:45 | PTCARENOTE ---
Pt refusing to take last dose of sinemet this early, requesting med to be given at 1945. Pt made aware that there is no guarantee that the evening RN will be able to get in at this exact time for this medication, oncoming RN to be made aware. No new
orders at this time.
[2024-08-08] MEDS: INVANZ 60 MG IV (19:18)
[2024-08-08] MEDS: FLUSH (NSS) 2 FLUSH IV (19:20)
[2024-08-08 19:32] VITALS: BP 123/42
[2024-08-08] MEDS: XALATAN OPHTHALMIC SOLUTION 1 DROP BOTH EYES (23:07)
[2024-08-08] MEDS: COZAAR PO (23:19)
[2024-08-08 23:43] VITALS: BP 102/37
[2024-08-09 02:55] VITALS: BP 116/56
[2024-08-09 05:58] VITALS: BMI 19.1
[2024-08-09] MEDS: SYNTHROID 100 MCG PO (06:19)
[2024-08-09 07:27] LABS: Hematocrit 27.4 % (37.0-47.0); Hemoglobin 9.5 g/dL (12.0-16.0); Mean Corp Hgb Conc. 34.7 g/dL (33.0-37.0); Mean Corpuscular Hgb 31.8 pg (27.0-31.0); Mean Corpuscular Volume 91.6 fL (81.0-99.0); Platelet Count 285 10^3/uL (130-400); Red Blood Cell Count 2.99 10^6/uL (4.20-5.40); Red Cell Dist. Width 17.6 % (11.5-14.5); White Blood Cell Count 8.9 10^3/uL (4.8-10.8)
[2024-08-09] MEDS: ProAmatine 2.5 MG PO ×3 (07:44→15:43)
[2024-08-09] MEDS: VITAMIN C 500 MG PO (07:44)
[2024-08-09] MEDS: SINEMET 25-100 1 TABLET PO ×5 (07:44→22:21)
[2024-08-09] MEDS: PACERONE 200 MG PO (07:45)
[2024-08-09] MEDS: TENORMIN 25 MG PO (07:45)
[2024-08-09] MEDS: ELIQUIS 5 MG PO ×2 (07:45→19:56)
[2024-08-09] MEDS: COLACE 100 MG PO (07:45)
[2024-08-09] MEDS: LASIX 40 MG IV ×2 (07:46→15:42)
[2024-08-09] MEDS: MIRALAX PO (07:46)
[2024-08-09] MEDS: NEURONTIN 100 MG PO ×2 (07:47→19:56)
[2024-08-09 07:49] LABS: Blood Urea Nitrogen 32 mg/dl (7-17); Calcium 8.3 mg/dl (8.4-10.2); Carbon Dioxide 26 mmol/L (22-30); Chloride 104 mmol/L (98-107); Estimated Creatinine Clearance 50 ml/min; Glucose 86 mg/dl (70-99); Potassium 3.8 mmol/L (3.5-5.1); Sodium 140 mmol/L (135-145); eGFR > 60.00
[2024-08-09 08:07] VITALS: BP 134/59
--- NOTE | 2024-08-09 10:41 | W.PN.HOSP.TC ---
Addendum entered and electronically signed by Raji Carey DO 08/09/24 11:28:
I spoke with patient's son Garry on the phone.
He believes that patient should still be on prednisone. He is not aware that anyone stopped it. He believes that the patient's primary care doctor wanted her to stay on prednisone until she sees her manager php this coming Saturday.
Apparently the patient was discharged from the hospital in June and went to [facility]. I spoke with the nurse in [facility] and she believes that for some reason the physician in [facility] discontinued the steroids. Details unclear.
She did provide a number for the physician there named Dr David Morrow to call. I did try to call him but it went to [employer]. [phone].
Moving forward, I will resume prednisone while we wait and hopefully we can get her into see her manager php after discharge from the hospital.
Original Note:
Today's Communication/Plan
-
Increase Lasix dose
Cardiology consult
Orthopedics consult
Send UA reflex to culture
Assessment / Plan
Assessment / Plan
Gen-AAOx3, NAD
HEENT-NC, AT, anicteric, clear oral mm
Neck-supple
CV-reg, no M, +S1/S2
Lungs-clear B/L
Abd-soft, NT, ND
Ext-no edema
Musculoskeletal-no cyanosis, clubbing
Skin-warm and dry
Neuro-grossly non-focal
Psych-calm, cooperative
Acute hypoxic respiratory insufficiency -due to pulmonary edema due to acute heart failure. Currently on 3 L nasal, oxygen, wean down as able.
Acute heart failure due to preserved EF exacerbation -continue IV Lasix, increase to twice daily. Last echocardiogram was in March, will recheck tomorrow. Consult cardiology. Admission chest x-ray shows moderate to severe pulmonary edema with
small bilateral pleural effusions. BNP elevated at 4840. Weight without significant change since admission.
Acute traumatic right wrist fracture -currently splinted. Fracture due to trauma from fall and underlying osteoporosis. I spoke with on-call orthopedics, Dr. Salbador Conway, he recommends continued splinting and outpatient follow-up with hand
surgeon such as Dr. Prince.
Presumed UTI -she does have symptoms. Urinalysis on admission unremarkable, will recheck urinalysis with reflex to culture. Currently on empiric IV ertapenem. Admission blood cultures negative so far. Influenza and COVID-negative.
Acute on chronic anemia -baseline hemoglobin averages around 10, hemoglobin today 9.5, spontaneously improved from yesterday. Monitor for now. No evidence of bleeding. Stools have been brown. Iron studies not entirely consistent with deficiency,
check ferritin.
Paroxysmal atrial fibrillation
-Continue amiodarone
-Continue atenolol
-Continue Eliquis
Essential hypertension
-Continue losartan
Orthostatic hypotension
-Continue midodrine
Possible temporal arteritis -she was discharged on empiric prednisone 60 mg daily last month. Temporal artery biopsy at that time showed possible arteritis versus atherosclerosis. I spoke to nurse at [facility] and she does not have a
record of prednisone being administered prior to this current admission. She said she will call me back with further information. I tried calling the patient's son Garry to clarify and it went to voicemail. At this point in time I am not sure this
patient is or should be on steroids. Patient herself cannot tell me as she remains somewhat confused as to her medical care.
Hypothyroidism -levothyroxine.
Parkinson's disease -Continue carbidopa-levodopa
History of ITP/pancytopenia
Protein calorie malnutrition
Neuropathy -Continue gabapentin
DNR
I left a voicemail for patient's son Garry to call me back.
Anticipated Discharge: > 48 hours
Subjective/Interval History
-
Date of Service: August 09, 2024
Patient seen and examined. Complaining of feeling cold. Complaining of dysuria.
Objective Data
-
Labs:
Laboratory Results
08/09/24 08/09/24
06:43 06:44
WBC 8.9
Hgb 9.5 L
Hct 27.4 L
Plt Count 285
Sodium 140
Potassium 3.8
Chloride 104
Carbon Dioxide 26
BUN 32 H
Creatinine 0.8
Glucose 86
Calcium 8.3 L
Vital Signs:
Vital Signs
Temp Pulse Resp BP Pulse Ox
98.4 F 67 18 134/59 95
08/09/24 08:07 08/09/24 08:07 08/09/24 08:07 08/09/24 08:07 08/09/24 08:09
I&O
08/08/24 08/09/24 08/10/24
06:59 06:59 06:59
Intake Total 240 / 240 1020 / 1020
Output Total 1000 / 1000 800 / 800
Balance -760 / -760 220 / 220
Review of Systems
-
History Source: Patient
All other systems: Reviewed and negative
[2024-08-09] MEDS: VITAMIN D3 (cholecalciferol) 25 MCG PO (11:10)
[2024-08-09 11:34] VITALS: BP 113/57
--- NOTE | 2024-08-09 12:28 | CON.ORTHO ---
Consultation - Orthopedics
History
HPI: 79-year-old male presented to the emergency department complaints of shortness of breath and cough. She was ultimately admitted to the hospitalist service. She was also found to have a right minimally displaced distal radius fracture.
Orthopedics was consulted for further evaluation and treatment. Patient signed his bedside. They report that she fell out of her wheelchair a couple of days ago and did experience some pain and swelling in her right wrist. Of note she does report
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 She does express to me that the splint is somewhat uncomfortable but she is really not complaining of pain at rest.
She does have Parkinson's as well as A-fib. Her son is a captain assistant who is at bedside reports that he is actually taking a leave of absence over the last several months to help care for his mother.
Allergies / Home Medications
Past medical history: A-fib, hypertension, hypothyroidism, Parkinson's disease, possible temporal arteritis, CHF/hypoxemia
Past surgical history: None documented
Social history: Non-smoker
Family history: Not pertinent
Allergy/AdvReac Type Severity Reaction Status Date / Time
codeine Allergy Nausea,HEAD Verified 08/07/24 13:13
ACHE,RASH,D
EDUARDO
Iodinated Contrast Media Allergy Hives Verified 08/07/24 13:13
[Iodinated Contrast Media -
Oral and]
Penicillins Allergy Hives,HEADA Verified 08/07/24 13:13
EUGENIO,RASH,NA
USEA
Sulfa (Sulfonamide Allergy HEADACHE,RA Verified 08/07/24 13:13
Antibiotics) SH,NAUSEA
gnats Allergy Rash Uncoded 07/06/24 13:04
MOSQUITO Allergy Swelling/RE Uncoded 07/06/24 13:04
DNESS
�Medication �Instructions �Recorded
apixaban 5 mg tablet (Eliquis) 5 mg PO BID Blood clot 10/08/16
prevention/tx
ascorbic acid (vitamin C) 500 mg 500 mg PO DAILY Supplement 11/08/22
tablet (Vitamin C)
cholecalciferol (vitamin D3) 25 25 mcg PO NOON Supplement 11/08/22
mcg (1,000 unit) capsule (Vitamin
D3)
carbidopa 25 mg-levodopa 100 mg 1 tab PO 5/D PARKINSON'S 08/19/23
tablet
atenolol 25 mg tablet 25 mg PO DAILY Arrhythmia #30 tabs 08/22/23
amiodarone 200 mg tablet (Pacerone) 200 mg PO DAILY A-FIB 04/11/24
gabapentin 100 mg capsule 100 mg PO BID NEUROPATHY 04/11/24
latanoprost 0.005 % eye drops 1 drp BOTH EYES HS Eye Condition 04/11/24
losartan 25 mg tablet 25 mg PO HS Blood Pressure 04/11/24
acetaminophen 325 mg tablet 650 mg PO Q4HPRN PRN mild 07/06/24
pain/fever>100
levothyroxine 100 mcg tablet 100 mcg PO DAILY Thyroid 07/06/24
magnesium hydroxide 400 mg/5 mL 30 ml PO DAILYPRN PRN constipation 07/06/24
oral suspension (Milk of Magnesia)
ondansetron HCl 4 mg tablet 4 mg PO Q8HPRN PRN nausea 07/06/24
polyethylene glycol 3350 17 gram 17 g PO DAILY Constipation 07/06/24
oral powder packet (HealthyLax)
docusate sodium 100 mg tablet 100 mg PO DAILYPRN PRN CONSTIPATION 08/07/24
fluticasone propionate 50 1 spray intranasal BID Congestion 08/07/24
mcg/actuation nasal
spray,suspension
midodrine 2.5 mg tablet 2.5 mg PO TID Blood Pressure 08/07/24
Vital Signs / Lab Results
Temp Pulse Resp BP Pulse Ox
97.8 F 76 20 113/57 90
08/09/24 11:34 08/09/24 11:34 08/09/24 11:34 08/09/24 11:34 08/09/24 11:45
08/09/24 06:44
08/09/24 06:43
10 point review systems reviewed and negative unless otherwise stated
General: Pleasant, no acute distress at rest, somewhat ill-appearing
Musculoskeletal right upper extremity
Splint removed skin visualized
There is mild ecchymotic staining noted over wrist and hand
Mild swelling
Motor intact to median, radial, ulnar, AIN, PIN
Sensation intact to light touch in median, radial, ulnar nerve distributions
There is chronic deformity noted distal ulna that is nontender to palpation
There are some mild to moderate tenderness palpation over distal radius metaphyseal region
Nontender to palpation over elbow
No other areas of bony tenderness palpation crepitation of long bones or joints on tertiary exam
Diagnostic studies
X-rays of right wrist reviewed by myself that shows a somewhat impacted transverse distal radius fracture extra-articular. There is significant ulnar positivity with widening of the DRUJ and dorsal subluxation noted of ulna. Radius maintains
neutral alignment on lateral view.
Assessment / Plan
79-year-old female minimally displaced right extra-articular distal radius fracture with chronic DRUJ injury. Had a long detailed discussion with the patient as well as son at bedside regarding diagnosis and treatment options. She is complaining
quite significantly of the splint. I think it safe to transition her into a removable wrist brace given the very minimal displacement on radiographs. Would recommend maintaining limited weightbearing right upper extremity to no more than a coffee
cup. She can bear weight with a walker through platform walker. Can follow-up either with myself or hand and upper extremity specialist in 2 to 3 weeks for repeat evaluation. No intervention planned for her chronic DRUJ/distal ulna injury. Would
anticipate 6-8 weeks healing time for distal radius fracture. Please reach out any questions or concerns
--- NOTE | 2024-08-09 13:55 | CON.CAR ---
Consultation
Consultation Request
Date/Time Consultation Requested: 08/09/2024, 1030
Date/Time Consultation Performed: 08/09/2024, 1200
Requesting Provider: Raji
Performing Provider: Bárbara
Reason for Consultation: SOB, HF
Medical History
-
Chief Complaint: SOB, Cough
History of Present Illness:
Patient is a pleasant 79 female with a past medical history significant for hypothyroidism, Parkinson's, paroxysmal atrial fibrillation/atrial tachycardia status post ablation x 2, hypertension, anxiety, ESBL E. coli UTI who presents due to
shortness of breath, cough and recent fall. Patient had noted worsening shortness of breath, cough over the last few months. She had recent diagnosis of E. coli UTI (ESBL) which was treated and still notes some burning with urination. She denies
any fevers, chills, nausea, vomiting, abdominal pain, or worsening weakness. She notes that she had a fall without syncope a few days ago leading to wrist fracture and cast placement. Evaluation in the emergency department, patient noted to have
BNP greater than 4000 with chest x-ray showing pulmonary edema and effusions. Patient started on IV diuresis with mild improvement in symptoms. Additionally, patient noted to have hemoglobin 9.7 previously 12.4. EKG not performed however
telemetry demonstrates paroxysmal atrial fibrillation predominantly sinus rhythm. On evaluation today, patient reports improvement in breathing but still notes some shortness of breath and cough. Notes wrist pain. Denies chest pain,
lightheadedness, dizziness, near-syncope, syncope, weakness. Notes mild fullness in the belly and lower extremity swelling. Additionally, reports dysuria.
Past Medical History
Past Medical History: Other (See HPI)
Past Surgical History: Other (PVI 2016, 2022, hysterectomy 1994, 1977, splenectomy)
Social History
Tobacco: Non-Smoker
Alcohol: None
Drug: None
Family History
Family History: Reviewed & Not Pertinent
Allergies / Home Medications
Allergy/AdvReac Type Severity Reaction Status Date / Time
codeine Allergy Nausea,HEAD Verified 08/07/24 13:13
ACHE,RASH,D
EDUARDO
Iodinated Contrast Media Allergy Hives Verified 08/07/24 13:13
[Iodinated Contrast Media -
Oral and]
Penicillins Allergy Hives,HEADA Verified 08/07/24 13:13
EUGENIO,RASH,NA
USEA
Sulfa (Sulfonamide Allergy HEADACHE,RA Verified 08/07/24 13:13
Antibiotics) SH,NAUSEA
gnats Allergy Rash Uncoded 07/06/24 13:04
MOSQUITO Allergy Swelling/RE Uncoded 07/06/24 13:04
DNESS
�Medication �Instructions �Recorded �Confirmed �Type
apixaban 5 mg tablet (Eliquis) 5 mg PO BID Blood clot 10/08/16 08/07/24 History
prevention/tx
ascorbic acid (vitamin C) 500 mg 500 mg PO DAILY Supplement 11/08/22 08/07/24 History
tablet (Vitamin C)
cholecalciferol (vitamin D3) 25 25 mcg PO NOON Supplement 11/08/22 08/07/24 History
mcg (1,000 unit) capsule (Vitamin
D3)
carbidopa 25 mg-levodopa 100 mg 1 tab PO 5/D PARKINSON'S 08/19/23 08/07/24 History
tablet
atenolol 25 mg tablet 25 mg PO DAILY Arrhythmia #30 tabs 08/22/23 08/07/24 Rx
amiodarone 200 mg tablet (Pacerone) 200 mg PO DAILY A-FIB 04/11/24 08/07/24 History
gabapentin 100 mg capsule 100 mg PO BID NEUROPATHY 04/11/24 08/07/24 History
latanoprost 0.005 % eye drops 1 drp BOTH EYES HS Eye Condition 04/11/24 08/07/24 History
losartan 25 mg tablet 25 mg PO HS Blood Pressure 04/11/24 08/07/24 History
acetaminophen 325 mg tablet 650 mg PO Q4HPRN PRN mild 07/06/24 08/07/24 History
pain/fever>100
levothyroxine 100 mcg tablet 100 mcg PO DAILY Thyroid 07/06/24 08/07/24 History
magnesium hydroxide 400 mg/5 mL 30 ml PO DAILYPRN PRN constipation 07/06/24 08/07/24 History
oral suspension (Milk of Magnesia)
ondansetron HCl 4 mg tablet 4 mg PO Q8HPRN PRN nausea 07/06/24 08/07/24 History
polyethylene glycol 3350 17 gram 17 g PO DAILY Constipation 07/06/24 08/07/24 History
oral powder packet (HealthyLax)
docusate sodium 100 mg tablet 100 mg PO DAILYPRN PRN CONSTIPATION 08/07/24 08/07/24 History
fluticasone propionate 50 1 spray intranasal BID Congestion 08/07/24 08/07/24 History
mcg/actuation nasal
spray,suspension
midodrine 2.5 mg tablet 2.5 mg PO TID Blood Pressure 08/07/24 08/07/24 History
Review of Systems
-
History Source: Patient and Family
All other systems: Negative unless noted
Constitutional: No Symptoms
EENT: No Symptoms
Respiratory: Cough and Trouble Breathing
Cardiac: No Symptoms
Abdomen/GI: No Symptoms
: Dysuria
Musculoskeletal: No Symptoms
Skin: No Symptoms
Neurological: No Symptoms
Endocrine: No Symptoms
Hematologic/Lymphatic: No Symptoms
Physical Exam
Vital Signs
Temp Pulse Resp BP Pulse Ox
97.8 F 76 20 113/57 90
08/09/24 11:34 08/09/24 11:34 08/09/24 11:34 08/09/24 11:34 08/09/24 11:45
Lab Results
08/09/24 06:44
08/09/24 06:43
Troponin I 0.016 ng/ml 08/07/24 15:42
Wbq-C-Sfkjdgyxfte Pept 4840 pg/ml 08/07/24 15:42
Physical exam:
GENERAL: no acute distress
EYE: sclera anicteric
NECK: Supple, no JVD appreciated, no carotid bruit appreciated
ENT: normal nose, moist mucosal membranes
CARDIAC: Regular rate and rhythm, +S1/S2, no murmur, rubs, or gallops
CHEST/PULMONARY: Normal effort, decreased breath sounds at bases, crackles; no rales or wheezing
ABDOMEN: Soft, without focal tenderness or distention
NEUROLOGICAL: Alert and oriented x3
SKIN: Warm and dry, no rash; trace bilateral lower extremity edema
PSYCH: Normal and appropriate interaction.
Impression / Plan
-
PCP: Dr Liliya Pickett
Food Cart Attendant: Dr. Frankie Alvarado
Impression:
Acute on chronic heart failure with preserved ejection fraction
� Chest x-ray pulmonary edema, pleural effusions
� BNP greater than 4000
� Clinical picture consistent with heart failure, shortness of breath, cough, volume overload on exam
Paroxysmal atrial fibrillation, symptomatic
� Status post ablation x 2, 2016, 2022
� Amiodarone 200 mg daily, rhythm control
� Atenolol 25 mg daily rate control
� [id number]: 5 (heart failure, hypertension, age, gender). Eliquis 5 mg twice daily for stroke risk reduction
Hypothyroidism
ESBL E. coli UTI
Parkinson's
Anxiety
Wrist fracture, right
TTE 04/13/2024: Normal LV RV, EF 65 to 70%, mild concentric LVH, mild to moderate MR, moderate TR PASP 49 mmHg, trace pericardial effusion; no reported change from 2022
Lexiscan nuclear stress test 10/21/2023: Perfusion imaging reveals a small area of mildly decreased perfusion that is fixed in the mid inferoseptal segment consistent with soft tissue attenuation. EF 80%
Plan:
Echocardiogram
Continue amiodarone, atenolol, Eliquis, losartan
Monitor on telemetry
IV Lasix 40 mg twice daily, close monitoring of renal function, electrolytes
UTI treatment per primary service
Appreciated with orthopedics regarding wrist fracture
Data Reviewed
-
Radiology: Report Reviewed by me
Medical Tests (Nuc Med, Echo etc): Report Reviewed by me
Labs: Labs Reviewed by me
Old Records: Reviewed
[2024-08-09] MEDS: DELTASONE 60 MG PO (15:28)
[2024-08-09 15:30] VITALS: BP 128/47
[2024-08-09] MEDS: TYLENOL 650 MG PO (15:43)
[2024-08-09 19:37] VITALS: BP 120/50
[2024-08-09] MEDS: INVANZ 60 MG IV (19:56)
[2024-08-09] MEDS: COZAAR 25 MG PO (22:20)
[2024-08-09] MEDS: MELATONIN 5 MG PO (22:21)
[2024-08-09] MEDS: XALATAN OPHTHALMIC SOLUTION 1 DROP BOTH EYES (22:22)
[2024-08-09 23:46] VITALS: BP 120/55
[2024-08-10] VITALS (10 sets, daily range): BP systolic 112–137; BP diastolic 47–90; PULSE 60; O2SAT 95; BMI 17.8
[2024-08-10 04:07] LABS: Urine Albumin 2+ (Neg - Trace); Urine Bilirubin Negative (Negative); Urine Character Clear (Clear); Urine Color Yellow; Urine Glucose Negative (Negative); Urine Ketone Negative (Negative); Urine Leukocyte Negative (Negative); Urine Nitrite Negative (Negative); Urine Occult Blood 1+ (Negative); Urine Urobilinogen Negative (Neg - 1+)
[2024-08-10 04:19] LABS: Urine Hyaline Cast >15 /LPF (0-2); Urine Squamous Cell 0-2 /LPF (Few)
[2024-08-10 04:21] LABS: Urine Bacteria Moderate (Negative); Urine Urothelial Cell 0-2 /LPF (FEW)
[2024-08-10] MEDS: SYNTHROID 100 MCG PO (05:57)
[2024-08-10 06:40] LABS: Hematocrit 26.9 % (37.0-47.0); Hemoglobin 9.3 g/dL (12.0-16.0); Mean Corp Hgb Conc. 34.6 g/dL (33.0-37.0); Mean Corpuscular Volume 92.4 fL (81.0-99.0); Mean Platelet Volume 11.4 fL (7.4-10.4); Platelet Count 330 10^3/uL (130-400); Red Blood Cell Count 2.91 10^6/uL (4.20-5.40); Red Cell Dist. Width 17.9 % (11.5-14.5); White Blood Cell Count 8.8 10^3/uL (4.8-10.8)
[2024-08-10 07:07] LABS: Blood Urea Nitrogen 36 mg/dl (7-17); Calcium 8.8 mg/dl (8.4-10.2); Carbon Dioxide 32 mmol/L (22-30); Chloride 104 mmol/L (98-107); Estimated Creatinine Clearance 46 ml/min; Glucose 140 mg/dl (70-99); Potassium 3.4 mmol/L (3.5-5.1); Sodium 141 mmol/L (135-145); eGFR > 60.00
--- NOTE | 2024-08-10 08:13 | VNURNOTE ---
Chart reviewed. Patient is current with [facility] nursing, OT. Will continue to follow hospital course and DC plans.
[2024-08-10] MEDS: SINEMET 25-100 1 TABLET PO ×4 (08:28→21:24)
[2024-08-10] MEDS: NEURONTIN 100 MG PO ×2 (10:00→21:24)
[2024-08-10] MEDS: DELTASONE 60 MG PO (10:01)
[2024-08-10] MEDS: ELIQUIS 5 MG PO ×2 (10:01→21:24)
[2024-08-10] MEDS: PACERONE 200 MG PO (10:01)
[2024-08-10] MEDS: TENORMIN 25 MG PO (10:01)
[2024-08-10] MEDS: VITAMIN C 500 MG PO (10:02)
--- NOTE | 2024-08-10 10:03 | W.PN.HOSP.TC ---
Today's Communication/Plan
-
continue IV diuretics
Potassium replacement
continue oral steroids
Assessment / Plan
Assessment / Plan
Assessment:
Acute hypoxic respiratory insufficiency -due to pulmonary edema due to acute heart failure. Currently on 2-4 L nasal, oxygen, wean down as able.
Acute heart failure due to preserved EF exacerbation -continue IV Lasix BID - requires intensive monitoring of I/Os, weights, lytes. Await Echocardiogram today. Cardiology following. Admission chest x-ray shows moderate to severe pulmonary edema
with small bilateral pleural effusions. BNP elevated at 4840. Weight without significant change since admission.
Acute traumatic right wrist fracture - currently splinted. Fracture due to trauma from fall and underlying osteoporosis. Dr. Carey spoke with on-call orthopedics, Dr. Salbador Conway, he recommends continued splinting and outpatient follow-up
with hand surgeon such as Dr. Prince.
Presumed UTI, symptomatic. continue Ertapenem (hx of ESBL) pending culture.
Acute on chronic anemia -baseline hemoglobin averages around 10, hemoglobin today 9.3. Monitor for now. No evidence of bleeding. Stools have been brown. AOCD on labs.
Paroxysmal atrial fibrillation
- continue amiodarone
- continue atenolol
- continue Eliquis
Essential hypertension
- continue losartan
Orthostatic hypotension
- continue midodrine
Possible temporal arteritis - she was discharged on empiric prednisone 60 mg daily last month. Temporal artery biopsy at that time showed possible arteritis versus atherosclerosis. resumed po steroids for now pending Rheum OP appointment (steroids
stopped for unknown reasons at [facility], awaiting MD reply back).
Hypothyroidism - continue levothyroxine.
Parkinson's disease - continue carbidopa-levodopa
History of ITP/pancytopenia
moderate Protein calorie malnutrition
Neuropathy - continue gabapentin
Hypokalemia
- prn replacement
DVT ppx: Eliquis
Code: DNR/DNI
Anticipated Discharge: > 48 hours
Subjective/Interval History
-
Date of Service: August 10, 2024
reports some slight SOB, remains on 2-4 L NC
weight down 4kg per scale
Objective Data
-
Labs:
Laboratory Results
08/10/24
06:12
WBC 8.8
Hgb 9.3 L
Hct 26.9 L
Plt Count 330
Sodium 141
Potassium 3.4 L
Chloride 104
Carbon Dioxide 32 H
BUN 36 H
Creatinine 0.8
Glucose 140 H
Calcium 8.8
Vital Signs:
Vital Signs
Temp Pulse Resp BP Pulse Ox
97.4 F 59 18 133/58 96
08/10/24 07:17 08/10/24 07:17 08/10/24 07:17 08/10/24 07:17 08/10/24 07:17
I&O
08/09/24 08/10/24 08/11/24
06:59 06:59 06:59
Intake Total 1020 / 1020 1200 / 1200
Output Total 800 / 800 1200 / 1200
Balance 220 / 220 0 / 0
Physical Exam
-
General: No Apparent Distress
HEENT: Normocephalic and Atraumatic
Respiratory: Crackles; Negative Wheezes
Cardiac: Regular Rhythm and S1/S2
GI: Soft
Musculoskeletal: Other (R arm in cast)
Neuro: AO x 3
Data Reviewed
-
Total Time Spent with Patient (in minutes): 51
Labs: Labs Reviewed by me
[2024-08-10] MEDS: COLACE 100 MG PO (10:04)
[2024-08-10] MEDS: LASIX 40 MG IV (10:04)
[2024-08-10] MEDS: MIRALAX PO (10:05)
[2024-08-10] MEDS: ProAmatine 2.5 MG PO ×3 (10:08→16:31)
--- NOTE | 2024-08-10 11:55 | W.PN.CARDCBS ---
Today's Communication / Plan
-
Continue IV Lasix but reduce to once daily
Await 2D echocardiogram
Wean O2
PT evaluation
Impression / Plan
-
PCP: Dr Liliya Pickett
Chip Silo Tender: Dr. Frankie Alvarado
Impression:
Acute hypoxic respiratory failure consistent with heart failure with preserved ejection fraction
-Influenza negative. COVID assay negative. Blood cultures no growth to date.
-proBNP 4840 on 08/07/2024
-Chest x-ray 2 views 08/07/2024 with moderate to severe pulmonary edema and small bilateral pleural effusions
Parkinson's disease on Sinemet
Orthostatic hypotension on midodrine
Paroxysmal atrial fibrillation on Eliquis status post ablation 12/2022
Frequent falls, multifactorial
Minimally displaced distal right radial fracture, nonsurgical management planned by orthopedics
ESBL E. coli UTI 07/07/2024 [urine culture 08/10/2024 pending]
Possible temporal arteritis on empiric prednisone
Hypothyroidism
History of mitral valve prolapse/mild to moderate mitral regurgitation mitral regurgitation echocardiogram 04/05/2024
Moderate tricuspid regurgitation/pulmonary hypertension with estimated pulmonary artery systolic pressure 49 mmHg April 13, 2024 echocardiogram
History of ITP status post splenectomy
Osteoporosis
Chronic anemia
Hypertension
2D echocardiogram 04/13/2024: Normal biventricular size and systolic function with a EF 65-70% and mild LVH. Mild�moderate mitral regurgitation. Moderate tricuspid regurgitation. Estimated pulmonary artery systolic pressure 49 mmHg. Trileaflet
aortic valve with no stenosis and trace AI. Trivial pericardial effusion.
Lexiscan nuclear stress test 10/21/2023: Small area of mildly decreased perfusion fixed in the mid inferoseptal segment consistent with soft tissue attenuation. No definite evidence for scan ischemia. EF greater than 80%.
Plan:
Acute on chronic heart failure with preserved ejection fraction
� Chest x-ray pulmonary edema, pleural effusions
� BNP greater than 4000
-Patient has had improved symptoms/edema with 10 pound weight loss with IV Lasix.
-Spoke with nursing and weaning O2 requirements; currently on 2 L nasal cannula
�Continue IV Lasix but reduce to once daily; patient was not on oral Lasix as an outpatient but will need to be transition to oral Lasix prior to discharge
-Keep K greater than 4 mag greater than 2
-Repeat 2D echocardiogram pending
Paroxysmal atrial fibrillation, symptomatic. Currently in sinus rhythm
� Status post ablation x 2, 2016, 2022
� Amiodarone 200 mg daily, rhythm control
� Atenolol 25 mg daily rate control
� [id number]: 5 (heart failure, hypertension, age, gender). Eliquis 5 mg twice daily for stroke risk reduction
Hypothyroidism- check TSH
ESBL E. coli UTI- per Primary
Parkinson's with orthostatic hypotension�check orthostatics
Temporal arteritis on prednisone
Traumatic right wrist fracture for nonsurgical management per orthopedics
Progress Note - Chip Silo Tender
Subjective
Date of Service: August 10, 2024
Patient was seen and examined. Overall states that she is feeling better and less short of breath. Has not been out of bed and is essentially wheelchair-bound but does do transfers. PT was consulted today. No chest pain or pressure.
Objective
Labs:
08/10/24 06:12
08/10/24 06:12
Labs
Hgb 9.3 g/dL (12.0-16.0) L 08/10/24 06:12
Hct 26.9 % (37.0-47.0) L 08/10/24 06:12
Plt Count 330 10^3/uL (130-400) 08/10/24 06:12
Sodium 141 mmol/L (135-145) 08/10/24 06:12
Potassium 3.4 mmol/L (3.5-5.1) L 08/10/24 06:12
BUN 36 mg/dl (7-17) H 08/10/24 06:12
Creatinine 0.8 mg/dL (0.6-1.0) 02/24/25 06:12
Glucose 140 mg/dl (70-99) H 08/10/24 06:12
Troponins
08/07/24
15:42
Troponin I 0.016
Vital Signs and I&O:
Vital Signs
Temp Pulse Resp BP Pulse Ox
97.5 F 59 18 112/50 96
08/10/24 11:46 08/10/24 11:46 08/10/24 11:46 08/10/24 11:46 08/10/24 11:46
Vital Signs
Temp Pulse Resp BP Pulse Ox
97.5 F 59 18 112/50 96
08/10/24 11:46 08/10/24 11:46 08/10/24 11:46 08/10/24 11:46 08/10/24 11:46
Intake & Output
08/08/24 08/09/24 08/10/24 08/11/24
06:59 06:59 06:59 06:59
Intake Total 240 / 240 1020 / 1020 1200 / 1200
Output Total 1000 / 1000 800 / 800 1200 / 1200
Balance -760 / -760 220 / 220 0 / 0
Physical Exam
Physical Exam
GEN: NAD, AAOx3
HEENT: EOMI, MMM
LUNGS: CTA B/L, no wheezes/rales
CV: Irreg, no murmur
ABD: soft, BS+, NT, ND
EXT: No clubbing, cyanosis, lesions or edema B/L
NEURO: Tremulous. Gross non-focal
[2024-08-10] MEDS: KCL 40 MEQ PO (12:08)
[2024-08-10] MEDS: VITAMIN D3 (cholecalciferol) 25 MCG PO (12:08)
--- NOTE | 2024-08-10 14:53 | CM ---
Addendum entered by Suzie Ruiz 08/10/24 16:21:
Referrals for skilled rehab in [facility].
Original Note:
Patient seen bedside.
Discussed d/c plan with patient, back to [facility] vs skilled.
PT/OT evals and recommendations pending.
If patient needs skilled she would like [facility] or [facility]. referrals placed in [facility].
IMM completed.
Plan: await therapy recommendations, home with services vs skilled rehab.
[2024-08-10 16:10] LABS: TSH Reflex To Free T4 0.17 uIU/ml (0.47-4.68)
[2024-08-10] MEDS: SINEMET 25-100 PO (16:28)
[2024-08-10 16:40] LABS: Free T4 2.95 ng/dl (0.78-2.19)
[2024-08-10] MEDS: XALATAN OPHTHALMIC SOLUTION 1 DROP BOTH EYES (21:25)
[2024-08-10] MEDS: INVANZ 60 MG IV (21:29)
[2024-08-10] MEDS: COZAAR 25 MG PO (21:42)
[2024-08-10] MEDS: MELATONIN 5 MG PO (21:45)
[2024-08-11 03:10] VITALS: BP 129/58
[2024-08-11 06:00] VITALS: BMI 17.7
[2024-08-11] MEDS: SYNTHROID 100 MCG PO (06:25)
[2024-08-11 06:32] VITALS: BMI 17.7
[2024-08-11 07:19] VITALS: BP 121/57
[2024-08-11 07:40] LABS: Hematocrit 25.8 % (37.0-47.0); Mean Corp Hgb Conc. 34.9 g/dL (33.0-37.0); Mean Corpuscular Hgb 32.1 pg (27.0-31.0); Mean Corpuscular Volume 92.1 fL (81.0-99.0); Mean Platelet Volume 11.9 fL (7.4-10.4); Platelet Count 396 10^3/uL (130-400); Red Cell Dist. Width 18.5 % (11.5-14.5); White Blood Cell Count 11.7 10^3/uL (4.8-10.8)
--- NOTE | 2024-08-11 08:11 | PN.CDI ---
CDI
- -
CDI:
Physician Documentation Request
Admit Date: 08/09/24 10:35
Dear Doctor Tayler,
Patient admitted with acute on chronic diastolic CHF.
08/10, 'Stage 2 right sacral pressure injury, POA.'
Physician documentation of the type and location of wounds is required for compliant documentation. Based on the above clinical findings and your assessment, please provide the following in your progress note:
Type (etiology) of ulcer/wound:
- Pressure (decubitus) ulcer
- Other
- Unable to determine
For a pressure ulcer, please also include the stage* of the ulcer:
- Stage 1 - Skin intact, non-blanchable redness
- Stage 2 - Partial thickness loss of dermis, includes intact or open blister
- Stage 3 - Full thickness tissue not including bone, tendon or muscle
- Stage 4 - Full thickness tissue loss, including exposed bone, tendon or muscle
- Unstageable - Full thickness loss in which the base of the ulcer is covered by slough (yellow, masterson, bowling, green or brown) and/or eschar (masterson, brown or black) in the wound bed.
- Unable to determine
Use of terms such as suspected, likely, concern for, or probable (associated with a specific diagnosis that is being evaluated, monitored, or treated as if it exists) are acceptable and can be coded in the inpatient setting, when documented at the
time of discharge.
Thank you,
Verenice SANTANA,RN,CCDS
CDI Specialist
Available via Delta text
Please use your independent medical judgment in providing your response.
*Source: National Pressure Ulcer Advisory Panel (NPUAP)
[2024-08-11 08:35] LABS: Blood Urea Nitrogen 53 mg/dl (7-17); Calcium 9.5 mg/dl (8.4-10.2); Carbon Dioxide 31 mmol/L (22-30); Chloride 104 mmol/L (98-107); Estimated Creatinine Clearance 41 ml/min; Glucose 127 mg/dl (70-99); Potassium 3.8 mmol/L (3.5-5.1); Sodium 143 mmol/L (135-145); eGFR > 60.00
[2024-08-11] MEDS: DELTASONE 60 MG PO (08:45)
[2024-08-11] MEDS: TENORMIN 25 MG PO (08:45)
[2024-08-11] MEDS: SINEMET 25-100 1 TABLET PO ×4 (08:45→20:38)
[2024-08-11] MEDS: NEURONTIN 100 MG PO ×2 (08:47→20:38)
[2024-08-11] MEDS: PACERONE 200 MG PO (08:47)
[2024-08-11] MEDS: VITAMIN C 500 MG PO (08:47)
[2024-08-11] MEDS: ELIQUIS 5 MG PO ×2 (08:48→20:39)
[2024-08-11] MEDS: MIRALAX 17 GRAMS PO (08:49)
[2024-08-11] MEDS: LASIX 40 MG IV (08:49)
[2024-08-11] MEDS: ProAmatine 2.5 MG PO ×3 (08:49→16:59)
--- NOTE | 2024-08-11 09:32 | PN.CDI ---
CDI
- -
CDI:
Physician Documentation Request
Admit Date: 08/09/24 10:35
Dear Doctor Tayler,
Patient admitted with acute on chronic diastolic CHF.
08/10 PN, 'Acute hypoxic respiratory insufficiency...'
08/11 Cardiology note, 'Acute hypoxic respiratory failure....'
See oxygen use documented below:
Selected Entries
08/09/24
11:15 08/09/24
11:34 08/09/24
11:45
Nasal Cannula flow liters per minute 3 6 6
08/09/24
15:30 08/10/24
23:37 08/11/24
09:06
Nasal Cannula flow liters per minute 4 1 1
Due to conflicting documentation, please provide in your note the diagnosis associated with the increased oxygen needs:
Acute hypoxic respiratory failure, now resolved
Hypoxic only
Other
Use of terms such as suspected, likely, concern for, or probable (associated with a specific diagnosis that is being evaluated, monitored, or treated as if it exists) are acceptable and can be coded in the inpatient setting, when documented at the
time of discharge.
Thank you,
Verenice SANTANA,RN,CCDS
CDI Specialist
Available via tiger text
Please use your independent medical judgment in providing your response.
--- NOTE | 2024-08-11 11:24 | W.PN.HOSP.TC ---
Today's Communication/Plan
-
wean O2
IV Lasix
DC planning to SNF
Assessment / Plan
Assessment / Plan
Assessment:
Acute hypoxic respiratory failure - due to pulmonary edema due to acute heart failure. Currently on 1L nasal, oxygen, wean down as able.
Acute heart failure due to preserved EF exacerbation
- continue IV Lasix daily - requires intensive monitoring of I/Os, weights, lytes.
- Echo: Normal LV size/function. EF 60-65%, mild MR, severe TR, severe pulm HTN
- Cardiology following
Acute traumatic right wrist fracture - currently splinted. Fracture due to trauma from fall and underlying osteoporosis. Dr. Carey spoke with on-call orthopedics, Dr. Salbador Conway, he recommends continued splinting and outpatient follow-up
with hand surgeon such as Dr. Prince.
Presumed UTI, symptomatic. Urine culture negative. stop IV abx.
Acute on chronic anemia -baseline hemoglobin averages around 10, hemoglobin today 9.0. Monitor for now. No evidence of bleeding. Stools have been brown. AOCD on labs.
Paroxysmal atrial fibrillation
- continue amiodarone
- continue atenolol
- continue Eliquis
Essential hypertension
- continue losartan
Orthostatic hypotension
- continue midodrine
Possible temporal arteritis - she was discharged on empiric prednisone 60 mg daily last month. Temporal artery biopsy at that time showed possible arteritis versus atherosclerosis. continue PO steroids pending Rheum OP appointment.
Hypothyroidism - continue levothyroxine.
Parkinson's disease - continue carbidopa-levodopa
History of ITP/pancytopenia
moderate Protein calorie malnutrition
Neuropathy - continue gabapentin
Hypokalemia
- prn replacement
Stage 2 right sacral pressure injury, POA
DVT ppx: Eliquis
Code: DNR/DNI
Anticipated Discharge: > 48 hours
Subjective/Interval History
-
Date of Service: August 11, 2024
Objective Data
-
Labs:
Laboratory Results
08/11/24
06:51
WBC 11.7 H
Hgb 9.0 L
Hct 25.8 L
Plt Count 396
Sodium 143
Potassium 3.8
Chloride 104
Carbon Dioxide 31 H
BUN 53 H
Creatinine 0.9
Glucose 127 H
Calcium 9.5
Vital Signs:
Vital Signs
Temp Pulse Resp BP Pulse Ox
97.6 F 59 18 121/57 96
08/11/24 07:19 08/11/24 08:45 08/11/24 07:19 08/11/24 08:45 08/11/24 09:06
I&O
08/10/24 08/11/24 08/12/24
06:59 06:59 06:59
Intake Total 1200 / 1200 1620 / 1620
Output Total 1200 / 1200
Balance 0 / 0 1620 / 1620
Data Reviewed
-
Total Time Spent with Patient (in minutes): 51
Labs: Labs Reviewed by me
[2024-08-11 11:59] VITALS: BP 117/49
[2024-08-11] MEDS: VITAMIN D3 (cholecalciferol) 25 MCG PO (12:05)
[2024-08-11 15:28] VITALS: BP 106/46
--- NOTE | 2024-08-11 16:15 | CM ---
Reviewed the chart notes. [facility] interested, but will need to follow-up day of discharge for bed availability. [facility] no beds. CM continues to be available to patient/family and is monitoring medical plan for needs at discharge.
Plan: Discharge to SNF/rehab when medically stable and bed secured. No precert required.
--- NOTE | 2024-08-11 16:21 | W.PN.CARDCBS ---
Addendum entered and electronically signed by Garry Gabriel DO 08/11/24 20:51:
I saw and examined the patient.
The Air Conditioning Equipment Mechanic's note was reviewed and I agree with the note.
Comment:
Plan:
Cont IV lasix and possible transition to oral lasix next 24 hrs
Remains in sinus on amiodarone and Eliquis
EF is preserved
Original Note:
Today's Communication / Plan
-
Cont Lasix 40 mg IV daily
Impression / Plan
-
PCP: Dr Liliya Pickett
Bankman: Dr. Frankie Alvarado
Impression:
Acute hypoxic respiratory failure consistent with heart failure with preserved ejection fraction
Parkinson's disease on Sinemet
Orthostatic hypotension on midodrine
Paroxysmal atrial fibrillation on Eliquis status post ablation 12/2022
Frequent falls, multifactorial
Minimally displaced distal right radial fracture, nonsurgical management planned by orthopedics
ESBL E. coli UTI 07/07/2024 [urine culture 08/10/2024 pending]
Possible temporal arteritis on empiric prednisone
Hypothyroidism
History of mitral valve prolapse/mild to moderate mitral regurgitation mitral regurgitation echocardiogram 04/05/2024
Moderate tricuspid regurgitation/pulmonary hypertension with estimated pulmonary artery systolic pressure 49 mmHg April 13, 2024 echocardiogram
History of ITP status post splenectomy
Osteoporosis
Chronic anemia
Hypertension
Lexiscan nuclear stress test 10/21/2023: Small area of mildly decreased perfusion fixed in the mid inferoseptal segment consistent with soft tissue attenuation. No definite evidence for scan ischemia. EF greater than 80%.
Echo 04/13/2024: EF 65 to 70%, mild to moderate MR, moderate TR with PAP 49 mmHg, trivial pericardial effusion
Echo 08/10/2024: EF 60 to 65%, mild MR, severe TR with PAP 65 to 70 mmHg
Plan:
-Weight is down 9 lbs by bed scale weights. Cont with Lasix 40 mg IV daily. Patient was not taking a diuretic prior to admission
-EF preserved on echo
-ECG reviewed by me on 08/11/2024 looks like SR with a QTc of 464 ms
-Patient known h/o Afib/tach. Outpatient dose of amiodarone 200 mg daily has been continued.
-Outpatient dose of Eliquis 5 mg BID has been continued
-Patient has been normotensive for the most part, but at about 1530 on 08/11/2024 BP is 106/46. Patient also has a known history of orthostasis related to her history of Parkinson's disease. Outpatient dose of midodrine 2.5 mg TID has been
continued.
Progress Note - Bankman
Subjective
Date of Service: August 11, 2024
Feels less SOB
Objective
Labs:
08/11/24 06:51
08/11/24 06:51
Labs
Hgb 9.0 g/dL (12.0-16.0) L 08/11/24 06:51
Hct 25.8 % (37.0-47.0) L 08/11/24 06:51
Plt Count 396 10^3/uL (130-400) 08/11/24 06:51
Sodium 143 mmol/L (135-145) 08/11/24 06:51
Potassium 3.8 mmol/L (3.5-5.1) 08/11/24 06:51
BUN 53 mg/dl (7-17) H 08/11/24 06:51
Creatinine 0.9 mg/dL (0.6-1.0) 08/11/24 06:51
Glucose 127 mg/dl (70-99) H 08/11/24 06:51
Vital Signs and I&O:
Vital Signs
Temp Pulse Resp BP Pulse Ox
97.6 F 60 17 106/46 93
08/11/24 15:28 08/11/24 15:28 08/11/24 15:28 08/11/24 15:28 08/11/24 15:28
Vital Signs
Temp Pulse Resp BP Pulse Ox
97.6 F 60 17 106/46 93
08/11/24 15:28 08/11/24 15:28 08/11/24 15:28 08/11/24 15:28 08/11/24 15:28
Intake & Output
08/09/24 08/10/24 08/11/24 08/12/24
06:59 06:59 06:59 06:59
Intake Total 1020 / 1020 1200 / 1200 1620 / 1620
Output Total 800 / 800 1200 / 1200
Balance 220 / 220 0 / 0 1620 / 1620
Physical Exam
Physical Exam
GEN: NAD, AAOx3
HEENT: EOMI, MMM
LUNGS: RA. No audible wheeze
CV: SR on tele
ABD: ND
EXT: No edema B/L
NEURO: Tremulous.
[2024-08-11 19:39] VITALS: BP 148/67
--- NOTE | 2024-08-11 20:28 | PTCARENOTE ---
Called [facility] to send up a small adult wrist brace and arm sling. See ortho orders.
[2024-08-11] MEDS: INVANZ 60 MG IV (20:39)
[2024-08-11] MEDS: MELATONIN 5 MG PO (21:48)
[2024-08-11] MEDS: COZAAR 25 MG PO (21:48)
[2024-08-11] MEDS: XALATAN OPHTHALMIC SOLUTION 1 DROP BOTH EYES (21:48)
[2024-08-11 23:50] VITALS: BP 146/78
[2024-08-12] MEDS: SINEMET 25-100 1 TABLET PO ×4 (00:32→14:55)
[2024-08-12 03:40] VITALS: BP 135/56
[2024-08-12] MEDS: SYNTHROID 100 MCG PO (06:35)
[2024-08-12 07:28] VITALS: BP 156/71
[2024-08-12] MEDS: LASIX 40 MG IV (08:06)
[2024-08-12] MEDS: TENORMIN 25 MG PO (08:07)
[2024-08-12] MEDS: NEURONTIN 100 MG PO (08:07)
[2024-08-12] MEDS: VITAMIN C 500 MG PO (08:08)
[2024-08-12] MEDS: ELIQUIS 5 MG PO (08:08)
[2024-08-12] MEDS: PACERONE 200 MG PO (08:08)
[2024-08-12] MEDS: MIRALAX PO (08:11)
--- NOTE | 2024-08-12 09:45 | W.PN.CARDCBS ---
Today's Communication / Plan
-
With switch to p.o. Lasix 40 mg daily
Nearing discharge
Continue outpatient antiarrhythmic and atenolol
Continue oral anticoagulation
She should have an outpatient BMP in 5 to 7 days as she has an elevated BUN to creatinine ratio. We may need to dial back on outpatient Lasix dosing depending upon where her renal function settles
Impression / Plan
-
PCP: Dr Liliya Pickett
Police Communications Operator: Dr. Frankie Alvarado
Impression:
Acute hypoxic respiratory failure consistent with heart failure with preserved ejection fraction
Parkinson's disease on Sinemet
Orthostatic hypotension on midodrine
Paroxysmal atrial fibrillation on Eliquis status post ablation 12/2022
Frequent falls, multifactorial
Minimally displaced distal right radial fracture, nonsurgical management planned by orthopedics
ESBL E. coli UTI 07/07/2024 [urine culture 08/10/2024 pending]
Possible temporal arteritis on empiric prednisone
Hypothyroidism
History of mitral valve prolapse/mild to moderate mitral regurgitation mitral regurgitation echocardiogram 04/05/2024
Moderate tricuspid regurgitation/pulmonary hypertension with estimated pulmonary artery systolic pressure 49 mmHg April 13, 2024 echocardiogram
History of ITP status post splenectomy
Osteoporosis
Chronic anemia
Hypertension
Lexiscan nuclear stress test 10/21/2023: Small area of mildly decreased perfusion fixed in the mid inferoseptal segment consistent with soft tissue attenuation. No definite evidence for scan ischemia. EF greater than 80%.
Echo 04/13/2024: EF 65 to 70%, mild to moderate MR, moderate TR with PAP 49 mmHg, trivial pericardial effusion
Echo 08/10/2024: EF 60 to 65%, mild MR, severe TR with PAP 65 to 70 mmHg
Plan:
-I would switch to p.o. Lasix today. I have no objection to Lasix 40 mg p.o. daily with an outpatient BMP in 1 week.
-Continue low-dose amiodarone and her atenolol which is controlled her atrial arrhythmias relatively well. She does have occasional paroxysms which we manage observantly
-Outpatient dose of Eliquis 5 mg BID has been continued
-Patient has been normotensive for the most part, but at about 1530 on 08/11/2024 BP is 106/46. Patient also has a known history of orthostasis related to her history of Parkinson's disease. Outpatient dose of midodrine 2.5 mg TID has been
continued. We will be have to be careful about overdiuresis
Progress Note - Police Communications Operator
Subjective
Date of Service: August 12, 2024
Feels a little better today. She tells me that her right wrist is not in pain
Objective
Labs:
Labs
Hgb 9.0 g/dL (12.0-16.0) L 08/11/24 06:51
Hct 25.8 % (37.0-47.0) L 08/11/24 06:51
Plt Count 396 10^3/uL (130-400) 08/11/24 06:51
Sodium 143 mmol/L (135-145) 08/11/24 06:51
Potassium 3.8 mmol/L (3.5-5.1) 08/11/24 06:51
BUN 53 mg/dl (7-17) H 08/11/24 06:51
Creatinine 0.9 mg/dL (0.6-1.0) 08/11/24 06:51
Glucose 127 mg/dl (70-99) H 08/11/24 06:51
Vital Signs and I&O:
Vital Signs
Temp Pulse Resp BP Pulse Ox
97.6 F 83 18 156/71 95
08/12/24 07:28 08/12/24 08:08 08/12/24 07:28 08/12/24 08:08 08/12/24 07:28
Vital Signs
Temp Pulse Resp BP Pulse Ox
97.6 F 83 18 156/71 95
08/12/24 07:28 08/12/24 08:08 08/12/24 07:28 08/12/24 08:08 08/12/24 07:28
Intake & Output
08/10/24 08/11/24 08/12/24 08/13/24
06:59 06:59 06:59 06:59
Intake Total 1200 / 1200 1620 / 1620 1200 / 1200
Output Total 1200 / 1200
Balance 0 / 0 1620 / 1620 1200 / 1200
Physical Exam
Physical Exam
Physical Exam
General: no apparent distress, not acutely ill
Neck: supple. no meningeal signs. normal psoterior pharynx
Heart: s1/s2 regular rate and rhythm, no murmur. equal radial pulses.
Lungs: no acute respiratory distress. clear bilaterally
Abdomen: normal bowel sounds. not tender. no CVAT
Neuro: alert and oriented. no focal neurological deficits
Skin: no rash. She has no extremity edema
Psychiatric: well kept. interactive and cooperative
Extremities: Right wrist is noted to be in a cast in a sling
[2024-08-12] MEDS: ProAmatine 2.5 MG PO ×2 (09:47→11:58)
[2024-08-12] MEDS: DELTASONE 60 MG PO (09:47)
--- NOTE | 2024-08-12 10:16 | W.PN.HOSP.TC ---
Today's Communication/Plan
-
oral Lasix transition
DC planning to SNF
Assessment / Plan
Assessment / Plan
Assessment:
Acute hypoxic respiratory failure - due to pulmonary edema due to acute heart failure. Currently on 1L nasal, oxygen, wean down as able.
Acute heart failure due to preserved EF exacerbation
- s/p IV Lasix course. now on oral Lasix. repeat BMP in 5-7 days.
- Echo: Normal LV size/function. EF 60-65%, mild MR, severe TR, severe pulm HTN
- Cardiology following
Acute traumatic right wrist fracture - currently splinted. Fracture due to trauma from fall and underlying osteoporosis. Dr. Carey spoke with on-call orthopedics, Dr. Salbador Conway, he recommends continued splinting and outpatient follow-up
with hand surgeon such as Dr. Prince. Awaiting delivery of brace
Presumed UTI, symptomatic. Urine culture negative. stop IV abx.
Acute on chronic anemia - baseline hemoglobin averages around 10, hemoglobin today 9.0. Monitor for now. No evidence of bleeding. Stools have been brown. AOCD on labs.
Paroxysmal atrial fibrillation
- continue amiodarone
- continue atenolol
- continue Eliquis
Essential hypertension
- continue losartan
Orthostatic hypotension
- continue midodrine
Possible temporal arteritis - she was discharged on empiric prednisone 60 mg daily last month. Temporal artery biopsy at that time showed possible arteritis versus atherosclerosis. continue PO steroids pending Rheum OP appointment.
Hypothyroidism - continue levothyroxine.
Parkinson's disease - continue carbidopa-levodopa
History of ITP/pancytopenia
moderate Protein calorie malnutrition
Neuropathy - continue gabapentin
Hypokalemia
- prn replacement
Stage 2 right sacral pressure injury, POA
DVT ppx: Eliquis
Code: DNR/DNI
Anticipated Discharge: Within 24 hours
Subjective/Interval History
-
Date of Service: August 12, 2024
denies any new complaints
Objective Data
-
Labs:
Laboratory Results
08/12/24
09:56
WBC Pending
Hgb Pending
Hct Pending
Plt Count Pending
Sodium Pending
Potassium Pending
Chloride Pending
Carbon Dioxide Pending
BUN Pending
Creatinine Pending
Glucose Pending
Calcium Pending
Vital Signs:
Vital Signs
Temp Pulse Resp BP Pulse Ox
97.6 F 58 18 107/50 95
08/12/24 07:28 08/12/24 09:47 08/12/24 07:28 08/12/24 09:47 08/12/24 07:28
I&O
08/11/24 08/12/24 08/13/24
06:59 06:59 06:59
Intake Total 1620 / 1620 1200 / 1200
Balance 1620 / 1620 1200 / 1200
Physical Exam
-
General: No Apparent Distress
HEENT: Normocephalic and Atraumatic
Respiratory: Negative Wheezes
Cardiac: Regular Rhythm and S1/S2
GI: Soft and Nontender
Genito-urinary: No Costovertebral Tender
Neuro: AO x 3
Psych: Calm
Data Reviewed
-
Total Time Spent with Patient (in minutes): 51
Labs: Labs Reviewed by me
[2024-08-12 10:28] VITALS: BP 107/50; BP 90/47; PULSE 68; O2SAT 95
[2024-08-12 10:43] LABS: Hemoglobin 10.1 g/dL (12.0-16.0); Mean Corp Hgb Conc. 32.6 g/dL (33.0-37.0); Mean Corpuscular Hgb 31.3 pg (27.0-31.0); Mean Platelet Volume 11.8 fL (7.4-10.4); Platelet Count 480 10^3/uL (130-400); Red Blood Cell Count 3.23 10^6/uL (4.20-5.40); Red Cell Dist. Width 18.7 % (11.5-14.5); White Blood Cell Count 11.5 10^3/uL (4.8-10.8)
[2024-08-12 10:58] LABS: Blood Urea Nitrogen 56 mg/dl (7-17); Calcium 9.9 mg/dl (8.4-10.2); Carbon Dioxide 37 mmol/L (22-30); Chloride 97 mmol/L (98-107); Estimated Creatinine Clearance 37 ml/min; Glucose 143 mg/dl (70-99); Potassium 3.6 mmol/L (3.5-5.1); Sodium 142 mmol/L (135-145); eGFR 58.02
--- NOTE | 2024-08-12 11:09 | PTCARENOTE ---
Removable wrist brace placed on pt's right wrist after removing yajaira wrap and splint. There is a skin tear on pt's right forearm that was dressed prior to splint placement. Wound dressing removed and wound was cleansed and redressed.
--- NOTE | 2024-08-12 11:28 | CM ---
Addendum entered by Sobeida Hills RN 08/12/24 12:28:
Plan: [facility] today.
Call report to: [phone]
Fax report to: [phone]
Medical necessity and transport forms on the chart.
Original Note:
Reviewed the chart notes and spoke with the patient and her son at the bedside. IMM reviewed. CM spoke with [facility]. Their computers and phones are down at the moment, but she is will to accept once everything comes
back on line. CM continues to be available to patient/family and is monitoring medical plan for needs at discharge.
Plan: Discharge to [facility] SNF when medically stable.
[2024-08-12] MEDS: VITAMIN D3 (cholecalciferol) 25 MCG PO (11:58)
[2024-08-12 11:59] VITALS: BP 109/48
--- NOTE | 2024-08-12 12:20 | W.DS.TRANS ---
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
-
Discharge Instructions:
Sleep Apnea Risk Intermediate
Discharge Diagnosis/Procedures acute CHF, Acute traumatic right wrist fracture
Diet Low Cholesterol,2 Gram Sodium,Restrict fluids to
64 oz
Activity As tolerated
Additional Activity maintaining limited weightbearing right upper
extremity to no more than a coffee cup. She can
bear weight with a walker through platform
walker.
Bathing Restrictions None
Blood Work repeat BMP in 5-7 days
Other Services PT,OT
Wound Care R arm skin tear - clean with saline, apply
adaptic and wrap with eve
Instructions: *[facility] Heart Failure Instructions
Stand-Alone Forms:
Changes to Home Medications: No
Discharge Medications:
DC Medications w/original date entered in [employer]
apixaban 5 mg tablet (Eliquis) 5 mg PO BID Blood clot prevention/tx 10/08/16
ascorbic acid (vitamin C) 500 mg tablet (Vitamin C) 500 mg PO DAILY Supplement 11/08/22
cholecalciferol (vitamin D3) 25 mcg (1,000 unit) capsule (Vitamin D3) 25 mcg PO NOON Supplement 11/08/22
carbidopa 25 mg-levodopa 100 mg tablet 1 tab PO 5/D PARKINSON'S 08/19/23
atenolol 25 mg tablet 25 mg PO DAILY Arrhythmia #30 tabs 08/22/23
amiodarone 200 mg tablet (Pacerone) 200 mg PO DAILY A-FIB 04/11/24
gabapentin 100 mg capsule 100 mg PO BID NEUROPATHY 04/11/24
latanoprost 0.005 % eye drops 1 drp BOTH EYES HS Eye Condition 04/11/24
losartan 25 mg tablet 25 mg PO HS Blood Pressure 04/11/24
acetaminophen 325 mg tablet 650 mg PO Q4HPRN PRN mild pain/fever>100 07/06/24
magnesium hydroxide 400 mg/5 mL oral suspension (Milk of Magnesia) 30 ml PO DAILYPRN PRN constipation 07/06/24
ondansetron HCl 4 mg tablet 4 mg PO Q8HPRN PRN nausea 07/06/24
polyethylene glycol 3350 17 gram oral powder packet (HealthyLax) 17 g PO DAILY Constipation 07/06/24
docusate sodium 100 mg tablet 100 mg PO DAILYPRN PRN CONSTIPATION 08/07/24
fluticasone propionate 50 mcg/actuation nasal spray,suspension 1 spray intranasal BID Congestion 08/07/24
midodrine 2.5 mg tablet 2.5 mg PO TID Blood Pressure 08/07/24
furosemide 40 mg tablet 40 mg PO DAILY #30 tabs 08/12/24
levothyroxine 75 mcg tablet 75 mcg PO DAILY @ 0600 #30 tabs 08/12/24
prednisone 10 mg tablet 60 mg (6 x 10 mg) PO DAILY #180 tabs 08/12/24
Home Medication Changes
Pending Results: No
Total time spent discharging patient (in min): 41
[2024-08-12 13:47] LABS: Covid-19 RAPID by NAA Negative (Negative)
[2024-08-12 15:19] VITALS: BP 124/59
== END 2024-08-12 15:57 | DRG 291 ==
LOC: 2 NORTH 10:35
PROVIDERS: Hospitalist; Internal Medicine; Nurse Practitioner Family; Registered Nurse; ADMITTING PHYSICIAN Hospitalist; ATTENDING PHYSICIAN Internal Medicine; CONSULT PHYSICIAN Internal Medicine Cardiovascular Disease; CONSULT PHYSICIAN Orthopaedic Surgery; EMERGENCY PHYSICIAN Emergency Medicine
DX: I11.0 Hypertensive heart disease with heart failure (principal); I50.33 Acute on chronic diastolic (congestive) heart failure; J96.01 Acute respiratory failure with hypoxia; S52.501A Unspecified fracture of the lower end of right radius, initial encounter for closed fracture; N39.0 Urinary tract infection, site not specified; E44.0 Moderate protein-calorie malnutrition; Z68.1 Body mass index [BMI] 19.9 or less, adult; M80.031A Age-related osteoporosis with current pathological fracture, right forearm, initial encounter for fracture; Z79.899 Other long term (current) drug therapy; S63.074A Dislocation of distal end of right ulna, initial encounter; I48.0 Paroxysmal atrial fibrillation; F41.9 Anxiety disorder, unspecified; E03.9 Hypothyroidism, unspecified; G20.A1 Parkinson's disease without dyskinesia, without mention of fluctuations; W05.0XXA Fall from non-moving wheelchair, initial encounter; Z88.5 Allergy status to narcotic agent; Z88.0 Allergy status to penicillin; Z88.2 Allergy status to sulfonamides; Z91.041 Radiographic dye allergy status; Z79.01 Long term (current) use of anticoagulants; K59.00 Constipation, unspecified; Z79.890 Hormone replacement therapy; Z11.52 Encounter for screening for COVID-19; D64.9 Anemia, unspecified; I95.1 Orthostatic hypotension; Z66 Do not resuscitate; G62.9 Polyneuropathy, unspecified; Z90.710 Acquired absence of both cervix and uterus; Z90.81 Acquired absence of spleen; I27.20 Pulmonary hypertension, unspecified; M31.6 Other giant cell arteritis; Z86.2 Personal history of diseases of the blood and blood-forming organs and certain disorders involving the immune mechanism; E87.6 Hypokalemia; L89.152 Pressure ulcer of sacral region, stage 2; K21.9 Gastro-esophageal reflux disease without esophagitis; F32.A Depression, unspecified; I07.1 Rheumatic tricuspid insufficiency
CPT/HCPCS: 29125; 71046; 73110; 73130; 80048; 80053; 81003; 81015; 82607; 82728; 82746; 83540; 83550; 83880; 84439; 84443; 84484; 85025; 85027; 87040; 87070; 87086; 87502; 87635; 87811; 93005; 93306; 96374; 97116; 97163; 97167; 97530; 99285; J1335

== ENCOUNTER → 2024-08-24 11:41 | Outpatient (REF) | payer MEDICARE, BC, SELFPAY ==
[2024-08-24 16:10] LABS: ALT (SGPT) 26 U/L (0-35); AST (SGOT) 43 U/L (14-36); Albumin 3.3 g/dl (3.5-5.0); Alkaline Phosphatase 94 U/L (38-126); Blood Urea Nitrogen 48 mg/dl (7-17); Carbon Dioxide 33 mmol/L (22-30); Chloride 96 mmol/L (98-107); Glucose 234 mg/dl (70-99); Potassium 3.1 mmol/L (3.5-5.1); Sodium 138 mmol/L (135-145); Total Protein 5.9 g/dl (6.3-8.2); eGFR 58.02
[2024-08-24 16:13] LABS: % Basophils 0.1 % (0-2); % Immature Granulocytes 1.6 % (0-0.5); % Lymphocytes 1.6 % (20.5-51.1); % Monocytes 3.8 % (1.7-9.3); % Neutrophils 92.9 % (42.2-75.2); Absolute Immature Granulocytes 0.3 10^3/uL (0-0.05); Absolute Lymphocytes 0.3 10^3/uL (1.2-3.4); Absolute Monocytes 0.8 10^3/uL (0.1-0.6); Absolute Neutrophils 18.6 10^3/uL (1.4-6.5); Hemoglobin 10.4 g/dL (12.0-16.0); Mean Corp Hgb Conc. 32.5 g/dL (33.0-37.0); Mean Corpuscular Hgb 31.5 pg (27.0-31.0); Mean Platelet Volume 13.4 fL (7.4-10.4); Nucleated Red Blood Cells % 0.2 %; Platelet Count 355 10^3/uL (130-400); Red Cell Dist. Width 20.5 % (11.5-14.5)
[2024-08-24 16:39] LABS: Erythrocyte Sed Rate 1 mm/hour (0-20)
== END ==
LOC: HWLAB 11:41
PROVIDERS: ATTENDING PHYSICIAN Student in an Organized Health Care Education/Training Program; FAMILY PHYSICIAN Hospitalist
DX: A08.11 Acute gastroenteropathy due to Norwalk agent (principal); A41.51 Sepsis due to Escherichia coli [E. coli]; M31.6 Other giant cell arteritis; R51.9 Headache, unspecified; R70.0 Elevated erythrocyte sedimentation rate; R79.82 Elevated C-reactive protein (CRP); Z51.81 Encounter for therapeutic drug level monitoring; Z79.52 Long term (current) use of systemic steroids
CPT/HCPCS: 36415; 80053; 85025; 85652; 86140

== ENCOUNTER 2024-09-11 15:23 | Inpatient (IN) | payer MEDICARE, BC, SELFPAY ==
[2024-09-11 11:00] VITALS: BP 101/48
[2024-09-11] MEDS: OFIRMEV 100 IV (11:39)
[2024-09-11 11:47] VITALS: BMI 22.1
[2024-09-11 11:55] LABS: Urine Albumin 3+ (Neg - Trace); Urine Bilirubin 2+ (Negative); Urine Character Cloudy (Clear); Urine Color Amber; Urine Glucose Negative (Negative); Urine Ketone Negative (Negative); Urine Leukocyte 3+ (Negative); Urine Nitrite Positive (Negative); Urine Occult Blood 4+ (Negative); Urine Specific Gravity 1.015 (<1.030); Urine Urobilinogen 3+ (Neg - 1+)
[2024-09-11 11:59] LABS: Lactic Acid 1.3 mmol/L (0.7-2.0)
[2024-09-11 12:00] LABS: Hematocrit 22.1 % (37.0-47.0); Hemoglobin 7.9 g/dL (12.0-16.0); Mean Corp Hgb Conc. 35.7 g/dL (33.0-37.0); Mean Corpuscular Volume 86.7 fL (81.0-99.0); Mean Platelet Volume 12.5 fL (7.4-10.4); Platelet Count 199 10^3/uL (130-400); Red Blood Cell Count 2.55 10^6/uL (4.20-5.40); Red Cell Dist. Width 19.9 % (11.5-14.5); White Blood Cell Count 22.1 10^3/uL (4.8-10.8)
[2024-09-11 12:10] LABS: COVID-19 Antigen Negative (Negative)
[2024-09-11 12:14] LABS: ALT (SGPT) 84 U/L (0-35); AST (SGOT) 278 U/L (14-36); Albumin 2.2 g/dl (3.5-5.0); Alkaline Phosphatase 145 U/L (38-126); Blood Urea Nitrogen 62 mg/dl (7-17); Calcium 7.7 mg/dl (8.4-10.2); Carbon Dioxide 30 mmol/L (22-30); Chloride 99 mmol/L (98-107); Estimated Creatinine Clearance 14 ml/min; Glucose 95 mg/dl (70-99); Potassium 4.3 mmol/L (3.5-5.1); Sodium 135 mmol/L (135-145); Total Bilirubin 5.3 mg/dl (0.2-1.3); Total Protein 4.6 g/dl (6.3-8.2); eGFR 19.32
[2024-09-11 12:26] LABS: Urine Squamous Cell >30 /LPF (Few)
[2024-09-11 12:28] LABS: Urine Amorphous Seen
[2024-09-11 12:29] LABS: Urine Red Blood Cell >100 /HPF (0-2); Urine White Cell >100 /HPF (0-5)
[2024-09-11 12:30] LABS: Urine Bacteria Many (Negative)
[2024-09-11 12:37] LABS: Absolute Neutrophils -Man Diff 20.9 10^3/uL (1.4-6.5); Band Neutrophils 14 % (0-3); Lymphocytes 1 % (20-51); Segmented Neutrophils 81 % (42-75)
[2024-09-11 12:38] LABS: Anisocytosis 1+; Hypochromasia 1+; Monocytes 4 % (2-9); Normal RBC Morphology No; Nucleated Red Blood Cells 1 (-); Platelets Checked Yes; Polychromasia 1+; Stomatocytes 1+; Target Cells 2+
[2024-09-11 12:39] LABS: Total Cells Counted 100
[2024-09-11 12:41] LABS: Troponin I 0.047 ng/ml
--- NOTE | 2024-09-11 12:56 | ED.GENMED ---
History of Present Illness
General
Chief Complaint: Change in Mental Status
Source: family and ambulance crew
Exam Limitations: clinical condition
Time Seen by Provider: 09/11/24 11:06
History of Present Illness
History of Present Illness:
79-year-old female deterioration x 2 days per the son. Decreased alertness, increased lethargy, decreased feeding just general decline over 2 days. Brought in with borderline unresponsiveness and hypotension. Patient unable to add history
Past History
Past History
ED Past Medical History: Arrthythmia (PAT), GERD, HTN, Hypothyroidism and Psychiatric (History of anxiety and depression)
ED Past Surgical History: Other (History of splenectomy, , tonsillectomy)
Patient has exhibited threatening behavior?: No
PSI?: No
Social History
Tobacco: Non-smoker
Alcohol: None
Drug: None
Personal:
Living: alone
Employment: Retired
Review of Systems
Review of Systems
Unable to obtain full review of systems at this time due to: due to acuity
All Other Systems: Not applicable
Phy Exam
Physical Exam
Physical Exam:
GENERAL: Eyes open. Whispered speech. Will follow some simple commands. However very lethargic, weak and generally ill-appearing
EYE: Orbits normal.
NECK: Supple, no significant adenopathy.
ENT: Pharynx without erythema
CARDIAC: Regular rate and rhythm without any obvious murmurs.
LUNGS: Clear breath sounds,normal
ABDOMEN: Soft, without focal tenderness or distention
NEUROLOGICAL: Lethargic. Nonfocal. Wiggles toes bilaterally but does not lift legs off the table. No drift of the arms.
SKIN: Warm and dry, no rash or lesion, no discoloration, skin intact.
MUSCULOSKELETAL: No edema,no deformity.Good color
PSYCH: Flat affect.
Sepsis
Sepsis Screening
Sepsis Assessment: Sepsis
Sepsis Screening: Urine output- <0.5ml/kg/hr for 2 consecutive hours, Worsening O2 Saturation and Bilirubin >2mg/dl
Sepsis Screen
Sepsis Screen: Sepsis
Date: 09/15/24
Time: 18:46
Course
Orders/Labs/Results
Orders:
Orders
09/11/24 11:05
EKG [Electrocardiogram (*1)] Urgent
Reason for Study: Fatigue / Weakness
EKG- Treatment ONCE
09/11/24 11:07
Cardiac Monitoring- Treatment ONCE
EKG- Treatment ONCE
IV Insert/Care/Rem.- Treatment PRN
CR Chest Portable - 1 View Urgent
Comment:
Reason For Exam: hypoxia
Reason Study Needs to be Portable: Unable to Transport
09/11/24 11:18
Acetaminophen 1000MG/100Ml [Ofirmev] 1,000 mg in 100 ml IV ONCE
Acetaminophen IV Indication:: ED Narcotic Naive Pt-ONCE
09/11/24 11:19
CT Head W/o Iv Contrast Urgent
Comment:
Reason For Exam: Change in mental status/anticoagulated
09/11/24 11:32
Blood Culture Q30M
NOAH Source: Blood/Venous
Specimen Description:
Blood Culture Q30M
NOAH Source: Blood/Venous
Specimen Description:
09/11/24 11:33
COVID-19 Antigen Urgent
Source: Nasal Swab
Complete Blood Count/With Diff Urgent
Comprehensive Metabolic Panel Urgent
Ferritin Urgent
Comment: ADD ON
Folate Urgent
Comment: ADD ON
Iron Urgent
Comment: ADD ON
Lactic Acid Q4H
Comment: CANCEL 2nd LACTIC ACID IF 1st LACTIC ACID IS LESS THAN 2
Manual Differential Urgent
Total Iron Binding Urgent
Comment: ADD ON
Troponin I Urgent
Urinalysis Reflex To Culture Urgent
Date Specimen was Collected: 09/11/24
Time Specimen was Collected: 11:26
Urine Microscopic Reflex Cult Urgent
Vitamin B12 Urgent
Comment: ADD ON
Influenza A+B Rapid Molecular Urgent
NOAH Source: Nasal Swab
Specimen Description:
Urine Culture Urgent
NOAH Source: U
Specimen Description:
Date Specimen was Collected: 09/11/24
Time Specimen was Collected: 11:26
09/11/24 12:58
Cefepime HCl [Maxipime] 2,000 mg IV NOW STA
09/11/24 13:00
0.9% Sodium Chloride 500 ml [Nss] 500 ml IV BOLUS
09/11/24 13:04
Vancomycin [Vancocin] 1,500 mg 0.9% Sodium Chloride 500 ml [Nss] 500 ml IV NOW
09/11/24 13:22
Add On- LAB Stat
Tests Added?: iron, b12, ferritin, folate TIBC
Stool for occult blood [Hemetest Stools] As Directed
09/11/24 13:27
US Abdomen Complete/Upper Urgent
Comment:
Reason For Exam: Sepsis/elevated LFTs
09/11/24 13:29
Admit/Transfer Patient As Directed
Co-Sign Provider:
Level of Care: Inpatient admission
Assign to:: Telemetry
Physician / Group: dawit ha
Diagnosis: sepsis
Reason for Telemetry: Arrhythmia
Date to Stop Telemetry: 09/14/24
Time to Stop Telemetry: 11:00
Reason for Hospitalization: sepsis
Expected length of stay greater than two midnights?: Yes
ELOS- Estimated Length of Stay in days: 3
I certify the patient meets the requirements for IP care: Yes
PRN Pain Medication Management As Directed
May give lesser potent ordered pain med per pt: Yes
preference::
Protocol:: Medication orders for pain may be administered in a
manner that supports deferring to patient preference
when the pt is:
- Requesting an ordered lesser potent pain medication.
Least to most potent pain medications are defined
as: acetaminophen < NSAID < tramadol < opioids
(morphine, oxycodone, hydromorphone).
- Requesting a lesser dose of the same medication IF
ORDERED.
- Requesting a less intrusive route of administration
if both routes are prescribed by the provider (PO <
IV).
09/11/24 13:31
Code Status As Directed
Resuscitation Status: Do not resuscitate
Reached after discussion with pt or family/Healthcare POA: Yes
09/11/24 13:34
DNR Bracelet Application ONCE
09/11/24 17:11
Acetaminophen [Tylenol/Feverall] 650 mg RECTAL Q4HPRN PRN
Acetaminophen [Tylenol] 650 mg PO Q4HPRN PRN
Bisacodyl [Dulcolax] 10 mg RECTAL O06POHB PRN
Carbidopa/Levodopa [Sinemet 25-100] 1 tablet PO 5/D@00,08,12,16,20
Docusate W/Senna [Senokot-S] 1 tablet PO BIDPRN PRN
Lactated Ringers [Lr] 1,000 ml IV 80 mls/hr
Midodrine [ProAmatine] 5 mg PO TID @ 0800,1200,1700
Polyethylene Glycol Powder [Miralax] 17 grams PO DAILYPRN PRN
09/11/24 17:11
INFECTIOUS DISEASE CONSULT Routine
Consulting Provider: Rain Morton
Was physician already notified: Yes
Activity As Directed
Activity Level: As Tolerated
Intake/ Output As Directed
Frequency: Per unit guidelines
Vital Signs As Directed
Frequency: Per unit guidelines
Weight As Directed
Frequency: Daily
Ot Eval And Treat Routine
Pt Eval And Treat Routine
Activity Level: As Tolerated
Speech Therapy Eval & Treat Routine
09/11/24 17:48
Troponin I Q6H
09/11/24 20:00
Apixaban [Eliquis] 2.5 mg PO BID
Gabapentin [Neurontin] 100 mg PO BID
09/11/24 22:00
Latanoprost [Xalatan Ophthalmic Solution] See Dose Instructions BOTH EYES HS
Melatonin 5 mg PO HS
09/11/24 23:37
Troponin I Q6H
09/12/24 06:00
Levothyroxine [Synthroid] 100 mcg PO DAILY @ 0600
09/12/24 07:42
Complete Blood Count/No Diff IN AM
Comprehensive Metabolic Panel IN AM
Troponin I Q6H
09/12/24 08:00
Amiodarone [Pacerone] 200 mg PO DAILY
Prednisone [Deltasone] 30 mg PO DAILY
09/12/24 12:00
Cholecalciferol (Vitamin D3) [VITAMIN D3 (cholecalciferol)] 25 mcg PO NOON
09/13/24 06:10
Complete Blood Count/No Diff IN AM
Comprehensive Metabolic Panel IN AM
09/14/24 11:00
DC Protocol for Telemetry ONCE
Abnormal Lab Results
09/11/24
11:33
WBC 22.1 H 10^3/uL
(4.8-10.8)
RBC 2.55 L 10^6/uL
(4.20-5.40)
Hgb 7.9 L g/dL
(12.0-16.0)
Hct 22.1 L %
(37.0-47.0)
RDW 19.9 H %
(11.5-14.5)
MPV 12.5 H fL
(7.4-10.4)
Abs Neuts (Manual) 20.9 H 10^3/uL
(1.4-6.5)
Segmented Neutrophils 81 H %
(42-75)
Band Neutrophils 14 H %
(0-3)
Lymphocytes (Manual) 1 L %
(20-51)
BUN 62 H mg/dl
(7-17)
Creatinine 2.5 H mg/dL
(0.6-1.0)
Calcium 7.7 L mg/dl
(8.4-10.2)
Iron 23 L ug/dl
(37-170)
TIBC 154 L ug/dl
(265-497)
% Saturation 14 L %
(20-50)
Ferritin 1540.0 H ng/ml
(11.1-264.0)
Total Bilirubin 5.3 H mg/dl
(0.2-1.3)
AST 278 H U/L
(14-36)
ALT 84 H U/L
(0-35)
Alkaline Phosphatase 145 H U/L
(38-126)
Troponin I 0.047 H* ng/ml
Total Protein 4.6 L g/dl
(6.3-8.2)
Albumin 2.2 L g/dl
(3.5-5.0)
Vitamin B12 945 H pg/ml
(239-931)
Folate > 20.0 H ng/ml
(2.76-20)
Ur Occult Blood Reflex 4+ A
(Negative)
Urine Nitrite (Reflex) Positive A
(Negative)
Urine Bilirubin 2+ A
(Negative)
Urine Urobilinogen 3+ A
(Neg - 1+)
Leukocyte Esterase Rfl 3+ A
(Negative)
Urine RBC >100 A /HPF
(0-2)
Urine WBC (Reflex) >100 A /HPF
(0-5)
Urine Bacteria (Reflex) Many A
(Negative)
Urine Albumin (Reflex) 3+ A
(Neg - Trace)
09/11/24 11:33
09/11/24 11:33
Vital Signs
Initial and Last Documented VS:
Initial Vital Signs
Temp Pulse Resp BP Pulse Ox
101.4 F H 77 35 101/48 95
09/11/24 11:00 09/11/24 11:00 09/11/24 11:00 09/11/24 11:00 09/11/24 11:00
Last Documented Vital Signs
Temp Pulse Resp BP Pulse Ox
97.9 F 60 16 204/101 100
09/15/24 17:51 09/15/24 17:51 09/15/24 17:51 09/15/24 18:11 09/15/24 15:15
MDM/Problems Addressed
Differential Diagnosis Includes:
Patient clinically presents likely septic. Doubt central neurologic issue. Nonfocal. Generally weak. Low-grade fever. Patient in creatinine. Urine positive but not a great specimen. LFTs elevated. Will get ultrasound. Cover with
antibiotics. Penicillin allergy as a child, rash. Feel cephalosporin is reasonable. Asplenic.
*Pulse Oximetry
Patient hypoxic: yes
*EKG
Interpreted by ED Provider?: Yes
Interpretation: normal
Comparison EKG: no changes
Heart Rate: 68
Rate: normal
Rhythm: sinus
[place]: normal axis
Interval: normal interval
QRS Pattern: normal QRS
Ischemia: no ischemia
*Mid Level Business Analyst Interpretation
Rate: normal
Interpretation: normal
Heart Rate: 70
Rhythm: sinus
*Critical Care Note
Total Time (30-74mins, 75-104mins- exclusive of procedures): 40
Data Reviewed
Review of Other/Old Records Reveals: Labs, Records, Radiology Studies, Testing and Other (Echo report)
Update Note
Update Note:
Rash as a kid with penicillin. Feel cephalosporin would be safe. Contacted hospitalist. Await ultrasound. Careful fluids
ED Attending Note
-
Portions of this chart may have been created with voice recognition software.� Occasional wrong word or��sound alike� substitutions may have occurred due to the inherent limitations of voice recognition software.
Discharge Plan
Departure
Patient Disposition: Admit
Date of Disposition: 09/11/24
Time of Disposition: 12:57
Presentation/result/management discussed w/ accepting MD/DO: Hospitalist
Discharge Problem:
Sepsis, Urine versus gallbladder, Renal insufficiency/dehydration, Asplenic, Anemia
Interventions
Interventions:
*Risk Screen - Suicide Last Done: 09/11/24 12:04
*General Assessment Last Done: 09/11/24 12:04
*Neglect/Abuse Screening Last Done: 09/11/24 14:00
*ED- Fall Risk Assessment Last Done: 09/11/24 11:08
*ED COVID-19 Vaccine History Last Done: 09/11/24 11:08
*Nursing Disposition Last Done: 09/11/24 16:44
ED- Pulmonary Assessment Last Done: 09/11/24 16:42
ED-Psychological Assessment Last Done: 09/11/24 16:43
ED- Neurological Assessment Last Done: 09/11/24 11:49
ED Swallowing Screen Last Done: 09/11/24 14:43
Discharge Date and Time
Discharge Date/Time: 09/11/24 16:45
--- NOTE | 2024-09-11 12:56 | HPS.HSE ---
Family Physician
-
Family Physician:
Chief Complaint
-
Fever, unresponsive
History of Present Illness
.79-year-old with past medical history for GERD, hypertension, hypothyroidism, anxiety, depression, Parkinson's presented to us with fever since this morning patient was found Unresponsive by the nursing staff. Patient stated very weak. Patient
denied any headache, dizzy or syncope. Patient denied any chest pain or short of breath. Patient denied abdominal pain, nausea, vomiting or diarrhea. Patient denied dysuria materia.
Patient was noted sepsis as evidenced by fever, WBC, positive urinalysis. Patient received IV cefepime and Vanco in ER. Patient is admitting for further management
Medical History
Past Medical History
Past Medical History: Reports Other
Additional Past Medical History:
Palpitation
-Anxiety
Hypothyroidism
Parkinson disease
Dysphagia
Hypertension
Paroxysmal A-fib
Constipation
Parkinson disease
ITP
GERD
Anxiety
Osteopenia
Glaucoma
Diverticulitis
Pneumonia
Anemia
Past Surgical History: Reports Other
Additional Past Surgical History:
Splenectomy
Cardiac ablation
Hysterectomy
Social History
Tobacco: Non-smoker
Alcohol: None
Drug: None
Living: Longterm
Family History
Family History: Not pertinent
Allergies / Home Medications
Allergies reflects when Allergies were last updated in [employer].
Home Medications with original date entered in [employer]
Allergy/Medication List:
Allergies
Allergy/AdvReac Type Severity Reaction Status Date / Time
codeine Allergy Nausea,HEAD Verified 08/07/24 13:13
ACHE,RASH,D
EDUARDO
Iodinated Contrast Media Allergy Hives Verified 08/07/24 13:13
[Iodinated Contrast Media -
Oral and]
Penicillins Allergy Hives,HEADA Verified 08/07/24 13:13
EUGENIO,RASH,NA
USEA
Sulfa (Sulfonamide Allergy HEADACHE,RA Verified 08/07/24 13:13
Antibiotics) SH,NAUSEA
gnats Allergy Rash Uncoded 07/06/24 13:04
MOSQUITO Allergy Swelling/RE Uncoded 07/06/24 13:04
DNESS
Home Medications
apixaban 5 mg tablet (Eliquis) 5 mg PO BID Blood clot prevention/tx 10/08/16
cholecalciferol (vitamin D3) 25 mcg (1,000 unit) capsule (Vitamin D3) 25 mcg PO NOON Supplement 11/08/22
carbidopa 25 mg-levodopa 100 mg tablet 1 tab PO 5/D@00,08,12,16,20 PARKINSON'S 08/19/23
atenolol 25 mg tablet 25 mg PO DAILY Arrhythmia #30 tabs 08/22/23
amiodarone 200 mg tablet (Pacerone) 200 mg PO DAILY A-FIB 04/11/24
gabapentin 100 mg capsule 100 mg PO BID NEUROPATHY 04/11/24
latanoprost 0.005 % eye drops 1 drp BOTH EYES HS Eye Condition 04/11/24
ondansetron HCl 4 mg tablet 4 mg PO Q8HPRN PRN nausea 07/06/24
furosemide 20 mg tablet 20 mg PO BID 09/11/24
levothyroxine 100 mcg tablet 100 mcg PO DAILY 09/11/24
melatonin 5 mg tablet 5 mg PO HS 09/11/24
midodrine 5 mg tablet 5 mg PO TID 09/11/24
prednisone 10 mg tablet 40 mg PO .TAPER 09/11/24
Review of Systems
-
Constitutional: Reports Fatigue
EENT: Reports No Symptoms
Respiratory: Reports No Symptoms
Cardiac: Reports No Symptoms
Abdomen/GI: Reports No Symptoms
: Reports No Symptoms
Musculoskeletal: Reports No Symptoms
Skin: Reports No Symptoms
Neurological: Reports Weakness
Endocrine: Reports No Symptoms
Hematologic/Lymphatic: Reports No Symptoms
Psych: Reports No Symptoms
Physical Exam
Vital Signs
Vital Signs
Temp Pulse Resp BP Pulse Ox
101.4 F H 65 28 101/48 98
09/11/24 11:00 09/11/24 11:48 09/11/24 11:30 09/11/24 11:00 09/11/24 11:30
Physical Exam
General: Well Developed, Well Nourished and No Apparent Distress
HEENT: NormoCephalic, Moist mucous membranes and Atraumatic
Respiratory: Clear
Cardiac: S1/S2 and Regular Rhythm; No Murmur or Rub
GI: Soft, Non Tender, Non Distended and Normal Bowel Sounds; No Organomegaly
Rectal: Deferred by Provider
Musculoskeletal: No Clubbing, No Cyanosis and No Edema
Skin: No Rash
Neuro: AO x 3 and Nonfocal/grossly intact
Psych: Calm
Laboratory Results
-
09/11/24 11:33
09/11/24 11:33
Laboratory Results
Lactic Acid 1.3 mmol/L (0.7-2.0) 09/11/24 11:33
Total Bilirubin 5.3 mg/dl (0.2-1.3) H 09/11/24 11:33
AST 278 U/L (14-36) H 09/11/24 11:33
ALT 84 U/L (0-35) H 09/11/24 11:33
Alkaline Phosphatase 145 U/L (38-126) H 09/11/24 11:33
Troponin I 0.047 ng/ml H* 09/11/24 11:33
Data Reviewed
-
Lab Data: Labs Reviewed by me
Impression/Plan
-
#Septic Secondary to urinary tract infection
-WBCs 22.1Fever 101.4
-History for E. coli
-Chest x-ray pending
-Flu COVID-negative
-Urine culture and blood culture sent from ER
-IV cefepime and Vanco in ER
- IV ertapenem
-ID consult
#Acute on chronic anemia neck
-Hemoglobin stable at 7.9
-No active bleeding
-Continue to monitor
-obtain stool for occult blood
-iron panel added
#Acute kidney injury on CKD stage 11
-Creatinine 2.5
-Monitor BMP in a.m.
-patient received normal saline 250cc/in Er
-LR continued for 1liter
#Acute on chronic transaminitis likely shock liver
#Hyperbilirubinemia, hypocalcemia
-Calcium 7.7, T. bili 5.3
-AST 278, ALT 84, ALT 145
-denied abdominal pain
-continue to trend LFTs
-US of abdomen pending
#Elevated troponin NSTEMI
-Trop 0.075
-patient denied chest pain
- continue to trend Trope
#Paroxysmal atrial fibrillation
- continue amiodarone
- hold atenolol due to soft BP
- continue Eliquis
#Orthostatic hypotension
- continue midodrine
#Possible temporal arteritis
-On prednisone
#Hypothyroidism - continue levothyroxine.
#Parkinson's disease - continue carbidopa-levodopa
#History of CHF
-Patient not in acute exacerbation
-Strict EZEQUIEL, daily weight fluid restriction
-Lasix held due to soft BP and dudley
-recent ECHO with EF of 60-65
#History of ITP/pancytopenia
#moderate Protein calorie malnutrition
#Neuropathy - continue gabapentin
DVT ppx: Eliquis
Code: DNR/DNI
[2024-09-11] MEDS: VANCOCIN 530 MG IV (13:15)
[2024-09-11] MEDS: MAXIPIME 2000 MG IV (13:15)
--- NOTE | 2024-09-11 13:34 | W.PN.UPDATE ---
Update Note
Progress Note Update
I could not get any information from the patient is lethargic
Information gathered by chart review and speaking with the ER staff.
This note serves as an addendum to the H&P by director of physiotherapy services KAYLEIGH Danae MENDOSA
HPI
79F [facility] Res general deterioration x 2 days per the son with decreased alertness, increased lethargy, decreased feeding just general decline over 2 days.
Brought in with borderline unresponsiveness and hypotension. Patient unable to add history
PHX:
Chr HFpEF on oral Lasix.
HX traumatic right wrist fracture, currently in a brace with outpatient Orthopedic followup.
Possible UTI, although culture was negative.
Chronic anemia.
HX Paroxysmal A Fib, on amiodarone, atenolol, and Eliquis.
Essential hypertension, on losartan.
HX Orthostatic hypotension, on midodrine.
Presumed temporal arteritis on tapering dose of PO prednisone by Rheum
Hypothyroidism, on levothyroxine.
Parkinson's disease, on Sinemet.
History of ITP and pancytopenia.
Moderate protein caloric malnutrition.
Neuropathy, on gabapentin.
HX right sacral pressure injury present on arrival.
Selected Entries
09/11/24
11:00
Temp 101.4 F H
Pulse 77
Resp Rate 35
Blood pressure 101/48
SaO2 95
Oxygen Mode of Delivery Room air
PE: limited exam due to lethargy
Gen: lethargic , frail, looks chronically ill
HEENT: symmetric face
Neck: supple
Lungs:symmetric AE
Cor: RRR
Abdomen: soft abdomen, NG
PLANER MILL GRADER: lethargy, arousable , minimally interactive
MS: no edema
Psych:unable due o lethargy
Laboratory Tests
08/24/24 09/11/24
11:58 11:33
WBC 20.0 H 22.1 H
Hgb 10.4 L 7.9 L
Plt Count 355 199
BUN 48 H 62 H
Creatinine 1.0 2.5 H
eGFR 58.02 19.32
Total Bilirubin 1.0 5.3 H
AST 43 H 278 H
ALT 26 84 H
Alkaline Phosphatase 94 145 H
Last hospitalist admission: 08/07/2024 - 08/12/2024
DC DXs:
1. Acute congestive heart failure.
2. Acute traumatic right wrist fracture.
ASSESSMENT & PLAN
Sepsis( T101.4, RR28, WCC 22) due to recurrent UTI ( HX ESBL UTI and asplenic patient ) - current UA POS for UTI
HX PCN allergy
Prior HX ESBL resistant to CFP, aztreonam
Associated with ELPIDIO and AILI due to sepsis with hypotension
Associated lethargy suspect hypoactive TME
- LA 1.3
- UCx and BCx was sent
- she was given Vancomycin and CFP at ER
- agree with IV Ertapenem ( sensitive to prior ESBL )
- aspiration precaution - speech eval and Tx
- ID consult
Borderline hypotension
ELPIDIO due to UTI and sepsis
Baseline eGFR hi 50s c/w HX CKD2/3a
- s/p IV NS 250 cc
- IV LR 80/H
- Hold Atenolol
Acutely elevated transaminase with hyperbilirubinemia presumed shock liver ( AILI) due to sepsis
No RHC tenderness
- trend LFTs daily till peak
Acute on chronic anemia
Baseline Hgb averages around 10, hemoglobin today 7
- c/w HIV CTS SPECIALIST Eliquis
- check HoB stool
- trend Hgb
HX Chr HFpEF
08/10/23 Echo: Normal LV size/function. EF 60-65%, mild MR, severe TR, severe pulm HTN
- Hold HIV CTS SPECIALIST PO Lasix due to ELPIDIO and hypotension
Paroxysmal AF
- hold atenolol due to soft BP
- c/w amiodarone
- c/w Eliquis
Essential hypertension
- Hold atenolol
Possible temporal arteritis HX on last admission
- Temporal artery biopsy at that time showed possible arteritis versus atherosclerosis.
- she was discharged on empiric prednisone 60 mg daily last month.
- c/w tapering dose of PO Prednisone
- OP f/u with Rheum
Hypothyroidism
- c/w levothyroxine.
Parkinson's disease
Asso. Orthostatic hypotension
- c/w carbidopa-levodopa
- continue midodrine
HX ITP/pancytopenia
Neuropathy
- continue gabapentin
Moderate Protein calorie malnutrition
HX Stage 2 right sacral pressure injury, POA
DVT ppx: Eliquis
Code: DNR
IP TLM
[2024-09-11 13:43] LABS: Iron 23 ug/dl (37-170)
[2024-09-11 13:52] LABS: Percent Saturation 14 % (20-50); Total Iron Binding Capacity 154 ug/dl (265-497)
[2024-09-11] MEDS: NSS 500 IV (14:00)
[2024-09-11 15:00] VITALS: BP 117/60
[2024-09-11 15:43] LABS: Folate > 20.0 ng/ml (2.76-20); Vitamin B12 945 pg/ml (239-931)
--- NOTE | 2024-09-11 16:20 | CON.ID ---
Consultation
-
Date/Time Consultation Requested: September 11, 2024
Date/Time Consultation Performed: September 11, 2024 1620
Requesting Provider: JADA Head
Performing Provider: Dr. Rain Morton
Reason for Consultation: UTI/sepsis, penicillin allergy
Chief Complaint / Past History
Chief Complaint
Fever
History of Present Illness
79-year-old female with a significant past medical history of A-fib, Parkinson's disease, possible temporal arteritis on prednisone 30 mg daily, history of splenectomy who presented to the ED today from assisted living facility due to fever and
decreased mental status. Patient febrile 101.4, white count of 22, 14% bands. Urine analysis positive nitrite, 3+ leukocyte esterase, more than 100 white blood cells. Patient with history of ESBL E. coli in the urine. She received cefepime and
vancomycin in the ED then transition to ertapenem. COVID and influenza negative. Patient denies dysuria. She reports urine incontinence and urgency which is chronic. No flank pain. No cough or shortness of breath. No nausea, vomiting abdominal
pain or diarrhea. No headaches. Denies ill contacts.
Past History
Additional Past Medical History:
HTN
Hypothyroidism
Parkinson's disease
Dysphagia
P A-fib hx cardiac ablation
CHF
Anxiety
GERD
Diverticulosis
Possible temporal arteritis on prednisone; bilateral temporal artery bx very rare inflammatory cells.
Splenectomy
Hysterectomy
Traumatic R wrist fracture
Allergy History:
codeine Allergy (Verified 08/07/24 13:13)
Nausea,HEADACHE,RASH,DIZZY
Iodinated Contrast Media [Iodinated Contrast Media - Oral and] Allergy (Verified 08/07/24 13:13)
Hives
Penicillins Allergy (Verified 08/07/24 13:13)
Hives,HEADACHE,RASH,NAUSEA
Sulfa (Sulfonamide Antibiotics) Allergy (Verified 08/07/24 13:13)
HEADACHE,RASH,NAUSEA
gnats Allergy (Uncoded 07/06/24 13:04)
Rash
MOSQUITO Allergy (Uncoded 07/06/24 13:04)
Swelling/REDNESS
Medications Reviewed: Yes
Current Antibiotics:
S/p cefepime, Vanco x 1
Ertapenem
Social History
Tobacco: Non-Smoker
Alcohol: None
Drug: None
Living: Assisted Living
Employment: Retired
Family History
Family History: Not Pertinent
Review of Systems
Review of Systems
General: Fever, Chills and Change in Appetite
HEENT: Negative Sinus Problems, Headache or Pharyngitis
Cardiovascular: Negative Chest Pain or Dyspnea
Respiratory: Negative Dyspnea or Cough
Gasteroenterology: Negative Nausea, Vomiting or Diarrhea
Genital / Urological: Negative Dysuria or Flank Pain
Endocrine: Weakness
All systems: All other systems were reviewed and were negative
Vital Signs
Temp Pulse Resp BP Pulse Ox
101.4 F H 58 16 117/60 96
09/11/24 11:00 09/11/24 15:00 09/11/24 15:00 09/11/24 15:00 09/11/24 15:00
Physical Exam
Physical Exam
Constitutional: Acutely Ill and Chronically Ill
Head: Other (No frontal or max or sinus tenderness)
Eyes: No Conjunctival Hemorrhage and Sclera Anicteric
Cardiovascular: Regular Rate and S1/S2
Pulmonary: Clear
Gastrointestinal: Soft, Non Tender, Non Distended and Normal Bowel Sounds
Genito-Urinary: Negative CVA Tenderness
Extremities: Negative Edema
Neurological: AO x 3; Negative Meningeal Signs
Lab / Diagnostic Study Results
09/11/24 11:33
09/11/24 11:33
Total Counted 100 09/11/24 11:33
Abs Neuts (Manual) 20.9 10^3/uL (1.4-6.5) H 09/11/24 11:33
Segmented Neutrophils 81 % (42-75) H 09/11/24 11:33
Band Neutrophils 14 % (0-3) H 09/11/24 11:33
Lymphocytes (Manual) 1 % (20-51) L 09/11/24 11:33
Lactic Acid 1.3 mmol/L (0.7-2.0) 09/11/24 11:33
Ur Squamous Epith Cells >30 /LPF (Few) 09/11/24 11:33
Microbiology Results
Micro:
09/11/24 11:33 Influenza Types A & B (SATISH) - Final
Nasal Swab Negative for Influenza A & B, NAAT
Negative results must be combined with clinical observations
and patient history.
Nucleic Acid Amplification test (NAAT)performed on the
[employer] platform.
09/11/24 11:32 Blood Culture - Pending
Blood/Venous
09/11/24 11:33 Urine Culture - Pending
Urine
09/11/24 11:32 Blood Culture - Pending
Blood/Venous
09/11/24 ABD US: Normal appearance of the gallbladder with no evidence for biliary ductal dilation. Status post splenectomy.
09/11/24 CXR: Cardiomegaly. Subtle diffuse increased interstitial markings, suggestive of interstitial pulmonary edema pattern. Focal or confluent parenchymal airspace opacity within the left lung base, main differential considerations of pneumonia
and/or atelectasis.
Assessment / Plan
# Suspected UTI
# Fever
# Leukocytosis with bandemia
# Sepsis
# ELPIDIO
# History of splenectomy
# temporal arteritis on chronic prednisone currently 30 mg daily
-Follow blood cultures
-Await urine culture
-Agree with ertapenem 500 g IV every 24 hours, renally adjusted
-Trend temperature, white count, renal function
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
HTN
Hypothyroidism
Parkinson's disease
Dysphagia
P A-fib hx cardiac ablation
CHF
Anxiety
GERD
Diverticulosis
Possible temporal arteritis on prednisone; bilateral temporal artery bx very rare inflammatory cells.
Splenectomy
Hysterectomy
Traumatic R wrist fracture
[2024-09-11 16:30] VITALS: BP 121/58; BMI 20.6
[2024-09-11] MEDS: LR 1000 IV (17:32)
[2024-09-11] MEDS: ProAmatine 5 MG PO (17:52)
[2024-09-11] MEDS: SINEMET 25-100 1 TABLET PO ×3 (17:52→23:20)
[2024-09-11 18:30] LABS: Troponin I 0.059 ng/ml
[2024-09-11] MEDS: INVANZ 55 MG IV (18:42)
[2024-09-11 19:21] VITALS: BP 117/47
[2024-09-11] MEDS: NEURONTIN 100 MG PO (20:26)
[2024-09-11] MEDS: ELIQUIS 2.5 MG PO (20:26)
[2024-09-11] MEDS: MELATONIN 5 MG PO (21:58)
[2024-09-11] MEDS: XALATAN OPHTHALMIC SOLUTION 1 DROP BOTH EYES (21:59)
[2024-09-11 23:16] VITALS: BP 98/47
[2024-09-12] VITALS (8 sets, daily range): BP systolic 63–152; BP diastolic 29–72; PULSE 60; BMI 19.8
[2024-09-12 00:18] LABS: Troponin I 0.053 ng/ml
[2024-09-12] MEDS: TYLENOL 650 MG PO ×2 (01:44→13:53)
[2024-09-12] MEDS: SYNTHROID 100 MCG PO (05:04)
[2024-09-12 07:53] LABS: Hematocrit 22.6 % (37.0-47.0); Hemoglobin 8.2 g/dL (12.0-16.0); Mean Corp Hgb Conc. 36.3 g/dL (33.0-37.0); Mean Corpuscular Hgb 31.4 pg (27.0-31.0); Mean Corpuscular Volume 86.6 fL (81.0-99.0); Mean Platelet Volume 12.9 fL (7.4-10.4); Platelet Count 207 10^3/uL (130-400); Red Blood Cell Count 2.61 10^6/uL (4.20-5.40); Red Cell Dist. Width 19.9 % (11.5-14.5); White Blood Cell Count 19.5 10^3/uL (4.8-10.8)
[2024-09-12] MEDS: ELIQUIS 2.5 MG PO ×2 (08:03→19:56)
[2024-09-12] MEDS: PACERONE 200 MG PO (08:03)
[2024-09-12] MEDS: ProAmatine 5 MG PO ×3 (08:03→17:06)
[2024-09-12] MEDS: DELTASONE 40 MG PO (08:04)
[2024-09-12] MEDS: NEURONTIN 100 MG PO ×2 (08:04→19:56)
[2024-09-12] MEDS: SINEMET 25-100 1 TABLET PO ×2 (08:07→12:00)
[2024-09-12 08:14] LABS: ALT (SGPT) 31 U/L (0-35); AST (SGOT) 438 U/L (14-36); Albumin 2.3 g/dl (3.5-5.0); Alkaline Phosphatase 154 U/L (38-126); Blood Urea Nitrogen 67 mg/dl (7-17); Calcium 7.8 mg/dl (8.4-10.2); Carbon Dioxide 25 mmol/L (22-30); Chloride 102 mmol/L (98-107); Estimated Creatinine Clearance 19 ml/min; Glucose 102 mg/dl (70-99); Potassium 4.1 mmol/L (3.5-5.1); Sodium 134 mmol/L (135-145); Total Bilirubin 5.2 mg/dl (0.2-1.3); eGFR 23.82
[2024-09-12 08:22] LABS: Troponin I 0.041 ng/ml
--- NOTE | 2024-09-12 09:30 | W.PN.ID1 ---
Date of Service
Date of Service: September 12, 2024
Today's Communication
Continue Ertapenem.
Assessment / Plan
# Complicated UTI
# GNR bacteremia
# Fever trending down
# Leukocytosis with bandemia
# Sepsis
# ELPIDIO
# History of splenectomy
# temporal arteritis on chronic prednisone currently 30 mg daily
- blood cultures x 2 GNR
- urine culture E.coli (suspect ESBL-E coli as previous)
-Repeat blood cx's in am
-Continue ertapenem 500 g IV every 24 hours (d2) renally adjusted
-Trend temperature, white count, renal function
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
HTN
Hypothyroidism
Parkinson's disease
Dysphagia
P A-fib hx cardiac ablation
CHF
Anxiety
GERD
Diverticulosis
Possible temporal arteritis on prednisone; bilateral temporal artery bx very rare inflammatory cells.
Splenectomy
Hysterectomy
Traumatic R wrist fracture
Chief Complaint
-: Fever, Leukocytosis and Bacteremia
Subjective / Review of Systems
Feels the same.
Vital Signs / Physical Exam
Vital Signs
Vital Signs
Temp Pulse Resp BP Pulse Ox
97.6 F 57 17 113/51 99
09/12/24 07:36 09/12/24 08:03 09/12/24 07:36 09/12/24 08:03 09/12/24 07:36
Physical Exam
Constitutional: Acutely Ill and Chronically Ill
Cardiovascular: Regular Rate and S1/S2
Pulmonary: Clear
Gastrointestinal: Soft, Non Tender, Non Distended and Normal Bowel Sounds
Genito-Urinary: Negative CVA Tenderness
Extremities: Negative Edema
Objective Data
Lab Data
Lab Results
09/12/24 07:42
09/12/24 07:42
Estimated Creat Clear 19 ml/min 09/12/24 07:42
Lactic Acid Cancelled 09/11/24 15:15
Total Bilirubin 5.2 mg/dl (0.2-1.3) H 09/12/24 07:42
AST 438 U/L (14-36) H 09/12/24 07:42
ALT 31 U/L (0-35) 09/12/24 07:42
Alkaline Phosphatase 154 U/L (38-126) H 09/12/24 07:42
Most recent labs reviewed.
Micro Results:
09/11/24 11:33 Urine Culture - Preliminary
Urine Escherichia coli
09/11/24 11:32 Blood Culture - Preliminary
Blood/Venous Positive culture in progress
Gram Stain - Preliminary
09/11/24 11:32 Blood Culture - Preliminary
Blood/Venous Positive culture in progress
Gram Stain - Preliminary
09/12/24 01:41 MRSA Screen - Pending
Nose
09/11/24 11:33 Influenza Types A & B (SATISH) - Final
Nasal Swab Negative for Influenza A & B, NAAT
Negative results must be combined with clinical observations
and patient history.
Nucleic Acid Amplification test (NAAT)performed on the
[employer] platform.
09/11/24 ABD US: Normal appearance of the gallbladder with no evidence for biliary ductal dilation. Status post splenectomy.
09/11/24 CXR: Cardiomegaly. Subtle diffuse increased interstitial markings, suggestive of interstitial pulmonary edema pattern. Focal or confluent parenchymal airspace opacity within the left lung base, main differential considerations of pneumonia
and/or atelectasis.
[2024-09-12] MEDS: NSS 1000 IV ×2 (10:36→23:07)
[2024-09-12] MEDS: VITAMIN D3 (cholecalciferol) 25 MCG PO (12:21)
--- NOTE | 2024-09-12 12:58 | W.PN.HOSP.TC ---
Addendum entered and electronically signed by Pat Crawford MD 09/12/24 14:17:
I saw and evaluated the patient independently. I reviewed the resident�s note and agree with findings and plan as documented by Dr. Ortiz.
GENERAL: chronically ill appearing female in no apparent distress
HEENT: NC/AT--no O2 requirements
HEART: regular rate and rhythm, +S1, +S2
LUNGS : clear to auscultation bilaterally
ABDOM: soft, nontender, nondistended, + bowel sounds
EXT: no cyanosis, clubbing, or edema
NEUROLOGIC: apparent Parkinson's
Sepsis POA -- likely secondary to UTI--urine and blood cultures positive for E. coli ESBL--repeat blood culture until clear--WBC elevated but improving--apprec ID--cont ertapenem--cont IVF, lactate acid WNL
ELPIDIO on CKD stage II--likely due to sepsis and pre-renal causes--baseline creat 08/24/24 is 1.0--renal dose meds--cont IVF--if no improvement consider renal consult
Elevated troponin---Most likely due to nonischemic myocardial injury--Troponin trending downwards
Recent altered mental status--Most likely due to UTI/sepsis---Head CT without acute findings--improved
Paroxysmal A-fib--Continue amiodarone--Holding atenolol due to hypotension, resume once more stable--Continuing Eliquis
Acute on anemia of chronic disease---High ferritin (1540), Low iron, TIBC consistent with chronic anemia--follow H&H--could be dilutional from IVF given in ED--Awaiting stool occult blood test
Acute on chronic transaminitis/Hyperbilirubinemia, hypocalcemia-- possibly due to sepsis versus chronic treatment with amiodarone--follow--less likely shock liver--US without acute findings or dilated ducts--check tylenol level--replete as needed
Orthostatic hypotension--chronic--likely due to Parkinson's--cont midodrine
Unclear history of temporal arteritis--Patient on prednisone 40 mg at home--no needs for stress dose steroids at this time--cont 40mg for now
Hypothyroidism--Will check TSH, will continue levothyroxine
Parkinson's disease--Continue Sinemet therapy, 5 times daily--pt may take her own
CHF with preserved ejection fraction--No fluid restriction, continue daily weights--Lasix held due to treatment with fluids--Latest echo showed left ventricular ejection fraction of 60 to 65% and severe pulmonary hypertension-Continue soft fluid
therapy and monitor for any changes in breathing--Lasix and fluid restriction to resume once patient's condition improves
Right sacral pressure injury (POA)--Will consult wound nurse for further evaluation, input appreciated
Moderate protein calorie nutrition--Continue monitoring albumin levels
Neuropathy--Patient on gabapentin 100 mg twice daily, no renal dosing changes needed at this time due to low dose
History of ITP/pancytopenia--Continue to monitor CBC
CODE STATUS--DNR
DVT proph--Eliquis
Original Note:
Today's Communication/Plan
-
Continue IV antibiotic treatment, continue IV fluids, monitor for any fever, hypotension. Awaiting stool studies for occult blood.
Assessment / Plan
Assessment / Plan
Assessment:
79-year-old female with a past medical history of GERD, hypertension, hypothyroidism, anxiety, depression, Parkinson's, CHF came to the [facility] ED on 09/11/2024 due to being found unresponsive by her nursing staff at her care facility.
Patient recently moved from [facility] to this long-term living facility. Patient presented to the ED with fever since this morning and was feeling very weak. She was having some mental alterations as well so that she could not give proper history
in the ED. In the ED patient was found to be febrile, tachypneic, and had leukocytosis. Patient's UA also showed concern for her having a UTI. Patient was suspected to have sepsis due to UTI. Blood and urine cultures were taken and patient was
admitted for further management. Patient was started on IV cefepime and vancomycin in ER along with a bolus of lactated Ringer's, ID was consulted at this time as patient has had multidrug-resistant E. coli UTIs in the past. Patient underwent head
CT due to her mental changes, which did not show any acute abnormalities. Patient also underwent chest x-ray which showed possible interstitial pulmonary edema and possible pneumonia due to focal/confluent parenchymal airspace opacity within the
left lung base. Patient also had abnormally elevated LFTs so underwent ultrasound abdomen but no acute findings were found. As patient was allergic to penicillin and sulfa drugs, patient was started on ertapenem.
CT Head W/o Iv Contrast (09/11/2024):
No evidence of acute intracranial abnormality.
CR Chest Portable - 1 View (09/11/2024):
Cardiomegaly.
Subtle diffuse increased interstitial markings, suggestive of interstitial pulmonary edema pattern.
Focal or confluent parenchymal airspace opacity within the left lung base, main differential considerations of pneumonia and/or atelectasis.
US Abdomen Complete/Upper (09/11/2024):
Normal appearance of the gallbladder with no evidence for biliary ductal dilation.
Status post splenectomy.
Plan:
# Sepsis POA secondary to UTI
-On presentation to the ED, met SIRS criteria (WBCs 22.1, 101.4F, RR28)
-Patient currently on ertapenem that is being renally dosed
-ID consulted, input appreciated
-Blood cultures, and urine cultures both positive for E. coli (ESBL)
-Blood cultures will be repeated in the a.m.
-Continue ertapenem and consider antibiotic change as per IDs recommendations
-Was given lactated Ringer's in the ED, no fluids since
-Started on normal saline
-Continue trending temperature, WBC count
# ELPIDIO on CKD stage II
-Creatinine 2.5 on presentation, 2.1 now
-Patient received fluids in the ER, restarted on IV fluids
-Continue monitoring CMP
-Renal dose of medication as needed
# Elevated troponin
-Troponin trending downwards
-Most likely due to nonischemic myocardial injury
# Recent altered mental status
-Most likely due to UTI/sepsis
-Head CT as above
-Resolving, patient is much more aware
-Continue monitoring for any worsening mental status changes
# Paroxysmal A-fib
-Continue amiodarone
-Holding atenolol due to hypotension, resume once more stable
-Continuing Eliquis
# Acute on chronic anemia
-High ferritin (1540), Low iron, TIBC consistent with chronic anemia
-Hemoglobin remaining stable
-Continue to monitor
-Awaiting stool occult blood test
# Acute on chronic transaminitis, possibly due to sepsis versus chronic treatment with amiodarone
# Hyperbilirubinemia, hypocalcemia
-Continue monitoring bilirubin and calcium levels
-Continue trending LFTs
-Ultrasound as above, no acute findings
# Orthostatic hypotension
-Patient on midodrine continue
# Unclear history of temporal arteritis
-Patient on prednisone 40 mg at home
-Will continue for now
# Hypothyroidism
-Will check TSH, will continue levothyroxine
# Parkinson's disease
-Continue Sinemet therapy, 5 times daily
# CHF with preserved ejection fraction
-No fluid restriction, continue daily weights
-Lasix held due to treatment with fluids
-Latest echo showed left ventricular ejection fraction of 60 to 65% and severe pulmonary hypertension
-Continue soft fluid therapy and monitor for any changes in breathing
-Lasix and fluid restriction to resume once patient's condition improves
# Right sacral pressure injury (POA)
-Will consult wound nurse for further evaluation, input appreciated
# Moderate protein calorie nutrition
-Continue monitoring albumin levels
# Neuropathy
-Patient on gabapentin 100 mg twice daily, no renal dosing changes needed at this time due to low dose
# History of ITP/pancytopenia
-Continue to monitor CBC
CODE STATUS: DNR
DVT prophylaxis: Eliquis
Anticipated Discharge: > 48 hours
Subjective/Interval History
-
Date of Service: September 12, 2024
Patient continues to complain about feeling nauseous, not feeling well. Concerned about not having marked improvement yet. Afebrile upon examination, reported no chills, shortness of breath, chest pain.
Objective Data
-
Labs:
Laboratory Results
09/12/24
07:42
WBC 19.5 H
Hgb 8.2 L
Hct 22.6 L
Plt Count 207
Sodium 134 L
Potassium 4.1
Chloride 102
Carbon Dioxide 25
BUN 67 H
Creatinine 2.1 H
Glucose 102 H
Calcium 7.8 L
Total Bilirubin 5.2 H
AST 438 H
ALT 31
Alkaline Phosphatase 154 H
Vital Signs:
Vital Signs
Temp Pulse Resp BP Pulse Ox
97.4 F 59 17 106/44 99
09/12/24 11:27 09/12/24 12:21 09/12/24 11:27 09/12/24 12:21 09/12/24 11:27
I&O
09/11/24 09/12/24 09/13/24
06:59 06:59 06:59
Intake Total 1280 / 1280
Balance 1280 / 1280
Review of Systems
-
History Source: Patient
Constitutional: Reports Fatigue; Denies Fever or Chills
EENT: Reports No Symptoms Reported
Respiratory: Denies Cough or Trouble Breathing
Cardiac: Denies Chest Pain, Diaphoresis or Palpitations
Abdomen/GI: Reports Diarrhea (Soft stool); Denies Abdominal Pain, Nausea or Vomiting
Genitourinary: Reports No Symptoms
Skin: Reports No Symptoms
Physical Exam
-
General: Well Developed, Well Nourished, No Apparent Distress, Comfortable and Conversant
HEENT: Normocephalic and Atraumatic
Respiratory: Clear to Auscultation and Non Labored Respirations
Cardiac: S1/S2 and Irregular Rhythm
GI: Soft, Nontender, Nondistended and Normal Bowel Sounds
Musculoskeletal: No Clubbing, No Cyanosis and No Edema
Skin: Warm
Neuro: Awake, Alert and Oriented
Psych: Calm
Data Reviewed
-
Diagnostic Radiology: Report Reviewed by me, Discussed with Physician, Discussed with Nurse and Discussed with Patient
CT Scan: Report Reviewed by me, Discussed with Physician, Discussed with Nurse, Discussed with Patient and Discussed with Family
Labs: Labs Reviewed by me, Discussed with Physician, Discussed with Nurse, Discussed with Patient and Discussed with Family
--- NOTE | 2024-09-12 15:12 | PTOTSP ---
ST Acute Care Evaluation
Pt currently presents with clinical signs of mild oropharyngeal dysphagia characterized by reduced bolus formation with dry/hard solids, coughing with dry/hard solids, and RN reported coughing with mixed consistencies (meds with water).
Recommendations:
- Change diet to SOFT BITE SIZED SOLIDS with THIN LIQUIDS (single sips); meds whole or crush in puree (pt prefers yogurt or pudding).
- Aspiration precautions: HOB upright as much as pt can tolerate; SINGLE SIPS; alternate solids and liquids; avoid mixed consistencies.
- GENERAL LITHOGRAPHIC WORKER to f/u re: diet tolerance, use of compensatory strategies, and to determine if pt would benefit from an instrumental swallow study.
[2024-09-12] MEDS: NON-FORMULARY ITEM 1 UNIT PO ×3 (16:06→23:46)
[2024-09-12] MEDS: INVANZ 55 MG IV (17:07)
[2024-09-12] MEDS: MELATONIN PO (21:20)
[2024-09-12] MEDS: XALATAN OPHTHALMIC SOLUTION 1 DROP BOTH EYES (21:28)
[2024-09-13 03:42] VITALS: BP 133/73
[2024-09-13] MEDS: NSS 1000 IV ×2 (05:20→13:33)
[2024-09-13] MEDS: SYNTHROID 100 MCG PO (05:21)
[2024-09-13 06:00] VITALS: BMI 20.3
[2024-09-13 07:06] LABS: Hematocrit 21.3 % (37.0-47.0); Hemoglobin 7.5 g/dL (12.0-16.0); Mean Corp Hgb Conc. 35.2 g/dL (33.0-37.0); Mean Corpuscular Hgb 30.7 pg (27.0-31.0); Mean Corpuscular Volume 87.3 fL (81.0-99.0); Platelet Count 196 10^3/uL (130-400); Red Blood Cell Count 2.44 10^6/uL (4.20-5.40); Red Cell Dist. Width 19.9 % (11.5-14.5); White Blood Cell Count 16.2 10^3/uL (4.8-10.8)
[2024-09-13 07:40] VITALS: BP 131/66
[2024-09-13 07:53] LABS: ALT (SGPT) 49 U/L (0-35); AST (SGOT) 298 U/L (14-36); Alkaline Phosphatase 161 U/L (38-126); Blood Urea Nitrogen 57 mg/dl (7-17); Calcium 7.9 mg/dl (8.4-10.2); Carbon Dioxide 24 mmol/L (22-30); Chloride 106 mmol/L (98-107); Estimated Creatinine Clearance 26 ml/min; Glucose 180 mg/dl (70-99); Potassium 4.1 mmol/L (3.5-5.1); Sodium 137 mmol/L (135-145); Total Bilirubin 3.2 mg/dl (0.2-1.3); Total Protein 4.5 g/dl (6.3-8.2); eGFR 33.01
[2024-09-13 08:12] LABS: TSH Reflex To Free T4 0.04 uIU/ml (0.47-4.68)
[2024-09-13] MEDS: DELTASONE 40 MG PO (08:42)
[2024-09-13] MEDS: ProAmatine 5 MG PO ×2 (08:42→12:01)
[2024-09-13] MEDS: PACERONE 200 MG PO (08:42)
[2024-09-13] MEDS: ELIQUIS 2.5 MG PO ×2 (08:43→20:58)
[2024-09-13] MEDS: NEURONTIN 100 MG PO ×2 (08:43→20:58)
[2024-09-13] MEDS: NON-FORMULARY ITEM 1 UNIT PO ×4 (08:43→20:59)
--- NOTE | 2024-09-13 10:14 | W.PN.ID1 ---
Date of Service
Date of Service: September 13, 2024
Today's Communication
Continue Ertapenem.
Assessment / Plan
# Complicated UTI with ESBL-Ecoli
# ESBL-Ecoli bacteremia
# Fever resolved
# Leukocytosis trending down
# ELPIDIO -improving
# History of splenectomy
# temporal arteritis on chronic prednisone currently 30 mg daily
-Repeat blood cx's pending
-Continue ertapenem 500 g IV every 24 hours (d3 of ) renally adjusted
- Adjust ertapenem dosing as renal function improves.
-Trend white count, renal function
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
HTN
Hypothyroidism
Parkinson's disease
Dysphagia
P A-fib hx cardiac ablation
CHF
Anxiety
GERD
Diverticulosis
Possible temporal arteritis on prednisone; bilateral temporal artery bx very rare inflammatory cells.
Splenectomy
Hysterectomy
Traumatic R wrist fracture
Chief Complaint
-: Fever, Leukocytosis and Bacteremia
Subjective / Review of Systems
No new complaints.
Vital Signs / Physical Exam
Vital Signs
Vital Signs
Temp Pulse Resp BP Pulse Ox
97.5 F 57 17 131/66 95
09/13/24 07:40 09/13/24 08:42 09/13/24 07:40 09/13/24 08:42 09/13/24 07:40
Physical Exam
Constitutional: Chronically Ill
Cardiovascular: Regular Rate and S1/S2
Pulmonary: Clear
Gastrointestinal: Soft, Non Tender, Non Distended and Normal Bowel Sounds
Genito-Urinary: Negative CVA Tenderness
Extremities: Negative Edema
Objective Data
Lab Data
Lab Results
09/13/24 06:10
09/13/24 06:10
Estimated Creat Clear 26 ml/min 09/13/24 06:10
Lactic Acid Cancelled 09/11/24 15:15
Total Bilirubin 3.2 mg/dl (0.2-1.3) H 09/13/24 06:10
AST 298 U/L (14-36) H 09/13/24 06:10
ALT 49 U/L (0-35) H 09/13/24 06:10
Alkaline Phosphatase 161 U/L (38-126) H 09/13/24 06:10
Most recent labs reviewed.
Micro Results:
09/11/24 11:33 Urine Culture - Final
Urine Escherichia coli - ESBL
09/11/24 11:32 Blood Culture - Preliminary
Blood/Venous Escherichia coli - ESBL
Gram Stain - Final
09/11/24 11:32 Blood Culture - Preliminary
Blood/Venous Escherichia coli - ESBL
Gram Stain - Final
09/12/24 01:41 MRSA Screen - Final
Nose No Methicillin Resistant Staphylococcus aureus isolated.
09/13/24 07:10 Blood Culture - Pending
Blood/Venous
09/13/24 06:10 Blood Culture - Pending
Blood/Venous
09/11/24 11:33 Influenza Types A & B (SATISH) - Final
Nasal Swab Negative for Influenza A & B, NAAT
Negative results must be combined with clinical observations
and patient history.
Nucleic Acid Amplification test (NAAT)performed on the
[employer] platform.
09/11/24 ABD US: Normal appearance of the gallbladder with no evidence for biliary ductal dilation. Status post splenectomy.
09/11/24 CXR: Cardiomegaly. Subtle diffuse increased interstitial markings, suggestive of interstitial pulmonary edema pattern. Focal or confluent parenchymal airspace opacity within the left lung base, main differential considerations of pneumonia
and/or atelectasis.
[2024-09-13 11:26] VITALS: BP 134/68
[2024-09-13] MEDS: VITAMIN D3 (cholecalciferol) 25 MCG PO (12:01)
--- NOTE | 2024-09-13 14:20 | W.PN.HOSP.TC ---
Addendum entered and electronically signed by Pat Crawford MD 09/13/24 14:34:
I saw and evaluated the patient independently. I reviewed the resident�s note and agree with findings and plan as documented by Dr. Kent.
GENERAL: chronically ill appearing female in no apparent distress
HEENT: NC/AT--no O2 requirements
HEART: regular rate and rhythm, +S1, +S2
LUNGS : clear to auscultation bilaterally
ABDOM: soft, nontender, nondistended, + bowel sounds
EXT: no cyanosis, clubbing, or edema
NEUROLOGIC: apparent Parkinson's
Sepsis POA -- likely secondary to ESBL E. coli UTI/bacteremia--repeat blood culture until clear--WBC elevated but improving--apprec ID--cont ertapenem (day 3 of 14 likely will need IV ABX)--stop IVF, lactate acid WNL
ELPIDIO on CKD stage II--likely due to sepsis and pre-renal causes--baseline creat 08/24/24 is 1.0--renal dose meds--stop IVF
Elevated troponin---Most likely due to nonischemic myocardial injury--Troponin trending downwards
Recent altered mental status--Most likely due to UTI/sepsis---Head CT without acute findings--improved
Paroxysmal A-fib--Continue amiodarone--resume atenolol--Continuing Eliquis
Acute on anemia of chronic disease---High ferritin (1540), Low iron, TIBC consistent with chronic anemia--follow H&H--could be dilutional from IVF given in ED--Awaiting stool occult blood test
Acute on chronic transaminitis/Hyperbilirubinemia, hypocalcemia-- possibly due to sepsis versus chronic treatment with amiodarone--follow--less likely shock liver--US without acute findings or dilated ducts--check tylenol level--replete as needed
Orthostatic hypotension--chronic--likely due to Parkinson's--cont midodrine
Unclear history of temporal arteritis--Patient on prednisone 40 mg at home--no needs for stress dose steroids at this time--cont 40mg for now
Hypothyroidism--Will check TSH, will continue levothyroxine
Parkinson's disease--Continue Sinemet therapy, 5 times daily--pt may take her own
CHF with preserved ejection fraction--No fluid restriction, continue daily weights--Lasix held due to treatment with fluids--Latest echo showed left ventricular ejection fraction of 60 to 65% and severe pulmonary hypertension-Continue soft fluid
therapy and monitor for any changes in breathing--Lasix and fluid restriction to resume likely in AM 09/14
Right sacral pressure injury (POA)--Will consult wound nurse for further evaluation, input appreciated
Moderate protein calorie nutrition--Continue monitoring albumin levels
Neuropathy--Patient on gabapentin 100 mg twice daily, no renal dosing changes needed at this time due to low dose
History of ITP/pancytopenia--Continue to monitor CBC
CODE STATUS--DNR
DVT proph--Eliquis
Original Note:
Today's Communication/Plan
-
* Continue ertapenem.
* PT-OT.
* Repeat blood cultures pending.
* Contact precautions.
Assessment / Plan
Assessment / Plan
Assessment:
79-year-old female with a past medical history of GERD, hypertension, hypothyroidism, anxiety, depression, Parkinson's, CHF came to the [facility] ED on 09/11/2024 due to being found unresponsive by her nursing staff at her care facility.
Patient recently moved from [facility] [place] to this long-term living facility. Patient presented to the ED with fever since this morning and was feeling very weak. She was having some mental alterations as well so that she could not give proper history
in the ED. In the ED patient was found to be febrile, tachypneic, and had leukocytosis. Patient's UA also showed concern for her having a UTI. Patient was suspected to have sepsis due to UTI. Blood and urine cultures were taken and patient was
admitted for further management. Patient was started on IV cefepime and vancomycin in ER along with a bolus of lactated Ringer's, ID was consulted at this time as patient has had multidrug-resistant E. coli UTIs in the past. Patient underwent head
CT due to her mental changes, which did not show any acute abnormalities. Patient also underwent chest x-ray which showed possible interstitial pulmonary edema and possible pneumonia due to focal/confluent parenchymal airspace opacity within the
left lung base. Patient also had abnormally elevated LFTs so underwent ultrasound abdomen but no acute findings were found. As patient was allergic to penicillin and sulfa drugs, patient was started on ertapenem.
CT Head W/o Iv Contrast (09/11/2024):
No evidence of acute intracranial abnormality.
CR Chest Portable - 1 View (09/11/2024):
Cardiomegaly.
Subtle diffuse increased interstitial markings, suggestive of interstitial pulmonary edema pattern.
Focal or confluent parenchymal airspace opacity within the left lung base, main differential considerations of pneumonia and/or atelectasis.
US Abdomen Complete/Upper (09/11/2024):
Normal appearance of the gallbladder with no evidence for biliary ductal dilation.
Status post splenectomy.
Plan:
Sepsis secondary to UTI
ESBL bacteremia
-On presentation to the ED, met SIRS criteria (WBCs 22.1, 101.4F, RR28)
-ID consulted, input appreciated
-Blood cultures, and urine cultures both positive for E. coli (ESBL) on 09-11-24.
-Repeat blood cultures pending.
-Continue ertapenem
-Continue trending temperature, WBC count
# ELPIDIO on CKD stage II
-Creatinine 2.5 on presentation, now down-trending.
-Patient received fluids in the ER, restarted on IV fluids
-Continue monitoring CMP
-Renal dose of medication as needed
# Elevated troponin
-Troponin trending downwards
-Most likely due to nonischemic myocardial injury
# Recent altered mental status
-Most likely due to UTI/sepsis
-Head CT as above
-Resolving, patient is much more aware
-Continue monitoring for any worsening mental status changes
# Paroxysmal A-fib
-Continue amiodarone
-Holding atenolol due to hypotension, resume once more stable
-Continuing Eliquis
# Acute on chronic anemia
-High ferritin (1540), Low iron, TIBC consistent with chronic anemia
-Hemoglobin remaining stable
-Continue to monitor
-Awaiting stool occult blood test
# Acute on chronic transaminitis, possibly due to sepsis versus chronic treatment with amiodarone
# Hyperbilirubinemia, hypocalcemia
-Continue monitoring bilirubin and calcium levels
-Continue trending LFTs
-Ultrasound as above, no acute findings
# Orthostatic hypotension
-Patient on midodrine continue
# Unclear history of temporal arteritis
-Patient on prednisone 40 mg at home
-Will continue for now
# Hypothyroidism
-Will check TSH, will continue levothyroxine
# Parkinson's disease
-Continue Sinemet therapy, 5 times daily
# CHF with preserved ejection fraction
-No fluid restriction, continue daily weights
-Lasix held due to treatment with fluids
-Latest echo showed left ventricular ejection fraction of 60 to 65% and severe pulmonary hypertension
-Continue soft fluid therapy and monitor for any changes in breathing
-Lasix and fluid restriction to resume once patient's condition improves
# Right sacral pressure injury (POA)
-Will consult wound nurse for further evaluation, input appreciated
# Moderate protein calorie nutrition
-Continue monitoring albumin levels
# Neuropathy
-Patient on gabapentin 100 mg twice daily, no renal dosing changes needed at this time due to low dose
# History of ITP/pancytopenia
-Continue to monitor CBC
CODE STATUS: DNR
DVT prophylaxis: Eliquis
Anticipated Discharge: > 48 hours
Subjective/Interval History
-
Date of Service: September 13, 2024
Doing well. No new complaints.
Objective Data
-
Labs:
Laboratory Results
09/13/24
06:10
WBC 16.2 H
Hgb 7.5 L
Hct 21.3 L
Plt Count 196
Sodium 137
Potassium 4.1
Chloride 106
Carbon Dioxide 24
BUN 57 H
Creatinine 1.6 H
Glucose 180 H
Calcium 7.9 L
Total Bilirubin 3.2 H
AST 298 H
ALT 49 H
Alkaline Phosphatase 161 H
Vital Signs:
Vital Signs
Temp Pulse Resp BP Pulse Ox
97.6 F 57 17 134/68 98
09/13/24 11:26 09/13/24 12:01 09/13/24 11:26 09/13/24 12:01 09/13/24 11:26
I&O
09/12/24 09/13/24 09/14/24
06:59 06:59 06:59
Intake Total 1280 / 1280 2280 / 2280
Balance 1280 / 1280 2280 / 2280
Review of Systems
-
History Source: Patient
Constitutional: Reports Fatigue; Denies Fever or Chills
EENT: Reports No Symptoms Reported
Respiratory: Denies Cough or Trouble Breathing
Cardiac: Denies Chest Pain, Diaphoresis or Palpitations
Abdomen/GI: Reports Diarrhea (Soft stool); Denies Abdominal Pain, Nausea or Vomiting
Genitourinary: Reports No Symptoms
Skin: Reports No Symptoms
Physical Exam
-
General: No Apparent Distress and Comfortable
HEENT: Normocephalic and Atraumatic
Respiratory: Clear to Auscultation and Non Labored Respirations
Cardiac: S1/S2 and Irregular Rhythm
GI: Soft, Nontender, Nondistended and Normal Bowel Sounds
Musculoskeletal: No Clubbing, No Cyanosis and No Edema
Skin: Warm
Neuro: Awake, Alert and Oriented
Psych: Calm and Intact Judgement/Insight
--- NOTE | 2024-09-13 14:58 | CM ---
Addendum entered by Edwige Mooney RN 09/13/24 15:09:
Noting seen by [facility] artur.
Original Note:
Patient from [facility] with Hx Parkinsons Dz with Dx Sepsis due to UTI. Room air. Receiving IV Abx, midodrine. Per nursing; forgetful. PT/OT recommend HH.
Spoke with Manuel, Nurse [facility]; he is new to [facility] and does not have full familiarity with this patient.
She was Ox2, required assist of 1 for ADLs, w/c bound.
The patient recently had a fall.
Manuel is uncertain if patient was receiving PT/OT.
The for nurse report [phone], fax [phone].
Plan follow up with patient's son or [facility] re; VN choices.
Plan return to [facility] with VN.
[2024-09-13 15:21] VITALS: BP 140/75
[2024-09-13] MEDS: INVANZ 55 MG IV (17:36)
[2024-09-13] MEDS: ProAmatine PO (17:42)
[2024-09-13 19:31] VITALS: BP 149/88
[2024-09-13] MEDS: XALATAN OPHTHALMIC SOLUTION 1 DROP BOTH EYES (21:00)
[2024-09-13] MEDS: MELATONIN 5 MG PO (21:00)
[2024-09-13 23:28] VITALS: BP 156/88
[2024-09-14] VITALS (7 sets, daily range): BP systolic 146–189; BP diastolic 62–94; BMI 20.3
[2024-09-14] MEDS: NON-FORMULARY ITEM 1 UNIT PO ×5 (00:26→20:05)
[2024-09-14] MEDS: SYNTHROID 100 MCG PO (06:20)
[2024-09-14 06:58] LABS: Hemoglobin 7.9 g/dL (12.0-16.0); Mean Corp Hgb Conc. 35.9 g/dL (33.0-37.0); Mean Corpuscular Hgb 31.3 pg (27.0-31.0); Mean Corpuscular Volume 87.3 fL (81.0-99.0); Mean Platelet Volume 12.4 fL (7.4-10.4); Platelet Count 216 10^3/uL (130-400); Red Blood Cell Count 2.52 10^6/uL (4.20-5.40); Red Cell Dist. Width 20.5 % (11.5-14.5); White Blood Cell Count 15.5 10^3/uL (4.8-10.8)
[2024-09-14 07:36] LABS: ALT (SGPT) 31 U/L (0-35); AST (SGOT) 149 U/L (14-36); Albumin 2.2 g/dl (3.5-5.0); Alkaline Phosphatase 177 U/L (38-126); Blood Urea Nitrogen 51 mg/dl (7-17); Calcium 8.4 mg/dl (8.4-10.2); Carbon Dioxide 25 mmol/L (22-30); Chloride 108 mmol/L (98-107); Estimated Creatinine Clearance 32 ml/min; Glucose 173 mg/dl (70-99); Potassium 4.6 mmol/L (3.5-5.1); Sodium 138 mmol/L (135-145); Total Bilirubin 2.7 mg/dl (0.2-1.3); Total Protein 4.7 g/dl (6.3-8.2); eGFR 42.35
[2024-09-14] MEDS: ELIQUIS 2.5 MG PO ×2 (08:06→20:04)
[2024-09-14] MEDS: TENORMIN 25 MG PO (08:06)
[2024-09-14] MEDS: DELTASONE 40 MG PO (08:06)
[2024-09-14] MEDS: NEURONTIN 100 MG PO ×2 (08:06→20:04)
[2024-09-14] MEDS: PACERONE 200 MG PO (08:09)
[2024-09-14] MEDS: ProAmatine PO ×3 (08:10→15:58)
[2024-09-14] MEDS: TYLENOL 650 MG PO (08:28)
--- NOTE | 2024-09-14 09:33 | W.PN.HOSP.TC ---
Addendum entered and electronically signed by Quin Ortiz MD, Resident 09/14/24 18:02:
#Moderate Protein Calorie Malnutrition is/was present and is a clinical diagnosis
-Most likely chronic (has been dealing with decreased appetitite in outpatient setting)
-Non Severe weight loss
#Sacral (lower back) stage 1 and bilateral buttocks stage 2 pressure injuries
-most likely pressure injuries (POA)
-Wound care nurse consulted, input appreciated, therapy as directed with air mattress and protective silicone border foam as needed
# Recent altered mental status
-Most likely due to UTI/sepsis
-Head CT as above
-TME Resolved
-Continue monitoring for any worsening mental status changes
Addendum entered and electronically signed by Edu Art MD 09/14/24 16:38:
Seen and examined by me independently in collaboration with the director of medical review .
Lab data and imaging data reviewed.
Addendum as below :
Blood cultures are now sterile. Midline requested by ID. Plan of IV antibiotics till September 24 noted.
PT OT eval and discharge in am .
Original Note:
Today's Communication/Plan
-
Continue IV antibiotics, continue monitoring for any changes. Midodrine parameters put in place, will resume atenolol. Awaiting ID input regarding outpatient IV antibiotics
Assessment / Plan
Assessment / Plan
Assessment:
79-year-old female with a past medical history of GERD, hypertension, hypothyroidism, anxiety, depression, Parkinson's, CHF came to the [facility] ED on 09/11/2024 due to being found unresponsive by her nursing staff at her care facility.
Patient recently moved from [facility] to this long-term living facility. Patient presented to the ED with fever since this morning and was feeling very weak. She was having some mental alterations as well so that she could not give proper history
in the ED. In the ED patient was found to be febrile, tachypneic, and had leukocytosis. Patient's UA also showed concern for her having a UTI. Patient was suspected to have sepsis due to UTI. Blood and urine cultures were taken and patient was
admitted for further management. Patient was started on IV cefepime and vancomycin in ER along with a bolus of lactated Ringer's, ID was consulted at this time as patient has had multidrug-resistant E. coli UTIs in the past. Patient underwent head
CT due to her mental changes, which did not show any acute abnormalities. Patient also underwent chest x-ray which showed possible interstitial pulmonary edema and possible pneumonia due to focal/confluent parenchymal airspace opacity within the
left lung base. Patient also had abnormally elevated LFTs so underwent ultrasound abdomen but no acute findings were found. As patient was allergic to penicillin and sulfa drugs, patient was started on ertapenem. Patient currently on day 4 of 14
[address] Head W/o Iv Contrast (09/11/2024):
No evidence of acute intracranial abnormality.
CR Chest Portable - 1 View (09/11/2024):
Cardiomegaly.
Subtle diffuse increased interstitial markings, suggestive of interstitial pulmonary edema pattern.
Focal or confluent parenchymal airspace opacity within the left lung base, main differential considerations of pneumonia and/or atelectasis.
US Abdomen Complete/Upper (09/11/2024):
Normal appearance of the gallbladder with no evidence for biliary ductal dilation.
Status post splenectomy.
Plan:
#Sepsis secondary to UTI
-Cultures positive for ESBL bacteremia
-On presentation to the ED, met SIRS criteria (WBCs 22.1, 101.4F, RR28)
-ID consulted, input appreciated
-Blood cultures, and urine cultures both positive for E. coli (ESBL) on 09-11-24-sensitive to ertapenem
-Repeat blood cultures showed no growth
-Continue ertapenem (day 4 of 14 of ertapenem IV)
-Continue trending temperature, WBC count
-Leukocytosis trending down
-IV fluids were stopped, lactic acid within normal limits
-Can transition to outpatient IV antibiotics as per ID
# ELPIDIO on CKD stage II
-Creatinine 2.5 on presentation, now down-trending.
-Patient received fluids in the ER
-Continue monitoring CMP
-Showed further improvement of creatinine today
-Renal dose of medication as needed
-IV fluids stopped
# Elevated troponin
-Troponin trending downwards
-Most likely due to nonischemic myocardial injury
# Recent altered mental status
-Most likely due to UTI/sepsis
-Head CT as above
-Resolving, patient is much more aware
-Continue monitoring for any worsening mental status changes
# Paroxysmal A-fib
-Continue amiodarone
-Atenolol restarted
-Continuing Eliquis
# Acute on chronic anemia
-High ferritin (1540), Low iron, TIBC consistent with chronic anemia
-Hemoglobin remaining stable
-Continue to monitor
-Awaiting stool occult blood test
# Acute on chronic transaminitis, possibly due to sepsis versus chronic treatment with amiodarone
# Hyperbilirubinemia, hypocalcemia
-Continue monitoring bilirubin and calcium levels
-Continue trending LFTs
-Ultrasound as above, no acute findings
-Most likely due to treatment with amiodarone
# Orthostatic hypotension
-Patient on midodrine continue with holding parameters
# Unclear history of temporal arteritis
-Patient on prednisone 40 mg at home
-Will continue for now
# Hypothyroidism
-TSH low, T4- 2.9, continue levothyroxine
# Parkinson's disease
-Continue Sinemet therapy, 5 times daily
-Patient wants to make her neurology appointment in outpatient setting
# CHF with preserved ejection fraction
-No fluid restriction, continue daily weights
-Lasix held due to treatment with fluids
-Latest echo showed left ventricular ejection fraction of 60 to 65% and severe pulmonary hypertension
-Continue soft fluid therapy and monitor for any changes in breathing
-Lasix and fluid restriction to resume once patient's condition improves
# Right sacral pressure injury (POA)
-Will consult wound nurse for further evaluation, input appreciated
# Moderate protein calorie nutrition
-Improving albumin levels
-Continue monitoring albumin levels
# Neuropathy
-Patient on gabapentin 100 mg twice daily, no renal dosing changes needed at this time due to low dose
# History of ITP/pancytopenia
-Continue to monitor CBC
CODE STATUS: DNR
DVT prophylaxis: Eliquis
Anticipated Discharge: Within 24 hours
Subjective/Interval History
-
Date of Service: September 14, 2024
Patient says that she has been feeling okay, and reports no marked improvement from before. Worried about her neurology appointment regarding her Parkinson's, but other than that no acute complaints.
Objective Data
-
Labs:
Laboratory Results
09/14/24
06:40
WBC 15.5 H
Hgb 7.9 L
Hct 22.0 L
Plt Count 216
Sodium 138
Potassium 4.6
Chloride 108 H
Carbon Dioxide 25
BUN 51 H
Creatinine 1.3 H
Glucose 173 H
Calcium 8.4
Total Bilirubin 2.7 H
AST 149 H
ALT 31
Alkaline Phosphatase 177 H
Vital Signs:
Vital Signs
Temp Pulse Resp BP Pulse Ox
97.9 F 54 18 168/89 100
09/14/24 08:10 09/14/24 08:10 09/14/24 08:10 09/14/24 08:10 09/14/24 08:10
I&O
09/13/24 09/14/24 09/15/24
06:59 06:59 06:59
Intake Total 2280 / 2280 1795 / 1795
Balance 2280 / 2280 179 / 179
Review of Systems
-
History Source: Patient
Constitutional: Denies Fever, Fatigue or Chills
EENT: Reports No Symptoms Reported
Respiratory: Denies Cough or Trouble Breathing
Cardiac: Denies Chest Pain, Diaphoresis or Palpitations
Abdomen/GI: Denies Abdominal Pain, Nausea, Vomiting or Diarrhea
Genitourinary: Reports No Symptoms
Skin: Reports No Symptoms
Physical Exam
-
General: Well Developed, Well Nourished, No Apparent Distress, Comfortable and Conversant
HEENT: Normocephalic and Atraumatic
Respiratory: Clear to Auscultation and Non Labored Respirations
Cardiac: S1/S2 and Irregular Rhythm
GI: Soft, Nontender, Nondistended and Normal Bowel Sounds
Musculoskeletal: No Clubbing, No Cyanosis and No Edema
Skin: Warm
Neuro: Awake, Alert and Oriented
Psych: Calm
Data Reviewed
-
Labs: Labs Reviewed by me, Discussed with Physician, Discussed with Nurse and Discussed with Patient
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
--- NOTE | 2024-09-14 11:32 | W.PN.ID1 ---
Date of Service
Date of Service: September 14, 2024
Today's Communication
Ertapenem 1 g IV every 24 hours through 09/24/24.
Assessment / Plan
# Complicated UTI with ESBL-Ecoli
# ESBL-Ecoli bacteremia
# Fever resolved
# Leukocytosis trending down
# ELPIDIO -resolving
# History of splenectomy
# temporal arteritis on chronic prednisone currently 30 mg daily
-Repeat blood cx's pending
-Increase ertapenem dose to 1 g IV every 24 hours (d4 ) through 09/24/24.
-Place midline.
-Infusion sheet submitted to comp field case manager.
-Trend white count
# Conditions [employer]ION [employer]URE COMMENT[employer]
HTN
Hypothyroidism
Parkinson's disease
Dysphagia
P A-fib hx cardiac ablation
CHF
Anxiety
GERD
Diverticulosis
Possible temporal arteritis on prednisone; bilateral temporal artery bx very rare inflammatory cells.
Splenectomy
Hysterectomy
Traumatic R wrist fracture
Chief Complaint
-: Fever, Leukocytosis and Bacteremia
Subjective / Review of Systems
Feels better. Wants to go home.
Vital Signs / Physical Exam
Vital Signs
Vital Signs
Temp Pulse Resp BP Pulse Ox
97.6 F 58 18 178/79 99
09/14/24 11:29 09/14/24 11:29 09/14/24 11:29 09/14/24 11:29 09/14/24 11:29
Physical Exam
Constitutional: Chronically Ill
Pulmonary: Clear
Gastrointestinal: Soft, Non Tender, Non Distended and Normal Bowel Sounds
Genito-Urinary: Negative CVA Tenderness
Neurological: AO x 3
Objective Data
Lab Data
Lab Results
09/14/24 06:40
09/14/24 06:40
Estimated Creat Clear 32 ml/min 09/14/24 06:40
Lactic Acid Cancelled 09/11/24 15:15
Total Bilirubin 2.7 mg/dl (0.2-1.3) H 09/14/24 06:40
AST 149 U/L (14-36) H 09/14/24 06:40
ALT 31 U/L (0-35) 09/14/24 06:40
Alkaline Phosphatase 177 U/L (38-126) H 09/14/24 06:40
Most recent labs reviewed.
Micro Results:
09/11/24 11:32 Blood Culture - Final
Blood/Venous Escherichia coli - ESBL
Gram Stain - Final
09/11/24 11:32 Blood Culture - Final
Blood/Venous Escherichia coli - ESBL
Gram Stain - Final
09/13/24 07:10 Blood Culture - Preliminary
Blood/Venous No Growth in 24 hours- Final report to follow
09/13/24 06:10 Blood Culture - Preliminary
Blood/Venous No Growth in 24 hours- Final report to follow
09/11/24 11:33 Urine Culture - Final
Urine Escherichia coli - ESBL
09/12/24 01:41 MRSA Screen - Final
Nose No Methicillin Resistant Staphylococcus aureus isolated.
09/11/24 11:33 Influenza Types A & B (SATISH) - Final
Nasal Swab Negative for Influenza A & B, NAAT
Negative results must be combined with clinical observations
and patient history.
Nucleic Acid Amplification test (NAAT)performed on the
[employer]re[employer] platform.
09/11/24 ABD US: Normal appearance of the gallbladder with no evidence for biliary ductal dilation. Status post splenectomy.
09/11/24 CXR: Cardiomegaly. Subtle diffuse increased interstitial markings, suggestive of interstitial pulmonary edema pattern. Focal or confluent parenchymal airspace opacity within the left lung base, main differential considerations of pneumonia
and/or atelectasis.
--- NOTE | 2024-09-14 13:30 | WOUNDNOTE ---
[facility] RN note: Patient admitted with sepsis. Patient lives in assisted living.
See H&P for complete history.
PMH: HTN, anxiety, depression, Parkinson's, dysphagia, a fib (Eliquis), CHF, neuropathy.
Wound Location and type/assessment: Patient admitted with: bilateral buttocks stage 2 pressure injury. Sacral stage 1 pressure injury. Skin tears arms. L heel blanchable red/boggy. Bruising noted on L lateral calf, anterior ankles, arms.
Appetite: Poor.
Pressure redistribution devices in place: [employer] Accumax. Patient cannot turn self in bed. She stated she cannot get out of bed herself.
Plan: Sacral and buttocks silicone border foam dressings changed. Bilateral arm skin tear silicone border foam dressings changed. Protective silicone border foam applied to heels and bruised areas on anterior ankles and L lateral foot blanchable
red area. Patient incontinent of urine. Jessi care given by [facility] Mira. Waffle air overlay mattress and patient turned to L semi side lying position with help from PCT Mira. Heels off bed with pillow and air chair cushion. Patient wearing knee high
TEDs for her blood pressure as per patient.
Will confirm orders with hospitalist and update nurse Lopez.
Care plan to be updated and will follow as needed.
Note to case management of equipment requested for discharge: Hospital bed with air overlay mattress or air mattress if patient accepts. Currently she stated she was not interested at her assisted living.
Recommend follow up at wound care center upon discharge.
--- NOTE | 2024-09-14 13:30 | WOUNDNOTE ---
[facility] RN note: Patient admitted with sepsis. Patient lives in assisted living.
See H&P for complete history.
PMH: HTN, anxiety, depression, Parkinson's, dysphagia, a fib (Eliquis), CHF, neuropathy.
Wound Location and type/assessment: Patient admitted with: bilateral buttocks stage 2 pressure injury. Sacral stage 1 pressure injury. Skin tears arms. L heel blanchable red/boggy. Bruising noted on L lateral calf, anterior ankles, arms, knees, R
lateral foot, R medial 1st MTH, L lateral foot.
Appetite: Poor.
Pressure redistribution devices in place: [employer] Accumax. Patient cannot turn self in bed. She stated she cannot get out of bed herself.
Plan: Sacral and buttocks silicone border foam dressings changed. Bilateral arm skin tear silicone border foam dressings changed. Protective silicone border foam applied to heels and bruised areas on anterior ankles, L and R lateral foot. Patient
incontinent of urine. Jessi care given by PCT Mira. Waffle air overlay mattress and patient turned to L semi side lying position with help from PCT Mira. Heels off bed with pillow and air chair cushion. Patient wearing knee high TEDs for her blood
pressure as per patient. Removed TEDs after confirming there is not an order for knee high TEDs and also confirmed with SHAD Fernando.
Will confirm orders with Ny Oconnor.
Care plan to be updated and will follow as needed.
Note to case management of equipment requested for discharge: Hospital bed with air overlay mattress or air mattress if patient accepts. Currently she stated she was not interested with one at her assisted living.
Recommend follow up at wound care center upon discharge.
[2024-09-14] MEDS: VITAMIN D3 (cholecalciferol) 25 MCG PO (13:47)
--- NOTE | 2024-09-14 13:53 | WOUNDNOTE ---
Heath LOPEZ (BLANCHABLE/BOGGY)
--- NOTE | 2024-09-14 13:55 | WOUNDNOTE ---
R FOREARM (LATERAL PROXIMAL)
[2024-09-14] MEDS: INVANZ 60 MG IV (14:03)
--- NOTE | 2024-09-14 14:33 | WOUNDNOTE ---
[facility] RN Note: Reviewed chart. Patient does not have TEDs ordered. Patient using hers from home. Confirmed with RN Kassie can remove Teds. R lateral foot with nickel size purple ecchymotic area. Silicone border foam applied. Teds removed. Patient
agreeable to have Teds removed.
--- NOTE | 2024-09-14 14:59 | PN.CDI ---
CDI
- -
CDI:
Physician Documentation Request
Admit Date: 09/11/24 15:23
Dear Doctor Art/ Resident
Please review the following and provide your response in the progress notes.
Clinical Indicators:
Documentation includes the diagnosis of malnutrition. Other clinical indicators are:
Pt admitted with Ecoli sepsis 2/2 UTI /TME
Documented per H&P and progress notes , ' Moderate Protein calorie malnutrition....'
To ensure the quality of the medical record, based on the above information and the recognized standards for malnutrition , could you please verify in your progress notes which of the following responses best reflects the patient's nutritional
status:
Moderate Protein Calorie Malnutrition is/was present and is a clinical diagnosis (please provide additional support in the medical record)
After careful study Moderate protein calorie Malnutrition ruled out
Other (please specify)
Cuthbert Criteria ([facility] Hospitalist 2017)
2 or more criteria must be present for either
non severe or severe malnutrition
Note that the criteria differs related to the
presence of an acute or chronic illness
Acute Illness Chronic Illness
Energy Intake Non Severe: <75% for >7 days Non Severe: <75% for >1 month
Severe: <50% for >5 days Severe: <75% for >1 month
Weight Loss Non Severe: 1-2% over 1 week Non Severe: 5% over 1 month
5% over 1 month 7.5% over 3 months
7.5% over 3 months 10% over 6 months
1 year N/A 20% over 1 year
Severe: >2% over 1 week Severe: >5% over 1 month
>5% over 1 month >7.5% over 3 months
>7.5% over 3 months >10% over 6 months
1 year N/A >20% over 1 year
Body Fat Non Severe: Mild Decrease Non Severe: Mild Loss
Severe: Moderate Decrease Severe: Severe Loss
Muscle Mass Non Severe: Mild Decrease Non Severe: Mild Loss
Severe: Moderate Decrease Severe: Severe Loss
Fluid Accumulation Non Severe: Mild Accumulation Non Severe: Mild Accumulation
Severe: Moderate to severe Severe: Moderate to severe
accumulation accumulation
Reduced Security Flex Officer Strength Non Severe: N/A Non Severe: N/A
Severe: Measurably reduced Severe: Measurably reduced
Use of terms such as suspected, likely, concern for, or probable (associated with a specific diagnosis that is being evaluated, monitored, or treated as if it exists) are acceptable and can be coded in the inpatient setting, when documented at the
time of discharge.
Thank you,
Farrah Brown RN
CDI Specialist
[place] Text
Please use your independent medical judgment in providing your response.
--- NOTE | 2024-09-14 15:07 | PN.CDI ---
CDI
- -
CDI:
Physician Documentation Request
Admit Date: 09/11/24 15:23
Dear Doctor Rubens/Resident,
Please review the following and provide your response in the progress notes.
Clinical Indicators:
Pt admitted with Ecoli sepsis 2/2 UTI /TME
Documented in the record ,' # Right sacral pressure injury (POA)..'
[facility] note 09/14, ' Patient admitted with: bilateral buttocks stage 2 pressure injury. Sacral stage 1 pressure injury.....Plan: Sacral and buttocks silicone border foam dressings changed. ...'
Physician documentation of the type and location of wounds is required for compliant documentation. Based on the above clinical findings and your assessment, please provide the following in your progress note:
1. Location of the ulcer/wound, including laterality.
2. Type (etiology) of ulcer/wound:
- Pressure (decubitus) ulcer
- Non-pressure ulcer
- Other ( please specify)
Use of terms such as suspected, likely, concern for, or probable (associated with a specific diagnosis that is being evaluated, monitored, or treated as if it exists) are acceptable and can be coded in the inpatient setting, when documented at the
time of discharge.
Thank you,
Farrah Brown RN
CDI Specialist
[place] Text
Please use your independent medical judgment in providing your response.
*Source: National Pressure Ulcer Advisory Panel (NPUAP)
--- NOTE | 2024-09-14 15:13 | PN.CDI ---
CDI
- -
CDI:
Physician Documentation Request
Admit Date: 09/11/24 15:23
Dear Doctor Rubens/Resident ,
Please review the following and provide your response in the progress notes.
Clinical Indicators:
Pt admitted with Ecoli sepsis 2/2 UTI
Documented per update note 09/11 ,' Associated lethargy suspect hypoactive TME ...'
Documented per ED, ' Will follow some simple commands. However very lethargic.... Decreased alertness, increased lethargy, decreased feeding just general decline over 2 days. Brought in with borderline unresponsiveness and hypotension....'
Progress notes 09/12-09/14 , ' Recent altered mental status--Most likely due to UTI/sepsis---Head CT without acute findings--improved...'
Please update the status of TME documented in the update note:
TME -resolved
TME still being /monitored/treated
TME -Ruled out
Other ( please specify)
Use of terms such as suspected, likely, concern for, or probable (associated with a specific diagnosis that is being evaluated, monitored, or treated as if it exists) are acceptable and can be coded in the inpatient setting, when documented at the
time of discharge.
Thank you,
Farrah Brown RN
CDI Specialist
[place] Text
Please use your independent medical judgment in providing your response.
--- NOTE | 2024-09-14 15:16 | WOUNDNOTE ---
[facility] RN note: abhishek Stuart re: recommend an air mattress at SNF; patient has sacral stage 1 and buttocks stage 2 pressure injuries.
[2024-09-14] MEDS: MELATONIN 5 MG PO (21:54)
[2024-09-14] MEDS: XALATAN OPHTHALMIC SOLUTION 1 DROP BOTH EYES (21:54)
[2024-09-15] VITALS (9 sets, daily range): BP systolic 112–204; BP diastolic 61–101; BMI 21.4
[2024-09-15] MEDS: NON-FORMULARY ITEM 1 UNIT PO ×6 (00:17→23:55)
[2024-09-15] MEDS: SYNTHROID 100 MCG PO (05:40)
[2024-09-15 06:33] LABS: Hematocrit 20.5 % (37.0-47.0); Hemoglobin 7.3 g/dL (12.0-16.0); Mean Corp Hgb Conc. 35.6 g/dL (33.0-37.0); Mean Corpuscular Hgb 31.3 pg (27.0-31.0); Platelet Count 202 10^3/uL (130-400); Red Blood Cell Count 2.33 10^6/uL (4.20-5.40); Red Cell Dist. Width 21.2 % (11.5-14.5); White Blood Cell Count 14.5 10^3/uL (4.8-10.8)
--- NOTE | 2024-09-15 06:45 | PTCARENOTE ---
Pt with critical hct 20.5 this morning, no sings of bleeding noted, no bowel movements overnight, no hematuria. 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
[2024-09-15] MEDS: PACERONE 200 MG PO (08:16)
[2024-09-15] MEDS: ProAmatine PO ×3 (08:16→17:50)
[2024-09-15] MEDS: NEURONTIN 100 MG PO ×2 (08:17→20:00)
[2024-09-15] MEDS: TENORMIN 25 MG PO (08:17)
[2024-09-15] MEDS: ELIQUIS 2.5 MG PO (08:17)
[2024-09-15] MEDS: DELTASONE 30 MG PO (08:17)
[2024-09-15] MEDS: TYLENOL 650 MG PO ×2 (08:44→20:16)
--- NOTE | 2024-09-15 09:46 | W.PN.HOSP.TC ---
Addendum entered and electronically signed by Edu Art MD 09/15/24 14:37:
Seen and examined by me independently in collaboration with the behavioral medical director Dr. Ortiz.
Lab data and imaging data reviewed.
Addendum as below :
Patient some crampiness in her belly today but resolved quickly with Tylenol. No diarrhea. Tolerating diet. Abdomen soft today.
Afebrile. Ongoing IV antibiotics for ESBL E. coli bacteremia. Midline secured. Need IV antibiotics till 09/24.
Patient has chronic anemia in the past but did not tolerate iron pills apparently. Did not need blood transfusion. She is normocytic. Iron studies suggest anemia of chronic disease. Drop in H&H noted and currently in the sevens. No obvious
external bleeding. Heme test negative. Suspect anemia of acute inflammation on top of anemia of chronic disease. Will transfuse 1 unit of PRBC today. Patient is agreeable after understanding the risks and benefit.
Transfer patient to rehab today after transfusion of blood.
Total time of discharge 35 minutes
Original Note:
Today's Communication/Plan
-
Awaiting placement at [facility], continue monitoring any worsening symptoms
Assessment / Plan
Assessment / Plan
Assessment:
79-year-old female with a past medical history of GERD, hypertension, hypothyroidism, anxiety, depression, Parkinson's, CHF came to the [facility] ED on 09/11/2024 due to being found unresponsive by her nursing staff at her care facility.
Patient recently moved from [facility] to this long-term living facility. Patient presented to the ED with fever since this morning and was feeling very weak. She was having some mental alterations as well so that she could not give proper history
in the ED. In the ED patient was found to be febrile, tachypneic, and had leukocytosis. Patient's UA also showed concern for her having a UTI. Patient was suspected to have sepsis due to UTI. Blood and urine cultures were taken and patient was
admitted for further management. Patient was started on IV cefepime and vancomycin in ER along with a bolus of lactated Ringer's, ID was consulted at this time as patient has had multidrug-resistant E. coli UTIs in the past. Patient underwent head
CT due to her mental changes, which did not show any acute abnormalities. Patient also underwent chest x-ray which showed possible interstitial pulmonary edema and possible pneumonia due to focal/confluent parenchymal airspace opacity within the
left lung base. Patient also had abnormally elevated LFTs so underwent ultrasound abdomen but no acute findings were found. As patient was allergic to penicillin and sulfa drugs, patient was started on ertapenem. Patient currently on day 5 of 14
of ertapenem. Patient got a PICC line and will be able to get IV antibiotics. As per case management, placement at [facility] is being looked into right now.
CT Head W/o Iv Contrast (09/11/2024):
No evidence of acute intracranial abnormality.
CR Chest Portable - 1 View (09/11/2024):
Cardiomegaly.
Subtle diffuse increased interstitial markings, suggestive of interstitial pulmonary edema pattern.
Focal or confluent parenchymal airspace opacity within the left lung base, main differential considerations of pneumonia and/or atelectasis.
US Abdomen Complete/Upper (09/11/2024):
Normal appearance of the gallbladder with no evidence for biliary ductal dilation.
Status post splenectomy.
Plan:
#Sepsis secondary to UTI
-Cultures positive for ESBL bacteremia
-On presentation to the ED, met SIRS criteria (WBCs 22.1, 101.4F, RR28)
-ID consulted, input appreciated
-Blood cultures, and urine cultures both positive for E. coli (ESBL) on 09-11-24-sensitive to ertapenem
-Repeat blood cultures showed no growth
-Continue ertapenem (day 5 of 14 of ertapenem IV)
-No further fevers
-Leukocytosis trending down
-IV fluids were stopped, lactic acid within normal limits
-Can transition to outpatient IV antibiotics as per ID
-PICC line installed, awaiting placement to [facility]
# ELPIDIO on CKD stage II
-Creatinine 2.5 on presentation, now down-trending.
-Patient received fluids in the ER
-Continue monitoring CMP
-Showed further improvement of creatinine today
-Renal dose of medication as needed
-IV fluids stopped
# Elevated troponin
-Troponin trending downwards
-Most likely due to nonischemic myocardial injury
# Recent altered mental status
-Most likely due to UTI/sepsis
-Head CT as above
-TME Resolved
-Continue monitoring for any worsening mental status changes
# Paroxysmal A-fib
-Continue amiodarone
-Atenolol restarted
-Continuing Eliquis
# Abdominal spasms
-Given hyoscyamine 0.125 mg
-Recently started having symptoms, probably due to antibiotic use
# Acute on chronic anemia
-High ferritin (1540), Low iron, TIBC consistent with chronic anemia
-Hemoglobin remaining stable
-Continue to monitor
-Hematocrit low today, possible transfusion if needed
-Awaiting stool occult blood test
# Acute on chronic transaminitis, possibly due to sepsis versus chronic treatment with amiodarone
# Hyperbilirubinemia, hypocalcemia
-Continue monitoring bilirubin and calcium levels
-Continue trending LFTs
-Ultrasound as above, no acute findings
-Most likely due to sepsis
# Orthostatic hypotension
-Patient on midodrine continue with holding parameters
# History of temporal arteritis
-Biopsy diagnosis was done by rheumatology and ophthalmology
-Has been tapering down from 60 mg, was on prednisone 40 mg at home
-Will contact patient's washhouse hand for further clarification
-Was scheduled to reduce dose of prednisone to 30 mg this week. Has been tapering down every other week
-Now down to 30 mg
# Hypothyroidism
-TSH low, T4- 2.9, continue levothyroxine
# Parkinson's disease
-Continue Sinemet therapy, 5 times daily
-Patient wants to make her neurology appointment in outpatient setting
# CHF with preserved ejection fraction
-No fluid restriction, continue daily weights
-Lasix held due to treatment with fluids
-Latest echo showed left ventricular ejection fraction of 60 to 65% and severe pulmonary hypertension
-Continue soft fluid therapy and monitor for any changes in breathing
-Lasix and fluid restriction to resume once patient's condition improves
#Sacral (lower back) stage 1 and bilateral buttocks stage 2 pressure injuries
-most likely pressure injuries (POA)
-Wound care nurse consulted, input appreciated, therapy as directed with air mattress and protective silicone border foam as needed
#Moderate Protein Calorie Malnutrition is/was present and is a clinical diagnosis
-Most likely chronic (has been dealing with decreased appetitite in outpatient setting)
-Non Severe weight loss
-Possibly need some appetite stimulation medication, says she has been given some in the past
# Neuropathy
-Patient on gabapentin 100 mg twice daily, no renal dosing changes needed at this time due to low dose
# History of ITP/pancytopenia
-Continue to monitor CBC
CODE STATUS: DNR
DVT prophylaxis: Eliquis
Anticipated Discharge: Within 24 hours
Subjective/Interval History
-
Date of Service: September 15, 2024
Patient seen this morning, reports not feeling too well. Says that around 2 hours before being seen she started develop some abdominal cramping. No nausea, chills, fever however just not feeling well. Also complains about not being able to eat as
much as she would want to. Not due to any nausea but just not having an appetite.
Objective Data
-
Labs:
Laboratory Results
09/15/24 09/15/24
05:31 09:04
WBC 14.5 H
Hgb 7.3 L
Hct 20.5 L*
Plt Count 202
Sodium Cancelled Pending
Potassium Cancelled Pending
Chloride Cancelled Pending
Carbon Dioxide Cancelled Pending
BUN Cancelled Pending
Creatinine Cancelled Pending
Glucose Cancelled Pending
Calcium Cancelled Pending
Total Bilirubin Cancelled Pending
AST Cancelled Pending
ALT Cancelled Pending
Alkaline Phosphatase Cancelled Pending
Vital Signs:
Vital Signs
Temp Pulse Resp BP Pulse Ox
97.8 F 65 17 171/79 99
09/15/24 07:20 09/15/24 08:17 09/15/24 07:20 09/15/24 08:17 09/15/24 07:20
I&O
09/14/24 09/15/24 09/16/24
06:59 06:59 06:59
Intake Total 1794 / 1794 540 / 540
Balance 1794 540 / 540
Review of Systems
-
History Source: Patient
Constitutional: Denies Fever, Fatigue or Chills
EENT: Reports No Symptoms Reported
Respiratory: Denies Cough or Trouble Breathing
Cardiac: Denies Chest Pain, Diaphoresis or Palpitations
Abdomen/GI: Reports Abdominal Pain (More cramping than pain diffuse lower abdomen); Denies Nausea, Vomiting or Diarrhea
Genitourinary: Reports No Symptoms
Skin: Reports No Symptoms
Psych: Reports Anxious
Physical Exam
-
General: Well Developed, Well Nourished, No Apparent Distress, Comfortable and Conversant
HEENT: Normocephalic and Atraumatic
Respiratory: Clear to Auscultation and Non Labored Respirations
Cardiac: S1/S2 and Irregular Rhythm
GI: Soft, Nontender, Nondistended and Normal Bowel Sounds
Musculoskeletal: No Clubbing, No Cyanosis and No Edema
Skin: Warm
Neuro: Awake, Alert and Oriented
Psych: Calm
Data Reviewed
-
Labs: Labs Reviewed by me, Discussed with Physician, Discussed with Nurse and Discussed with Patient
--- NOTE | 2024-09-15 09:49 | W.PN.ID1 ---
Date of Service
Date of Service: September 15, 2024
Today's Communication
-Continue ertapenem dose to 1 g IV every 24 hours x 2 weeks through 09/24/24.
Assessment / Plan
# Complicated UTI with ESBL-Ecoli
# ESBL-Ecoli bacteremia
# Fever resolved
# Leukocytosis trending down. Leukocytosis partially from steroid.
# ELPIDIO -resolving
# History of splenectomy
# temporal arteritis on chronic prednisone currently 30 mg daily
-Repeat blood cx's negative to date.
-Continue ertapenem dose to 1 g IV every 24 hours x 2 weeks through 09/24/24.
- midline in place
-Infusion sheet submitted to pillowcase sewer 09/14
-Trend white count
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
HTN
Hypothyroidism
Parkinson's disease
Dysphagia
P A-fib hx cardiac ablation
CHF
Anxiety
GERD
Diverticulosis
Possible temporal arteritis on prednisone; bilateral temporal artery bx very rare inflammatory cells.
Splenectomy
Hysterectomy
Traumatic R wrist fracture
Chief Complaint
-: Leukocytosis and Bacteremia
Vital Signs / Physical Exam
Vital Signs
Vital Signs
Temp Pulse Resp BP Pulse Ox
97.8 F 65 17 171/79 99
09/15/24 07:20 09/15/24 08:17 09/15/24 07:20 09/15/24 08:17 09/15/24 07:20
Physical Exam
Constitutional: Chronically Ill
Pulmonary: Clear
Gastrointestinal: Soft, Non Tender, Non Distended and Normal Bowel Sounds
Genito-Urinary: Negative CVA Tenderness
Neurological: AO x 3
Objective Data
Lab Data
Lab Results
09/15/24 05:31
Estimated Creat Clear Cancelled 09/15/24 05:31
Lactic Acid Cancelled 09/11/24 15:15
Total Bilirubin Cancelled 09/15/24 05:31
AST Cancelled 09/15/24 05:31
ALT Cancelled 09/15/24 05:31
Alkaline Phosphatase Cancelled 09/15/24 05:31
Most recent labs reviewed.
Micro Results:
09/13/24 07:10 Blood Culture - Preliminary
Blood/Venous No Growth in 48 hours- Final report to follow
09/13/24 06:10 Blood Culture - Preliminary
Blood/Venous No Growth in 48 hours- Final report to follow
09/11/24 11:32 Blood Culture - Final
Blood/Venous Escherichia coli - ESBL
Gram Stain - Final
09/11/24 11:32 Blood Culture - Final
Blood/Venous Escherichia coli - ESBL
Gram Stain - Final
09/11/24 11:33 Urine Culture - Final
Urine Escherichia coli - ESBL
09/12/24 01:41 MRSA Screen - Final
Nose No Methicillin Resistant Staphylococcus aureus isolated.
09/11/24 11:33 Influenza Types A & B (SATISH) - Final
Nasal Swab Negative for Influenza A & B, NAAT
Negative results must be combined with clinical observations
and patient history.
Nucleic Acid Amplification test (NAAT)performed on the
[employer] platform.
09/11/24 ABD US: Normal appearance of the gallbladder with no evidence for biliary ductal dilation. Status post splenectomy.
09/11/24 CXR: Cardiomegaly. Subtle diffuse increased interstitial markings, suggestive of interstitial pulmonary edema pattern. Focal or confluent parenchymal airspace opacity within the left lung base, main differential considerations of pneumonia
and/or atelectasis.
[2024-09-15 10:05] LABS: ALT (SGPT) 37 U/L (0-35); AST (SGOT) 140 U/L (14-36); Albumin 2.3 g/dl (3.5-5.0); Alkaline Phosphatase 289 U/L (38-126); Blood Urea Nitrogen 47 mg/dl (7-17); Calcium 8.5 mg/dl (8.4-10.2); Carbon Dioxide 26 mmol/L (22-30); Chloride 108 mmol/L (98-107); Estimated Creatinine Clearance 39 ml/min; Glucose 159 mg/dl (70-99); Potassium 4.7 mmol/L (3.5-5.1); Sodium 138 mmol/L (135-145); Total Bilirubin 2.6 mg/dl (0.2-1.3); Total Protein 4.9 g/dl (6.3-8.2); eGFR 51.75
--- NOTE | 2024-09-15 10:17 | CM ---
Patient seen at bedside with patient son also present. Patient has a bed a [facility] per liaison and patient son made aware and IMM completed. CM updated physician and await confirmation of discharge. Please call report to [phone]/fax [phone].
Patient will need ambulance for transportation. CM will complete forms and leave them on the chart. CM will continue to follow for discharge planning needs.
Plan; transfer to SNF; [facility].
[2024-09-15] MEDS: VITAMIN D3 (cholecalciferol) 25 MCG PO (12:06)
[2024-09-15] MEDS: INVANZ 60 MG IV (13:22)
--- NOTE | 2024-09-15 17:16 | W.DCSUMMARY ---
Discharge Summary
Discharge Data
Date of Admission: 09/11/24
Date of Discharge: 09/16/24
-
Pending Results: No
Hospital Course
Discharging Physician : Dr. Quin Ortiz, Dr. Edu Art
�
Disposition�:��SNF ([facility])
�
Primary�care�physician�: None
�
Principal�Discharge�Diagnosis�:�
Sepsis secondary to UTI
Chronic�Discharge�Diagnosis:�
ELPIDIO on CKD stage II
Temporal Arteritis
Paroxysmal A-fib
Acute on chronic anemia
Transaminitis
Parkinson's Disease
Hypothyroidism
History of ITP/Pancytopenia
Neuropathy
Hospital�Course�:��
79-year-old female with a past medical history of GERD, hypertension, hypothyroidism, anxiety, depression, Parkinson's, CHF came to the [facility] ED on 09/11/2024 due to being found unresponsive by her nursing staff at her care facility.
Patient recently moved from [facility] to this long-term living facility at [facility]. Patient presented to the ED with fever since earlier that morning and was feeling very weak. She was having some mental alterations as well so that she could not
give proper history in the ED. In the ED patient was found to be febrile, tachypneic, and had leukocytosis. Patient's UA also showed concern for her having a UTI. Patient was suspected to have sepsis due to UTI as she met SIRS criteria. Blood and
urine cultures were taken and patient was admitted for further management. Patient was started on IV cefepime and vancomycin in ER along with a bolus of lactated Ringer's. Patient underwent head CT due to her mental changes, which did not show any
acute abnormalities. Patient also underwent chest x-ray which showed possible interstitial pulmonary edema and possible pneumonia due to focal/confluent parenchymal airspace opacity within the left lung base. Patient also had abnormally elevated
LFTs so underwent ultrasound abdomen but no acute findings were found. Patient was found to have stage one sacral (lower back) and bilateral buttocks stage 2 pressure injuries on presentation which were managed by wound care nurse. ID was consulted
at this time as patient has had multidrug-resistant E. coli UTIs in the past. Blood cultures and urine cultures were both positive for ESBL E.Coli which was found to be sensitive to Ertapenem so that antibiotic was continued. Patient is currently on
day 5 of 14 of ertapenem. Patient got a PICC line and will be able to get IV antibiotics. Patient was accepted as a patient at [facility] and will be going there for rehab as well as receive her IV antibiotics there. Patient has a history of chronic
anemia and was found to be very anemic on the day of discharge. Patient agreed and was transfused a unit of blood and will follow up with the Physicians at [facility]. She was counseled to get CMP for her elevated bilirubin and liver enzymes and CBC
for her anemia in 1 week for further work up. As patient was about to be discharged to [facility] after transfusion, patient developed hypotension most likely due to hypervolemic status. Patient ended up staying 1 more day in the hospital for
monitoring of her hypertension. Hypotension resolved after 1 dose of hydralazine and further treatment with Lasix. Patient was medically discharged to go to [facility] the following day after receiving her antibiotics.
Patient's other conditions such as Parkinson's and Neuropathy were managed with home medications. Patient's medications were held due to her ELPIDIO and will resume their home dose upon discharge as her ELPIDIO has resolved. This includes Eliquis which will
resume to be 5mg BID. She will also restart Lasix therapy and her blood pressure medications which were held due to her hypotensive state due to sepsis.
Important�imaging�findings�:��
CT Head W/o Iv Contrast (09/11/2024):
No evidence of acute intracranial abnormality.
CR Chest Portable - 1 View (09/11/2024):
Cardiomegaly.
Subtle diffuse increased interstitial markings, suggestive of interstitial pulmonary edema pattern.
Focal or confluent parenchymal airspace opacity within the left lung base, main differential considerations of pneumonia and/or atelectasis.
US Abdomen Complete/Upper (09/11/2024):
Normal appearance of the gallbladder with no evidence for biliary ductal dilation.
Status post splenectomy.
ECG (09/11/2024)
NORMAL SINUS RHYTHM
NORMAL ECG
WHEN COMPARED WITH ECG OF 11-AUG-2024 06:17,
NO SIGNIFICANT CHANGE WAS FOUND
Procedure�findings�:��None
Discharge Plan
-
Patient Disposition: Intermediate/SNF
Discharge Diagnosis/Procedures: Sepsis secondary to UTI
ELPIDIO on CKD stage II
Paroxysmal A-fib
Acute on chronic anemia
Transaminitis
Condition: Fair
Diet: Low Cholesterol, 2 Gram Sodium and Restrict fluids to 64 oz
Activity: As tolerated
Driving Restrictions: No driving
Blood Work: CMP in one week
CBC in one week
Specialty Instructions: Weigh Daily- Call MD for wt gain/loss 3 lbs overnight/5 lbs in 1 week
Activity Restrictions/Additional Instructions:
Wound Care Instructions
Sacrum-silicone border foam, change q 3 days and prn loosened dressing.
Bilateral buttocks ulcers-clean with saline or soap and water, silicone border foam, change q 3 days and prn loosened dressing. If foam ineffective, apply zinc barrier ointment (i.e. Calazime) TID instead.
Arm skin tears-clean with saline, silicone border foam, change q 3 days and prn loosened dressing.
Protective foam to heels, change q 3 days and prn loosened dressing.
Ecchymotic areas on lateral feet/anterior ankles-protective silicone border foam applied, change q 3 days and prn loosened dressing.
Air mattress
Elevate heels off bed with pillow and air chair cushion.
Pressure redistributing chair cushion (i.e. Air chair cushion).
Follow up with wound child care leader or at wound care center call for an appointment.
Referrals:
NONE,* [Family Provider] -
Additional Discharge Medication Instructions: Follow-up with neurologist as scheduled
Follow-up with drop hammer pile driver operator
Follow-up with grain handler
Get blood work at [facility] in 1 week including CBC and CMP
Starting today: Prednisone 30mg for 1 week, then 20mg QD for 1 week, then 10mg for 1 week (for temporal arteritis)
Continue IV Ertapenem 1g IV every 24 hours through 09/24/2024
Continue Furosemide 20mg BID
Continue Atenolol 25mg
Hold Midodrine until seen by Physician at [email or web address]
Continue Sinemet treatment (5 times a day at 00, 08, 12,16,20)
Continue Eliquis 5mg BID
Prescriptions:
New
Ertapenem [Invanz] 1000 MG
0.9% Sodium Chloride [Nss] 50 ML
120 mls/hr IV Q24H
Ordered By: Quin Ortiz MD, Resident
Last Taken: 09/16/24 13:08 60 mls
Continued
Eliquis 5 MG tablet
5 mg PO BID
cholecalciferol (vitamin D3) [Vitamin D3] 25 mcg (1,000 unit) Capsule
25 mcg PO NOON
carbidopa-levodopa 25-100 mg tablet
1 tab PO 5/D@00,08,12,16,20
atenolol 25 mg tablet
25 mg PO DAILY Qty: 30 0RF
latanoprost 0.005 % Drops
1 drp BOTH EYES HS
gabapentin 100 mg Capsule
100 mg PO BID
amiodarone [Pacerone] 200 mg tablet
200 mg PO DAILY
ondansetron HCl 4 mg Tablet
4 mg PO Q8HPRN PRN (Reason: nausea)
levothyroxine 100 mcg Tablet
100 mcg PO DAILY Qty: 0 0RF
furosemide 20 mg Tablet
20 mg PO BID Qty: 0 0RF
melatonin 5 mg Tablet
5 mg PO HS Qty: 0 0RF
Changed
prednisone 10 mg tablet
40 mg PO .TAPER Qty: 0 0RF
Patient Comments:
09/11/24: starting 09/08/24, to take 40mg QD for 1 week, then 30mg QD for 1 week, then 20mg QD for 1 week, then 10mg QD
Held
midodrine 5 mg Tablet
5 mg PO TID
Hold Instructions: Until evaluated by physician at [facility]
Discharge Orders:
Discharge Patient (As Directed); Ordered 09/16/24
Ordered By: Quin Ortiz
Discharge Date and Time
Print Language: BOLIVIAN
--- NOTE | 2024-09-15 18:00 | PTCARENOTE ---
post blood transfusion patient with pink flushed cheeks and manual of 200/99. manual taken for higher of 212/106. pt does not verbalize any chest pain or sob, she feels flushed in the face but otherwise asymptomatic. made aware. lasix to be
ordered. pt refusing lasix '' i dont want to take lasix im going to pee like a pee machine'. nurse educated on importance of getting the extra fluid off since she just got a transfusion. pt willing to take at this time.
[2024-09-15] MEDS: LASIX 20 MG PO (18:11)
--- NOTE | 2024-09-15 18:15 | PTCARENOTE ---
betina christensen made aware of cancelled discharge.
--- NOTE | 2024-09-15 18:27 | W.PN.UPDATE ---
Update Note
Progress Note Update
After receiving her blood transfusion, right before discharge, patient developed hypertension with her blood pressure being 204/101. Discharge was cancelled and patient was given Lasix. Patient had refused her dose of Lasix earlier due to not
wanting to pee more. Will give IV hydralazine if BP continues to stay elevated. Plan for discharge tomorrow if medically stable.
[2024-09-15] MEDS: APRESOLINE 5 MG IV (19:31)
[2024-09-15] MEDS: ELIQUIS 5 MG PO (20:00)
[2024-09-15] MEDS: XALATAN OPHTHALMIC SOLUTION 1 DROP BOTH EYES (22:50)
[2024-09-15] MEDS: MELATONIN 5 MG PO (22:50)
[2024-09-16] MEDS: SYNTHROID 100 MCG PO (05:25)
[2024-09-16 05:51] VITALS: BMI 21.1
[2024-09-16 06:03] LABS: ALT (SGPT) 32 U/L (0-35); AST (SGOT) 86 U/L (14-36); Albumin 2.3 g/dl (3.5-5.0); Alkaline Phosphatase 319 U/L (38-126); Blood Urea Nitrogen 43 mg/dl (7-17); Carbon Dioxide 28 mmol/L (22-30); Chloride 108 mmol/L (98-107); Estimated Creatinine Clearance 42 ml/min; Glucose 141 mg/dl (70-99); Potassium 4.5 mmol/L (3.5-5.1); Sodium 139 mmol/L (135-145); Total Bilirubin 2.3 mg/dl (0.2-1.3); Total Protein 4.9 g/dl (6.3-8.2); eGFR 58.02
[2024-09-16 06:10] LABS: Hematocrit 24.8 % (37.0-47.0); Hemoglobin 8.9 g/dL (12.0-16.0); Mean Corp Hgb Conc. 35.9 g/dL (33.0-37.0); Mean Corpuscular Hgb 30.9 pg (27.0-31.0); Mean Corpuscular Volume 86.1 fL (81.0-99.0); Mean Platelet Volume 12.1 fL (7.4-10.4); Platelet Count 201 10^3/uL (130-400); Red Blood Cell Count 2.88 10^6/uL (4.20-5.40); Red Cell Dist. Width 19.4 % (11.5-14.5); White Blood Cell Count 17.4 10^3/uL (4.8-10.8)
[2024-09-16 07:20] VITALS: BP 178/82
[2024-09-16] MEDS: DELTASONE 30 MG PO (07:58)
[2024-09-16] MEDS: NON-FORMULARY ITEM 1 UNIT PO ×2 (07:58→12:06)
[2024-09-16] MEDS: LASIX 20 MG PO ×2 (07:59→15:45)
[2024-09-16] MEDS: TENORMIN 25 MG PO (07:59)
[2024-09-16] MEDS: ELIQUIS 5 MG PO (07:59)
[2024-09-16] MEDS: ProAmatine PO ×3 (07:59→16:01)
[2024-09-16] MEDS: PACERONE 200 MG PO (07:59)
[2024-09-16] MEDS: NEURONTIN 100 MG PO (08:00)
[2024-09-16] MEDS: MIRALAX 17 GRAMS PO (08:10)
[2024-09-16] MEDS: SENOKOT-S 1 TABLET PO (08:10)
[2024-09-16 09:30] VITALS: BP 148/61
--- NOTE | 2024-09-16 10:31 | CM ---
CM updated physician and await confirmation of discharge. Please call report to [phone]/fax [phone]. Patient will need ambulance for transportation. CM completed forms and left them on the chart. Liaison updated and await time of
ambulance transportation. CM will continue to follow for discharge planning needs.
Plan; transfer to SNF; [facility].
[2024-09-16] MEDS: VITAMIN D3 (cholecalciferol) 25 MCG PO (12:06)
[2024-09-16 12:20] VITALS: BP 178/84; PULSE 60; O2SAT 100
--- NOTE | 2024-09-16 12:37 | W.PN.HOSP.TC ---
Addendum entered and electronically signed by Edu Art MD 09/17/24 17:29:
Patient admitted with: bilateral buttocks stage 2 pressure injury. Sacral stage 1 pressure injury.....Plan: Sacral and buttocks silicone border foam dressings changed
TME -resolved
Moderate protein malnutrition was present
Addendum entered and electronically signed by Edu Art MD 09/16/24 14:08:
Seen and examined by me independently in collaboration with the certified ophthalmic medical technician.
Lab data and imaging data reviewed.
Addendum as below :
Patient had transfusion yesterday. She has a posttransfusion elevated blood pressure but no clinical symptoms of fluid overload. She denies any cough, shortness of breath. Chest is clear to auscultation. She was resumed on Lasix since yesterday.
Continue with Lasix in the beta-glenna.
She has been medically stable from an infection standpoint for discharge.
DC to rehab today.
Total time of discharge 35 minutes
Original Note:
Today's Communication/Plan
-
Discharge to [facility] following IV antibiotics
Assessment / Plan
Assessment / Plan
Assessment:
79-year-old female with a past medical history of GERD, hypertension, hypothyroidism, anxiety, depression, Parkinson's, CHF came to the [facility] ED on 09/11/2024 due to being found unresponsive by her nursing staff at her care facility.
Patient recently moved from [facility] to this long-term living facility. Patient presented to the ED with fever since this morning and was feeling very weak. She was having some mental alterations as well so that she could not give proper history
in the ED. In the ED patient was found to be febrile, tachypneic, and had leukocytosis. Patient's UA also showed concern for her having a UTI. Patient was suspected to have sepsis due to UTI. Blood and urine cultures were taken and patient was
admitted for further management. Patient was started on IV cefepime and vancomycin in ER along with a bolus of lactated Ringer's, ID was consulted at this time as patient has had multidrug-resistant E. coli UTIs in the past. Patient underwent head
CT due to her mental changes, which did not show any acute abnormalities. Patient also underwent chest x-ray which showed possible interstitial pulmonary edema and possible pneumonia due to focal/confluent parenchymal airspace opacity within the
left lung base. Patient also had abnormally elevated LFTs so underwent ultrasound abdomen but no acute findings were found. As patient was allergic to penicillin and sulfa drugs, patient was started on ertapenem. Patient currently on day 6 of 14
of ertapenem. Patient got a PICC line and will be able to get IV antibiotics. Patient was discharged to [facility] yesterday upon receiving transfusion of blood, however patient developed hypotension and remained overnight. Now remained stable, and
will be medically discharged to [facility] again.
CT Head W/o Iv Contrast (09/11/2024):
No evidence of acute intracranial abnormality.
CR Chest Portable - 1 View (09/11/2024):
Cardiomegaly.
Subtle diffuse increased interstitial markings, suggestive of interstitial pulmonary edema pattern.
Focal or confluent parenchymal airspace opacity within the left lung base, main differential considerations of pneumonia and/or atelectasis.
US Abdomen Complete/Upper (09/11/2024):
Normal appearance of the gallbladder with no evidence for biliary ductal dilation.
Status post splenectomy.
Plan:
#Sepsis secondary to UTI
-Cultures positive for ESBL bacteremia
-On presentation to the ED, met SIRS criteria (WBCs 22.1, 101.4F, RR28)
-ID consulted, input appreciated
-Blood cultures, and urine cultures both positive for E. coli (ESBL) on 09-11-24-sensitive to ertapenem
-Repeat blood cultures showed no growth
-Continue ertapenem (day 6 of 14 of ertapenem IV)
-No further fevers
-Leukocytosis trending down
-IV fluids were stopped, lactic acid within normal limits
-Can transition to outpatient IV antibiotics as per ID
-PICC line installed
-Patient to be discharged to [facility] today
# ELPIDIO on CKD stage II
-Creatinine 2.5 on presentation, now down-trending.
-Patient received fluids in the ER
-Continue monitoring CMP
-Showed further improvement of creatinine today
-Resolved
# Elevated troponin
-Troponin trending downwards
-Most likely due to nonischemic myocardial injury
# Recent altered mental status
-Most likely due to UTI/sepsis
-Head CT as above
-TME Resolved
-Continue monitoring for any worsening mental status changes
# Paroxysmal A-fib
-Continue amiodarone
-Atenolol restarted
-Continuing Eliquis
# Abdominal spasms
-Given hyoscyamine 0.125 mg
-Recently started having symptoms, probably due to antibiotic use
# Acute on chronic anemia
-High ferritin (1540), Low iron, TIBC consistent with chronic anemia
-Hemoglobin remaining stable
-Continue to monitor
-Given 1 unit of blood yesterday, developed hypotension afterwards
-Patient remained in the hospital
-Given IV hydralazine 5 mg, and restarted on Lasix therapy
-Blood pressure reduced afterwards
-Medically cleared for discharge now
-Hypotension was most likely due to hypovolemic status from blood transfusion
# Acute on chronic transaminitis, possibly due to sepsis versus chronic treatment with amiodarone
# Hyperbilirubinemia, hypocalcemia
-Continue monitoring bilirubin and calcium levels
-Continue trending LFTs
-Ultrasound as above, no acute findings
-Most likely due to sepsis
# Orthostatic hypotension
-Patient on midodrine continue with holding parameters
# History of temporal arteritis
-Biopsy diagnosis was done by rheumatology and ophthalmology
-Has been tapering down from 60 mg, was on prednisone 40 mg at home
-Will contact patient's manufacturing support engineer for further clarification
-Was scheduled to reduce dose of prednisone to 30 mg this week. Has been tapering down every other week
-Now down to 30 mg
# Hypothyroidism
-TSH low, T4- 2.9, continue levothyroxine
# Parkinson's disease
-Continue Sinemet therapy, 5 times daily
-Patient wants to make her neurology appointment in outpatient setting
# CHF with preserved ejection fraction
-No fluid restriction, continue daily weights
-Lasix held due to treatment with fluids
-Latest echo showed left ventricular ejection fraction of 60 to 65% and severe pulmonary hypertension
-Continue soft fluid therapy and monitor for any changes in breathing
-Lasix and fluid restriction to resume once patient's condition improves
#Sacral (lower back) stage 1 and bilateral buttocks stage 2 pressure injuries
-most likely pressure injuries (POA)
-Wound care nurse consulted, input appreciated, therapy as directed with air mattress and protective silicone border foam as needed
#Moderate Protein Calorie Malnutrition is/was present and is a clinical diagnosis
-Most likely chronic (has been dealing with decreased appetitite in outpatient setting)
-Non Severe weight loss
-Possibly need some appetite stimulation medication, says she has been given some in the past
# Neuropathy
-Patient on gabapentin 100 mg twice daily, no renal dosing changes needed at this time due to low dose
# History of ITP/pancytopenia
-Continue to monitor CBC
CODE STATUS: DNR
DVT prophylaxis: Eliquis
Anticipated Discharge: Today
Subjective/Interval History
-
Date of Service: September 16, 2024
Patient has been feeling well, just complains of some abdominal cramping but otherwise no other concerns. No longer feeling flushed and does not have any headaches.
Objective Data
-
Labs:
Laboratory Results
09/16/24
04:44
WBC 17.4 H
Hgb 8.9 L D
Hct 24.8 L
Plt Count 201
Sodium 139
Potassium 4.5
Chloride 108 H
Carbon Dioxide 28
BUN 43 H
Creatinine 1.0
Glucose 141 H
Calcium 8.0 L
Total Bilirubin 2.3 H
AST 86 H
ALT 32
Alkaline Phosphatase 319 H
Vital Signs:
Vital Signs
Temp Pulse Resp BP Pulse Ox
97.6 F 60 15 178/84 99
09/16/24 07:20 09/16/24 12:14 09/16/24 07:20 09/16/24 12:14 09/16/24 07:20
I&O
09/15/24 09/16/24 09/17/24
06:59 06:59 06:59
Intake Total 540 / 540 1640 / 1640
Balance 540 / 540 1640 / 1640
Review of Systems
-
History Source: Patient
Constitutional: Denies Fever, Fatigue or Chills
EENT: Reports No Symptoms Reported
Respiratory: Denies Cough or Trouble Breathing
Cardiac: Denies Chest Pain, Diaphoresis or Palpitations
Abdomen/GI: Reports Abdominal Pain (More cramping than pain diffuse lower abdomen); Denies Nausea, Vomiting or Diarrhea
Genitourinary: Reports No Symptoms
Skin: Reports No Symptoms
Psych: Reports Anxious
Physical Exam
-
General: Well Developed, Well Nourished, No Apparent Distress, Comfortable and Conversant
HEENT: Normocephalic and Atraumatic
Respiratory: Clear to Auscultation and Non Labored Respirations
Cardiac: S1/S2 and Irregular Rhythm
GI: Soft, Nontender, Nondistended and Normal Bowel Sounds
Musculoskeletal: No Clubbing, No Cyanosis and No Edema
Skin: Warm
Neuro: Awake, Alert and Oriented
Psych: Calm
Data Reviewed
-
Labs: Labs Reviewed by me, Discussed with Physician, Discussed with Nurse, Discussed with Patient and Discussed with Family
[2024-09-16] MEDS: INVANZ 60 MG IV (13:08)
[2024-09-16 15:20] VITALS: BP 195/92
[2024-09-16] MEDS: NON-FORMULARY ITEM PO (15:42)
[2024-09-16] MEDS: TYLENOL 650 MG PO (15:46)
[2024-09-16] MEDS: SINEMET 25-100 1 TABLET PO (15:46)
--- NOTE | 2024-09-16 16:04 | PTCARENOTE ---
Son Garry notified at 3:30pm today that his mother was being picked up at 5:15 to go to [facility]. Son was appreciative for the phone call and the care.
--- NOTE | 2024-09-16 17:55 | PTCARENOTE ---
Spoke with son Garry in re: that ambulance company unable to take wheelchair along with the patient to [facility]. He will stop by tomorrow to pick it up.
== END 2024-09-16 17:56 | DRG 871 ==
LOC: 2 NORTH 15:23
PROVIDERS: Registered Nurse; Student in an Organized Health Care Education/Training Program; ADMITTING PHYSICIAN Internal Medicine; ATTENDING PHYSICIAN Internal Medicine; CONSULT PHYSICIAN Internal Medicine Infectious Disease; EMERGENCY PHYSICIAN Emergency Medicine
PROC: 30233N1 Transfusion of Nonautologous Red Blood Cells into Peripheral Vein, Percutaneous Approach (ICD-10-PCS; 2024-09-15)
DX: A41.51 Sepsis due to Escherichia coli [E. coli] (principal); G92.8 Other toxic encephalopathy; N39.0 Urinary tract infection, site not specified; N17.9 Acute kidney failure, unspecified; E44.0 Moderate protein-calorie malnutrition; I50.32 Chronic diastolic (congestive) heart failure; I13.0 Hypertensive heart and chronic kidney disease with heart failure and stage 1 through stage 4 chronic kidney disease, or unspecified chronic kidney disease; I5A Non-ischemic myocardial injury (non-traumatic); D69.3 Immune thrombocytopenic purpura; J98.11 Atelectasis; Z11.52 Encounter for screening for COVID-19; Z66 Do not resuscitate; D64.9 Anemia, unspecified; N18.2 Chronic kidney disease, stage 2 (mild); E83.51 Hypocalcemia; I48.0 Paroxysmal atrial fibrillation; Z79.01 Long term (current) use of anticoagulants; I95.1 Orthostatic hypotension; E03.9 Hypothyroidism, unspecified; G20.A1 Parkinson's disease without dyskinesia, without mention of fluctuations; M31.6 Other giant cell arteritis; Z68.21 Body mass index [BMI] 21.0-21.9, adult; G62.9 Polyneuropathy, unspecified; Z79.899 Other long term (current) drug therapy; L89.151 Pressure ulcer of sacral region, stage 1; L89.312 Pressure ulcer of right buttock, stage 2; L89.322 Pressure ulcer of left buttock, stage 2; Z87.440 Personal history of urinary (tract) infections
CPT/HCPCS: 70450; 71045; 76700; 80053; 81003; 81015; 82607; 82728; 82746; 83540; 83550; 83605; 84439; 84443; 84484; 85025; 85027; 86850; 86900; 86901; 86920; 87040; 87070; 87077; 87086; 87149; 87186; 87205; 87502; 87811; 92526; 92610; 93005; 96365; 96375; 97110; 97163; 97167; 97530; 99291; J1335; P9016

== ENCOUNTER → 2024-09-18 10:35 | Outpatient (REF) | payer OTHER, MEDICARE, BC, SELFPAY ==
[2024-09-18 11:42] LABS: Hemoglobin 9.7 g/dL (12.0-16.0); Mean Corp Hgb Conc. 33.4 g/dL (33.0-37.0); Mean Corpuscular Hgb 30.1 pg (27.0-31.0); Mean Corpuscular Volume 90.1 fL (81.0-99.0); Red Blood Cell Count 3.22 10^6/uL (4.20-5.40); Red Cell Dist. Width 20.4 % (11.5-14.5); White Blood Cell Count 23.9 10^3/uL (4.8-10.8)
[2024-09-18 14:13] LABS: % Basophils 0.3 % (0-2); % Immature Granulocytes 7.5 % (0-0.5); % Lymphocytes 0.9 % (20.5-51.1); % Monocytes 0.8 % (1.7-9.3); % Neutrophils 90.5 % (42.2-75.2); Absolute Basophils 0.1 10^3/uL (0-0.2); Absolute Immature Granulocytes 1.8 10^3/uL (0-0.05); Absolute Lymphocytes 0.2 10^3/uL (1.2-3.4); Absolute Monocytes 0.2 10^3/uL (0.1-0.6); Absolute Neutrophils 21.7 10^3/uL (1.4-6.5); Anisocytosis 1+; Hypochromasia 2+; Normal RBC Morphology No; Nucleated Red Blood Cells % 3.9 %; Platelet Count 161 10^3/uL (130-400); Polychromasia 1+; Target Cells 2+
[2024-09-18 14:14] LABS: Acanthocytes 1+; Basophilic Stippling 1+
== END ==
LOC: OLABP 10:35
PROVIDERS: ATTENDING PHYSICIAN Family Medicine
DX: M62.59 Muscle wasting and atrophy, not elsewhere classified, multiple sites (principal); I87.8 Other specified disorders of veins; J98.11 Atelectasis; E66.01 Morbid (severe) obesity due to excess calories; R06.89 Other abnormalities of breathing; I10 Essential (primary) hypertension; M54.9 Dorsalgia, unspecified; E11.9 Type 2 diabetes mellitus without complications
CPT/HCPCS: 36415; 85025

== ENCOUNTER → 2024-09-21 11:13 | Outpatient (REF) | payer OTHER, MEDICARE, BC, SELFPAY ==
[2024-09-21 12:58] LABS: % Basophils 0.1 % (0-2); % Immature Granulocytes 4.6 % (0-0.5); % Lymphocytes 1.9 % (20.5-51.1); % Monocytes 1.9 % (1.7-9.3); % Neutrophils 91.5 % (42.2-75.2); Absolute Immature Granulocytes 0.9 10^3/uL (0-0.05); Absolute Lymphocytes 0.4 10^3/uL (1.2-3.4); Absolute Monocytes 0.4 10^3/uL (0.1-0.6); Absolute Neutrophils 18.5 10^3/uL (1.4-6.5); Hematocrit 27.6 % (37.0-47.0); Hemoglobin 9.1 g/dL (12.0-16.0); Mean Corpuscular Hgb 30.3 pg (27.0-31.0); Nucleated Red Blood Cells % 0.8 %; Platelet Count 170 10^3/uL (130-400); Red Cell Dist. Width 21.6 % (11.5-14.5); White Blood Cell Count 20.3 10^3/uL (4.8-10.8)
[2024-09-21 13:06] LABS: Blood Urea Nitrogen 29 mg/dl (7-17); Calcium 8.5 mg/dl (8.4-10.2); Carbon Dioxide 33 mmol/L (22-30); Chloride 101 mmol/L (98-107); Glucose 159 mg/dl (70-99); Potassium 4.1 mmol/L (3.5-5.1); Sodium 138 mmol/L (135-145); eGFR > 60.00
== END ==
LOC: OLABP 11:13
PROVIDERS: ATTENDING PHYSICIAN Family Medicine
DX: A41.9 Sepsis, unspecified organism (principal); N39.0 Urinary tract infection, site not specified; G20.A1 Parkinson's disease without dyskinesia, without mention of fluctuations; I95.1 Orthostatic hypotension; I5A Non-ischemic myocardial injury (non-traumatic); N17.9 Acute kidney failure, unspecified; N18.2 Chronic kidney disease, stage 2 (mild); E44.0 Moderate protein-calorie malnutrition; I10 Essential (primary) hypertension; I48.0 Paroxysmal atrial fibrillation; I50.32 Chronic diastolic (congestive) heart failure; I13.0 Hypertensive heart and chronic kidney disease with heart failure and stage 1 through stage 4 chronic kidney disease, or unspecified chronic kidney disease; G62.9 Polyneuropathy, unspecified
CPT/HCPCS: 36415; 80048; 85025

== ENCOUNTER → 2024-09-24 14:06 | Outpatient (REF) | payer OTHER, MEDICARE, BC, SELFPAY ==
[2024-09-24 15:19] LABS: Blood Urea Nitrogen 35 mg/dl (7-17); Calcium 7.6 mg/dl (8.4-10.2); Carbon Dioxide 29 mmol/L (22-30); Chloride 111 mmol/L (98-107); Glucose 88 mg/dl (70-99); Potassium 3.5 mmol/L (3.5-5.1); Sodium 144 mmol/L (135-145); eGFR 51.75
== END ==
LOC: OLABP 14:06
PROVIDERS: ATTENDING PHYSICIAN Family Medicine
DX: A41.9 Sepsis, unspecified organism (principal); N39.0 Urinary tract infection, site not specified; G20.A1 Parkinson's disease without dyskinesia, without mention of fluctuations; I95.1 Orthostatic hypotension; I5A Non-ischemic myocardial injury (non-traumatic); E44.0 Moderate protein-calorie malnutrition; N17.9 Acute kidney failure, unspecified; N18.2 Chronic kidney disease, stage 2 (mild); I10 Essential (primary) hypertension; I48.0 Paroxysmal atrial fibrillation; I50.32 Chronic diastolic (congestive) heart failure; I13.0 Hypertensive heart and chronic kidney disease with heart failure and stage 1 through stage 4 chronic kidney disease, or unspecified chronic kidney disease; G62.9 Polyneuropathy, unspecified
CPT/HCPCS: 36415; 80048

== ENCOUNTER → 2024-10-01 13:14 | Outpatient (REF) | payer OTHER, MEDICARE, BC, SELFPAY ==
[2024-10-01 13:50] LABS: Urine Albumin 2+ (Neg - Trace); Urine Bilirubin Negative (Negative); Urine Character Slightly Cloudy (Clear); Urine Color Yellow; Urine Glucose Negative (Negative); Urine Ketone Negative (Negative); Urine Leukocyte 2+ (Negative); Urine Nitrite Negative (Negative); Urine Occult Blood 1+ (Negative); Urine Specific Gravity 1.015 (<1.030); Urine Urobilinogen Negative (Neg - 1+)
[2024-10-01 14:00] LABS: Urine Bacteria Many (Negative); Urine Red Blood Cell 0-2 /HPF (0-2); Urine Squamous Cell 0-2 /LPF (Few); Urine White Cell 26-30 /HPF (0-5)
== END ==
LOC: OLABP 13:14
PROVIDERS: ATTENDING PHYSICIAN Family Medicine
DX: A41.9 Sepsis, unspecified organism (principal); N39.0 Urinary tract infection, site not specified; G20.A1 Parkinson's disease without dyskinesia, without mention of fluctuations
CPT/HCPCS: 81003; 81015; 87077; 87086

== ENCOUNTER → 2024-10-14 11:26 | Outpatient (REF) | payer OTHER, MEDICARE, BC, SELFPAY ==
[2024-10-14 12:40] LABS: Hematocrit 22.8 % (37.0-47.0); Hemoglobin 7.3 g/dL (12.0-16.0); Mean Corpuscular Hgb 30.5 pg (27.0-31.0); Mean Corpuscular Volume 95.4 fL (81.0-99.0); Mean Platelet Volume 12.5 fL (7.4-10.4); Platelet Count 400 10^3/uL (130-400); Red Blood Cell Count 2.39 10^6/uL (4.20-5.40); Red Cell Dist. Width 23.9 % (11.5-14.5)
[2024-10-14 13:01] LABS: ALT (SGPT) 15 U/L (0-35); AST (SGOT) 23 U/L (14-36); Albumin 2.1 g/dl (3.5-5.0); Alkaline Phosphatase 215 U/L (38-126); Blood Urea Nitrogen 29 mg/dl (7-17); Carbon Dioxide 25 mmol/L (22-30); Chloride 111 mmol/L (98-107); Glucose 127 mg/dl (70-99); Potassium 4.4 mmol/L (3.5-5.1); Sodium 143 mmol/L (135-145); Total Bilirubin 0.5 mg/dl (0.2-1.3); Total Protein 4.4 g/dl (6.3-8.2); eGFR 51.75
== END ==
LOC: OLABP 11:26
PROVIDERS: ATTENDING PHYSICIAN Family Medicine
DX: A41.9 Sepsis, unspecified organism (principal); N39.0 Urinary tract infection, site not specified; G20.A1 Parkinson's disease without dyskinesia, without mention of fluctuations; I95.1 Orthostatic hypotension; E44.0 Moderate protein-calorie malnutrition; N17.9 Acute kidney failure, unspecified; N18.2 Chronic kidney disease, stage 2 (mild); I48.0 Paroxysmal atrial fibrillation; I50.32 Chronic diastolic (congestive) heart failure; I13.0 Hypertensive heart and chronic kidney disease with heart failure and stage 1 through stage 4 chronic kidney disease, or unspecified chronic kidney disease; G62.9 Polyneuropathy, unspecified
CPT/HCPCS: 36415; 80053; 85027

== ENCOUNTER → 2024-10-15 12:05 | Outpatient (REF) | payer OTHER, MEDICARE, BC, SELFPAY ==
[2024-10-15 12:42] LABS: Hematocrit 24.6 % (37.0-47.0); Hemoglobin 7.7 g/dL (12.0-16.0)
[2024-10-15 13:05] LABS: Blood Urea Nitrogen 34 mg/dl (7-17); Calcium 8.5 mg/dl (8.4-10.2); Carbon Dioxide 26 mmol/L (22-30); Chloride 110 mmol/L (98-107); Glucose 100 mg/dl (70-99); Potassium 4.3 mmol/L (3.5-5.1); Sodium 144 mmol/L (135-145); eGFR 46.62
== END ==
LOC: OLABP 12:05
PROVIDERS: ATTENDING PHYSICIAN Family Medicine
DX: A41.9 Sepsis, unspecified organism (principal); N39.0 Urinary tract infection, site not specified; G20.A1 Parkinson's disease without dyskinesia, without mention of fluctuations; I95.1 Orthostatic hypotension; I5A Non-ischemic myocardial injury (non-traumatic); N17.9 Acute kidney failure, unspecified; N18.2 Chronic kidney disease, stage 2 (mild); I10 Essential (primary) hypertension; I48.0 Paroxysmal atrial fibrillation; I50.32 Chronic diastolic (congestive) heart failure; G62.9 Polyneuropathy, unspecified; I13.0 Hypertensive heart and chronic kidney disease with heart failure and stage 1 through stage 4 chronic kidney disease, or unspecified chronic kidney disease; E44.0 Moderate protein-calorie malnutrition
CPT/HCPCS: 36415; 80048; 85014; 85018

== ENCOUNTER 2024-10-18 02:44 | Inpatient (IN) | payer MEDICARE, BC, SELFPAY ==
[2024-10-17 23:37] VITALS: BMI 20.2
--- NOTE | 2024-10-17 23:39 | ED.GENMED ---
History of Present Illness
General
Chief Complaint: Breathing Problem
Time Seen by Provider: 10/17/24 23:35
History of Present Illness
History of Present Illness:
TIME OF INITIAL ENCOUNTER: 11:35 PM
HPI: The patient comes in from [place] by ambulance due to shortness of breath. The patient tells me that she was eating earlier and then 'it went down the wrong pipe'. She denies shortness of breath earlier. EMS noted room air sats of 82% and
they are confirmed to be 86% here after she was on oxygen briefly for EMS. The patient has history of CKD and paroxysmal A-fib.
EXAM:
GENERAL: The patient is ill-appearing, hypotensive and hypoxic, decreased active range of motion to flexion of the thoracolumbar spine due to ongoing back pain
HEENT: Dry oral mucosa
CARDIOVASCULAR: No murmurs, normal heart rate, regular rhythm, No chest wall tenderness
PULMONARY: Mild respiratory distress with conversational dyspnea, bibasilar Rales
ABDOMEN: Soft with no peritoneal signs, no tenderness
NEUROLOGIC: Appears generally weak in all extremities, speaks in low volume
PSYCHIATRIC: Appropriate mental status, reasonable insight and judgement, but appears somewhat confused at times
EXTREMITIES: Decreased strength in both lower extremities
SKIN: No rash, no lesions
NUMBER AND COMPLEXITY OF PROBLEMS ADDRESSED AT THE ENCOUNTER
� Chronic conditions affecting care: Parkinson's, CHF, UTI, has had sepsis, CKD
� Acute Exacerbation and/or Progression of Chronic Illness: This is an acute problem
� Differential Diagnosis includes: Sepsis, aspiration pneumonia, healthcare associated pneumonia, UTI, bacteremia
AMOUNT AND/OR COMPLEXITY OF DATA TO BE REVIEWED AND ANALYZED
� I performed an independent evaluation of and my interpretation is:
EKG: Sinus 76, nonspecific ST abnormality, no significant change from 09/11/2024
CT:
X-rays: Chest x-ray shows densities bilaterally concerning for pneumonia and/or interstitial edema
Laboratory Studies: BNP 7780, creatinine 1.8, white count 19.2, hemoglobin 7.5 which is near baseline
Other:
� Review of other/old records: The patient was admitted here last month and treated for sepsis/UTI after being found unresponsive and was also treated for pneumonia.
� Clinical information was obtained by an independent historian: EMS
� Prescriptions/Medications Considered but not given: See below
� Further testing considered but not performed:
RISK OF COMPLICATIONS AND/OR MORBIDITY OR MORTALITY OF PATIENT MANAGEMENT
� Social determinants of health affecting care: Resides at [facility]
� Discussion with other providers: Dr. Allen for admission
� Escalation of care including admission/observation vs risk of discharge considered: The patient initially arrived with systolics of 88 and room air sats of about 86%. She was given IV fluid and oxygen. She states that her
symptoms started and worsened after she was eating and it 'went down the wrong pipe'. Given the possibility of aspiration pneumonia, I was going to order Zosyn but the patient has a penicillin allergy. I have therefore ordered meropenem along with
vancomycin. In the past the patient did have a E. coli UTI which was sensitive to meropenem.
ANY OTHER UPDATES:
1:05 AM: Chest x-ray abnormal. Marked leukocytosis. Borderline fever and was given oral Tylenol. After 500 mL of fluid her blood pressure went from the 80s to around 100 systolic. She overall feels better. She was given a DuoNeb. Her renal
function has worsened. Additional fluids given. BNP higher than prior now at 7780
Past History
Past History
ED Past Medical History: Arrthythmia (PAT), GERD, HTN, Hypothyroidism and Psychiatric (History of anxiety and depression)
ED Past Surgical History: Other (History of splenectomy, , tonsillectomy)
Patient has exhibited threatening behavior?: No
PSI?: No
Social History
Tobacco: Non-smoker
Alcohol: None
Drug: None
Personal:
Living: alone
Employment: Retired
Phy Exam
Physical Exam
Physical Exam:
See HPI
Scores
Heart Failure Risk
Heart Failure Risk Score: Not Applicable
Course
Orders/Labs/Results
Orders:
Orders
10/17/24 23:39
Electrocardiogram (*1) Urgent
Reason for Study: Shortness of Breath
EKG- Treatment ONCE
10/17/24 23:42
Ipratropium/Albuterol Sulfate [Duoneb] 3 ml INH R NOW STA
10/17/24 23:45
Straight cath- Treatment ONCE
Straight cath- Treatment ONCE
Urinalysis Reflex To Culture Urgent
Date Specimen was Collected: 10/18/24
Time Specimen was Collected: 00:01
0.9% Sodium Chloride 500 ml [Nss] 500 ml IV BOLUS
10/17/24 23:51
Meropenem [Merrem] 1,000 mg IV NOW STA
10/17/24 23:52
Complete Blood Count/With Diff Urgent
Comprehensive Metabolic Panel Urgent
Lactic Acid Q4H
Comment: CANCEL 2nd LACTIC ACID IF 1st LACTIC ACID IS LESS THAN 2
NT-proBNP Urgent
Blood Culture Q30M
NOAH Source: Blood/Venous
Specimen Description:
Influenza A+B Rapid Molecular Urgent
NOAH Source: Nasal Swab
Specimen Description:
10/17/24 23:57
COVID-19 Antigen Urgent
Source: Nasal Swab
10/18/24 00:00
CR Chest Portable - 1 View Urgent
Reason For Exam: sob
Reason Study Needs to be Portable: Unable to Transport
10/18/24 00:01
Sterile Water [Sterile Water For Injection] 20 ml .ROUTE .STK-MED
10/18/24 00:08
Urine Microscopic Reflex Cult Urgent
Blood Culture Q30M
NOAH Source: Blood/Venous
Specimen Description:
Urine Culture Urgent
NOAH Source: U
Specimen Description:
Date Specimen was Collected: 10/18/24
Time Specimen was Collected: 00:01
10/18/24 00:19
Acetaminophen [Tylenol Suspension] 650 mg PO NOW STA
10/18/24 00:20
Acetaminophen [Tylenol Oral Solution] 650 mg .ROUTE .STK-MED ONE
10/18/24 00:41
Vancomycin [Vancocin] 1,500 mg 0.9% Sodium Chloride 500 ml [Nss] 500 ml IV NOW
10/18/24 01:04
0.9% Sodium Chloride 500 ml [Nss] 500 ml IV BOLUS
10/18/24 02:22
Admit/Transfer Patient As Directed
Co-Sign Provider:
Level of Care: Inpatient admission
Assign to:: IMU- Intermediate Care
Physician / Group: Alejandro
Diagnosis: Acute Hypoxemic Respiratory Failure
Reason for Hospitalization: Acute Hypoxemic Respiratory Failure
Expected length of stay greater than two midnights?: Yes
ELOS- Estimated Length of Stay in days: 3
I certify the patient meets the requirements for IP care: Yes
10/18/24 02:23
Code Status As Directed
Resuscitation Status: Do not resuscitate
Reached after discussion with pt or family/Healthcare POA: Yes
PRN Pain Medication Management As Directed
May give lesser potent ordered pain med per pt: Yes
preference::
Protocol:: Medication orders for pain may be administered in a
manner that supports deferring to patient preference
when the pt is:
- Requesting an ordered lesser potent pain medication.
Least to most potent pain medications are defined
as: acetaminophen < NSAID < tramadol < opioids
(morphine, oxycodone, hydromorphone).
- Requesting a lesser dose of the same medication IF
ORDERED.
- Requesting a less intrusive route of administration
if both routes are prescribed by the provider (PO <
IV).
10/18/24 02:24
DNR Bracelet Application ONCE
10/18/24 03:45
Lactic Acid Q4H
Comment: CANCEL 2nd LACTIC ACID IF 1st LACTIC ACID IS LESS THAN 2
Abnormal Lab Results
10/17/24 10/18/24
23:52 00:08
WBC 19.2 H 10^3/uL
(4.8-10.8)
RBC 2.43 L 10^6/uL
(4.20-5.40)
Hgb 7.5 L g/dL
(12.0-16.0)
Hct 22.3 L %
(37.0-47.0)
RDW 22.6 H %
(11.5-14.5)
Plt Count 433 H 10^3/uL
(130-400)
MPV 12.3 H fL
(7.4-10.4)
Abs Immat Gran (auto) 0.5 H 10^3/uL
(0-0.05)
Absolute Neuts (auto) 18.0 H 10^3/uL
(1.4-6.5)
Absolute Lymphs (auto) 0.2 L 10^3/uL
(1.2-3.4)
Immature Gran % 2.5 H %
(0-0.5)
Neutrophils % 93.5 H %
(42.2-75.2)
Lymphocytes % 1.2 L %
(20.5-51.1)
Chloride 112 H mmol/L
(98-107)
Carbon Dioxide 21 L mmol/L
(22-30)
BUN 53 H mg/dl
(7-17)
Creatinine 1.8 H mg/dL
(0.6-1.0)
Glucose 142 H mg/dl
(70-99)
Lactic Acid 2.5 H mmol/L
(0.7-2.0)
Calcium 8.1 L mg/dl
(8.4-10.2)
Alkaline Phosphatase 242 H U/L
(38-126)
Total Protein 4.8 L g/dl
(6.3-8.2)
Albumin 2.2 L g/dl
(3.5-5.0)
Urine Ketones 1+ A
(Negative)
Ur Occult Blood Reflex 4+ A
(Negative)
Leukocyte Esterase Rfl 3+ A
(Negative)
Urine WBC (Reflex) >100 A /HPF
(0-5)
Urine Bacteria (Reflex) Many A
(Negative)
Urine Albumin (Reflex) 3+ A
(Neg - Trace)
10/17/24 23:52
10/17/24 23:52
Vital Signs
Initial and Last Documented VS:
Initial Vital Signs
Temp Pulse Resp BP Pulse Ox
36.4 C 75 25 88/41 94
10/17/24 23:40 10/17/24 23:40 10/17/24 23:40 10/17/24 23:40 10/17/24 23:40
Last Documented Vital Signs
Temp Pulse Resp BP Pulse Ox
37.8 C 68 15 104/51 96
10/18/24 00:00 10/18/24 02:45 10/18/24 02:45 10/18/24 02:31 10/18/24 02:34
*Critical Care Note
Total Time (30-74mins, 75-104mins- exclusive of procedures): Not Applicable
ED Attending Note
-
Portions of this chart may have been created with voice recognition software.� Occasional wrong word or��sound alike� substitutions may have occurred due to the inherent limitations of voice recognition software.
Discharge Plan
Departure
Patient Disposition: Admit
Date of Disposition: 10/18/24
Time of Disposition: 01:04
Presentation/result/management discussed w/ accepting MD/DO: Hospitalist
Discharge Problem:
Pneumonia
Interventions
Interventions:
*Risk Screen - Suicide Last Done: 10/17/24 23:40
*General Assessment Last Done: 10/17/24 23:40
*Neglect/Abuse Screening Last Done: 10/17/24 23:40
*ED- Fall Risk Assessment Last Done: 10/17/24 23:40
*ED COVID-19 Vaccine History Last Done: 10/17/24 23:40
ED- Cardiac Assessment Last Done: 10/18/24 00:27
ED- Pulmonary Assessment Last Done: 10/18/24 00:27
[2024-10-17 23:40] VITALS: BP 88/41
[2024-10-17 23:42] VITALS: BP 88/41
[2024-10-17 23:50] VITALS: BP 120/62
[2024-10-17] MEDS: DUONEB 3 ML INH (23:50)
[2024-10-17] MEDS: NSS 500 IV (23:50)
[2024-10-18] VITALS (46 sets, daily range): BP systolic 80–145; BP diastolic 28–106; BMI 20.2
[2024-10-18] MEDS: MERREM 1000 MG IV (00:03)
[2024-10-18 00:11] LABS: % Basophils 0.3 % (0-2); % Eosinophils 0.1 % (0-6); % Immature Granulocytes 2.5 % (0-0.5); % Lymphocytes 1.2 % (20.5-51.1); % Monocytes 2.4 % (1.7-9.3); % Neutrophils 93.5 % (42.2-75.2); Absolute Basophils 0.1 10^3/uL (0-0.2); Absolute Immature Granulocytes 0.5 10^3/uL (0-0.05); Absolute Lymphocytes 0.2 10^3/uL (1.2-3.4); Absolute Monocytes 0.5 10^3/uL (0.1-0.6); Hematocrit 22.3 % (37.0-47.0); Hemoglobin 7.5 g/dL (12.0-16.0); Mean Corp Hgb Conc. 33.6 g/dL (33.0-37.0); Mean Corpuscular Hgb 30.9 pg (27.0-31.0); Mean Corpuscular Volume 91.8 fL (81.0-99.0); Mean Platelet Volume 12.3 fL (7.4-10.4); Platelet Count 433 10^3/uL (130-400); Red Blood Cell Count 2.43 10^6/uL (4.20-5.40); Red Cell Dist. Width 22.6 % (11.5-14.5); White Blood Cell Count 19.2 10^3/uL (4.8-10.8)
[2024-10-18 00:22] LABS: Lactic Acid 2.5 mmol/L (0.7-2.0)
[2024-10-18] MEDS: TYLENOL SUSPENSION 650 MG PO (00:25)
[2024-10-18 00:28] LABS: ALT (SGPT) < 10 U/L (0-35); AST (SGOT) 30 U/L (14-36); Albumin 2.2 g/dl (3.5-5.0); Alkaline Phosphatase 242 U/L (38-126); Blood Urea Nitrogen 53 mg/dl (7-17); Calcium 8.1 mg/dl (8.4-10.2); Carbon Dioxide 21 mmol/L (22-30); Chloride 112 mmol/L (98-107); Estimated Creatinine Clearance 23 ml/min; Glucose 142 mg/dl (70-99); Potassium 4.9 mmol/L (3.5-5.1); Sodium 143 mmol/L (135-145); Total Bilirubin 0.7 mg/dl (0.2-1.3); Total Protein 4.8 g/dl (6.3-8.2); eGFR 28.66
[2024-10-18 00:29] LABS: COVID-19 Antigen Negative (Negative)
[2024-10-18 00:31] LABS: NT-proBNP 7780 pg/ml
[2024-10-18] MEDS: VANCOCIN 530 MG IV (01:01)
[2024-10-18] MEDS: NSS 500 IV (01:06)
[2024-10-18 02:12] LABS: Urine Albumin 3+ (Neg - Trace); Urine Bilirubin Negative (Negative); Urine Character Cloudy (Clear); Urine Color Yellow; Urine Glucose Negative (Negative); Urine Ketone 1+ (Negative); Urine Leukocyte 3+ (Negative); Urine Nitrite Negative (Negative); Urine Occult Blood 4+ (Negative); Urine Specific Gravity 1.015 (<1.030); Urine Urobilinogen Negative (Neg - 1+)
[2024-10-18 02:23] LABS: Urine Squamous Cell None seen /LPF (Few); Urine White Cell >100 /HPF (0-5)
[2024-10-18 02:25] LABS: Urine Bacteria Many (Negative)
--- NOTE | 2024-10-18 02:29 | HPS.HSE ---
Family Physician
-
Family Physician: Tayler Pradhan, DO
Chief Complaint
-
SOB
History of Present Illness
Patient is a 79y F with PMH significant for Parkinson's disease, A-Fib and chronic anemia who presents to ED complaining of SOB. Patient states that she was feeling well until dinner this evening. While eating dinner, she had an episode of
coughing / choking when her food 'went down the wrong way'. She coughed for several minutes, felt extremely SOB and has had persistent dyspnea since that time. Patient denies any cough, SOB, fevers / chills, etc prior to this choking episode.
She continues to feel SOB here in the ED.
Patient was most recently admitted from 09/11 - 09/16 secondary to complicated UTI. [facility] of Ertapenem (which she has done).
Medical History
Past Medical History
Past Medical History: Reports Other
Additional Past Medical History:
Anxiety
Hypothyroidism
Parkinson disease
Dysphagia
Hypertension
Paroxysmal A-fib
ITP
GERD
Osteopenia
Glaucoma
Diverticulitis
Anemia
Past Surgical History: Reports Other
Additional Past Surgical History:
Splenectomy
Cardiac ablation
Hysterectomy
Social History
Tobacco: Non-smoker
Alcohol: None
Drug: None
Living: Intermediate
Family History
Family History: Not pertinent
Allergies / Home Medications
Allergies reflects when Allergies were last updated in [employer].
Home Medications with original date entered in [employer]
Allergy/Medication List:
Allergies
Allergy/AdvReac Type Severity Reaction Status Date / Time
codeine Allergy Nausea,HEAD Verified 08/07/24 13:13
ACHE,RASH,D
EDUARDO
Iodinated Contrast Media Allergy Hives Verified 08/07/24 13:13
[Iodinated Contrast Media -
Oral and]
Penicillins Allergy Hives,HEADA Verified 09/11/24 17:59
EUGENIO,RASH,NA
USEA
Sulfa (Sulfonamide Allergy HEADACHE,RA Verified 08/07/24 13:13
Antibiotics) SH,NAUSEA
gnats Allergy Rash Uncoded 07/06/24 13:04
MOSQUITO Allergy Swelling/RE Uncoded 07/06/24 13:04
DNESS
Home Medications
apixaban 5 mg tablet (Eliquis) 5 mg PO BID Blood clot prevention/tx 10/08/16
cholecalciferol (vitamin D3) 25 mcg (1,000 unit) capsule (Vitamin D3) 25 mcg PO NOON Supplement 11/08/22
carbidopa 25 mg-levodopa 100 mg tablet 1 tab PO 5/D@00,08,12,16,20 PARKINSON'S 08/19/23
atenolol 25 mg tablet 25 mg PO DAILY Arrhythmia #30 tabs 08/22/23
amiodarone 200 mg tablet (Pacerone) 200 mg PO DAILY A-FIB 04/11/24
gabapentin 100 mg capsule 100 mg PO BID NEUROPATHY 04/11/24
latanoprost 0.005 % eye drops 1 drp BOTH EYES HS Eye Condition 04/11/24
ondansetron HCl 4 mg tablet 4 mg PO Q8HPRN PRN nausea 07/06/24
midodrine 5 mg tablet 5 mg PO BID 09/11/24
furosemide 20 mg tablet 20 mg PO BID Heart Failure #0 tabs 09/15/24
levothyroxine 100 mcg tablet 100 mcg PO DAILY Thyroid #0 tabs 09/15/24
melatonin 5 mg tablet 5 mg PO HS Insomnia #0 tabs 09/15/24
acetaminophen 500 mg tablet 500 mg PO TID 10/18/24
docusate sodium 100 mg tablet 100 mg PO BID 10/18/24
Review of Systems
-
History Source: Patient
A 12 point ROS was completed and negative except as noted: Yes
Constitutional: Reports Fatigue; Denies Fever or Chills
EENT: Denies Sore Throat
Respiratory: Reports Cough and Trouble Breathing
Cardiac: Denies Chest Pain or Palpitations
Abdomen/GI: Denies Abdominal Pain, Nausea, Vomiting or Diarrhea
: Denies Dysuria or Frequency
Musculoskeletal: Denies Joint Pain or Edema
Neurological: Denies Dizzy or Headache
Psych: Denies Depression or Anxiety
Physical Exam
Vital Signs
Vital Signs
Temp Pulse Resp BP Pulse Ox
100.0 F 78 16 98/40 94
10/18/24 00:00 10/18/24 01:40 10/18/24 01:40 10/18/24 02:03 10/18/24 01:40
Physical Exam
General: Other (79y F in mild distress due to dyspnea. )
HEENT: Moist mucous membranes and PERRLA
Respiratory: Other (Rales throughout bilateral lungs. No rhonchi / wheezing.)
Cardiac: S1/S2, Regular Rhythm and Murmur (II/ BLAINE)
GI: Soft, Non Tender, Non Distended and Normal Bowel Sounds
Musculoskeletal: No Clubbing, No Cyanosis and No Edema
Neuro: AO x 3
Laboratory Results
-
10/17/24 23:52
10/17/24 23:52
Laboratory Results
Lactic Acid 2.5 mmol/L (0.7-2.0) H 10/17/24 23:52
Total Bilirubin 0.7 mg/dl (0.2-1.3) 10/17/24 23:52
AST 30 U/L (14-36) 10/17/24 23:52
ALT < 10 U/L (0-35) 10/17/24 23:52
Alkaline Phosphatase 242 U/L (38-126) H 10/17/24 23:52
Impression/Plan
-
A/P: Patient is a 79y F with PMH significant for Parkinson's disease, CHF and chronic anemia / ITP who presents to ED complaining of SOB s/p coughing or choking episode this evening.
Acute Hypoxemic Respiratory Failure
Aspiration +/- Pneumonia
- Admit for further evaluation and treatment.
- [facility] with [facility] followed by new SOB.
- CXR and exam seem most c/w pulmonary edema.
- Suspect positive pressure pulm edema s/p choking episode.
- Trial of IV Lasix in lieu of usual PO dose and follow for clinical improvement.
- Continue abx for possible aspiration pneumonia for now.
- Speech evaluation / aspiration precautions.
Acute on Chronic HFpEF
- Patient with pulmonary edema, hypoxemia and elevated BNP from prior.
- Change Lasix to IV route for now as noted above.
- Follow I/Os, daily weights, symptoms, etc.
ELPIDIO
- SCr = 1.8 compared to baseline of 1.1.
- Likely pre-renal / hypoperfusion (borderline BP in the ED, mild lactic acidosis).
- Follow for improvement with diuresis.
- Midodrine for BP support / avoid hypotension.
Anemia of Chronic Disease
- Stable. Hgb is at / near recent baseline.
- Follow for changes and consider transfusion if needed.
- Received 1 unit PRBCs during most recent hospital stay.
Parkinson's Disease
- Continue usual Sinemet dosing without interruption.
- Midodrine for orthostatic BP support.
Paroxysmal Atrial Fibrillation
- Currently in sinus rhythm.
- Continue amiodarone.
- Continue Eliquis for stroke risk reduction.
DVT Prophylaxis: On Eliquis
Code Status: DNR
[2024-10-18] MEDS: ProAmatine 5 MG PO ×3 (03:35→21:19)
[2024-10-18 04:07] LABS: Lactic Acid 2.3 mmol/L (0.7-2.0)
[2024-10-18 04:41] LABS: TSH Reflex To Free T4 1.71 uIU/ml (0.47-4.68)
[2024-10-18] MEDS: SYNTHROID 100 MCG PO (06:14)
[2024-10-18] MEDS: FLAGYL 500 MG 100 IV ×3 (06:18→21:25)
[2024-10-18 06:53] LABS: Blood Urea Nitrogen 50 mg/dl (7-17); Calcium 7.5 mg/dl (8.4-10.2); Carbon Dioxide 20 mmol/L (22-30); Chloride 115 mmol/L (98-107); Estimated Creatinine Clearance 24 ml/min; Glucose 145 mg/dl (70-99); Potassium 4.5 mmol/L (3.5-5.1); Sodium 143 mmol/L (135-145)
[2024-10-18 07:04] LABS: Hematocrit 18.5 % (37.0-47.0); Hemoglobin 6.3 g/dL (12.0-16.0); Mean Corp Hgb Conc. 34.1 g/dL (33.0-37.0); Mean Corpuscular Hgb 30.6 pg (27.0-31.0); Mean Corpuscular Volume 89.8 fL (81.0-99.0); Mean Platelet Volume 12.2 fL (7.4-10.4); Platelet Count 358 10^3/uL (130-400); Red Blood Cell Count 2.06 10^6/uL (4.20-5.40); Red Cell Dist. Width 22.7 % (11.5-14.5); White Blood Cell Count 20.9 10^3/uL (4.8-10.8)
[2024-10-18 08:02] LABS: Lactic Acid 1.5 mmol/L (0.7-2.0)
[2024-10-18] MEDS: LASIX 20 MG IV (09:31)
[2024-10-18] MEDS: COLACE 100 MG PO ×2 (09:31→21:19)
[2024-10-18] MEDS: ROCEPHIN 1000 MG IV (09:32)
[2024-10-18] MEDS: PACERONE 200 MG PO (09:32)
[2024-10-18] MEDS: TENORMIN 25 MG PO (09:42)
[2024-10-18] MEDS: NEURONTIN 100 MG PO ×2 (09:42→21:19)
[2024-10-18] MEDS: SINEMET 25-100 1 TABLET PO ×4 (10:21→21:25)
[2024-10-18] MEDS: STERILE WATER FOR INJECTION IV (10:22)
--- NOTE | 2024-10-18 13:09 | W.PN.UPDATE ---
Update Note
Progress Note Update
H&P performed at 0229 this morning. I have reviewed the patient's chart. I personally evaluated her at the bedside in the ED. I spoke with her son and provided updates, had blood consent signed.
79-year-old female with HFpEF AF on Eliquis s/p PVI, ITP, Parkinson's disease, chronic dysphagia, hypertension, GERD, AOCD that presented to the hospital with dyspnea. Patient states she was feeling well until dinner when she had an episode of
coughing/choking where food went down the wrong pipe. Has had consistent dyspnea since that time. Denied any symptoms prior to the choking episode. Per history was admitted 09/11 to 09/16 of this year for complicated UTI. Was discharged to [facility]
where she completed course of ertapenem. AFVSS on 6 L initially however was weaned down to 3 L by time of my evaluation. Labs with WBC 20.9, hemoglobin initially 7.5 with repeat 6.3, creatinine 1.8, albumin 2.2, BNP 7800. Urinalysis with 4+
blood, 3+ leukocyte esterase, negative nitrites, >100 WBC per hpf, many bacteria. Chest x-ray with evidence of pulmonary edema and volume overload. ECG with NSR and no acute ischemic changes. Was started on IV ceftriaxone and metronidazole for
possible aspiration pneumonia. Started on IV Lasix twice daily for HFpEF. Was made n.p.o. pending speech and swallow evaluation
Upon exam the patient is alert and oriented, nontoxic-appearing. Lung exam with significant rales in the mid to lower lung bob. Does have some lower extremity edema, JVD difficult to assess. Heart otherwise regular, no significant murmur or
gallop
Acute hypoxemic respiratory failure. Likely multifactorial with decompensated heart failure and aspiration pneumonia versus pneumonitis. Currently on 3 L O2. Will continue with IV Lasix 20 mg twice daily, monitor I's/O's + weights + BMP.
Follow-up echocardiogram. Monitor on telemetry. Continue IV ceftriaxone and metronidazole, trend CBC and temperature curve. NPO pending speech eval. SpO2 goal >90%.
Acute kidney injury. Likely cardiorenal syndrome. Creatinine was 1.8 on arrival and down to 1.7 after starting IV diuretics. Will continue with IV Lasix and monitor BMP. Avoid nephrotoxic agents as possible
Acute on chronic anemia. Likely with a degree of AOCD and hemoglobin at baseline in the range of 7-8 though sometimes slightly higher. Hemoglobin here was 7.5 on arrival, down to 6.3 as of this morning. Type and screen ordered and blood consent
obtained. Ordered 1 unit PRBC for now. Added hemetest for stool. Continue to trend CBC and transfuse for hemoglobin <7. Hold Eliquis. Added on iron studies to ED labs before blood
DNR
NPO pending speech
Likely discharge >48-hours
[2024-10-18 13:32] LABS: Iron 25 ug/dl (37-170)
[2024-10-18 13:42] LABS: Percent Saturation 19 % (20-50); Total Iron Binding Capacity 129 ug/dl (265-497)
--- NOTE | 2024-10-18 13:46 | CON.CAR ---
Consultation
Consultation Request
Date/Time Consultation Requested: October 18, 2024
Date/Time Consultation Performed: October 18, 2024
Requesting Provider: Hospitalist
Performing Provider: Dr. Adams Cano
Reason for Consultation: Congestive heart failure
Medical History
-
Chief Complaint: Difficulty breathing
History of Present Illness:
HPI:
Patient presented to the emergency department on October 17, 2024 with an episode of coughing and choking that occurred when food 'went down the wrong way' and dyspnea has persisted since that time.
Of note she was recently admitted and discharged from [facility] for complicated UTI from September 11 to September 16, 2024.
Working diagnosis is aspiration pneumonia and she has been started on empiric intravenous antibiotics.
ECG on presentation finds sinus rhythm poor R wave progression and no significant change from September 03, 2024
Additionally she is severely anemic with a hemoglobin of 6.3. At time of her discharge on September 16, 2024 hemoglobin was 8.9. She has severe iron deficiency.
Chest x-ray is suggestive of vascular congestion and also finds persistent possibly recurrent pneumonia or atelectasis at the left lower lobe
BUN and creatinine are 50 and 1.7 (creatinine was 1 at day of her discharge September 16, 2024)
proBNP is 7780
Past medical history:
Recurrent heart failure with preserved ejection fraction
ITP status post splenectomy
Chronic anemia
Recurrent UTIs
Parkinson's disease
Orthostatic hypotension, on midodrine
Hypertension
Paroxysmal atrial fibrillation, prior PVI December 2022, remains on Eliquis
History of frequent falls
History of temporal arteritis has been empirically on prednisone
Hypothyroidism
Recent Cardiac Testing:
Lexiscan nuclear stress test 10/21/2023: Small area of mildly decreased perfusion fixed in the mid inferoseptal segment consistent with soft tissue attenuation. No definite evidence for scan ischemia. EF greater than 80%.
Echo 04/13/2024: EF 65 to 70%, mild to moderate MR, moderate TR with PAP 49 mmHg, trivial pericardial effusion
Echo 08/10/2024: EF 60 to 65%, mild MR, severe TR with PAP 65 to 70 mmHg
Social History
Tobacco: Non-Smoker
Alcohol: None
Living: Halfway
Family History
Family History: Reviewed & Not Pertinent
Allergies / Home Medications
Allergy/AdvReac Type Severity Reaction Status Date / Time
codeine Allergy Nausea,HEAD Verified 08/07/24 13:13
ACHE,RASH,D
EDUARDO
Iodinated Contrast Media Allergy Hives Verified 08/07/24 13:13
[Iodinated Contrast Media -
Oral and]
Penicillins Allergy Hives,HEADA Verified 09/11/24 17:59
EUGENIO,RASH,NA
USEA
Sulfa (Sulfonamide Allergy HEADACHE,RA Verified 08/07/24 13:13
Antibiotics) SH,NAUSEA
gnats Allergy Rash Uncoded 07/06/24 13:04
MOSQUITO Allergy Swelling/RE Uncoded 07/06/24 13:04
DNESS
�Medication �Instructions �Recorded �Confirmed �Type
apixaban 5 mg tablet (Eliquis) 5 mg PO BID Blood clot 10/08/16 10/18/24 History
prevention/tx
cholecalciferol (vitamin D3) 25 25 mcg PO NOON Supplement 11/08/22 10/18/24 History
mcg (1,000 unit) capsule (Vitamin
D3)
carbidopa 25 mg-levodopa 100 mg 1 tab PO 5/D@00,08,12,16,20 08/19/23 10/18/24 History
tablet PARKINSON'S
atenolol 25 mg tablet 25 mg PO DAILY Arrhythmia #30 tabs 08/22/23 10/18/24 Rx
amiodarone 200 mg tablet (Pacerone) 200 mg PO DAILY A-FIB 04/11/24 10/18/24 History
gabapentin 100 mg capsule 100 mg PO BID NEUROPATHY 04/11/24 10/18/24 History
latanoprost 0.005 % eye drops 1 drp BOTH EYES HS Eye Condition 04/11/24 10/18/24 History
ondansetron HCl 4 mg tablet 4 mg PO Q8HPRN PRN nausea 07/06/24 10/18/24 History
midodrine 5 mg tablet 5 mg PO BID 09/11/24 10/18/24 History
furosemide 20 mg tablet 20 mg PO BID Heart Failure #0 tabs 09/15/24 10/18/24 Rx
levothyroxine 100 mcg tablet 100 mcg PO DAILY Thyroid #0 tabs 09/15/24 10/18/24 Rx
melatonin 5 mg tablet 5 mg PO HS Insomnia #0 tabs 09/15/24 10/18/24 Rx
acetaminophen 500 mg tablet 500 mg PO TID 10/18/24 10/18/24 History
docusate sodium 100 mg tablet 100 mg PO BID 10/18/24 10/18/24 History
Review of Systems
-
History Source: Patient
Constitutional: Fatigue
EENT: No Symptoms
Respiratory: Cough and Trouble Breathing
Cardiac: Other (Shortness of breath and dyspnea on exertion, no chest pain)
Abdomen/GI: No Symptoms
: No Symptoms
Musculoskeletal: No Symptoms
Skin: No Symptoms
Neurological: No Symptoms
Hematologic/Lymphatic: No Symptoms
Physical Exam
Vital Signs
Temp Pulse Resp BP Pulse Ox
98.1 F 77 18 117/89 96
10/18/24 12:28 10/18/24 13:15 10/18/24 12:28 10/18/24 13:00 10/18/24 13:15
Lab Results
10/18/24 06:17
Xls-E-Ldsopbocfog Pept 7780 pg/ml 10/17/24 23:52
Physical Exam
General: Well Developed, Well Nourished, No Apparent Distress and Comfortable
HEENT: Normocephalic, Anicteric and Moist Mucous Membranes
Respiratory: Clear and Non Labored Respirations
Cardiac: S1/S2 (No S3 no S4), Regular Rhythm and Murmur (Great to over 6 apical holosystolic murmur no rub)
Breast: Deferred by me
GI: Soft, Non Tender, Non Distended and Normal Bowel Sounds
Rectal: Deferred by Provider
Musculoskeletal: No Clubbing, No Cyanosis and No Edema (There is +2 pretibial lower extremity edema bilaterally)
Skin: Warm and Dry
Neuro: Awake, Alert, Oriented and AO x 3
Psych: Calm
Impression / Plan
-
Assessment:
Presenting with acute shortness of breath which is likely multifactorial contributed to by likely aspiration pneumonia, a component of heart failure with preserved ejection fraction as well as acute on chronic anemia.
Recurrent heart failure with preserved ejection fraction
ITP status post splenectomy
Chronic anemia
Recurrent UTIs
Parkinson's disease
Orthostatic hypotension, on midodrine
Hypertension
Paroxysmal atrial fibrillation, prior PVI December 2022, remains on Eliquis
History of frequent falls
History of temporal arteritis has been empirically on prednisone
Hypothyroidism
Recent Cardiac Testing:
Lexiscan nuclear stress test 10/21/2023: Small area of mildly decreased perfusion fixed in the mid inferoseptal segment consistent with soft tissue attenuation. No definite evidence for scan ischemia. EF greater than 80%.
Echo 04/13/2024: EF 65 to 70%, mild to moderate MR, moderate TR with PAP 49 mmHg, trivial pericardial effusion
Echo 08/10/2024: EF 60 to 65%, mild MR, severe TR with PAP 65 to 70 mmHg
Recommendations:
Acute on chronic heart failure with preserved ejection fraction
IV Lasix diuresis (was on 20 mg p.o. orally twice daily as an outpatient).
Will intensify diuretic to 40 mg IV twice daily
Follow renal function and electrolytes closely, maintain K between 4 and 5 and mag between 2 and 3
Most recent echo was Aug 10 2024, no need for repeat echo at this point
Pneumonia/pneumonitis, possibly aspiration
As per primary service, currently on antibiotic therapy
Progressive anemia
Evaluation and management as per primary service.
1 pack of red blood cell transfusion has been ordered
Total time spent today was 82 minutes in preparing to see the patient, seeing the patient and coordination of care. This included review of recent laboratory evaluations, cardiact testing, imaging studies, primary care rtecords, specialty
consultations, hospital records, as well as personally interviewing and examining the patient, which included discussion of their tests, review/ordering medications, and communicating with other healthcare professionals and also treatment planning
as well as counseling.
Data Reviewed
-
EKG: Tracing Personally Visualized and interpreted
Radiology: Image Personally Visualized and interpreted
Medical Tests (Nuc Med, Echo etc): Report Reviewed by me
Labs: Labs Reviewed by me
Old Records: Reviewed
--- NOTE | 2024-10-18 14:32 | CM ---
CM reviewed chart
Pt is a resident [facility]
She was admitted to from 09/11-09/16 and discharged to [facility] for STR wit IV abx
Pt presents from [facility] for admission
Pt is typically AxO, ambulates short distances with a WW, mostly in a W/C
Requires a 1 personal assist for all personal care
Plan to follow up with [facility] admissions regarding bed-hold
Anticipate continued SNF needs on dc
Discharge Disposition- return to [facility] vs return [facility]
[2024-10-18 14:40] LABS: Vitamin B12 977 pg/ml (239-931)
[2024-10-18] MEDS: LASIX 40 MG IV (16:13)
[2024-10-18 16:22] LABS: Hematocrit 26.4 % (37.0-47.0)
--- NOTE | 2024-10-18 16:30 | PTCARENOTE ---
admitted from ER on HFNC 10 L POX 96%, dyspneic at rest and tachypneic. post PRBC transfusion. repeat H&H drawn and sent. patient is confused but able to answer simple questions and follow commands. drowsy. incontinent of B/B. skin check performed
with 2 RNs. and as documented. Wound care consulted for area with pressure wounds. fall precautions in place. cont to monitor
--- NOTE | 2024-10-18 16:36 | PTCARENOTE ---
admitted from ER on midflow 10 L POX 96%, dyspneic at rest and tachypneic. post PRBC transfusion. repeat H&H drawn and sent. patient is confused but able to answer simple questions and follow commands. drowsy. incontinent of B/B. skin check
performed with 2 RNs. and as documented. Wound care consulted for area with pressure wounds. fall precautions in place. cont to monitor
[2024-10-18] MEDS: MELATONIN 5 MG PO (21:19)
--- NOTE | 2024-10-18 21:49 | PTCARENOTE ---
A/O x4, but forgetful in conversations. MRSA sent. Patient able to swallow pills whole in applesauce. No s/s of aspiration. No coughing. Aspiration precautions in place; HOB 30 degrees, suction set up at bedside. Pt with slow speech-baseline. incont
of large amount of urine, small/smear BM. multiple wounds. foam placed on sacrum/buttock. heels with foams; floated on pillow. wound c/s in place. Q2 hour turns in place. Refused oral care; education provided, still refused. NSR on tele. 10L Sp02
99%. Bed alarm set. Call light within reach, reminded pt how to use.
[2024-10-18] MEDS: SINEMET 25-100 PO (23:35)
[2024-10-18] MEDS: XALATAN OPHTHALMIC SOLUTION 1 DROP BOTH EYES (23:35)
[2024-10-19] VITALS (10 sets, daily range): BP systolic 98–136; BP diastolic 39–125; BMI 18.7
[2024-10-19 04:48] LABS: % Basophils 0.2 % (0-2); % Eosinophils 0.2 % (0-6); % Immature Granulocytes 3.3 % (0-0.5); % Lymphocytes 2.2 % (20.5-51.1); % Monocytes 3.2 % (1.7-9.3); % Neutrophils 90.9 % (42.2-75.2); Absolute Basophils 0.1 10^3/uL (0-0.2); Absolute Eosinophils 0.1 10^3/uL (0-0.7); Absolute Immature Granulocytes 0.7 10^3/uL (0-0.05); Absolute Lymphocytes 0.5 10^3/uL (1.2-3.4); Absolute Monocytes 0.7 10^3/uL (0.1-0.6); Absolute Neutrophils 18.2 10^3/uL (1.4-6.5); Hematocrit 26.2 % (37.0-47.0); Hemoglobin 8.7 g/dL (12.0-16.0); Mean Corp Hgb Conc. 33.2 g/dL (33.0-37.0); Mean Corpuscular Hgb 30.2 pg (27.0-31.0); Mean Platelet Volume 12.5 fL (7.4-10.4); Platelet Count 358 10^3/uL (130-400); Red Blood Cell Count 2.88 10^6/uL (4.20-5.40); Red Cell Dist. Width 20.3 % (11.5-14.5)
[2024-10-19 05:13] LABS: Blood Urea Nitrogen 45 mg/dl (7-17); Carbon Dioxide 25 mmol/L (22-30); Chloride 115 mmol/L (98-107); Estimated Creatinine Clearance 24 ml/min; Glucose 95 mg/dl (70-99); Potassium 3.4 mmol/L (3.5-5.1); Sodium 150 mmol/L (135-145); eGFR 33.01
[2024-10-19] MEDS: SYNTHROID 100 MCG PO (05:49)
[2024-10-19] MEDS: FLAGYL 500 MG 100 IV (05:49)
--- NOTE | 2024-10-19 07:36 | W.PN.HOSP.TC ---
Addendum entered and electronically signed by Joanna Scherer MD 10/19/24 09:19:
patient with ESBL in urine and blood. Will change antibiotics to Ertapenem and consult ID
Original Note:
Today's Communication/Plan
-
gentle D5W while NPO; repeat Na at noon
continue Lasix - patient remains with high oxygen needs; aspiration pneumonitits/pneumonia likely contributing
repeat CXR tomorrow
appreciate Cardiology
Assessment / Plan
Assessment / Plan
79-year-old female with HFpEF AF on Eliquis s/p PVI, ITP, Parkinson's disease, chronic dysphagia, hypertension, GERD, AOCD, s/p recent treatment complicated UTI (s/p IV Ertapenem course) who presented to the hospital with dyspnea. Patient states
she was feeling well until dinner when she had an episode of coughing/choking where food went down the wrong pipe.
CXR 10/18/24
IMPRESSION:
Consider congestive heart failure versus volume overload.
Persistent versus recurrent pneumonia or atelectasis in the left lower lobe..
Acute Hypoxemic Respiratory Failure
Aspiration Pneumonitis +/- Pneumonia
- Patient with aspiration event at UT followed by new SOB.
- CXR and exam seem most c/w pulmonary edema.
- Suspect positive pressure pulm edema s/p choking episode.
- IV Lasix as below
- continue IV Ceftriaxone/Flagyl
- Speech evaluation / aspiration precautions - refused yesterday, remains NPO but hungry today
Acute on Chronic HFpEF
- Patient with pulmonary edema, hypoxemia and elevated BNP from prior.
- IV Lasix 40mg BID
- Follow I/Os, daily weights, symptoms, etc.
ELPIDIO
- SCr = 1.8 compared to baseline of 1.1.
- slowly improving with diuresis (1.6 this AM)
- Midodrine for BP support / avoid hypotension.
Hypernatremia
-in setting of Lasix, and patient is NPO
-start gentle D5W which can stop if diet ordered
-repeat Na at noon
Anemia of Chronic Disease
Acute on Chronic Anemia
- Hg drop HD 1 to 6.3 s/p 1 unit PRBC
-now stable
ITP s/p splenectomy
-contributing to leukocytosis
Parkinson's Disease
- Continue usual Sinemet dosing without interruption.
- Midodrine for orthostatic BP support.
Paroxysmal Atrial Fibrillation
- Currently in sinus rhythm.
- Continue amiodarone.
- Continue Eliquis for stroke risk reduction.
DVT Prophylaxis: On Eliquis
Code Status: DNR
76 minutes spent on patient care
Anticipated Discharge: 24 - 48 hours
Subjective/Interval History
-
Date of Service: October 19, 2024
she states her breathing is feeling better today
I brought O2 down to 9L and O2 sats dropped to high 80's
she is very hungry
Objective Data
-
Labs:
Laboratory Results
10/19/24
04:26
WBC 20.0 H
Hgb 8.7 L
Hct 26.2 L
Plt Count 358
Sodium 150 H
Potassium 3.4 L
Chloride 115 H
Carbon Dioxide 25
BUN 45 H
Creatinine 1.6 H
Glucose 95
Calcium 8.0 L
Vital Signs:
Vital Signs
Temp Pulse Resp BP Pulse Ox
98.0 F 73 21 116/78 100
10/19/24 03:40 10/19/24 06:15 10/19/24 06:15 10/19/24 06:00 10/19/24 05:45
I&O
10/18/24 10/19/24 10/20/24
06:59 06:59 06:59
Intake Total 450 / 450
Balance 450 / 450
Review of Systems
-
History Source: Patient
All other systems: Reviewed and negative
Physical Exam
-
General: No Apparent Distress and Comfortable
HEENT: PERRLA
Respiratory: Rales
Cardiac: Regular Rhythm and S1/S2
GI: Soft and Nontender
Skin: Warm and Dry; Negative Rash
Neuro: AO x 3
Psych: Calm
Data Reviewed
-
Diagnostic Radiology: Report Reviewed by me
Labs: Labs Reviewed by me
--- NOTE | 2024-10-19 08:59 | PTOTSP ---
Dysphagia Eval
Patient admitted with AHRF w/ aspiration pneumonitis +/- PNA after 'an episode of coughing/choking where food went down the wrong pipe'. She presents w/ oral/pharyngeal dysphagia suspect progressive and acute on chronic, related to Parkinson's
disease. Refused FEES.
Prior VSE 04/14/2024 oral/pharyngeal WFL.
Recommend:
1. IDDSI Level 5 Minced/Moist, L0 Thin
2. meds in puree
3. full supervision and assist as needed
4. upright to 90 degrees, small single sips via cup, slow rate, reflux precautions
5. oral care 3x daily
6. video swallow study
--- NOTE | 2024-10-19 09:04 | W.PN.CARDCBS ---
Addendum entered and electronically signed by Garry Gabriel DO 10/19/24 09:19:
HPI:
Patient presented to the emergency department on October 17, 2024 with an episode of coughing and choking that occurred when food 'went down the wrong way' and dyspnea has persisted since that time.
Of note she was recently admitted and discharged from [facility] for complicated UTI from September 11 to September 16, 2024.
Working diagnosis is aspiration pneumonia and she has been started on empiric intravenous antibiotics.
ECG on presentation finds sinus rhythm poor R wave progression and no significant change from September 03, 2024
Additionally she is severely anemic with a hemoglobin of 6.3. At time of her discharge on September 16, 2024 hemoglobin was 8.9. She has severe iron deficiency.
Chest x-ray is suggestive of vascular congestion and also finds persistent possibly recurrent pneumonia or atelectasis at the left lower lobe
BUN and creatinine are 50 and 1.7 (creatinine was 1 at day of her discharge September 16, 2024)
proBNP is 778
Original Note:
Today's Communication / Plan
-
Cont IV diuresis, cr improving
Recent echo with preserved EF
Cont pulm toilet as per primary service
Impression / Plan
-
Assessment:
Presenting with acute shortness of breath which is likely multifactorial contributed to by likely aspiration pneumonia, a component of heart failure with preserved ejection fraction as well as acute on chronic anemia.
Recurrent heart failure with preserved ejection fraction
Acute RI, improving
ITP status post splenectomy
Hypernatremia
Chronic anemia
Recurrent UTIs
Parkinson's disease
Orthostatic hypotension, on midodrine
Hypertension
Paroxysmal atrial fibrillation, prior PVI December 2022, remains on Eliquis
History of frequent falls
History of temporal arteritis has been empirically on prednisone
Hypothyroidism
Recent Cardiac Testing:
Lexiscan nuclear stress test October 2023: Small area of mildly decreased perfusion fixed in the mid inferoseptal segment consistent with soft tissue attenuation. No definite evidence for scan ischemia. EF greater than 80%.
Echo 04/13/2024: EF 65 to 70%, mild to moderate MR, moderate TR with PAP 49 mmHg, trivial pericardial effusion
Echo 08/10/2024: EF 60 to 65%, mild MR, severe TR with PAP 65 to 70 mmHg
Recommendations:
Acute on chronic heart failure with preserved ejection fraction
Cont IV lasix diuresis (was on 20 mg p.o. orally twice daily as an outpatient).
Renal function slowly improving, cr 1.6
Follow renal function and electrolytes closely, maintain K between 4 and 5 and mag between 2 and 3
Most recent echo was Aug 10 2024, no need for repeat echo at this point
Pneumonia/pneumonitis, possibly aspiration
As per primary service, currently on antibiotic therapy
Hypernatremia
IVF as per primary service.
Progressive anemia
H/H improved after transfusion, Hb 8.7 October 5after low of 6.3 on October 18.
Evaluation and management as per primary service.
Discussed with nursing.
Progress Note - Material Planner
Subjective
Date of Service: October 19, 2024
Pt seen and examined. No complaints. No chest pain or shortness of breath.
Objective
Labs:
10/19/24 04:26
Labs
Hgb 8.7 g/dL (12.0-16.0) L 10/19/24 04:26
Hct 26.2 % (37.0-47.0) L 10/19/24 04:26
Plt Count 358 10^3/uL (130-400) 10/19/24 04:26
Sodium 150 mmol/L (135-145) H 10/19/24 04:26
Potassium 3.4 mmol/L (3.5-5.1) L 10/19/24 04:26
BUN 45 mg/dl (7-17) H 10/19/24 04:26
Creatinine 1.6 mg/dL (0.6-1.0) H 10/19/24 04:26
Glucose 95 mg/dl (70-99) 10/19/24 04:26
Vital Signs and I&O:
Vital Signs
Temp Pulse Resp BP Pulse Ox
98.0 F 73 21 116/78 100
10/19/24 03:40 10/19/24 06:15 10/19/24 06:15 10/19/24 06:00 10/19/24 05:45
Vital Signs
Temp Pulse Resp BP Pulse Ox
98.0 F 73 21 116/78 100
10/19/24 03:40 10/19/24 06:15 10/19/24 06:15 10/19/24 06:00 10/19/24 05:45
Intake & Output
10/17/24 10/18/24 10/19/24 10/20/24
06:59 06:59 06:59 06:59
Intake Total 450 / 450
Balance 450 / 450
Physical Exam
Physical Exam
General: No acute distress, AAOX3
Neck: Negative JVD
Heart: Regular, Negative S3 positive S1/S2, Negative S4, No murmur
Lungs: CTA b/l, negative wheezes/rales/rhonchi
Abd: Positive BS, NT/ND, neg rebound/rigidity/guarding
Ext: Negative cyanosis/clubbing/edema
Neuro: nonfocal
[2024-10-19] MEDS: LASIX 40 MG IV ×2 (09:11→17:27)
[2024-10-19] MEDS: KCL 270 MEQ IV (09:11)
[2024-10-19] MEDS: TENORMIN 25 MG PO (09:11)
[2024-10-19] MEDS: SINEMET 25-100 1 TABLET PO ×4 (09:12→20:41)
[2024-10-19] MEDS: NEURONTIN 100 MG PO ×2 (09:12→19:56)
[2024-10-19] MEDS: PACERONE 200 MG PO (09:12)
[2024-10-19] MEDS: COLACE 100 MG PO ×2 (09:12→19:57)
[2024-10-19] MEDS: ProAmatine 5 MG PO ×2 (09:12→19:56)
[2024-10-19] MEDS: ROCEPHIN 1000 MG IV (09:18)
[2024-10-19] MEDS: STERILE WATER FOR INJECTION 10 ML IV (09:18)
[2024-10-19] MEDS: D5W 500 IV ×2 (10:15→20:41)
[2024-10-19] MEDS: INVANZ 60 MG IV (10:16)
[2024-10-19] MEDS: ATIVAN 0.5 MG PO (12:15)
[2024-10-19 13:30] LABS: Sodium 149 mmol/L (135-145)
--- NOTE | 2024-10-19 13:41 | PN.CDI ---
CDI
- -
CDI:
Physician Documentation Request
Admit Date: 10/18/24 02:44
Dear Doctor Niesha,
Please review the following and provide your response in the progress notes.
Clinical Indicators:
- On admission - WBC 19.2, RR 20-30s
- 1L IVF
- IV abx Ceftriaxone, Flagyl, Vancocin
- 5/5 PN 'Aspiration Pneumonitis +/- Pneumonia'
- 'Acute hypoxemic respiratory failure'
- 'dudley'
- 'patient with ESBL in urine and blood'
Please clarify which of the following most accurately describes the status of the patient's infection:
Severe Sepsis multifactorial due to pneumonia/uti/bacteremia with respiratory failure and dudley
- Sepsis with associated acute organ dysfunction, such as renal or respiratory failure
- Documentation should indicate the association between the sepsis and the organ dysfunction
Localized Infection Only, Without Systemic Illness
- indicate the site/source, such as UTI, pneumonia etc.
Other (please specify)
Use of terms such as suspected, likely, concern for, or probable (associated with a specific diagnosis that is being evaluated, monitored, or treated as if it exists) are acceptable and can be coded in the inpatient setting, when documented at the
time of discharge.
Thank you,
France Juarez RN
CDI Specialist
Please use your independent medical judgment in providing your response.
--- NOTE | 2024-10-19 14:28 | WOUNDNOTE ---
L LATERAL LOWER LEG
--- NOTE | 2024-10-19 14:30 | WOUNDNOTE ---
WO RN note: Patient admitted with sepsis.
See H&P for complete history. Patient is at [facility].
PMH: HTN, anxiety, depression, Parkinson's, dysphagia, a fib (Eliquis), CHF, neuropathy and skin ulcers.
Wound Location and type/assessment: Patient last seen 09/14/24 from wound care. Admitted with: bilateral buttocks and sacral stage 2 pressure injury vs incontinent associated skin damage. Patient had smearing of stool on Ultrasorb pad, Purwick in
use. L lateral leg with full thickness ulcer, masterson/brown eschar at base. L heel blanchable red/boggy. R lateral foot, R medial 1st MTH, L lateral foot with blanchable redness.
Appetite: Poor.
Pressure redistribution devices in place: Centrella air bed, Patient can turn self in bed. Pillow under calves.
Plan: Sacral and buttocks applied barrier cream. L lateral leg will order Santyl and local wound care. All other red areas, open to air. Will confirm orders with . Care plan to be updated and will follow as needed.
Note to case management of equipment requested for discharge Air mattress.
Recommend follow up at wound care center upon discharge.
--- NOTE | 2024-10-19 14:30 | WOUNDNOTE ---
L BUTTOCK AND SACRUM
--- NOTE | 2024-10-19 14:30 | WOUNDNOTE ---
R LATERAL FOOT AND ANKLE
--- NOTE | 2024-10-19 15:03 | W.PN.UPDATE ---
Update Note
Progress Note Update
[facility] discussion had with patient and son at bedside. Patient has had multiple admissions for UTI/heart failure/ temporal arteritis, she cannot walk and she is asking about hospice. We discussed withdrawing current care now versus getting her
through acute infection to home hospice. We discussed that if we continue treatment now and condition deteriorates, we can always change course and decide on inpatient hospice here (withdrawing treatment).
I will continue as needed Ativan (increase frequency) and add Roxanol PRN
Hospice consult
ID and Cardiology updated
for now continue antibiotics and O2 support but if condition worsens will have further discussions about withdrawing care now
--- NOTE | 2024-10-19 15:23 | CON.ID ---
Consultation
-
Date/Time Consultation Requested: 10/19/2024 0924
Date/Time Consultation Performed: 10/19/2024 1450
Requesting Provider: Dr. Scherer
Performing Provider: Dr. Plummer
Reason for Consultation: Suspected aspiration pneumonia
Chief Complaint / Past History
Chief Complaint
Fever
History of Present Illness
Sandra Barrow is a 79-year-old female being evaluated at the request of Dr. Scherer in regards to possible aspiration pneumonia. History is obtained from chart review, along with patient interview.
The patient is known to the Infectious Diseases service, having been seen in late August/early September, during which time she was treated for ESBL E. coli bacteremia. She ultimately was discharged on a course of ertapenem, to continue through 09/24.
She was discharged to [facility] to complete her course of therapy. She has remained there since, and was brought emergently back to the ER. [facility] on 10/17 after she was found to be choking at dinnertime.
Upon evaluation in the ER, she was found to have a leukocytosis. Since that time she has noted ongoing cough and congestion, without sputum production. She has been afebrile since admission. Chest imaging has noted a left-sided infiltrate, and
Infectious Diseases is asked to comment on further antimicrobial therapy. At present, she denies any dysuria or hematuria. She notes ongoing labored breathing.
Past History
Additional Past Medical History:
HTN
Hypothyroidism
Parkinson's disease
Dysphagia
P A-fib hx cardiac ablation
CHF
Anxiety
GERD
Diverticulosis
Possible temporal arteritis on prednisone; bilateral temporal artery bx very rare inflammatory cells.
Additional Past Surgical History:
Splenectomy
Hysterectomy
Traumatic R wrist fracture
Allergy History:
codeine Allergy (Verified 08/07/24 13:13)
Nausea,HEADACHE,RASH,DIZZY
Iodinated Contrast Media [Iodinated Contrast Media - Oral and] Allergy (Verified 08/07/24 13:13)
Hives
Penicillins Allergy (Verified 09/11/24 17:59)
Hives,HEADACHE,RASH,NAUSEA
Sulfa (Sulfonamide Antibiotics) Allergy (Verified 08/07/24 13:13)
HEADACHE,RASH,NAUSEA
gnats Allergy (Uncoded 07/06/24 13:04)
Rash
MOSQUITO Allergy (Uncoded 07/06/24 13:04)
Swelling/REDNESS
Medications Reviewed: Yes
Current Antibiotics:
Ertapenem 500 mg IV every 24 hours
Social History
Tobacco: Non-Smoker
Alcohol: None
Drug: None
Living: Assisted Living
Employment: Retired
Family History
Family History: Not Pertinent
Review of Systems
Vital Signs
Temp Pulse Resp BP Pulse Ox
97.9 F 69 25 111/83 93
10/19/24 07:30 10/19/24 13:30 10/19/24 13:30 10/19/24 12:22 10/19/24 13:39
Physical Exam
Physical Exam
Constitutional: Comfortable, Chronically Ill and Non-toxic
Head: Normocephalic
Eyes: Pupils Equal, Pupils Round, No Conjunctival Hemorrhage and Sclera Anicteric
Oral: No Thrush and No Ulcers
Cardiovascular: Regular Rate and S1/S2; Negative S3/S4
Pulmonary: Rales, Coarse and Other (Mildly labored)
Gastrointestinal: Soft, Non Tender and Non Distended
Extremities: Negative Edema, Cyanosis or Erythema
Skin: Warm and Dry
Neurological: Awake and Alert
Psychological: Calm
Lab / Diagnostic Study Results
10/19/24 04:26
10/19/24 13:11
Abs Immat Gran (auto) 0.7 10^3/uL (0-0.05) H 10/19/24 04:26
Absolute Neuts (auto) 18.2 10^3/uL (1.4-6.5) H 10/19/24 04:26
Absolute Lymphs (auto) 0.5 10^3/uL (1.2-3.4) L 10/19/24 04:26
Absolute Monos (auto) 0.7 10^3/uL (0.1-0.6) H 10/19/24 04:26
Absolute Basos (auto) 0.1 10^3/uL (0-0.2) 10/19/24 04:26
Immature Gran % 3.3 % (0-0.5) H 10/19/24 04:26
Neutrophils % 90.9 % (42.2-75.2) H 10/19/24 04:26
Lymphocytes % 2.2 % (20.5-51.1) L 10/19/24 04:26
Monocytes % 3.2 % (1.7-9.3) 10/19/24 04:26
Eosinophils % 0.2 % (0-6) 10/19/24 04:26
Basophils % 0.2 % (0-2) 10/19/24 04:26
Lactic Acid 1.5 mmol/L (0.7-2.0) 10/18/24 07:36
Ur Squamous Epith Cells None seen /LPF (Few) 10/18/24 00:08
Microbiology Results
Micro:
10/18/24 00:08 Blood Culture - Preliminary
Blood/Venous Escherichia coli - ESBL
Gram Stain - Preliminary
10/17/24 23:52 Blood Culture - Preliminary
Blood/Venous Escherichia coli - ESBL
Gram Stain - Final
10/18/24 00:08 Urine Culture - Preliminary
Urine Escherichia coli
10/18/24 19:39 MRSA Screen - Pending
Nose
10/17/24 23:52 Influenza Types A & B (SATISH) - Final
Nasal Swab Negative for Influenza A & B, NAAT
Negative results must be combined with clinical observations
and patient history.
Nucleic Acid Amplification test (NAAT)performed on the
[employer] NOW platform.
Imaging:
11/08 CXR (portable): Bilateral relatively symmetric cephalization and interstitial prominence demonstrated in the upper lobes, and perihilar to a lesser degree. Mild cardiomegaly noted. Persistent slightly heterogeneous retrocardiac opacity
partially obscuring the left diaphragm. Please see full dictation for additional detail.
Assessment / Plan
Choking event; suspected aspiration.
Recurrent ESBL E. coli bacteremia
E. coli bacteriuria
Leukocytosis
Hyponatremia
ELPIDIO on CKD
HTN
Hypothyroidism
Parkinson's disease
Dysphagia
P A-fib hx cardiac ablation
CHF
Anxiety
GERD
Diverticulosis
Possible temporal arteritis on prednisone
Recommendations:
Continue ertapenem for the present.
Family has inquired about hospice services, and will be meeting with the marketing community liaison.
Continue with supportive measures.
Await family decision regarding goals of care.
Monitor white count and temperature curve.
Care Review
Plan reviewed with: Physician (Hospitalist)
--- NOTE | 2024-10-19 16:09 | CM ---
Addendum entered by Edwige Mooney RN 10/19/24 16:17:
Wound care nurse notes: needs air mattress if discharged.
Original Note:
Patient from [facility] with Dx Acute Hypoxemic Respiratory Failure, Aspiration Pneumonitis +/- Pneumonia, HF. O2 increased from 10L today to 13L per nurse. Receiving IVF, IV Abx. IV MS prn ordered. GOC discussion per MD.
CM Consult: Hospice
Met with patient and son Garry;
explained hospice philosophy & benefits.
Patient and son would like to speak with Hospice nurse.
Son states he would like the patient to go home to his house.
Son has taken a leave of absence and will be patient's primary caregiver.
The patient has longterm care insurance that would cover about 10hrs/day private caregiver and he will arrange.
There are no other family.
Referral to [facility].
Plan follow patient's respiratory status.
Plan follow up after seen by Hospice.
--- NOTE | 2024-10-19 16:47 | HOSPNOTE ---
Hospice referral received. [facility] spoke to son. Going to monitor patient overnight. If still declining and inpatient hospice appropriate tomorrow, son agreeable to sign onto hospice. Will assess/evaluate in the morning. More information to follow.
CM and Attending updated.
--- NOTE | 2024-10-19 17:10 | PTCARENOTE ---
Pt's assessment as documented. NSR on tele monitor. Desatting to high 80's on 10L MFNC, increased to 13L with good effect. Sats in the mid 90's. son at bedside. Both updated on POC. Call light within reach. Bed alarm in place for safety.
[2024-10-19] MEDS: MELATONIN 5 MG PO (19:56)
[2024-10-19] MEDS: XALATAN OPHTHALMIC SOLUTION 1 DROP BOTH EYES (20:57)
[2024-10-20] VITALS: BP 119/58
[2024-10-20] MEDS: SINEMET 25-100 PO ×2 (00:06→11:12)
[2024-10-20 02:00] VITALS: BP 118/47
[2024-10-20 04:05] VITALS: BP 115/82
[2024-10-20 04:29] LABS: % Basophils 0.2 % (0-2); % Eosinophils 0.3 % (0-6); % Lymphocytes 1.7 % (20.5-51.1); % Monocytes 3.8 % (1.7-9.3); Absolute Basophils 0.1 10^3/uL (0-0.2); Absolute Eosinophils 0.1 10^3/uL (0-0.7); Absolute Immature Granulocytes 0.9 10^3/uL (0-0.05); Absolute Lymphocytes 0.4 10^3/uL (1.2-3.4); Absolute Monocytes 0.8 10^3/uL (0.1-0.6); Absolute Neutrophils 19.3 10^3/uL (1.4-6.5); Hematocrit 24.6 % (37.0-47.0); Hemoglobin 8.5 g/dL (12.0-16.0); Mean Corp Hgb Conc. 34.6 g/dL (33.0-37.0); Mean Corpuscular Hgb 30.1 pg (27.0-31.0); Mean Corpuscular Volume 87.2 fL (81.0-99.0); Mean Platelet Volume 12.7 fL (7.4-10.4); Nucleated Red Blood Cells % 2.7 %; Platelet Count 346 10^3/uL (130-400); Red Blood Cell Count 2.82 10^6/uL (4.20-5.40); Red Cell Dist. Width 20.2 % (11.5-14.5); White Blood Cell Count 21.5 10^3/uL (4.8-10.8)
[2024-10-20 04:55] LABS: ALT (SGPT) < 10 U/L (0-35); AST (SGOT) 22 U/L (14-36); Alkaline Phosphatase 186 U/L (38-126); Blood Urea Nitrogen 38 mg/dl (7-17); Calcium 8.2 mg/dl (8.4-10.2); Carbon Dioxide 27 mmol/L (22-30); Chloride 114 mmol/L (98-107); Estimated Creatinine Clearance 29 ml/min; Glucose 160 mg/dl (70-99); Magnesium 2.1 mg/dl (1.6-2.3); Potassium 3.3 mmol/L (3.5-5.1); Sodium 146 mmol/L (135-145); Total Bilirubin 0.6 mg/dl (0.2-1.3); Total Protein 4.2 g/dl (6.3-8.2); eGFR 42.35
[2024-10-20 06:00] VITALS: BP 114/41; BMI 18.7
[2024-10-20] MEDS: SYNTHROID 100 MCG PO (06:06)
[2024-10-20] MEDS: D5W 500 IV (06:06)
[2024-10-20] MEDS: KCL 270 MEQ IV (06:31)
--- NOTE | 2024-10-20 07:18 | PTCARENOTE ---
Patient agitated at times, refusing care and meds overnight. Midflow increased from 13 to 15 liters due to sats in the high 80s. Plan for hospice consult today.
--- NOTE | 2024-10-20 07:32 | W.PN.CARDCBS ---
Addendum entered and electronically signed by Garry Gabriel DO 10/20/24 13:38:
.
Pt now comfort care and going to hospice
Will sign off, please recall if needed.
Original Note:
Today's Communication / Plan
-
IV lasix diuresis
Impression / Plan
-
Assessment:
Presenting with acute shortness of breath which is likely multifactorial contributed to by likely aspiration pneumonia, a component of heart failure with preserved ejection fraction as well as acute on chronic anemia.
Recurrent heart failure with preserved ejection fraction
Acute RI, improving
Ecoli bacteremia, recurrent
ITP status post splenectomy
Hypernatremia
Chronic anemia
Recurrent UTIs
Parkinson's disease
Orthostatic hypotension, on midodrine
Hypertension
Paroxysmal atrial fibrillation, prior PVI December 2022, remains on Eliquis
History of frequent falls
History of temporal arteritis has been empirically on prednisone
Hypothyroidism
Recent Cardiac Testing:
Lexiscan nuclear stress test October 2023: Small area of mildly decreased perfusion fixed in the mid inferoseptal segment consistent with soft tissue attenuation. No definite evidence for scan ischemia. EF greater than 80%.
Echo 04/13/2024: EF 65 to 70%, mild to moderate MR, moderate TR with PAP 49 mmHg, trivial pericardial effusion
Echo 08/10/2024: EF 60 to 65%, mild MR, severe TR with PAP 65 to 70 mmHg
Recommendations:
Acute on chronic heart failure with preserved ejection fraction
Cont IV lasix diuresis (was on 20 mg p.o. orally twice daily as an outpatient).
Renal function slowly improving, cr 1.3 on October 20
Follow renal function and electrolytes closely, maintain K between 4 and 5 and mag between 2 and 3
Most recent echo was Aug 10 2024, no need for repeat echo at this point
Bactereamia
As per primary service, currently on antibiotic therapy
Progressive anemia
H/H improved after transfusion, Hb 8.7 October 19 and 8.6 October 20, after low of 6.3 on October 18.
Evaluation and management as per primary service.
Progress Note - It Security Analyst
Subjective
Date of Service: October 20, 2024
Pt seen and examined. Lethargic
Objective
Labs:
10/20/24 04:04
10/20/24 04:04
Labs
Hgb 8.5 g/dL (12.0-16.0) L 10/20/24 04:04
Hct 24.6 % (37.0-47.0) L 10/20/24 04:04
Plt Count 346 10^3/uL (130-400) 10/20/24 04:04
Sodium 146 mmol/L (135-145) H 10/20/24 04:04
Potassium 3.3 mmol/L (3.5-5.1) L 10/20/24 04:04
BUN 38 mg/dl (7-17) H 10/20/24 04:04
Creatinine 1.3 mg/dL (0.6-1.0) H 10/20/24 04:04
Glucose 160 mg/dl (70-99) H 10/20/24 04:04
Vital Signs and I&O:
Vital Signs
Temp Pulse Resp BP Pulse Ox
98.7 F 59 20 114/41 97
10/20/24 07:27 10/20/24 07:00 10/20/24 07:00 10/20/24 06:00 10/20/24 07:00
Vital Signs
Temp Pulse Resp BP Pulse Ox
98.7 F 59 20 114/41 97
10/20/24 07:27 10/20/24 07:00 10/20/24 07:00 10/20/24 06:00 10/20/24 07:00
Intake & Output
10/18/24 10/19/24 10/20/24 10/21/24
06:59 06:59 06:59 06:59
Intake Total 450 / 450 1470 / 1470
Output Total 200 / 200
Balance 450 / 450 1270 / 1270
Physical Exam
Physical Exam
General: Lethargic
Neck: Negative JVD
Heart: Regular, Negative S3 positive S1/S2, Negative S4, No murmur
Lungs: CTA b/l, negative wheezes/rales/rhonchi
Abd: Positive BS, NT/ND, neg rebound/rigidity/guarding
Ext: Negative cyanosis/clubbing/edema
Neuro: nonfocal
--- NOTE | 2024-10-20 07:58 | PTCARENOTE ---
Onn walking rounds pt is sleeping on 15 midflow with D5W at 50 ml/hr. Potassium was low recieving K bri at this time
[2024-10-20 08:01] VITALS: BP 126/115
[2024-10-20] MEDS: TENORMIN 25 MG PO (08:02)
[2024-10-20] MEDS: ProAmatine 5 MG PO (08:03)
[2024-10-20] MEDS: LASIX 40 MG IV (08:04)
[2024-10-20] MEDS: COLACE 100 MG PO (08:05)
[2024-10-20] MEDS: NEURONTIN 100 MG PO (08:05)
[2024-10-20] MEDS: SANTYL OINTMENT 1 APPLIC TOPICAL (08:05)
[2024-10-20] MEDS: PACERONE 200 MG PO (08:05)
[2024-10-20] MEDS: SINEMET 25-100 1 TABLET PO (08:10)
--- NOTE | 2024-10-20 08:19 | W.PN.HOSP.TC ---
Addendum entered and electronically signed by Joanna Scherer MD 10/20/24 15:08:
Severe Sepsis multifactorial due to pneumonia/uti/bacteremia with respiratory failure and elpidio
-comfort care orders placed
Stage 2 bilateral buttocks pressure injury, POA
- Stage 2 sacrum pressure injury, POA
- Stage 1 left heel pressure injury, POA
-appreciate wound care
Addendum entered and electronically signed by Joanna Scherer MD 10/20/24 10:11:
comfort care orders placed
Original Note:
Today's Communication/Plan
-
plan to transition to comfort care post Hospice meeting today
Assessment / Plan
Assessment / Plan
79-year-old female with HFpEF AF on Eliquis s/p PVI, ITP, Parkinson's disease, chronic dysphagia, hypertension, GERD, AOCD, s/p recent treatment complicated UTI (s/p IV Ertapenem course) who presented to the hospital with dyspnea. Patient states
she was feeling well until dinner when she had an episode of coughing/choking where food went down the wrong pipe.
CXR 10/18/24
IMPRESSION:
Consider congestive heart failure versus volume overload.
Persistent versus recurrent pneumonia or atelectasis in the left lower lobe..
Acute Hypoxemic Respiratory Failure
Aspiration Pneumonitis +/- Pneumonia
ESBL UTI and Bacteremia
- Patient with aspiration event at [place] followed by new SOB admitted for heart failure exacerbation and possible pneumonia; now with ESBL growing in urine and blood
- conversation had with patient and son this morning and decision is made for comfort care
- Hospice meeting is planned for 10AM this morning - after this meeting will stop antibiotics, lasix, all non-comfort medications. We will start morphine gtt for comfort and wean oxygen off
Acute on Chronic HFpEF
-stop Lasix when comfort care implemented
ELPIDIO
-slowly improving
Hypernatremia
-slowly improving on D5W
Anemia of Chronic Disease
Acute on Chronic Anemia
- Hg drop HD 1 to 6.3 s/p 1 unit PRBC
-now stable
ITP s/p splenectomy
Parkinson's Disease
- MAJOR GIFTS MANAGER Sinemet
Paroxysmal Atrial Fibrillation
- currently in sinus
DVT Prophylaxis: On Eliquis
Code Status: DNR
51 minutes spent on patient care
Anticipated Discharge: 24 - 48 hours
Subjective/Interval History
-
Date of Service: October 20, 2024
patient now on 15L of oxygen
more confused earlier
Objective Data
-
Labs:
Laboratory Results
10/20/24
04:04
WBC 21.5 H
Hgb 8.5 L
Hct 24.6 L
Plt Count 346
Sodium 146 H
Potassium 3.3 L
Chloride 114 H
Carbon Dioxide 27
BUN 38 H
Creatinine 1.3 H
Glucose 160 H
Calcium 8.2 L
Total Bilirubin 0.6
AST 22
ALT < 10
Alkaline Phosphatase 186 H
Vital Signs:
Vital Signs
Temp Pulse Resp BP Pulse Ox
98.7 F 69 20 126/115 97
10/20/24 07:27 10/20/24 08:02 10/20/24 07:00 10/20/24 08:04 10/20/24 07:00
I&O
10/19/24 10/20/24 10/21/24
06:59 06:59 06:59
Intake Total 450 / 450 1470 / 1470
Output Total 200 / 200
Balance 450 / 450 1270 / 1270
Review of Systems
-
History Source: Patient
All other systems: Reviewed and negative
Physical Exam
-
General: No Apparent Distress and Comfortable
HEENT: PERRLA
Respiratory: Rales
Cardiac: Regular Rhythm and S1/S2
GI: Soft and Nontender
Skin: Warm and Dry; Negative Rash
Neuro: AO x 3
Psych: Calm
Data Reviewed
-
Diagnostic Radiology: Report Reviewed by me
Labs: Labs Reviewed by me
--- NOTE | 2024-10-20 08:53 | W.PN.ID1 ---
Date of Service
Date of Service: October 20, 2024
Today's Communication
Await further discussions of goals of care with family.
Assessment / Plan
Choking event; suspected aspiration.
Recurrent ESBL E. coli bacteremia
E. coli bacteriuria
Leukocytosis
Hyponatremia
ELPIDIO on CKD
HTN
Hypothyroidism
Parkinson's disease
Dysphagia
P A-fib hx cardiac ablation
CHF
Anxiety
GERD
Diverticulosis
Possible temporal arteritis on prednisone
Recommendations:
Continue ertapenem for the present, although son arriving this morning, and may transition to hospice/comfort measures.
Continue with supportive measures.
Await family decision regarding goals of care.
Chief Complaint
-: Pneumonia
Subjective / Review of Systems
Patient seen and examined. O2 requirements have markedly increased overnight.
Review of Systems: No Fever
Vital Signs / Physical Exam
Vital Signs
Vital Signs
Temp Pulse Resp BP Pulse Ox
98.7 F 69 20 126/115 97
10/20/24 07:27 10/20/24 08:02 10/20/24 07:00 10/20/24 08:04 10/20/24 07:00
Physical Exam
Constitutional: Acutely Ill and Non-toxic
Eyes: Sclera Anicteric
Cardiovascular: S1/S2; Negative S3/S4
Pulmonary: Other (Mildly labored.)
Gastrointestinal: Soft and Non Distended
Neurological: Awake and Alert
Objective Data
Lab Data
Lab Results
10/20/24 04:04
10/20/24 04:04
Estimated Creat Clear 29 ml/min 10/20/24 04:04
Lactic Acid 1.5 mmol/L (0.7-2.0) 10/18/24 07:36
Total Bilirubin 0.6 mg/dl (0.2-1.3) 10/20/24 04:04
AST 22 U/L (14-36) 10/20/24 04:04
ALT < 10 U/L (0-35) 10/20/24 04:04
Alkaline Phosphatase 186 U/L (38-126) H 10/20/24 04:04
Most recent labs reviewed.
Micro Results:
10/17/24 23:52 Blood Culture - Preliminary
Blood/Venous Escherichia coli - ESBL
Gram Stain - Final
10/18/24 00:08 Blood Culture - Preliminary
Blood/Venous Escherichia coli - ESBL
Gram Stain - Preliminary
10/18/24 00:08 Urine Culture - Preliminary
Urine Escherichia coli
10/18/24 19:39 MRSA Screen - Pending
Nose
10/17/24 23:52 Influenza Types A & B (SATISH) - Final
Nasal Swab Negative for Influenza A & B, NAAT
Negative results must be combined with clinical observations
and patient history.
Nucleic Acid Amplification test (NAAT)performed on the
[employer] platform.
Imaging:
11/08 CXR (portable): Bilateral relatively symmetric cephalization and interstitial prominence demonstrated in the upper lobes, and perihilar to a lesser degree. Mild cardiomegaly noted. Persistent slightly heterogeneous retrocardiac opacity
partially obscuring the left diaphragm. Please see full dictation for additional detail.
Care Review
Plan reviewed with: Physician (Hospitalist)
--- NOTE | 2024-10-20 09:57 | PTCARENOTE ---
Dr Scherer spoe to pt re hospice , pt states she has no quality of life and is ready . Awaiting Hospice to see pt.
[2024-10-20 10:00] VITALS: BP 113/85
--- NOTE | 2024-10-20 10:00 | PN.CDI ---
CDI
- -
CDI:
Physician Documentation Request
Admit Date: 10/18/24 02:44
Dear Doctor Niesha,
Please review the following and provide your response in the progress notes.
Clinical Indicators:
- Wound note indicates:
- Stage 2 bilateral buttocks pressure injury, POA
- Stage 2 sacrum pressure injury, POA
- Stage 1 left heel pressure injury, POA
Physician documentation of the type and location of wounds is required for compliant documentation. Based on the above clinical findings and your assessment, please provide the following in your progress note:
1. Location of the ulcer/wound, including laterality.
2. Type (etiology) of ulcer/wound:
- Diabetic ulcer
- Arterial (ischemic) ulcer
- Venous stasis ulcer
- Pressure (decubitus) ulcer
- Other
Use of terms such as suspected, likely, concern for, or probable (associated with a specific diagnosis that is being evaluated, monitored, or treated as if it exists) are acceptable and can be coded in the inpatient setting, when documented at the
time of discharge.
Thank you,
France Juarez RN
CDI Specialist
Please use your independent medical judgment in providing your response.
*Source: National Pressure Ulcer Advisory Panel (NPUAP)
--- NOTE | 2024-10-20 10:13 | W.PN.UPDATE ---
Update Note
Progress Note Update
spoke to manager mechanical maintenance and then to son again; comfort care orders placed with plan to start morphine gtt and gradually wean down oxygen
[2024-10-20] MEDS: STERILE WATER FOR INJECTION IV (10:17)
[2024-10-20] MEDS: MORPHINE 100 IV (10:59)
--- NOTE | 2024-10-20 11:19 | PTCARENOTE ---
Pt now on Morphine gtt at 1mg/hr . Son at bedside
[2024-10-20] MEDS: MORPHINE SULFATE 2 MG IV ×3 (11:33→13:48)
--- NOTE | 2024-10-20 11:35 | HOSPNOTE ---
Spoke with son and patient. The patient will be started on a morphine drip and remain on comfort measures. Tomorrow if patient is in need of inpatient hospice we will admit if needed. We will continue to follow.
--- NOTE | 2024-10-20 11:38 | PTCARENOTE ---
Pt states she is SOB given 2mg morphine IV as ordered . O2 to 10 liters
--- NOTE | 2024-10-20 11:44 | CHAP ---
Emotional and spiritual support offered. Ms. Barrow said her son is a real estate investor and will take care of her. Prayer blanket given and accepted.
--- NOTE | 2024-10-20 14:03 | PTCARENOTE ---
Pt has been given 3 doses of 2 g of morphine now on step 2, O2 is off as are monitors. Son at bedside.. Pt looks to be ner .
--- NOTE | 2024-10-20 14:11 | PTCARENOTE ---
Son came to me stating she was gone. Pt has no hr no rsp DR Campos tt [facility]
--- NOTE | 2024-10-20 14:15 | PTCARENOTE ---
Bre tt came to room and pronounced ptIlana Noonan at bedside
--- NOTE | 2024-10-20 14:18 | W.PN.DEATH ---
Pronouncement of
-
Called to see patient to pronounce.
No spontaneous heart tones or respirations noted.
Patient not responsive to verbal stimuli.
Patient is pronounced .
Time of : 14:10
Date of : 10/20/24
Family Notified: Yes
--- NOTE | 2024-10-20 14:45 | W.DCSUMMARY ---
Discharge Summary
Discharge Data
Date of Admission: 10/18/24
Date of Discharge: 10/20/24
-
Pending Results: No
Hospital Course
Date of : 10/20/24
Time of : 2:10 PM
Primary care physician : Dr. Tayler Pradhan
Cause of : ESBL UTI and Bactermia, Heart Failure preserved EF Acute Exacerbation
Hospital Course :
Ms. Sandra Barrow was a with HFpEF AF on Eliquis s/p PVI, ITP, Parkinson's disease, chronic dysphagia, hypertension, GERD, afib, recent treatment complicated UTI (s/p IV Ertapenem course) who presented to the hospital with dyspnea after a coughing
episode. She required 10L midflow on arrival for persistent hypoxia. CXR with evidence of heart failure and possible pneumonia. She was admitted to medicine for treatment of acute heart failure exacerbation and pneumonia. She was given IV lasix
and antibiotics. Urine and blood cultures returned positive for ESBL and antibiotics broadened to Ertapenem. Despite diuresis and antibiotics patient's oxygen needs increased. Patient and son inquired about hospice given multiple admissions,
frailty and bedbound status. With worsening clinical trajectory, decision made for inpatient comfort care. She was started on an IV morphine gtt. Patient passed peacefully with son at bedside.
Important imaging findings :
Procedure findings :
Discharge Plan
-
Activity Restrictions/Additional Instructions:
Wound Care Instructions
L leg: clean with saline, Santyl (shy thick) adaptic and dry dressing daily
Sacrum and buttocks: barrier cream after cleaning and prn soilage
air mattress with turning schedule
air cushion when sitting
increase protein in diet
Follow up at wound care center call for an appointment.
Referrals:
Tayler Pardhan DO [Family Provider] -
Prescriptions:
No Action
Eliquis 5 MG tablet
5 mg PO BID
cholecalciferol (vitamin D3) [Vitamin D3] 25 mcg (1,000 unit) Capsule
25 mcg PO NOON
carbidopa-levodopa 25-100 mg tablet
1 tab PO 5/D@00,08,12,16,20
atenolol 25 mg tablet
25 mg PO DAILY Qty: 30 0RF
latanoprost 0.005 % Drops
1 drp BOTH EYES HS
gabapentin 100 mg Capsule
100 mg PO BID
amiodarone [Pacerone] 200 mg tablet
200 mg PO DAILY
ondansetron HCl 4 mg Tablet
4 mg PO Q8HPRN PRN (Reason: nausea)
midodrine 5 mg Tablet
5 mg PO BID
levothyroxine 100 mcg Tablet
100 mcg PO DAILY Qty: 0 0RF
furosemide 20 mg Tablet
20 mg PO BID Qty: 0 0RF
melatonin 5 mg Tablet
5 mg PO HS Qty: 0 0RF
acetaminophen 500 mg Tablet
500 mg PO TID
docusate sodium 100 mg Tablet
100 mg PO BID
Discharge Date and Time
Print Language: MONGOLIAN
--- NOTE | 2024-10-20 14:57 | PTCARENOTE ---
Son left , [facility] notified post mortem care in progress
--- NOTE | 2024-10-20 15:00 | CM ---
Patient from [facility] with Dx Acute Hypoxemic Respiratory Failure, UTI, HF. Transitioned to comfort care today. IV MS prn.
Notified by [facility] patient transitioned to comfort care earlier today.
Seen by attraction attendant.
Per nurse, son with patient when she today.
Patient today.
== END 2024-10-20 14:10 | disposition expired | DRG 871 ==
LOC: IMU 02:44
PROVIDERS: Internal Medicine; ADMITTING PHYSICIAN Hospitalist; ATTENDING PHYSICIAN Student in an Organized Health Care Education/Training Program; EMERGENCY PHYSICIAN Emergency Medicine; FAMILY PHYSICIAN Family Medicine; OTHER PHYSICIAN Internal Medicine Cardiovascular Disease; OTHER PHYSICIAN Internal Medicine Infectious Disease
PROC: 30233N1 Transfusion of Nonautologous Red Blood Cells into Peripheral Vein, Percutaneous Approach (ICD-10-PCS; 2024-10-18)
DX: A41.9 Sepsis, unspecified organism (principal); I50.33 Acute on chronic diastolic (congestive) heart failure; J69.0 Pneumonitis due to inhalation of food and vomit; J96.01 Acute respiratory failure with hypoxia; D69.3 Immune thrombocytopenic purpura; N17.9 Acute kidney failure, unspecified; E87.20 Acidosis, unspecified; I13.0 Hypertensive heart and chronic kidney disease with heart failure and stage 1 through stage 4 chronic kidney disease, or unspecified chronic kidney disease; N39.0 Urinary tract infection, site not specified; Z11.52 Encounter for screening for COVID-19; R65.20 Severe sepsis without septic shock; Z79.01 Long term (current) use of anticoagulants; N18.9 Chronic kidney disease, unspecified; D63.1 Anemia in chronic kidney disease; Z90.81 Acquired absence of spleen; G20.A1 Parkinson's disease without dyskinesia, without mention of fluctuations; E03.9 Hypothyroidism, unspecified; M31.6 Other giant cell arteritis; I48.0 Paroxysmal atrial fibrillation; Z66 Do not resuscitate; Z51.5 Encounter for palliative care; L89.322 Pressure ulcer of left buttock, stage 2; L89.312 Pressure ulcer of right buttock, stage 2; L89.152 Pressure ulcer of sacral region, stage 2; L89.621 Pressure ulcer of left heel, stage 1; E61.1 Iron deficiency; K21.9 Gastro-esophageal reflux disease without esophagitis; Z79.899 Other long term (current) drug therapy; Z74.01 Bed confinement status
CPT/HCPCS: 36430; 51701; 71045; 80048; 80053; 81003; 81015; 82607; 82728; 82746; 83540; 83550; 83605; 83735; 83880; 84295; 84443; 85014; 85018; 85025; 85027; 86850; 86900; 86901; 86920; 87040; 87070; 87086; 87088; 87149; 87186; 87205; 87502; 87811; 92610; 93005; 94640; 96361; 96365; 96366; 99285; J1335; J2185; P9016